=== PATIENT | female | born 1935 | race Caucasian/White ===

== ENCOUNTER 2016-09-01 09:20 | Emergency (ER) | payer MEDICARE, MEDICAID ==
[~2016-09-01] VITALS: Ht 165.1 cm; Wt 97.5 kg
[~2016-09-01 09:20] MED LIST: ACETAMINOPHEN500 M3 PO; GOOD SENSE ASPI81 M1 PO; ISOSORBIDE MONO30 MG PO; OMEPRAZOLE DR20 MG PO; PAROXETINE20 MG PO; TRAMADOL 50MG T50 MG PO; VERAPAMIL SR 2240 MG PO; VITAMIN D31000 IU PO
[2016-09-01 10:13] LABS: LYMPH # 0.5 K/mm3 (0.7-4.5); LYMPH % 9.9 % (10-50.0)
[2016-09-01 10:21] LABS: HEMOGLOBIN 8.6 g/dL (12.2-16.2)
--- NOTE | 2016-09-01 10:41 | Emergency Room Report ---
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 N Clinical Suspician of Infection? N Mental Status: 1 - Regular (Normal Baseline) Sepsis Risk:Possible Sepsis Risk Have you (or family members/close friends) recently traveled outside the [place]? N If Yes, where/when: Have you had exposure to infectious disease within the past month? N TB? Other? Specify: Source patient, RN notes reviewed, family, RN/MD Exam Limitations no limitations Comment 81yo female presents today c/o cough, fever, chills, and body aches x2 days. Pt and family reports pt has been exposed to family members recently diagnosed with pneumonia and Flu. Pt denies SOA, wheezing, n/v/d, or loss of appetite. Family also reports getting monthly iron infusions due to her chronic anemia and renal disease. ALLERGIES Coded Allergies: iodine (Severe, S-ANAPHYLAXIS 09/01/16) Penicillins (Intermediate, I-RASH 09/01/16) codeine (NA-HALLUCINATIONS 09/01/16) Uncoded Allergies: PEROXIDE (12/05/11) Home Medications Reported Medications VERAPAMIL HCL (Verapamil ER) 240 MG PO DAILY PAROXETINE (Paroxetine HCl) 20 MG PO DAILY Omeprazole (Omeprazole Dr) 20 MG PO DAILY Isosorbide Mononitrate (Isosorbide Mononitrate ER) 30 MG PO DAILY Aspirin 81 MG PO DAILY Acetaminophen (Acetaminophen Extra Strength) 500 MG PO Q6HP PRN HIP PAIN CHOLECALCIFEROL (VITAMIN D3) (Vitamin D) 1,000 IUNITS PO DAILY History Medical History General CAD? No Angina: No RI: No Hypertension? Yes Hyperlipidemia? No CHF? No DVT? No PE? No COPD? Yes Asthma? Yes Anemia? Yes GERD? Yes Gastric ulcers? No GI Bleed? No Hernia? Yes Thyroid Problems? No Hypothyroidism? No CVA? No Seizures? No Diabetes? No End Stage Renal Disease? No UTI? Yes Stones? No GB Disease: Yes Nephritic Syndrome? No Asplenia? No Hepatitis? No Sickle Cell Disease? No Arthritis? Yes Migraines? No Cataracts? Yes Glaucoma? No MRSA? No HIV? No TB? No Anxiety? Yes Depression? 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 Immunization Hx DT/Tetanus > 10 YRS Flu NEVER Pneumonia 5-10 YRS Surgical Hx Previous Surgery?Y HEMORRHOID LUMPECTOMY CHOLECYSTECTOMY HIP REPLACEMENT Family History Family Hx Diabetes Yes CAD Yes Hypertension Yes Hyperlipidemia Yes Cancer Yes TB No Social History Smoking Hx Smoker: Former Smoker Tobacco: No Are you/the child exposed to second-hand smoke: No Alcohol Alcohol: No Review of Systems All Other Systems Reviewed and Negative Constitutional see HPI, chills, fever Psychiatric/Neurological weakness Physical Exam Vital Signs Vital Signs Date Time Temp Pulse Resp B/P Pulse O2 O2 Flow FiO2 Ox Delivery Rate 09/01 1156 75 24 121/81 95 09/01 1110 98.5 92 24 123/70 90 09/01 1028 98 24 125/63 94 09/01 0927 99.0 101 24 144/68 93 General Appearance normal appearance, WD/WN Ear, Nose, Throat nasal congestion, pharyngeal erythema Neck normal inspection, non-tender, supple Respiratory Status Yes: non productive cough. No: respiratory distress, tender on palpation, use of accessory muscles, pain on inspiration, pain on expiration. Lung Sounds posterior: crackles, inspiration. left: crackles, inspiration. right: crackles , inspiration. Cardiovascular normal exam, regular rate/rhythm Peripheral Pulses Pulses normal Yes Neurologic alert, normal exam, oriented x 3 Mental status normal mood/affect Medical Decision Making LABS/Meds/Orders Pt receiving controlled substance in ED? No Comment Please admission patient appears medically stable, minimally symptomatic. Advised of low hemoglobin consistent with chronic anemia, and need to follow-up with Dr. Huertas for additional IV infusion. She'll be discharged home on Tamiflu, she'll alternate Motrin Tylenol for fever control. Results/Orders Laboratory Tests 09/01/16 1000: Sodium 138, Potassium 4.2, Chloride 105, Carbon Dioxide 26, BUN 16, Creatinine 1.7 H, Estimated Creat Clear 40 L, Estimated GFR (MDRD) 29 L, Glucose 101, Calcium 8.5, Total Bilirubin 0.2, AST 16, ALT 19, Alkaline Phosphatase 129 H, Total Protein 6.2 L, Albumin 3.0 L, Globulin 3.2, Albumin/Globulin Ratio 0.9 L, WBC 5.4, RBC 3.38 L, Hgb 8.6 L, Hct 27.7 L, MCV 82.0 L, RDW 17.5, Plt Count 255, MPV 8.6, Gran % 80.9 H, Gran # 4.4, Lymphocytes % 9.9 L, Monocytes % 8.1, Eosinophils % 0.6, Basophils % 0.5, Lymphocytes # 0.5 L, Monocytes # 0.4 , Eosinophils # 0.0, Basophils # 0.0, PUBS MCHC 31.1 L, MCH 25.5 L, Influenza Type A Ag DETECTED H, Influenza Type B Ag NOT DETECTED Orders Procedure Date/time Status IV SALINE LOCK 09/01 1005 Active INFLUENZA A&B ANTIGENS 09/01 1000 Complete CBC WITH AUTO DIFF 09/01 937 Complete CHEM 12 PROFILE 09/01 937 Complete XRAY/CT/US XRAY/CT/US XRAY chest XR interpretation by discussed w/radiologist Xray Results no infiltrates, normal heart size, normal lung inflation anthony Departure Departure Time of Disposition 112 Disposition DC Home or Self Care(routine) Clinical Impression Primary Impression: Influenza A Secondary Impressions: Anemia, iron deficiency Qualifiers: Iron deficiency anemia type: unspecified iron deficiency Qualified Code: D50.9 - Iron deficiency anemia, unspecified Condition STABLE Referrals LUIS RODAS P: Today after leaving ER Patient Instructions Anemia of Chronic Disease, DI for Influenza -- Adult Additional Instructions Please take the Tamiflu as instructed, call Dr. Rodas's office today in order to schedule a follow-up appointment, at your earliest convenience (in order to receive iv iron/Venofer). If no better please return promptly to this emergency room for evaluation or follow-up with your PCP. Discharge Counseling Counseled pt/family regarding diagnosis, test results, medications/RX, home care, follow up needs Comment Please take the Tamiflu as instructed, call Dr. Rodas's office today in order to schedule a follow-up appointment, at your earliest convenience (in order to receive iv iron/Venofer). If no better please return promptly to this emergency room for evaluation or follow-up with your PCP. Prescriptions Current Visit Scripts Oseltamivir Phosphate (Tamiflu 75MG Capsule) 75 MG PO BID #10 [facility] ED Critical Care Critical Care No Electronically Signed by Dulce BHAT,Chandler pink 09/02/16 at 5223
[2016-09-01] MEDS ORDERED: TAMIFLU 75MG CA75 MG PO (11:32)
[2016-09-01 11:56] VITALS: BP 121/81
--- NOTE | 2016-09-01 19:57 | RADIOLOGY REPORT PS360 ---
CHEST(2 VIEWS-NOT PORTABLE) ORDERING PHYSICIAN : Chandler Cardona MD PATIENT AGE: 81 years GENDER: Female INDICATION: chest symptomschest pain PROCEDURE: CHEST(2 VIEWS-NOT PORTABLE) COMPARISON: None available FINDINGS: Cardiomegaly. Gilda and mediastinal structures appear satisfactory Lungs hyperexpanded. Flattening of diaphragm increased AP dimension. Coarsening markings bilaterally suggesting chronic change. Question minimal patchy infiltrate at the right upper lobe, right suprahilar region on today's study.. The chronic features here but No prior films for comparison Hiatal hernia likely accounts for the 7 cm diameter soft tissue density behind the heart at midline. Postsurgical changes left axilla likely from previous left breast surgery Chest wall No no significant findings . Slight blunting left CP angle most likely chronic changes less likely small pleural effusion. -----IMPRESSION.------- 1. Cardiomegaly. 2. Hiatal hernia. 3. COPD. Hyperexpansion with chronic changes Question minimal superimposed patchy infiltrate at RUL on today's study.
[2016-10-16] MEDS ORDERED: METAMUCIL660 GM PO (14:55)
== END 2016-09-01 11:57 | disposition home or self-care (01) ==
LOC: ER 09:20
PROVIDERS: Emergency Medicine
DX: J10.1 Influenza due to other identified influenza virus with other respiratory manifestations (principal); Z87.891 Personal history of nicotine dependence; D50.9 Iron deficiency anemia, unspecified; K21.9 Gastro-esophageal reflux disease without esophagitis; J44.9 Chronic obstructive pulmonary disease, unspecified; I10 Essential (primary) hypertension; F41.8 Other specified anxiety disorders

== ENCOUNTER 2017-05-10 17:05 | Observation (INO) | payer MEDICARE, MEDICAID ==
[~2017-05-10] VITALS: Ht 165.1 cm; Wt 95.0 kg
[~2017-05-10 17:05] MED LIST changes: +METAMUCIL660 GM PO; +TAMIFLU 75MG CA75 MG PO
[2017-05-10 17:10] VITALS: BP 129/95
[2017-05-10 17:36] LABS: LYMPH # 1.1 K/mm3 (0.7-4.5); LYMPH % 19.9 % (10-50.0)
--- NOTE | 2017-05-10 17:36 | Emergency Room Report ---
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 N Clinical Suspician of Infection? N Mental Status: 1 - Regular (Normal Baseline) Sepsis Risk:Low Sepsis Risk Have you (or family members/close friends) recently traveled outside the [place]? N If Yes, where/when: Have you had exposure to infectious disease within the past month? N TB? Other? Specify: I READ THE TRIAGE ABOVE. 1 years old white female who tripped at home and hit her RIGHT rib and RIGHT upper quadrant on a chair. She suffered bruising over the RIGHT forearm RIGHT lower chest and RIGHT upper abdomen. There is no shortness of breath no nausea or vomiting. Source patient, RN notes reviewed, family (HER DAUGHTER.) Exam Limitations no limitations ALLERGIES Coded Allergies: Sulfa (Sulfonamide Antibiotics) (Severe, I-HIVES 10/16/16) iodine (Severe, S-ANAPHYLAXIS 09/01/16) Penicillins (Intermediate, I-RASH 09/01/16) codeine (NA-HALLUCINATIONS 09/01/16) hydrogen peroxide (10/28/16) Home Medications Reported Medications VERAPAMIL HCL (Verapamil ER) 240 MG PO DAILY PAROXETINE (Paroxetine HCl) 20 MG PO DAILY Omeprazole (Omeprazole Dr) 20 MG PO DAILY Isosorbide Mononitrate (Isosorbide Mononitrate ER) 30 MG PO DAILY Aspirin 81 MG PO DAILY Acetaminophen (Acetaminophen Extra Strength) 500 MG PO Q6HP PRN HIP PAIN CHOLECALCIFEROL (VITAMIN D3) (Vitamin D) 1,000 IUNITS PO DAILY Psyllium Husk (Metamucil) 660 GM PO DAILY History Medical History General CAD? No Angina: No GA: No Hypertension? Yes Hyperlipidemia? No CHF? No DVT? No PE? No COPD? Yes Asthma? Yes Anemia? Yes GERD? Yes Gastric ulcers? No GI Bleed? No Hernia? Yes Thyroid Problems? No Hypothyroidism? No CVA? No Seizures? No Diabetes? No End Stage Renal Disease? No UTI? Yes Stones? No GB Disease: Yes Nephritic Syndrome? No Asplenia? No Hepatitis? No Sickle Cell Disease? No Arthritis? Yes Migraines? No Cataracts? Yes Glaucoma? No MRSA? No HIV? No TB? No Anxiety? Yes Depression? 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 Respiratory no symptoms reported Cardiovascular no symptoms reported Gastrointestinal no symptoms reported Genitourinary no symptoms reported. Musculoskeletal no symptoms reported Skin see HPI Psychiatric/Neurological no symptoms reported Physical Exam Vital Signs Vital Signs Date Time Temp Pulse Resp B/P Pulse O2 O2 Flow FiO2 Ox Delivery Rate 05/10 1923 67 18 189/87 96 05/10 1801 98.0 65 20 129/84 96 05/10 1710 98.0 65 20 129/95 96 - WBC >12,000 or <4,000 or 10% bands? 2 or more SIRS Criteria Met? B/P:129/95 MAP:106 Creatinine >2.0? UA output<0.5ml/kg/hr for 2 hrs? Platelet count >100,000? Lactate >2.0mmol/1? INR >1.2 or PTT > than 60 sec? Evidence of Organ Dysfunction? Provider documented clinical suspician of infection? N Sepsis Criteria Count: 1 Sepsis Risk: Low Sepsis Risk General Appearance normal appearance, WD/WN Eye Exam - bilateral eye normal exam, bilateral eye PERRL, bilateral eye EOMI Ear, Nose, Throat hearing grossly normal, normal ENT inspection Neck normal inspection, non-tender, supple, full range of motion Respiratory Status Yes: trachea midline, chest symmetrical, non tender chest. No: respiratory distress. Lung Sounds bilateral: normal breath sounds, lungs clear. Cardiovascular normal exam, regular rate/rhythm, no peripheral edema, no gallop, no JVD, no murmur, no rub, normal peripheral pulses Peripheral Pulses Pulses normal Yes Gastrointestinal normal bowel sounds, normal exam, non tender, soft, no organomegaly Back normal inspection (NO VERTEBRAL TENDERNESS) Extremities NO DEFORMITY OR LIMTED ROM OF THE MAJOR JOINTS. 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 ECCHYMOSIS OVER THE LOWER ANTERIOR RIGHT CHEST AND RUQ. Medical Decision Making LABS/Meds/Orders Pt receiving controlled substance in ED? No Results/Orders Laboratory Tests 05/10/17 1725: Sodium 142, Potassium 4.9, Chloride 107, Carbon Dioxide 28, BUN 26 H, Creatinine 1.7 H, Estimated Creat Clear 37 L, Estimated GFR (MDRD) 29 L, Glucose 124 H, Calcium 8.6, Total Bilirubin 0.2, AST 8 L, ALT 12, Alkaline Phosphatase 144 H, Total Protein 6.3 L, Albumin 3.1 L, Globulin 3.2, Albumin/ Globulin Ratio 1.0 L, WBC 5.3, RBC 3.30 L, Hgb 9.6 L, Hct 30.8 L, MCV 93.2, RDW 13.8, Plt Count 256, MPV 7.9, Gran % 71.4, Gran # 3.8, Lymphocytes % 19.9, Monocytes % 6.0, Eosinophils % 1.9, Basophils % 0.8, Lymphocytes # 1.1, Monocytes # 0.3, Eosinophils # 0.1, Basophils # 0.0, PUBS MCHC 31.2 L, MCH 29.1 Current Medication Orders Sig/Yesi Start time Last Medication Dose Route Stop Time Status Admin Sodium Chloride 500 ML .STK-MED ONE 05/10 175 DC IV Bacitracin 0 .STK-MED ONE 05/10 173 DC TP Orders Procedure Date/time Status DIET-NOTHING BY MOUTH 05/[address] ABD/PELVIS REQ 05/10 1715 Active [id number] VIEWS 05/10 1715 Active CHEST(2 VIEWS-NOT PORTABLE) 05/10 1715 Active CBC WITH AUTO DIFF 05/10 1715 Complete CHEM 12 PROFILE 05/10 1715 Complete XRAY/CT/US XRAY/CT/US XRAY chest, rib XR interpretation by reviewed by me Xray Results no fracture seen, no pneumo or hydrothorax. Departure Departure Time of Disposition 1733 Disposition DC Home or Self Care(routine) Clinical Impression Primary Impression: Contusion, chest wall Secondary Impressions: Abdominal wall contusion, Anemia, Blunt abdominal trauma, Chronic renal failure, Skin tear Condition STABLE Referrals Elena BHAT,Thanh (Family) Additional Instructions the patienthad poor gfr was rehydrated and before the IVP dye she told the staff that she is allergic to the dye the test was done wihtout a dye. Her daughter was aware. I spoke with her daughter nik is aware of the options. I discussed with Dr. Hairston who will admit for Dr Parker for an Abdominal US in AM and repeated labs as the CT scan was done without a dye. the patietn is agreeable for admission. I did repair her skin tears to best possible. applied steristrips and bacitracin ointment. Discharge Counseling Counseled pt/family regarding diagnosis, test results, medications/RX, follow up needs ED Critical Care Critical Care No If Critical Care minutes are documented, the time involved in the performance of seperately reportable procedures was not counted toward critical care time documented. I directly delivered medical care to this critically ill and/or injured patient. Timely evaluation and treatment was necessary to address the significant organ system(s) dysfunction present in this patient. at 1930
[2017-05-10 18:38] LABS: HEMOGLOBIN 9.6 g/dL (12.2-16.2)
--- NOTE | 2017-05-10 19:17 | RADIOLOGY REPORT PS360 ---
CT ABD PELVIS W/O CONTRAST CLINICAL INDICATION: C/O RUQ ABDOMEN PAIN.FELL ONTO CHAIR=BRK. IODINE ALLERGY ORDERING PHYSICIAN: Phi Aburto MD PATIENT AGE: 81 years COMPARISON: None TECHNIQUE: Axial images obtained with sagittal and coronal reformats. PROCEDURE: Oral Contrast: None IV Contrast: None . FINDINGS: No acute finding in the lower chest. There is a small hiatal hernia and there are coronary artery calcifications. The liver, spleen, adrenal glands and pancreas have an unremarkable unenhanced CT appearance. No obvious hepatic laceration or perihepatic hematoma evident. There are bilateral renal cysts largest on the left at 8.2 x 6.4 cm. No obstructing renal or ureteral calculi. No intestinal obstruction or free air. No evidence of appendicitis or diverticulitis. There is diverticulosis. There is a small umbilical hernia containing fat. Artifact is present from right hip prosthesis. No acute bony anomalies. IMPRESSION: 1. No acute intra-abdominal or pelvic pathology. 2. Right abdominal wall contusion. 3. Diverticulosis. 4. Bilateral renal cysts Increased density involves the subcutaneous fat of the right mid abdominal region consistent with contusion.
[2017-05-10 20:43] VITALS: BP 160/99
[2017-05-10 21:32] VITALS: BP 154/81
[2017-05-11 04:29] VITALS: BP 184/79
[2017-05-11 06:29] LABS: HEMOGLOBIN 9.7 g/dL (12.2-16.2); LYMPH # 1.1 K/mm3 (0.7-4.5); LYMPH % 25.4 % (10-50.0)
--- NOTE | 2017-05-11 06:59 | RADIOLOGY REPORT PS360 ---
CHEST(2 VIEWS-NOT PORTABLE) HISTORY: Chest pain following injury TRAUMA ORDERING PHYSICIAN: Phi Aburto MD PATIENT AGE: 81 years COMPARISON: 09/01/2016 FINDINGS: There is cardiomegaly with mild pulmonary venous congestion consistent with mild CHF. There are small bilateral pleural effusions. Present in the left axilla. No lobar consolidation or collapse. Chronic changes are noted. There are mild degenerative changes in the thoracic spine. Hiatal hernia noted. No acute bony anomalies IMPRESSION: Mild CHF with small bilateral effusions
--- NOTE | 2017-05-11 07:01 | RADIOLOGY REPORT PS360 ---
[id number] VIEWS HISTORY: Right-sided rib pain following injury TRAUMA ORDERING PHYSICIAN: Phi Aburto MD PATIENT AGE: 81 years COMPARISON: None FINDINGS: Multiple views of the right ribs are obtained. No displaced fracture evident. If pain persists then, would consider follow-up study in 7-[address] with 3-D reformats IMPRESSION: Negative right ribs
--- NOTE | 2017-05-11 07:25 | PHARMACY CLINIC NOTE ---
Patient Demographics Patient Demographics Admission date: 05/10/17 Date: 05/11/17 Time: 0724 Allergies Coded Allergies: Sulfa (Sulfonamide Antibiotics) (Severe, I-HIVES 10/16/16) iodine (Severe, S-ANAPHYLAXIS 09/01/16) Penicillins (Intermediate, I-RASH 09/01/16) codeine (NA-HALLUCINATIONS 09/01/16) hydrogen peroxide (10/28/16) HEIGHT- FT: 5 IN: 5.00 K.029 VTE General Information Labs: Laboratory Tests 05/11 05/10 0609 1725 Hematology Hgb (12.2 - 16.2 g/dL) 9.7 L 9.6 L Hct (37.0 - 47.0 %) 30.5 L 30.8 L Plt Count (142 - 424 K/mm3) 241 256 Disclaimer The following section includes nursing documentation that has been pulled in for pharmacy review. Patient's VTE score: 3 Patient's VTE Risk: LOW RISK Clinical trial participant? No VTE prophylaxis [id number] [id number] VTE prophylaxis ordered? Yes Type of prophylaxis/treatment: CLEO at 0724
[2017-05-11 07:37] VITALS: BP 188/95
--- NOTE | 2017-05-11 08:20 | Discharge Summary Standard ---
Demographics: Admit date: 05/10/17 Chief complaint: Fall with abdominal pain PRIMARY DIAGNOSIS: abdominal wall contusion Allergies: Coded Allergies: Sulfa (Sulfonamide Antibiotics) (Severe, I-HIVES 10/16/16) iodine (Severe, S-ANAPHYLAXIS 09/01/16) Penicillins (Intermediate, I-RASH 09/01/16) codeine (NA-HALLUCINATIONS 09/01/16) hydrogen peroxide (10/28/16) History of present illness: History of present illness: Patient was brought to the emergency department a couple of hours after suffering a mechanical fall at her home. She states she was walking her living room and her foot caught over the [edge of a tile that was on her floor. She tripped and fell over the edge of a chair, striking the RIGHT upper quadrant and causing significant pain. She was unable to walk because of breathlessness and reported to the emergency department. In the emergency department CT scan and labs were essentially unremarkable except for the presence of an abdominal wall contusion but no evidence of intraorgan pathology. She was admitted to second floor for observation and further diagnostic testing as needed. This morning she feels good, she's been able to get up and go to the restroom by herself, she denies hematuria, coughing, spitting up blood or malfunction of bowels. She's had a normal bowel movement this morning. Of note, she reports that at home she was not using her cane inside the house but normally uses this device. Past medical history: Family HX Diabetes Yes CAD Yes Hypertension Yes Hyperlipidemia Yes Cancer Yes TB No Immunization HX DT/Tetanus 1-4 Years Ago Flu NEVER Pneumonia Received In Past TB Test in last year No General CAD? No Angina: No IN: No Hypertension? Yes Hyperlipidemia? No CHF? No DVT? No PE? No COPD? Yes Asthma? Yes Anemia? Yes GERD? Yes Gastric ulcers? No GI Bleed? No Hernia? Yes Thyroid Problems? No Hypothyroidism? No CVA? No Seizures? No Diabetes? No UTI? Yes Stones? No GB Disease: Yes Nephritic Syndrome? No Asplenia? No Hepatitis? No Sickle Cell Disease? No Arthritis? Yes Migraines? No Cataracts? Yes Glaucoma? No MRSA? No HIV? No TB? No Anxiety? Yes Depression? 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 No Patien't marital status is single Patient's support system is excellent Review of systems: Constitutional No: no symptoms reported. Respiratory No: no symptoms reported. Cardiovascular No no symptoms reported Gastrointestinal/Abdominal No no symptoms reported Genitourinary No: no symptoms reported. Musculoskeletal No: no symptoms reported. Neurological No: see HPI. Exam: Lab data for last 24 hours: Laboratory Tests 05/11/17 0609: Sodium 142, Potassium 4.4, Chloride 108 H, Carbon Dioxide 28, BUN 21 H, Creatinine 1.4 H, Estimated Creat Clear 47 L, Estimated GFR (MDRD) 36 L, Glucose 87, Calcium 8.9, WBC 4.3 L, RBC 3.30 L, Hgb 9.7 L, Hct 30.5 L, MCV 92.3, RDW 13.9, Plt Count 241, MPV 7.4, Gran % 61.5, Gran # 2.6, Lymphocytes % 25.4, Monocytes % 8.3, Eosinophils % 4.1, Basophils % 0.6, Lymphocytes # 1.1, Monocytes # 0.4, Eosinophils # 0.2, Basophils # 0.0, PUBS MCHC 31.8, MCH 29.3 05/10/17 1725: Sodium 142, Potassium 4.9, Chloride 107, Carbon Dioxide 28, BUN 26 H, Creatinine 1.7 H, Estimated Creat Clear 37 L, Estimated GFR (MDRD) 29 L, Glucose 124 H, Calcium 8.6, Total Bilirubin 0.2, AST 8 L, ALT 12, Alkaline Phosphatase 144 H, Total Protein 6.3 L, Albumin 3.1 L, Globulin 3.2, Albumin/ Globulin Ratio 1.0 L, WBC 5.3, RBC 3.30 L, Hgb 9.6 L, Hct 30.8 L, MCV 93.2, RDW 13.8, Plt Count 256, MPV 7.9, Gran % 71.4, Gran # 3.8, Lymphocytes % 19.9, Monocytes % 6.0, Eosinophils % 1.9, Basophils % 0.8, Lymphocytes # 1.1, Monocytes # 0.3, Eosinophils # 0.1, Basophils # 0.0, PUBS MCHC 31.2 L, MCH 29.1 Admission vital signs: 1ST Vital Signs Result Date Time Pulse Ox 96 05/10 1710 B/P 129/95 05/10 1710 Temp 98.0 05/10 1710 Pulse 65 05/10 1710 Resp 20 05/10 1710 O2 Delivery ROOM AIR 05/10 2043 Additional information: ENT exam clear. Lungs are clear, heart rate regular. Abdomen is soft, there is bruising noted in the RIGHT upper quadrant and below the RIGHT breast consistent with her reported injury. This area is tender, but no deep tenderness or rebound or guarding. No Jaimes sign. No periumbilical or flank bruising. She has no epigastric tenderness. No CVA tenderness. Able to move extremities well. No edema noted. Hospital Course Hospital Course: Patient was evaluated overnight, did well, no complaints this morning. Hemoglobin is unremarkable this morning. Labs are unremarkable. Plan will be to discharge home with close follow-up in my office. I've advised her to use her cane whenever she ambulates. Medications Medications: Discharge meds are as noted. Follow up Follow up in office in: 2 DAYS with: Shruti Joe APRN at 0819
[2017-05-11 08:37] VITALS: BP 188/95
[2017-05-11 09:50] VITALS: BP 188/95
--- OUTSIDE RECORDS SUMMARY | 2017-06-08 04:49 | External Medical Summary Rpt ---
Author Author , LOULOU JAMIL Address Unknown Phone [email or web address] Providers Care Warehouse Assistant Name Role Phone ALLRAN JR ROME, ALLRAN Unavailable Unavailable JR ROME ANYA FRA, ANYA Unavailable Unavailable FRA ANYA FRA, ANYA Unavailable Unavailable FRA RODRIGUEZ, RODRIGUEZ Unavailable Unavailable BESSON LJ, BESSON Unavailable Unavailable LJ BESSON LJ, BESSON Unavailable Unavailable LJ BESSON, ROBERT A, Unavailable Unavailable BESSON, ROBERT A [facility] Un[facility]available [facility], [facility] MONTIEL, MONTIEL Unavailable Unavailable BORAL RADHA, BORAL RADHA Unavailable Unavailable [facility] Unavailable Unavailable INC, [facility] TOWNSEND, Unavailable Unavailable [facility], Unavailable Unavailable [facility] RAMIRO VERAS, RUBIO Unavailable Unavailable JESSICA FERGUSONE Unavailable Unavailable ROMAN ROBERTS, Unavailable Unavailable ROMAN RUBIO [facility] Unavailable Unavailable [facility], [facility] TORRES PREET, TORRES PREET Unavailable Unavailable JAMAR DUGGAN, JAMAR JR Unavailable Unavailable ENRIQUETA, ENRIQUETA Unavailable Unavailable ENRIQUETA BRITTANY, Unavailable Unavailable ENRIQUETA BRITTANY ENRIQUETA BRITTANY, Unavailable Unavailable ENRIQUETA BRITTANY JOHN ROBISONLAS, Unavailable Unavailable ENRIQUETA, KHALIDA [facility] Unavailable [facility]available [facility], [facility] ADRIANNA, ADRIANNA Unavailable Unavailable ADRIANAN PHI, Unavailable Unavailable ADRIANNA PHI DUDEE HANNAH, DUDEE HANNAH Unavailable Unavailable DUDEE HANNAH, DUDEE HANNAH Unavailable Unavailable DUDEE, JITANDER S, Unavailable Unavailable DUDEE, JITANDER S FALLUJI YAMILETH, FALLUJI Unavailable Unavailable YAMILETH FALLUNIKKO CARSON, FALLUJI Unavailable Unavailable FRANKIE SIMENTAL, Unavailable Unavailable FRANKIE CONTRERAS, Unavailable Unavailable CARLOS CONNELLY JENNIFER K [facility] Unavailable Unavailable INC, [facility] Unavailable Unavailable HOSPITAL P, [facility] CLANCY ARLET, CLANCY Unavailable Unavailable ARLET CLANCY ARLET, CLANCY Unavailable Unavailable ARLET CLANCY, TREVOR S, Unavailable Unavailable CLANCY, TREVOR S SANIA, SANIA AGUILAR, Unavailable Unavailable CORIE BRASWELL Unavailable Unavailable [facility], Unavailable Unavailable [facility] AMOS TRA, AMOS TRA Unavailable Unavailable MICHAEL NAN, MICHAEL Unavailable Unavailable NAN MICHAEL NAN, MICHAEL Unavailable Unavailable NAN [facility], [facility] Un[facility], [facility] CHARANJIT, TEJA E, Unavailable Unavailable CHARANJIT, TEJA E [facility] Unavailable Unavailable INTERNAL MED, [facility] LINGREEN ARLET, Unavailable Unavailable LINGREEN ARLET MACIVOR DUN, MACIVOR Unavailable Unavailable DUN [facility] Unavailable Unavailable [facility]AT, [facility] MCKEMIE JR CHINCHILLA, Unavailable Unavailable MCKEMIE JR RENÉE PETERSENKEMIOdilon CHINCHILLA, Unavailable Unavailable RAE JUÁREZ JR, JR Unavailable Unavailable F, RAE SHERIFF JR F [facility], [facility] Unavailable Unavailable [facility] H[facility], [facility], [facility] LAURA SMITH, Unavailable Unavailable LAURA SMITH WILLIAM F, Unavailable Unavailable RAE MACIAS [facility], Unavailable Unavailable [facility] MOMO GRIFFITH, Unavailable Unavailable MOMO GRIFFITH MD Unavailable Unavailable [facility] Unavailable Unavailable LAB, [facility] DAMON SALMA, DAMON SALMA Unavailable Unavailable DAMON SALMA, DAMON SALMA Unavailable Unavailable DAMON, CUONG, ADMON, Unavailable Unavailable CUONG PETTEY JAM, PETTEY Unavailable Unavailable JAM FELA DENISE, FELA Unavailable Unavailable DENISE SCHULSTAD, DASHA, Unavailable Unavailable SCHULSTAD, DASHA MARINA ISMAEL, MARINA Unavailable Unavailable ISMAEL [facility], Unavailable Unavailable [facility], Unavailable Unavailable [facility] BURCH, BURCH Unavailable Unavailable BURCH POLLO, BURCH POLLO Unavailable Unavailable Purpose Continuity of Care Document - 11-12-2007 through 2016 Problems Code Diagnosis DOS Provider Status [id number] PAIN IN 03-05-2017 [facility] D509 IRON 12-24-2016 [facility] P UNSPECIFIED D631 ANEMIA IN 12-24-2016 [facility] DISEASE I129 HYPERTENSIV 12-24-2016 [facility] CKD [facility] W/STAGE 1-4 [facility]ATION CKD OR UNS CKD M8580 OTH SPEC 12-24-2016 [facility] D/O BONE SERV DENSITY [facility] STRUCTURE UNS SITE N184 CHRONIC 12-24-2016 [facility] DISEASE [facility] STAGE 4 SEVERE N250 RENAL 12-24-2016 [facility] OSTEODYSTRO SERV PHY [facility] 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 L570 ACTINIC 12-04-2016 [facility] KERATOSIS [facility] L820 INFLAMED 12-04-2016 [facility] SEBORRHEIC KERATOSIS [facility] P[facility] L821 OTHER 12-04-2016 [facility] SEBORRHEIC KERATOSIS [facility] D649 ANEMIA 11-12-2016 [facility] UNSPECIFIED [facility] P [id number] ADVERSE 10-28-2016 [facility] EFFECT IRON [facility] INC COMPOUNDS INITIAL ENC 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-29-2016 [facility] OSTEOARTHRI S PSC TIS LEFT KNEE R079 CHEST PAIN 09-01-2016 [facility] J180 BRONCHOPNEU 05-15-2016 [facility] [place] [facility] UNSPECIFIED INTERNAL ORGANISM MED D638 ANEMIA IN 02-28-2016 [facility] OTHER [facility] DISEASES CLASSIFIED ELSW N183 CHRONIC 02-28-2016 [facility] DISEASE [facility] STAGE 3 MODERATE 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 11-19-2015 [facility] OF OTHER VALLEY SPECIFIED B INTERNAL GROUP MED VITAMINS X94853 EFFUSION 11-15-2015 [facility] U74125 PAIN IN 11-15-2015 [facility] M7120 SYNOVIAL 11-15-2015 [facility] CYST MEDICAL POPLITEAL IMAGING ASS SPACE BURNS UNS KNEE [id number] OTH TEAR 11-15-2015 [facility] MENISCUS [facility] CURR INJ LT KNEE INIT ENC E785 HYPERLIPIDE 11-08-2015 [facility] JONE [facility] UNSPECIFIED INTERNAL MED N182 CHRONIC 11-08-2015 [facility] KIDNEY [facility]LEY DISEASE INTERNAL STAGE 2 MED MILD Z0000 ENCOUNTER 11-08-2015 [facility] GEN ADULT VALLEY MED EXAM INTERNAL W/O MED ABNORMAL FIND Z23 ENCOUNTER 11-08-2015 [facility] FOR [facility] IMMUNIZATIO INTERNAL N MED Z853 PERSONAL 11-08-2015 [facility] 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 Z862 PERSONAL HX 11-08-2015 [facility] DZ VALLEY BLOOD&BLOOD INTERNAL FORM ORGN MED IMMUNE MECH J0100 ACUTE 10-29-2015 [facility] MAXILLARY [facility]LEY SINUSITIS INTERNAL UNSPECIFIED MED M5432 SCIATICA 06-26-2015 [facility] LEFT SIDE VALLEY INTERNAL MED 2809 UNSPECIFIED 03-02-2015 [facility] IRON [facility] DEFICIENCY INC ANEMIA 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 2859 UNSPECIFIED 02-20-2015 [facility] ANEMIA [facility]YS[facility]IANS GROUP 5533 DIAPHRAGMAT 02-20-2015 [facility] VIRGIL W/O PHYSICIANS MENTION GROUP OBSTRUCTION /GANGREN 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 5781 BLOOD IN 02-20-2015 [facility] STOOL PHYSICIANS GROUP 2808 OTHER 02-06-2015 [facility] SPECIFIED PHYSICIANS IRON GROUP DEFICIENCY ANEMIAS 57199 ANEMIA IN 09-28-2014 [facility] DISEASE 52149 HTN CKD UNS 09-28-2014 [facility] W/CKD SERV STAGE I [facility]OUNDATION THRU STAGE IV/UNS 5853 CHRONIC 09-28-2014 [facility] STAGE III (MODERATE) 5880 RENAL 09-28-2014 [facility] OSTEODYSTRO SERV PHY [facility] 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 HANNAH 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 89754 CHANGES IN 03-14-2014 DUDEE HANNAH VASCULAR APPEARANCE OF RETINA 46851 ANEMIA OF 11-24-2013 [facility] DISEASE 4019 UNSPECIFIED 11-24-2013 [facility] ESSENTIAL [facility] HYPERTENSIO [facility]OUNDATION N 2662 OTHER 06-13-2013 [facility] B-COMPLEX DEFICIENCIE S 2811 OTHER 06-06-2013 [facility] VITAMIN B12 DEFICIENCY ANEMIA V4364 HIP JOINT 04-05-2013 [facility], REPLACEMENT TETRYL SCREEN OPERATOR BY OTHER [facility] [place] [facility] V571 OTHER 04-05-2013 [facility], PHYSICAL TETRYL SCREEN OPERATOR [place]ER[place] [facility] [place] [facility] 04856 PAIN IN 03-23-2013 [facility] JOINT PELVIC REGION AND THIGH 7295 PAIN IN 03-23-2013 [facility], SOFT TETRYL SCREEN OPERATOR TISSUES OF [facility] 50712 SWELLING OF 03-23-2013 CLANCY ARLET [place] 23695 OTHER 03-23-2013 [facility], MALAISE AND TETRYL SCREEN OPER[place] [facility] [address]121 ABDOMINAL 03-23-2013 [facility], PAIN RIGHT TETRYL SCREEN OPERATOR LOWER [facility] 78518 ABDOMINAL 03-23-2013 [facility], PAIN, LEFT TETRYL SCREEN OPERATOR LOWER [facility] 28419 ABDOMINAL 03-23-2013 [facility], TENDERNESS TETRYL SCREEN OPERATOR RIGHT LOWER [facility] 8479 SPRAIN AND 03-23-2013 [facility], STRAIN OF TETRYL SCREEN OPERATOR UNSPECIFIED [facility] SITE OF HOS BACK V4589 OTHER 03-23-2013 [facility], POSTSURGICA TETRYL SCREEN OPERATOR L STATUS [facility] OTHER [facility]OS V5869 LONG-TERM 03-23-2013 [facility], (CURRENT) TETRYL SCREEN OPERATOR USE OF [facility] OTHER HOS MEDICATIONS 7823 EDEMA 03-22-2013 [facility], TETRYL SCREEN [place] [facility] [facility] 45684 OSTEOARTHRO 02-15-2013 MARINA ISMAEL S UNSPEC GEN/LOC PELV REGION&THIG H V5481 AFTERCARE 02-15-2013 ANYA FRA FOLLOWING JOINT REPLACEMENT 54736 COR 02-14-2013 FALLUJI YAMILETH ATHEROSLERO UNSPEC TYPE VESSEL [place]/J[place]É MIGUEL T 86640 OTH 02-14-2013 FALLUJI YAMILETH NONSPECIFIC ABNORM CV SYSTEM FUNCTION STUDY V7283 OTHER 02-09-2013 [facility] PRE-OPERATI VE EXAMINATION V700 ROUTINE 02-01-2013 LEE ANN [facility] GENERAL MEDICAL EXAM@HEALTH CARE FACL V7284 UNSPECIFIED 01-31-2013 [facility] PRE-OPERATI VE EXAMINATION 4011 ESSENTIAL 01-20-2013 FALLUJI YAMILEHT HYPERTENSIO N, BENIGN 90516 NONSPECIFIC 01-20-2013 FALLUJI YAMILETH ABNORMAL ELECTROCARD IOGRAM 3671 MYOPIA 12-22-2012 DUDEE HANNAH 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 3674 PRESBYOPIA 12-22-2012 DUDEE HANNAH 5939 UNSPECIFIED 09-28-2012 ENRIQUETA DISORDER BRITTANY OF KIDNEY AND URETER 89570 OTHER 09-08-2012 SHARITA DUGGAN SPECIFIED RENÉE CARDIAC DYSRHYTHMIA S 4293 CARDIOMEGAL 09-08-2012 RAMIRO VERAS Y 7802 SYNCOPE AND 09-08-2012 SHARITA DUGGAN COLLAPSE RENÉE 2724 OTHER AND 07-14-2012 MICHAEL SINDY UNSPECIFIED HYPERLIPIDE JONE 90487 ESOPHAGEAL 07-14-2012 MICHAEL CALLAHAN REFLUX 8438 SPRAIN&STRA 07-14-2012 MICHAEL CALLAHAN IN OTHER SPECIFIED SITES HIP&THIGH 44281 PRIMARY LOC 01-30-2012 [facility] OSTEOARTHRO INC SIS PELVIC REGION&THIG H 7242 LUMBAGO 01-30-2012 [facility] INC 60601 DEGEN 12-30-2011 [facility] 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 82592 SPINAL STEN 12-30-2011 PETTEY JAM 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 96157 DISPLCMT 12-11-2011 [facility] LUMBAR [facility]ICAL INTERVERT IMAGING ASS DISC W/O MYELOPATHY 4553 EXTERNAL 12-08-2011 DAMON SALMA HEMORRHOIDS WITHOUT MENTION COMP 5693 HEMORRHAGE 12-08-2011 DAMON SALMA OF RECTUM AND ANUS 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-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 97118 AFTER-CATAR 11-19-2011 DUDEE HANNAH ACT, OBSCURING VISION 01384 KERATOCONJU 11-19-2011 DUDEE HANNAH NCTIVITIS SICCA NOT SPEC SJOGRENS 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 13992 NUCLEAR 11-04-2011 DUDEE HANNAH SCLEROSIS 3670 HYPERMETROP 11-04-2011 [place] [address] VITREOUS 11-04-2011 DUDEE HANNAH DEGENERATIO N 4550 INTERNAL 11-04-2011 MICHAEL CALLAHAN HEMORRHOIDS WITHOUT MENTION COMP 7243 SCIATICA 09-29-2011 LEE ANN LJ 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 V7611 SCREENING 07-10-2010 [facility] [place] [facility] PATIENT V7612 OTHER 07-10-2010 [facility]CRE[facility] MAMMOGRAM ASSOCIAT 7852 UNDIAGNOSED 05-07-2010 [facility] T[place]RES [place] 30516 SHORTNESS 05-07-2010 [facility] TORRES OF BREATH CONSULTING SRV 4299 UNSPECIFIED 05-02-2010 [facility] DISEASE 79743 OTHER 05-02-2010 [facility] [place]SPNE[place] [address] PAIN IN 02-11-2010 [facility] JOINT, [facility] LOWER LEG INC 23662 DIAB W/O 02-04-2010 [facility] COMP TYPE [facility] II/UNS NOT INC STATED UNCNTRL 5789 UNSPECIFIED 02-04-2010 [facility] HEMORRHAGE [facility] OF INC GASTROINTES TINAL TRACT 32374 EFFUSION OF 01-15-2010 ENRIQUETA, LOWER LEG KHALIDA JOINT 17617 SYNOVIAL 01-15-2010 ENRIQUETA, CYST OF KHALIDA POPLITEAL SPACE 6271 POSTMENOPAU 10-31-2009 [facility] 460 ACUTE 10-11-2009 [facility] NASOPHARYNG VALLEY ITIS INTERNAL MED 490 BRONCHITIS 10-11-2009 [facility] NOT VALLEY SPECIFIED INTERNAL ACUTE OR MED CHRONIC 53678 CALCU 04-30-2009 SCHUL[facility]AD, GALLBLADD DASHA W/OTH CHOLECYST W/O MENTION OBST 10489 CALCU 04-30-2009 [facility] GALLBLADD ANESTH OF W/O MENTION [facility] CHOLECYST/O BST 16503 CHRONIC 04-30-2009 PATHOLOGY & CHOLECYSTIT CYTOLOGY IS LAB 17692 ABDOMINAL 04-30-2009 SCHULSTAD, PAIN RIGHT DASHA UPPER QUADRANT 4139 OTHER AND 04-10-2009 NEW UNSPECIFIED [facility] P[place]ORIS 14991 CORONARY 04-10-2009 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 [facility] FAILURE UNSPECIFIED 5770 ACUTE 03-24-2009 [facility] S 4556 UNSPEC 03-05-2009 [facility] HEMORRHOIDS [facility] WITHOUT INC MENTION COMPLICATIO N 7019 UNSPECIFIED 03-05-2009 [facility] HYPERTROPHI INC C&ATROPHIC CONDITION SKIN 19682 CHEST PAIN 02-26-2009 [facility] UNSPECIFIED [facility] PROF SERV 7859 OTHER 02-23-2009 [facility] SYMPTOMS [facility]IOLOGY INVOLVING ASSOCIATES CARDIOVASCU PSC LAR SYSTEM V1589 OTH SPEC 05-15-2008 [facility] PRESENTING [facility] HEALTH OTH 72677 UNSPECIFIED 03-01-2008 [facility] [facility]AG[facility] S ASSOCIATES V7231 ROUTINE 02-10-2008 [facility] EXAMINATION [facility] 84629 HYPERTENSIV 12-22-2007 SORIN Odilon BRADSHAW S RETINOPATHY 0579 UNSPECIFIED 11-12-2007 [facility] VIRAL VALLEY EXANTHEM INTERNAL MED 786.50 D50.9 IRON DEFICIENCY ANEMIA, UNSPECIFIED D64.9 ANEMIA, UNSPECIFIED [id number] J10.1 FLU DUE TO OTH IDENT INFLUENZA VIRUS W OTH RESP MANIFEST M81.0 AGE-RELATED OSTEOPOROSI S W/O CURRENT PATHOLOGICA L FRACTURE N18.3 CHRONIC KIDNEY DISEASE, STAGE 3 (MODERATE) N18.9 CHRONIC KIDNEY DISEASE, UNSPECIFIED N25.0 RENAL OSTEODYSTRO PHY R53.83 OTHER FATIGUE S20.219A CONTUSION OF UNSPECIFIED FRONT WALL OF THORAX, INIT ENCNTR S30.1XXA CONTUSION OF ABDOMINAL WALL, INITIAL ENCOUNTER S39.81XA OTHER SPECIFIED INJURIES OF ABDOMEN, INITIAL ENCOUNTER Z79.899 OTHER PRODUCTION EDITOR (CURRENT) DRUG THERAPY Immunization Name Date Rout CVX Reac Dose Comm Prov Is Faci e tion ent ider Refu lity Give sed n PPSV 03-1 33 VINICIUS No LICK 23 0-20 ON ING VACC 16 LJ VALL INE EY 2 INTE YRS RNAL OR MED OLDE R FOR SUBQ /IM USE Procedures Procedure DOS Code Location Performer Comment DUP-SCAN 91785 [facility] MONTIEL XTR VEINS 7 MEDICAL IMAGING UNILATERA ASS L/LIMITED STUDY DESTRUCTI 03649 DERMATOLO DERMATOLO ON 7 GY GY PREMALIGN CONSULTAN CONSULTAN ANT [place] 1[place] [address] [facility] INFUSION 7 [facility]OS[facility] THERAPY/P INC INC ROPHYLAXI S /DX 1ST TO 1 [place] [address] [facility]Y INFUSION 7 [facility]OS[facility] THERAPY/P INC INC ROPHYLAXI S /DX 1ST [place] [address] [facility] INFUSION 7 [facility]OS[facility] THERAPY/P INC INC ROPHYLAXI S /DX 1ST TO 1 HR INJECTION J3301 [facility] FONTENOT 7 TRIAMCINO ORTHOPAED LONE ICS PSC ACETONIDE NOS 10 MG ARTHROCEN 83103 [facility] TESIS 7 ASPIR&/IN ORTHOPAED ORTHOPAED J MAJOR ICS PSC ICS PSC JT/BURSA W/O US RADIOLOGI 43940 PAYAL ROBISON C EXAM 7 MEDICAL CHEST 2 IMAGING VIEWS ASS FRONTAL&L ATERAL RADIOLOGI 33376 CHRIS Atkinson 6 EN EXAMINATI ORTHOPAED ON KNEE ICS PSC 1/2 VIEWS ARTHROCEN 85119 CHRIS LAMBERTIS 6 EN ASPIR&/IN ORTHOPAED J MAJOR ICS PSC JT/BURSA W/O US INJECTION J3301 CHRIS ESCOBAR 6 EN TRIAMCINO ORTHOPAED LONE ICS PSC ACETONIDE NOS 10 MG THERAPEUT 98415 [facility] BESSON IC 6 VALLEY LJ PROPHYLAC INTERNAL TIC/DX MED INJECTION SUBQ/IM INJECTION J3420 [facility] BESSON VIT B-12 6 VALLEY LJ INTERNAL CYANOCOBA MED CHOCO TO 1000 MCG MRI ANY 66318 [facility] B[facility]HART JT LOWER 6 MEM HOSP [facility] HOS[facility] EXTREM INC INC W/O CONTRAST MATRL ANNUAL G0438 [facility]ESS[facility] WELLNESS 6 VALLEY LJ VISIT; INTERNAL PERSONALI MED Z PPS INIT VISIT PPSV23 17218 [facility] VACCINE 2 6 VALLEY LJ YRS OR INTERNAL OLDER FOR MED SUBQ/IM USE COLLECTIO 54342 [facility] BESSON N VENOUS 6 VALLEY LJ BLOOD INTERNAL VENIPUNCT MED URE ADMINISTR G0009 [facility] BESSON ATION OF 6 VALLEY LJ PNEUMOCOC INTERNAL TERRANCE MED VACCINE THERAPEUT 94656 [facility] RODRIGUEZ IC 6 VALLEY PROPHYLAC INTERNAL TIC/DX MED INJECTION SUBQ/IM INJECTION J3301 [facility] RODRIGUEZ 6 VALLEY TRIAMCINO INTERNAL LONE MED ACETONIDE NOS 10 [place] [address] [facility] PAULSONON INFUSION 5 MEM HOSP MEM HOSP THERAPY/P INC INC ROPHYLAXI S /DX 1ST TO 1 [place] [address] [facility] [place] INFUSION 5 MEM HOSP MEM HOSP THERAPY/P INC INC ROPHYLAXI S /DX 1ST TO 1 [place] [address] [facility] [place] INFUSION 5 [facility] THERAPY INC INC PROPHYLAX IS/DX EA HOUR EGD 27444 [facility] YESI DUGGAN TRANSORAL 5 PHYSICIAN ROME BIOPSY S GROUP SINGLE/MU LTIPLE COLSC FLX 22432 [facility] YESI DUGGAN W/RMVL 5 PHYSICIAN ROME OF [place]UM[place] [address] [facility] OBEY INFUSION 5 MEM HOSP MEM HOSP THERAPY/P INC INC ROPHYLAXI S /DX 1ST [place] [address] [facility] OBEY INFUSION 5 MEM HOSP MEM HOSP THERAPY/P INC INC ROPHYLAXI S /DX 1ST TO [place] [address] [facility] OBEY INFUSION 5 MEM HOS[facility] MEM HOSP THERAPY/P INC INC ROPHYLAXI S /DX 1ST [place] [address] [facility]Y INFUSION 5 MEM HOS[facility] HOS[facility] THERAPY/P INC INC ROPHYLAXI S /DX 1ST TO 1 HR TRANSFUSI 18005 [facility] ON 5 [facility]OS[facility]OS[facility] BLOOD/BLO INC INC OD COMPONENT S TRANSFUSI 25240 [facility] ON 4 [facility]OS[facility]OS[facility] BLOOD/BLO INC INC OD COMPONENT S ANTIBODY 52606 [facility] SCREEN 4 [facility]OS[facility]OS[facility] RBC EACH INC INC SERUM TECHNIQUE OPHTH 72982 DUDEE HANNAH DUDEE HANNAH MEDICAL 4 XM&EVAL INTERMEDI ATE ESTAB PT VISUAL 89667 DUDEE HANNAH DUDEE HANNAH FIELD XM 4 UNI/BI W/INTERP EXTENDED EXAM COMPUTERI 34670 DUDEE HANNAH DUDEE HANNAH ZED 4 OPHTHALMI C IMAGING OPTIC NERVE COMPUTERI 87663 DUDEE HANNAH DUDEE HANNAH ZED 4 OPHTHALMI C IMAGING RETINA OPHTH 75716 DUDEE HANNAH DUDEE HANNAH MEDICAL 4 XM&EVAL COMPRHNSV ESTAB PT 1/> [place] [address] [facility] OBEY INFUSION 4 MEM HOSP MEM HOSP THERAPY/P INC INC ROPHYLAXI S /DX 1ST [place] [address] [facility] OBEY INFUSION 4 MEM HOSP MEM HOSP THERAPY/P INC INC ROPHYLAXI S /DX 1ST [place] [address] [facility] OBEY INFUSION 4 MEM HOSP MEM HOSP THERAPY/P INC INC ROPHYLAXI S /DX 1ST TO 1 [place] [address] [facility] OBEY INFUSION 4 MEM HOSP MEM HOSP THERAPY/P INC INC ROPHYLAXI S /DX 1ST TO 1 HR IM ADM 29196 B[facility]ON BESSON PRQ ID 3 LJ LJ SUBQ/IM NJXS 1 VACCINE IM ADM 74483 B[facility]ON BESSON PRQ ID 3 LJ LJ SUBQ/IM NJXS 1 VACCINE IM ADM 71427 BESSON BESSON PRQ ID 3 LJ LJ SUBQ/IM NJXS 1 VACCINE THERAPEUT 02407 Levels Beyond, IC PX 1/> 3 TETRYL SCREEN OPERATOR TETRYL SCREEN OPERATOR AREAS [facility] 15 CO [facility]OS CO HOS MIN EXERCISES THERAPEUT 01353 Levels Beyond, IC PX 1/> 3 TETRYL SCREEN OPERATOR TETRYL SCREEN OPERATOR AREAS [facility] EACH 15 CO HOS CO HOS MIN EXERCISES THERAPEUT 75931 Levels Beyond, IC PX 1/> 3 TETRYL SCREEN OPERATOR TETRYL SCREEN OPERATOR AREAS PL[facility]O [facility] EACH 15 CO HOS CO HOS MIN EXERCISES THERAPEUT 37852 Levels Beyond, IC PX 1/> 3 TETRYL SCREEN OPERATOR TETRYL SCREEN OPERATOR AREAS [facility]O [facility] EACH 15 CO HOS CO HOS MIN EXERCISES THERAPEUT 20782 Levels Beyond, IC PX 1/> 3 TETRYL SCREEN OPERATOR TETRYL SCREEN OPERATOR AREAS PLACIDO [facility]O EACH 15 CO HOS CO HOS MIN EXERCISES RADEX HIP 78322 JULIETH CLANCY 3 ARLET ARLET UNILATERA L COMPLETE MINIMUM 2 VIEWS DUP-SCAN 86470 JULIETH CLANCY XTR VEINS 3 ARLET ARLET COMPLETE BILATERAL STUDY BLD BANK 39731 MACIVOR MACIVOR PHYS SVCS 3 [facility] CROSS MATCH&/EV AL REP DECALCIFI 23558 MARINA MARINA CATION 3 ISMAEL ISMAEL PROCEDURE RADIOLOGI 25846 ANYA ANYA C 3 FRA FRA EXAMINATI ON PELVIS 1/2 VIEWS ARTHRP 80883 CHRISTENS CHRISTENS ACETBLR/P 3 EN CHR EN CHR TALA FEM PROSTC AGRFT/ALG RFT CATH PLMT 12306 FALLUJI FALLUJI L HRT & 3 YAMILETH YAMILETH ARTS W/NJX & ANGIO IMG S&I BLD BANK 04276 BORAL RADHA BORAL RADHA PHYS SVCS 3 DIFFC CROSS MATCH&/EV AL REP ANTIBODY 09463 [facility] SCREEN 3 Y Y RBC [facility] SERUM TECHNIQUE ANTIBODY 12906 [facility] ID RBC [address] [facility] S EA PANEL EA SERUM TQ URNLS DIP 95859 BESSON BESSON 3 LJ LJ STICK/TAB LET RGNT NON-AUTO W/O MICRSCP ECG 44569 BESSON BESSON ROUTINE 3 LJ LJ ECG W/LEAST 12 LDS W/I&R ECG 72874 FALLUJI FALLUJI ROUTINE 3 YAMILETH YAMILETH ECG W/LEAST 12 LDS W/I&R CV STRS 93596 FALLUJI FALLUJI TST 3 YAMILETH YAMILETH XERS&/OR RX CONT ECG I&R ONLY CV STRS [address] XERS&/OR RX CONT ECG TRCG ONLY MYOCARDIA [address] MULTIPLE STUDIES OPHTHALMO 48790 DUDEE HANNAH DUDEE HANNAH SCPY 3 EXTENDED RETINAL DRAWING I&R [facility] 49802 ENRIQUETA ENRIQUETA RETROPERI 3 BRITTANY BRITTANY TONEAL REAL TIME W/IMAGE COMPLETE HOSPITAL 00766 MCKEMIE MCKEMIE DISCHARGE 3 JR RENÉE DUGGAN RENÉE DAY MANAGEMEN T 30 MIN/< RADIOLOGI 17906 RAMIRO Atkinson 3 EDA MEADOWSINAANISA ON CHEST SINGLE VIEW FRONTAL ECG 42239 MCKEMIE MCKEMIE ROUTINE 3 JR RENÉE JR RENÉE ECG W/LEAST 12 LDS I&R ONLY THERAPEUT 88502 [facility] IC PX 1/> 2 [facility] AREAS INC INC EACH 15 MIN EXERCISES APPLICATI 27948 [facility] ON 2 [facility] MODALITY INC INC 1/> AREAS HOT/COLD PACKS E-STIM G0283 [facility] 1/> AREAS 2 [facility] OTH THAN INC INC WND CARE PART TX PLAN E-STIM G0283 [facility] 1/> AREAS 2 [facility] OTH THAN INC INC WND CARE PART TX PLAN APPLICATI 18172 [facility] ON 2 [facility] MODAL[facility] INC 1/> AREAS HOT/COLD PACKS THERAPEUT 70431 [facility] IC PX 1/> 2 [facility] AREAS INC INC EACH 15 MIN EXERCISES THERAPEUT 51546 [facility] IC PX 1/> 2 [facility] AREAS INC INC EACH 15 MIN EXERCISES APPLICATI 26700 [facility] ON 2 [facility] MODALITY INC INC 1/> AREAS HOT/COLD PACKS E-STIM G0283 [facility] 1/> AREAS 2 [facility] OTH THAN INC INC WND CARE PART TX PLAN E-STIM G0283 [facility] 1/> AREAS 2 [facility] OTH THAN INC INC WND CARE PART TX PLAN APPLICATI 92494 [facility] ON 2 [facility] MODAL[facility] INC INC 1/> AREAS HOT/COLD PACKS THERAPEUT 38358 [facility] IC PX 1/> 2 [facility] AREAS INC INC EACH 15 MIN EXERCISES THERAPEUT 63038 [facility] IC PX 1/> 2 [facility] AREAS INC INC EACH 15 MIN EXERCISES APPLICATI 25953 [facility] ON 2 [facility] MODALITY INC INC 1/> AREAS HOT/COLD PACKS E-STIM G0283 [facility] 1/> AREAS 2 [facility] OTH THAN INC INC WND CARE PART TX PLAN APPLICATI 83409 [facility] ON 2 [facility] MODALITY INC INC 1/> AREAS HOT/COLD PACKS THERAPEUT 17395 [facility] IC PX 1/> 2 [facility] AREAS INC INC EACH 15 MIN EXERCISES E-STIM G0283 [facility] 1/> AREAS 2 [facility] OTH THAN INC INC WND CARE PART TX PLAN E-STIM G0283 [facility] 1/> ARE[facility] 2 [facility] O[facility] THAN INC INC WND CARE PART TX PLAN E-STIM G0283 [facility] 1/> AREAS 2 [facility] OTH THAN INC INC WND CARE PART TX PLAN E-STIM G0283 [facility] 1/> AREAS 2 [facility] OTH THAN INC INC WND CARE PART TX PLAN E-STIM G0283 [facility] 1/> AREAS 2 [facility] OTH THAN INC INC WND CARE PART TX PLAN E-STIM G0283 [facility] 1/> AREAS 2 [facility] OTH THAN INC INC WND CARE PART TX PLAN E-STIM G0283 [facility] 1/> AREAS 2 [facility] OTH THAN INC INC WND CARE PART TX PLAN E-STIM G0283 [facility] 1/> AREAS 2 [facility] OTH THAN INC INC WND CARE PART TX PLAN RADEX 79359 [facility] SPINE 2 [facility] LUMBOSACR IMAGING AL ASS MINIMUM 4 VIEWS 3D 78773 [facility] RENDERING 2 MEDICAL [facility] W/INTERP IMAGING & ASS POSTPROCE SS SUPERVISI ON MRI 36257 [facility] CANAL IMAGING LUMBAR ASS W/O CONTRAST MATERIAL MRI 21304 [facility] PELVIS 2 MEDICAL [facility] W/O IMAGING CONTRAST ASS MATERIAL COLONOSCO 79638 DAMON SALMA DAMON SALMA PY FLX DX 2 W/COLLJ SPEC WHEN PFRMD THERAPEUT 92917 MICHAEL LINGREEN IC 2 NAN ARLET PROPHYLAC TIC/DX INJECTION SUBQ/IM OPHTH 88268 DUDEE HANNAH DUDEE HANNAH MEDICAL 2 XM&EVAL COMPRE NEW PT 1/> VST OPHTHALMO 41393 DUDEE HANNAH DUDEE HANNAH SCPY 2 EXTENDED RETINAL DRAWING I&R 1ST DETERMINA 53897 DUDEE HANNAH DUDEE HANNAH TION 2 REFRACTIV E STATE THERAPEUT 98575 LEE ANN NANCE IC 2 LJ LJ PROPHYLAC TIC/DX INJECTION SUBQ/IM LIPID 44734 COMBINED COMBINED PANEL 1 PHYSICIAN PHYSICIAN S LA S LA COMPREHEN 19023 COMBINED COMBINED SIVE 1 PHYSICIAN PHYSICIAN METABOLIC S LA S LA PANEL COMPREHEN 50068 COMBINED COMBINED SIVE 1 PHYSICIAN PHYSICIAN METABOLIC S LA S LA PANEL LIPID 08653 COMBINED COMBINED PANEL 1 PHYSICIAN PHYSICIAN S LA S LA BLOOD 98886 COMBINED COMBINED COUNT 1 PHYSICIAN PHYSICIAN COMPLETE S LA S LA AUTO&AUTO DIFRNTL WBC SCREENING 72435 [facility] CUMMINS 0 CO [facility] HY BILATERAL ECHO 86857 PREET TORRES TORRES PREET TTHRC R-T 0 MD 2D CONSULTIN W/WOM-MOD G SRV E COMPL SPEC&COLR D SPMTRY 25227 [facility] W/VC 0 [facility] Y JAMAL W/WO MXML VOL VNTJ ECHO 26723 PL[facility]O CUMMINS TTHRC R-T [address] W/WOM-MOD E COMPL SPEC&COLR D RADIOLOGI 82290 [facility] C EXAM 0 EDA CHEST 2 RADIOLOGY VIEWS ASSOCIAT FRONTAL&L ATERAL E-STIM G0283 [facility] 1/> AREAS 0 [facility] OTH THAN INC INC WND CARE PART TX PLAN THERAPEUT 81882 [facility] IC PX 1/> 0 [facility] AREAS INC INC EACH 15 MIN EXERCISES APPL 34932 [facility] MODALITY 0 [facility] 1/> AREAS INC INC ULTRASOUN D EA 15 MIN APPL 10564 [facility] MODALITY 0 [facility] 1/> AREAS INC INC ULTRASOUN D EA 15 MIN THERAPEUT 39838 [facility] IC PX 1/> 0 [facility] AREAS INC INC EACH 15 MIN EXERCISES E-STIM G0283 [facility] 1/> AREAS 0 [facility] OTH THAN INC INC WND CARE PART TX PLAN THERAPEUT 92800 [facility] IC PX 1/> 0 [facility] AREAS INC INC EACH 15 MIN EXERCISES APPL 98313 [facility] MODALITY 0 [facility] 1/> AREAS INC INC ULTRASOUN D EA 15 MIN E-STIM G0283 [facility] 1/> AREAS 0 [facility] OTH THAN INC INC WND CARE PART TX PLAN E-STIM G0283 [facility] 1/> AREAS 0 [facility] OTH THAN INC INC WND CARE PART TX PLAN APPL 98823 [facility] MODALITY 0 [facility] 1/> AREAS INC INC ULTRASOUN D EA 15 MIN THERAPEUT 03732 [facility] IC PX 1/> 0 [facility] AREAS INC INC EACH 15 MIN EXERCISES PHYSICAL 52051 [facility] THERAPY 0 [facility] EVALUATIO INC INC N APPL 58763 [facility] MODALITY 0 [facility] 1/> AREAS INC INC ULTRASOUN D EA 15 MIN E-STIM G0283 [facility] 1/> AREAS 0 [facility] OTH THAN [place] [address] [facility] FOLIC 0 [facility] [place] [address] [facility] [place] IRON 0 [facility] INC INC COMPREHEN 61527 O[facility] SIVE 0 [facility] METABOLIC INC INC PANEL CYANOCOBA 77593 [facility] CHOCO 0 [facility] VITAMIN INC INC B-12 [place] [address] [facility] [place] FERRITIN 0 [facility] INC INC BLOOD 69982 O[facility] COUNT 0 [facility] COMPLETE INC INC AUTO&AUTO DIFRNTL WBC IRON 20272 OBEY OBE[facility] BINDING 0 [facility] CAPACITY INC INC COLLECTIO 37176 [facility] N VENOUS 0 [facility] BLOOD INC INC VENIPUNCT URE MRI ANY 56373 ENRIQUETA ROBISON JT LOWER 0 KHALIDA KHALIDA EXTREM W/O CONTRAST MATRL ENDOMETRI 72552 [facility] [place] [place] BX 0 [facility] W/WO CLINIC OF ENDOCERVI X BX W/O [place] [facility] CYTP 39685 WINNIE WINNIE SLCTV 0 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 IES INC IES INC ENHANCEME NT INTERPJ XCPT C/V SPCL STN 27161 WINNIE ZHOU 2 I&R 0 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 IES INC IES INC MICROORG/ ENZYME/IM CYT IM ADM 75755 [facility] MCKEMIE PRQ ID 0 [facility] JR REN[facility]E SUBQ/IM INTERNAL NJXS 1 MED VACCINE INJECTION J3301 [facility] MCKEMIE 0 [facility] TRIAMCINO INTERNAL LONE MED ACETONIDE NOS 10 MG SCREENING 28525 [facility] 9 EIDER, MAMMOGRAP RADIOLOGY LYNSEY HY K BILATERAL ASSOCIATE S PSC LAPAROSCO 79937 [facility] PY SURG 9 [facility] [place] [address] [facility] INFUSION 9 [facility] THERAPY INC INC PROPHYLAX IS/DX EA HOUR LEVEL III 11940 PATHOLOGY PATHOLOGY SURG 9 & & PATHOLOGY CYTOLOGY CYTOLOGY LAB LAB GROSS&LALO ROSCOPIC EXAM THERAPEUT 95409 [facility] IC 9 [facility] INJECTION [place] [address] [facility] INFUSION 9 [facility] THERAPY/P INC INC ROPHYLAXI S /DX 1ST TO 1 HR ANES 82394 [facility] MACIAS, INTRAPERI 9 ANESTH RAE F TONEAL OF THE UPPER BLUEGRASS ABDOMEN W/LAPS NOS ECG 80991 KAMLESH DENSON 9 [facility] W/LEAST PROF SERV 12 LDS I&R ONLY COLLECTIO 24096 [facility] N VENOUS 9 [facility] BLOOD INC INC VENIPUNCT URE BLOOD 58775 [facility] COUNT 9 [facility] COMPLETE INC INC AUTO&AUTO DIFRNTL WBC ECG 80091 [facility] ROUTINE 9 [facility] ECG INC INC W/LEAST 12 LDS TRCG ONLY W/O I&R BASIC 94133 [facility] METABOLIC 9 [facility] PANEL INC INC CALCIUM TOTAL BLOOD [address] PLATELET AUTOMATED PLCMT G0269 [facility] OCCL DEVC [address] [place] [address] RAYMOND/ART POST SURG/INTR VNL PROC CREATININ 23896 [facility] BLOOD [address] [place] [address] [place] [address] [facility] UREA [address] [place] [address] NITROGEN QUANTITAT FRANCISCO JAVIER BLOOD [address] HEMATOCRI T ECG [address] ECG W/LEAST 12 LDS TRCG ONLY W/O I&R POTASSIUM [address] PLASMA/WH OLE BLOOD CHLORIDE 30570 [facility] BLD [address] [place] [address] L HRT 19723 [facility] [address]HE[address] ZATION [place] [address] [facility] C-CATH[address] F/SLCTV C ANGRPH I SI&R 84255 [facility] F/NJX PX [address] [place] [address] DURING C-CATHJ VENTR&/AT R ANGRPH I SI&R 50554 [facility] F/NJX PX [address] [place] [address] DURING C-CATHJ PULM&/OR SELECT INJECTION 75950 [facility] CARDIAC [address] [place] [address] CATHJ L VENTR/L ATR ANGIOGRAP H SODIUM [address] PLASMA OR WHOLE BLOOD COLLECTIO 61248 [facility] N VENOUS [address] [place] [address] BLOOD VENIPUNCT URE ECG 85778 JUANCHO GRIFFITH, ROUTINE 9 [facility] ECG CLINIC W/LEAST PSC 12 LDS I&R ONLY CLOSURE C1760 [facility] DEVICE [address] [place] [address] VASCULAR INTRDUCR/ C1894 [facility] SHEATH [address] [place] [address] NOT GUID INTRACARD EP NON-LASR GLUCOSE 14912 [facility] QUANTITAT [address] [place] [address] FRANCISCO JAVIER BLOOD XCPT REAGENT STRIP COLLECTIO 28832 [facility] N VENOUS 9 [facility] BLOOD INC INC VENIPUNCT URE BLOOD 37262 [facility] COUNT 9 [facility] COMPLETE INC INC AUTO&AUTO DIFRNTL WBC COMPREHEN 18899 [facility] SIVE 9 [facility] [place] [address] [facility] ABDOMINAL 9 [place], REAL RADIOLOGY LYNSEY TIME K W/IMAGE ASSOCIATE DOCUMENTA S PSC TION URNLS DIP 21889 [facility] C[facility] 9 CO [facility] HOSPITAL LET REAGENT AUTO MICROSCOP Y BLOOD 45712 [facility] COUNT 9 CO [facility] COMPLETE [facility]PITAL HOSPITAL AUTO&AUTO DIFRNTL WBC COLLECTIO 44716 PL[facility]O Orr VENOUS 9 CO CO BLOOD [facility] VENIPUNCT URE CULTURE 24496 [facility] CUMMINS BACTERIAL 9 CO [facility] QUANTTATI VE COLONY COUNT URINE HOSPITAL G0378 [facility] OBSERVATI 9 CO [facility] HOSPITAL SERVICE PER HOUR CREATINE 97406 [facility] CUMM[facility] KINASE 9 CO [place] [address] [facility] CUM[facility] LIPASE 9 CO [facility]PITAL HOSPITAL ECG 64064 [facility] CUMMINS ROUTINE 9 CO CO ECG HOSPITAL HOSPITAL W/LEAST 12 LDS TRCG ONLY W/O I&R COLLECTIO 96072 PLACIDO Orr VENOUS [address] [facility] VENIPUNCT URE RADIOLOGI 57724 [facility] C EXAM 9 E[place]ER, CHEST 2 RADIOLOGY LYNSEY VIEWS K FRONTAL&L ASSOCIATE ATERAL S PSC ECG 98036 PATEL NANCE, ROUTINE 9 [place] ROBERT A ECG INTERNAL W/LEAST MED 12 LDS I&R ONLY BLOOD 05069 [facility] CUMM[facility] COUNT 9 CO CO COMPLETE [facility] H[facility] AUTO&AUTO DIFRNTL WBC MYOGLOBIN 46427 [facility] CUMMINS 9 [place] [address] [facility] C[facility] TROPONIN 9 CO CO QUANTITAT [facility] FRANCISCO JAVIER URNLS DIP 73147 [facility] CUMMINS 9 CO [facility] STICK/[facility] HOSPITAL LET REAGENT AUTO MICROSCOP Y COMPREHEN 14839 [facility] SIVE 9 CO CO METAB[place] [address] PLAC[facility]O CUMM[facility] INFUSION 9 CO CO HYDRATION [facility] INITIAL 31 MIN-[place] [address] [facility] AMYLASE 9 [facility] CREATINE 72322 [facility] C[facility] KINASE MB 9 [facility] [place] [facility] ONLY COLSC FLX 37266 [place] DAMON, 9 MEDICAL CUONG W/REMOVAL SERV LESION FOUNDAT[place] [address] PATHOLOGY PATHOLOGY SURG 9 & & PATHOLOGY CYTOLOGY CYTOLOGY LAB LAB GROSS&[place] [address] [facility] INFUSION 9 [facility] THERAPY/P INC INC ROPHYLAXI S /DX 1ST TO 1 [place] [address] [facility] INFUSION 9 [facility] THERAPY INC INC PROPHYLAX IS/DX EA HOUR CV STRS 69402 OBEY NANCE, TST 9 [facility] RX CONT PROF SERV ECG I&R ONLY CV STRS 45440 OBEY NANCE, TST 9 [facility] RX CONT PROF SERV ECG W/O I&R CV STRS 39709 [facility] TST 9 [facility] XERS&/OR INC INC RX CONT ECG TRCG ONLY MYOCRD 67898 [facility] PRFUJ STD 9 [facility] WALL INC INC MOTION QUAL/ROBERT STD INJECTION J0152 [facility] 9 [facility] ADENOSINE INC INC DIAGNOSTI C USE 30 MG MYOCRD 90106 [facility] PRFUJ IMG 9 [facility] TOMOG INC INC SPECT TECHNOLOGY PROJECT MANAGER STD TECHNETIU A9502 OBEY Taylor TC-99M 9 [facility] TETROFOSM INC INC IN DX PER STUDY DOSE MYOCRD 28335 [facility] PRFUJ STD 9 [facility] EJEC FXJ INC INC LIPID 94585 [facility] CUMMINS PANEL 9 [facility] [place] [address] PL[facility]UM[facility] THYROID 9 [facility] STIMULATI [facility] NG HORMONE TSH COMPREHEN 78560 PL[facility] CUMMINS SIVE 9 [facility] PANEL DUPLEX 27304 PL[facility] CUMM[facility] SCAN [address] [place] [address] [facility] IAL ART COMPL BI STUDY COLLECTIO 25309 [facility]UM[facility] N VENOUS 9 [facility] BLOOD [facility] VENIPUNCT URE BLOOD 01641 [facility] CUM[facility] COUNT [address] [place] [address] [facility] AUTO&AUTO DIFRNTL WBC SCREENING 52000 PLAC[facility]O CUMMINS 8 [facility] MAMMOGRAP [facility] HY BILATERAL DXA BONE 86971 [facility] DENSITY 8 [facility] STUDY 1/ INC INC SITES AXIAL SKEL SCREEN Q0091 [facility] RMAIRO, PAP 8 [facility] SMEAR; CLINIC OF OBTAIN PREP &C CHELLE ONVEY TO [facility] LAB CERV/VAGI G0101 [facility] RAMIRO NAL 8 [facility]; PELV&CLIN [place] [facility] EXAM OPHTH 44064 SORIN ROWELL MEDICAL 8 LEEANN BRADSHAW XM&EVAL S S COMPRHNSV ESTAB PT 1/> OPHTHALMO 94043 SORIN ROWELL SCPY 8 LEEANN BRADSHAW EXTENDED S S RETINAL DRAWING I&R SBS Encounters Encounter Start End Date Code Location Performer Type Date OFFICE 35908 [facility] OUTPATIEN 7 7 MEDICAL T VISIT SERV 25 FOUNDATIO MINUTES N OFFICE 14402 OBEY JAMAR DUGGAN OUTPATIEN 7 7 [facility] 10 P MINUTES OFFICE 38545 O[facility] RODAS OUTPATIEN 7 7 [facility] 10 P MINUTES HOSPITAL O[facility]Y - 7 7 [facility]EN [facility] OBEY - 7 7 [facility]PATIEN [facility] OBEY - 7 7 [facility]PATIEN [facility] OFFICE 96605 OBEY RODAS OUTPATIEN 7 7 [facility] T VISIT HOSPITAL 10 P MINUTES OFFICE 68223 [place] RODRIGUEZ OUTPATIEN 6 6 VAL[facility] T VISIT INTERNAL 15 MED MINUTES OFFICE 36845 [place] ABAD OUTPATIEN 6 6 MEDICAL T VISIT SERV 25 FOUNDATIO MINUTES N OFFICE 33800 [facility] 6 EN T VISIT ORTHOPAED 15 ICS PSC MINUTES HOSPITAL OBEY - 6 6 [facility] OUTPATIEN [facility] OFFICE 19149 [place] BESSON OUTPATIEN 6 6 VALLEY LJ T VISIT INTERNAL 25 MED MINUTES OFFICE 87331 [place] RODRIGUEZ OUTPATIEN 6 6 VALLEY T VISIT INTERNAL 15 MED MINUTES OFFICE 58160 [place] [facility] OUTPATIEN 5 5 VALLEY LJ T VISIT INTERNAL 15 MED MINUTES HOSPITAL OBEY - 5 5 [facility] OUTPATIEN [facility] OBEY - 5 5 [facility] OUTPATIEN [facility] OBEY - 5 5 [facility] OUTPATIEN [facility] OBEY - 5 5 [facility] OUTPATIEN [facility] OBEY - 5 5 [facility] OUTPATIEN INC T OFFICE 05744 [facility] OUTPATIEN 5 5 [facility] OBE[facility] - 5 5 [facility]PATIEN [facility] OBEY - 5 5 [facility] OUTPATIEN INC T OFFICE 45999 OBE[facility] OUTPATIEN 5 5 [facility] MINUTES [facility] OBEY - 5 5 [facility] OUTPATIEN INC T OFFICE 92542 [place] MARCIN ABAD OUTPATIEN 5 5 MEDICAL T VISIT SERV 25 FOUNDATIO MINUTES [facility] OBEY - 4 4 [facility] - 4 4 [facility] 4 4 [facility] - 4 4 [facility] - 4 4 [facility] - 4 4 [facility] OUTPATIEN [facility] T OFFICE 26891 [place] ABAD OUTPATIEN 4 4 MEDICAL T VISIT SERV 25 FOUNDATIO MINUTES N CRITICAL MHC INC, ACCESS 3 3 [facility] HOS CRITICAL MHC INC, ACCESS 3 3 [facility] HOS EMERGENCY 89054 [facility] INC, 3 3 TETRYL SCREEN OPERATOR [facility] VISIT [place] HOS MODERATE SEVERITY CRITICAL MHC INC, ACCESS [address] [facility] [address] [place] [address] OBEY - 3 3 MEM [facility] OUTPATIEN INC T OFFICE 27324 [facility]UR[facility] POLLO MARCIN ABAD OUTPATIEN 3 3 T NEW 60 MINUTES OFFICE 93098 MICHAEL RODRIGUEZ OUTPATIEN 2 2 NAN NAN T VISIT 15 MINUTES HOSPITAL OBEY - 2 2 [facility] OUTPATIEN INC [facility]PITAL OBEY - 2 2 [facility] OUTPATIEN INC [facility]PITAL OBEY - 2 2 [facility] OUTPATIEN [facility] T OFFICE 46119 MICHAEL RODRIGUEZ OUTPATIEN 2 2 SINDY NAN T VISIT 15 MINUTES OFFICE 03210 MICHAEL RODRIGUEZ OUTPATIEN 2 2 NAN NAN T VISIT 15 MINUTES OFFICE 24771 LEE ANN NANCE OUTPATIEN 2 2 LJ LJ T VISIT 15 MINUTES CRITICAL PLACIDO ACCESS 0 0 [facility] CRITICAL PLACIDO ACCESS 0 0 [facility] OFFICE 83959 [place] DAM[place] SALMA OUTPATIEN 0 0 MEDICAL T VISIT SERV 15 FOUNDATIO MINUTES HOSPITAL OBEY - 0 0 [facility] OUTPATIEN INC T OFFICE 76955 [facility] TRA OUTPATIEN 0 0 [place] T NEW 45 ORTHOPAED MINUTES [facility] OFFICE 76736 [place] DAMON, OUTPATIEN 0 0 MEDICAL CUONG T VISIT SERV 15 FOUNDATIO MINUTES HOSPITAL OBEY - 0 0 [facility] OUTPATIEN INC T OFFICE 57542 [place] MCKEMIE OUTPATIEN 0 0 [facility] T VISIT INTERNAL 15 MED MINUTES CRITICAL PLACIDO ACCESS 9 9 [facility] HOSPITAL OBEY - 9 9 [facility] OUTPATIEN INC HOSPITAL OBEY - 9 9 [facility] OUTPATIEN INC T OFFICE 56772 NICOLE RIVERA CONSULTAT 9 9 , DASHA LOU LUX NEW/ESTAB PATIENT 60 MIN OFFICE 08463 [place] BESLEVI, OUTPATIEN 9 9 [place] [facility] A T VISIT INTERNAL [address] COMPA - 9 9 HOSPITAL OUTPATIEN T OFFICE 72791 [place] BESSON, OUTPATIEN 9 9 [place] [facility] A T VISIT INTERNAL 15 MED MINUTES CRITICAL PLACIDO ACCESS 9 9 [facility] EMERGENCY 69661 PL[facility] FELA 9 9 [facility] T VISIT MODERATE SEVERITY CRITICAL PLACIDO ACCESS 9 9 [facility] EMERGENCY 71215 PL[facility]IDO 9 9 [facility] T VISIT LIMITED/M INOR PROB OFFICE 69444 [facility] BEN CONSULTVERO 9 9 PHYSICIAN FRANKIE Henry GROUP NEW/ESTAB PATIENT 60 MIN HOSPITAL OBEY - 9 9 [facility]PATIEN [facility] OBEY - 9 9 [facility] OUTPATIEN [facility] T CRITICAL PLACIDO [facility]ESS [facility] OFF[facility] 19293 [place] BESLEVI OUTPATIEN 9 9 [place] A T VISIT INTERNAL 15 MED MINUTES OFFICE 12246 [place] SHARITA OUTPATIEN 8 8 KWAKU DUGGAN, T VISIT INTERNAL RAE F 15 MED MINUTES CRITICAL PLACIDO ACCESS 8 8 [facility] CRITICAL PLACIDO ACCESS 8 8 [facility]OSPITAL OBEY - 8 8 [facility] OUTPATIEN INC T OFFICE 58396 LICGANESH PATTON 8 8 [place] JEFF Hoang VISIT INTERNAL 10 MED MINUTES
--- OUTSIDE RECORDS SUMMARY | 2017-06-08 04:49 | External Medical Summary Rpt ---
Author Author , LOULOU JAMIL Address Unknown Phone [email or web address] Care Team Providers Care Typesetter Apprentice Name Role Phone ALLRAN JR ROME, ALLRAN Unavailable Unavailable JR ROME ANYA FRA, ANYA Unavailable Unavailable FRA ANYA FRA, ANYA Unavailable Unavailable FRA RODRIGUEZ, RODRIGUEZ Unavailable Unavailable BESSON LJ, BESSON Unavailable Unavailable LJ BESSON LJ, BESSON Unavailable Unavailable LJ BESSON, ROBERT A, Unavailable Unavailable BESSON, ROBERT A [facility] Unavailable [facility], [facility] MONTIEL, MONTIEL Unavailable Unavailable BORAL RADHA, BORAL RADHA Unavailable Unavailable [facility], Unavailable Unavailable [facility] ADRIANNA, ADRIANNA Unavailable Unavailable ADRIANNA PHI, Unavailable Unavailable ADRIANNA PHI DUDEE HANNAH, DUDEE HANNAH Unavailable Unavailable DUDEE HANNAH, DUDEE HANNAH Unavailable Unavailable DUDEE, JITANDER S, Unavailable Unavailable DUDEE, JITANDER S FALLUJI YAMILETH, FALLUJI Unavailable Unavailable YAMILETH FALLUNIKKO CARSON, FALLUJI Unavailable Unavailable FRANKIE SIMENTAL, Unavailable Unavailable FRANKIE CONTRERAS, Unavailable Unavailable CARLOS CONNELLY JENNIFER K [facility] Unavailable Unavailable INC, [facility] Unavailable Unavailable [facility]PITAL P, [facility] CLANCY ARLET, CLANCY Unavailable Unavailable ARLET CLANCY ARLET, CLANCY Unavailable Unavailable ARLET CLANCY, TREVOR S, Unavailable Unavailable CLANCY, TREVOR S SANIA, SANIA AGUILAR, Unavailable Unavailable CORIE BRASWELL Unavailable Unavailable [facility], Unavailable Unavailable [facility] AMOS TRA, AMOS TRA Unavailable Unavailable MICHAEL NAN, MICHAEL Unavailable Unavailable NAN MICHAEL NAN, MICHAEL Unavailable Unavailable NAN [facility] Un[facility], [facility] CHARANJIT, TEJA E, Unavailable Unavailable CHARANJIT, TEJA E [facility] Unavailable Unavailable INTERNAL MED, [facility] LINGREEN ARLET, Unavailable Unavailable LINGREEN ARLET MACIVOR DUN, MACIVOR Unavailable Unavailable DUN [facility] Unavailable Unavailable [facility], [facility] MCKEMIE JR CHINCHILLA, Unavailable Unavailable MCKEMIE JR RENÉE PETERSENKEMIOdilon CHINCHILLA, Unavailable Unavailable RAE JUÁREZ JR, JR Unavailable Unavailable F, RAE SHERIFF JR F [facility], [facility] Unavailable Unavailable [facility], [facility], [facility] LAURA SMITH, Unavailable Unavailable LAURA SMITH WILLIAM F, Unavailable Unavailable RAE MACIAS [facility], Unavailable Unavailable [facility] MOMO GRIFFITH, Unavailable Unavailable MOMO GRIFFITH MD Unavailable Unavailable [facility] Unavailable Unavailable LAB, [facility] DAMON SALMA, DAMON SALMA Unavailable Unavailable DAMON SALMA, DAMON SALMA Unavailable Unavailable DAMON, CUONG, DAMON, Unavailable Unavailable CUONG PETTEY JAM, PETTEY Unavailable Unavailable JAM FELA DENISE, FELA Unavailable Unavailable DENISE SCHULSTAD, DASHA, Unavailable Unavailable SCHULSTAD, DASHA MARINA ISMAEL, MARINA Unavailable Unavailable ISMAEL [facility], Unavailable Unavailable [facility], Unavailable Unavailable [facility] BURCH, BURCH Unavailable Unavailable BURCH POLLO, BURCH POLLO Unavailable Unavailable Purpose Continuity of Care Document - 11-12-2007 through 2016 Problems Code Diagnosis DOS Provider Status [id number] PAIN IN 03-05-2017 [place] [facility] D509 IRON 12-24-2016 [facility] P UNSPECIFIED D631 ANEMIA IN 12-24-2016 [facility] DISEASE I129 HYPERTENSIV 12-24-2016 [facility] CKD [facility] W/STAGE 1-4 [facility]ATION CKD OR UNS CKD M8580 OTH SPEC 12-24-2016 [facility] D/O BONE SERV DENSITY [facility] STRUCTURE UNS SITE N184 CHRONIC 12-24-2016 [facility] DISEASE [facility] STAGE 4 SEVERE N250 RENAL 12-24-2016 [facility] OSTEODYSTRO [facility] PHY [facility] 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 L570 ACTINIC 12-04-2016 [facility] KERAT[facility]IS [facility] L820 INFLAMED 12-04-2016 [facility] SEBORRHEIC KERATOSIS [facility] L821 OTHER 12-04-2016 [facility] SEBORRHEIC [facility]ATOSIS [facility] D649 ANEMIA 11-12-2016 [place] UNSPECIFIED [facility] P [id number] ADVERSE 10-28-2016 [place] EFFECT [facility] COMPOUNDS INITIAL ENC 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-29-2016 [facility] 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[facility] S PSC TIS LEFT KNEE R079 CHEST PAIN 09-01-2016 [place] [facility]PEC[facility]IED [facility] J180 BRONCHOPNEU 05-15-2016 [place] UNSPECIFIED INTERNAL ORGANISM MED D638 ANEMIA IN 02-28-2016 [facility] OTHER [facility]IC [facility] DISEASES CLASSIFIED ELSW N183 CHRONIC 02-28-2016 [facility] DISEASE [facility] STAGE 3 MODERATE 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 11-19-2015 [place] OF OTHER [place] SPECIFIED B INTERNAL GROUP MED VITAMINS R10987 EFFUSION 11-15-2015 [place] [facility] W80328 PAIN IN 11-15-2015 [place] [facility] M7120 SYNOVIAL 11-15-2015 [place] CYST MEDICAL POPLITEAL IMAGING ASS SPACE BURNS UNS KNEE [id number] OTH TEAR 11-15-2015 [place] [facility] MENISCUS [facility] CURR INJ [...] HOSP DEFICIENCY INC ANEMIA 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 2859 UNSPECIFIED 02-20-2015 [facility] ANEMIA PHYSICIANS GROUP 5533 DIAPHRAGMAT 02-20-2015 [facility] VIRGIL W/O PHYSICIANS MENTION GROUP OBSTRUCTION /GANGREN 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 5781 BLOOD IN 02-20-2015 [facility] STOOL PHYSICIANS GROUP 2808 OTHER 02-06-2015 [facility] SPECIFIED PHYSICIANS IRON GROUP DEFICIENCY ANEMIAS 70282 ANEMIA IN 09-28-2014 [facility] DISEASE 51221 HTN CKD UNS 09-28-2014 [facility] W/CKD SERV STAGE I FOUNDATION THRU STAGE IV/UNS 5853 CHRONIC 09-28-2014 [facility] DISE[facility] STAGE III (MODERATE) 5880 RENAL 09-28-2014 [facility] OSTEODY[facility]O SERV PHY [facility] 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 DYSTROPHY 01947 CHANGES IN 03-14-2014 DUDEE HANNAH VASCULAR APPEARANCE OF RETINA 67359 ANEMIA OF 11-24-2013 [facility] DISEASE 4019 UNSPECIFIED 11-24-2013 [facility] ESSENTIAL [facility] HYPERTENSIO [facility]OUNDATION N 2662 OTHER 06-13-2013 [facility] ANN [facility] B-COMPLEX DEFICIENCIE S 2811 OTHER 06-06-2013 [facility] VITAMIN B12 DEFICIENCY ANEMIA V4364 HIP JOINT 04-05-2013 [facility], REPLACEMENT REGISTERED APPRAISER BY OTHER [facility] [place] MEANS HOS V571 OTHER 04-05-2013 [facility], PHYSICAL REGISTERED [facility]ISER [place] [facility] 69157 PAIN IN 03-23-2013 [facility] JOINT PELVIC REGION AND THIGH 7295 PAIN IN 03-23-2013 [facility], SOFT REGISTERED APPRAISER [facility] 21234 SWELLING OF 03-23-2013 CLANCY ARLET [place] 51492 OTHER 03-23-2013 [facility], MALAISE AND REGISTERED APPRAISER [place]IGUE [facility] [place] [facility] 76495 ABDOMINAL 03-23-2013 [facility], PAIN RIGHT REGISTERED APPRAISER LOWER [facility]ANT [facility] 36319 ABDOMINAL 03-23-2013 [facility], PAIN, LEFT REGISTERED APPRAISER LOWER [facility] 01597 ABDOMINAL 03-23-2013 [facility], TENDERNESS REGISTERED APPRAISER RIGHT LOWER [facility] 8479 SPRAIN AND 03-23-2013 [facility], STRAIN OF REGISTERED APPRAISER UNSPECIFIED [facility] SITE OF HOS BACK V4589 OTHER 03-23-2013 [facility], POSTSURGICA REGISTERED APPRAISER L STATUS [facility] OTHER HOS V5869 LONG-TERM 03-23-2013 [facility], (CURRENT) REGISTERED APPRAISER USE OF [facility] CO OTHER HOS MEDICATIONS 7823 EDEMA 03-22-2013 [facility], REGISTERED [facility]PRAISER [facility] [place] [facility] 36325 OSTEOARTHRO 02-15-2013 MARINA ISMAEL S UNSPEC GEN/LOC PELV REGION&THIG H V5481 AFTERCARE 02-15-2013 ANYA FRA FOLLOWING JOINT REPLACEMENT 36678 COR 02-14-2013 FALLUJI YAMILETH ATHEROSLERO UNSPEC TYPE VESSEL INAJA/JOSÉ MIGUEL T 31328 OTH 02-14-2013 FALLUJI YAMILETH NONSPECIFIC ABNORM CV SYSTEM FUNCTION STUDY V7283 OTHER 02-09-2013 [facility] PRE-OPERATI VE EXAMINATION V700 ROUTINE 02-01-2013 LEE ANN CALHOUN GENERAL MEDICAL EXAM@HEALTH CARE FACL V7284 UNSPECIFIED 01-31-2013 L[facility] ANN [facility] PRE-OPERATI VE EXAMINATION 4011 ESSENTIAL 01-20-2013 FALLUJI YAMILETH HYPERTENSIO N, BENIGN 06916 NONSPECIFIC 01-20-2013 FALLUJI YAMILETH ABNORMAL ELECTROCARD IOGRAM 3671 MYOPIA 12-22-2012 DUDEE HANNAH 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 3674 PRESBYOPIA 12-22-2012 DUDEE HANNAH 5939 UNSPECIFIED 09-28-2012 ENRIQUETA DISORDER BRITTANY OF KIDNEY AND URETER 58167 OTHER 09-08-2012 SHARITA DUGGAN SPECIFIED RENÉE CARDIAC DYSRHYTHMIA S 4293 CARDIOMEGAL 09-08-2012 RAMIRO VERAS Y 7802 SYNCOPE AND 09-08-2012 SHARITA DUGGAN COLLAPSE RENÉE 2724 OTHER AND 07-14-2012 MICHAEL SINDY UNSPECIFIED HYPERLIPIDE JONE 24430 ESOPHAGEAL 07-14-2012 MICHAEL CALLAHAN REFLUX 8438 SPRAIN&STRA 07-14-2012 MICHAEL CALLAHAN IN OTHER SPECIFIED SITES HIP&THIGH 01773 PRIMARY LOC 01-30-2012 [facility] OSTEOARTHRO INC SIS PELVIC REGION&THIG H 7242 LUMBAGO 01-30-2012 [facility] INC 35785 DEGEN 12-30-2011 [place] 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 42567 SPINAL STEN 12-30-2011 PETTEY JAM 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 03903 DISPLCMT 12-11-2011 [place] LUMBAR MEDICAL INTERVERT IMAGING ASS DISC W/O MYELOPATHY 4553 EXTERNAL 12-08-2011 DAMON SALMA HEMORRHOIDS WITHOUT MENTION COMP 5693 HEMORRHAGE 12-08-2011 DAMON SALMA OF RECTUM AND ANUS 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 14387 AFTER-CATAR 11-19-2011 DUDEE HANNAH ACT, OBSCURING VISION 45430 KERATOCONJU 11-19-2011 DUDEE HANNAH NCTIVITIS SICCA NOT SPEC SJOGRENS 59729 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 SUBCAPSULAR POLAR SENILE CATARACT 19873 NUCLEAR 11-04-2011 DUDEE HANNAH SCLEROSIS 3670 HYPERMETROP 11-04-2011 [place] [address] VITREOUS 11-04-2011 DUDEE HANNAH DEGENERATIO N 4550 INTERNAL 11-04-2011 MICHAEL CALLAHAN HEMORRHOIDS WITHOUT MENTION COMP 7243 SCIATICA 09-29-2011 LEE ANN LJ 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 V7611 SCREENING 07-10-2010 [facility]AM[facility]GRAM [facility] FOR [facility]-RISK PATIENT V7612 OTHER 07-10-2010 [facility] SCREENING [facility]OLOGY MAMMOGRAM ASSOCIAT 7852 UNDIAGNOSED 05-07-2010 [facility] [place] [address] SHORTNESS 05-07-2010 [facility] OF BREATH CONSULTING SRV 4299 UNSPECIFIED 05-02-2010 [facility] DISEASE 12283 OTHER 05-02-2010 [facility] [place] DYSP[place] [address] PAIN IN 02-11-2010 [place] [place] JOINT, [facility] LOWER LEG INC 51423 DIAB W/O 02-04-2010 [facility] COMP TYPE [facility] H[facility] II/UNS NOT INC STATED UNCNTRL 5789 UNSPECIFIED 02-04-2010 [facility] HEMORRHAGE [facility] HOSP OF INC GASTROINTES TINAL TRACT 19130 EFFUSION OF 01-15-2010 ENRIQUETA, LOWER LEG KHALIDA JOINT 31611 SYNOVIAL 01-15-2010 ENRIQUETA, CYST OF KHALIDA POPLITEAL SPACE 6271 POSTMENOPAU 10-31-2009 [facility] 460 ACUTE 10-11-2009 [place] ITIS INTERNAL MED 490 BRONCHITIS 10-11-2009 [place] NOT VALLEY SPECIFIED INTERNAL ACUTE OR MED CHRONIC 70626 CALCU 04-30-2009 [place], GALLBLADD DASHA W/OTH CHOLECYST W/O MENTION OBST 54522 CALCU 04-30-2009 [facility] GALLBLADD ANESTH OF W/O MENTION THE [facility] CHOLECYST/O BST 28880 CHRONIC 04-30-2009 PATHOLOGY & CHOLECYSTIT CYTOLOGY IS LAB 39003 ABDOMINAL 04-30-2009 SCHULSTAD, PAIN RIGHT DASHA UPPER QUADRANT 4139 OTHER AND 04-10-2009 NEW UNSPECIFIED [facility] PECTORIS 05049 CORONARY 04-10-2009 [facility] OSIS INAJA CORONARY ARTERY 71183 OTHER 04-10-2009 [facility]URE [facility] PSC 5718 OTHER 03-27-2009 [facility] CHRONIC 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 85170 FIRST 03-24-2009 [facility] ATRIOVENTRI CULAR BLOCK 4280 CONGESTIVE 03-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 [facility] FAILURE UNSPECIFIED 5770 ACUTE 03-24-2009 [facility]CREATITI [facility]PITAL S 4556 UNSPEC 03-05-2009 [facility] HEMORRHOIDS [facility] WITHOUT INC MENTION COMPLICATIO N 7019 UNSPECIFIED 03-05-2009 [facility] HYPERTROPHI INC C&ATROPHIC CONDITION SKIN 01722 CHEST PAIN 02-26-2009 [place] UNSPECIFIED [facility] PROF SERV 7859 OTHER 02-23-2009 [facility] SYMPTOMS RADIOLOGY INVOLVING ASSOCIATES CARDIOVASCU PSC LAR SYSTEM V1589 OTH SPEC 05-15-2008 [facility] PRESENTING [facility] OTH 98365 UNSPECIFIED 03-01-2008 [place] [facility] IMAG[facility] S ASSOCIATES V7231 ROUTINE 02-10-2008 [facility] EXAMINATION [facility] 45520 HYPERTENSIV 12-22-2007 SORIN Odilon BRADSHAW S RETINOPATHY 0579 UNSPECIFIED 11-12-2007 [place] [facility] [facility] EXANTHEM INTERNAL MED 786.50 D50.9 IRON DEFICIENCY ANEMIA, UNSPECIFIED D64.9 ANEMIA, UNSPECIFIED BRL2916 J10.1 FLU DUE TO OTH IDENT INFLUENZA [...] INJURIES OF ABDOMEN, INITIAL ENCOUNTER Z79.899 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 Immunization Name Date Rout CVX Reac Dose Comm Prov Is Faci e tion ent ider Refu lity Give sed n PPSV 03-1 33 VINICIUS No LICK 23 0-20 ON ING VACC 16 LJ VALL INE EY 2 INTE YRS RNAL OR MED OLDE R FOR SUBQ /IM USE Procedures Procedure DOS Code Location Performer Comment DUP-SCAN 58278 [place] MONTIEL XTR VEINS 7 MEDICAL IMAGING UNILATERA ASS L/LIMITED STUDY DESTRUCTI 55603 DERMATOLO DERMATOLO ON 7 GY GY PREMALIGN CONSULTAN CONSULTAN ANT [place] 1[place] [address] [facility] INFUSION 7 MEM HOSP MEM HOSP THERAPY/P INC INC ROPHYLAXI S /DX 1ST TO 1 [place] [address] [facility] INFUSION 7 MEM HOSP MEM HOSP THERAPY/P INC INC ROPHYLAXI S /DX 1ST TO 1 [place] [address] [facility] INFUSION 7 MEM HOS[facility] MEM HOSP THERAPY/P INC INC ROPHYLAXI S /DX 1ST TO 1 HR INJECTION J3301 [facility] FONTENOT 7 TRIAMCINO ORTHOPAED LONE ICS PSC ACETONIDE NOS 10 MG ARTHROCEN 00767 [facility] TESIS 7 ASPIR&/IN ORTHOPAED ORTHOPAED J MAJOR ICS PSC ICS PSC JT/BURSA W/O US RADIOLOGI 70176 PAYAL ROBISON C EXAM 7 MEDICAL CHEST 2 IMAGING VIEWS ASS FRONTAL&L ATERAL RADIOLOGI 20883 CHRIS Atkinson 6 EN EXAMINATI ORTHOPAED ON KNEE ICS PSC 1/2 VIEWS ARTHROCEN 01026 CHRIS LAMBERTIS 6 EN ASPIR&/IN ORTHOPAED J MAJOR ICS PSC JT/BURSA W/O US INJECTION J3301 CHRIS ESCOBAR 6 EN TRIAMCINO ORTHOPAED LONE ICS PSC ACETONIDE NOS 10 MG THERAPEUT 85869 [place] BESSON IC 6 VALLEY LJ PROPHYLAC INTERNAL TIC/DX MED INJECTION SUBQ/IM INJECTION J3420 [facility] BESSON VIT B-12 6 VALLEY LJ INTERNAL CYANOCOBA MED CHOCO TO 1000 MCG MRI ANY 31978 [facility] JT LOWER 6 MEM HOSP MEM HOSP EXTREM INC INC W/O CONTRAST MATRL ANNUAL G0438 [facility] [facility] WELLNESS 6 VALLEY LJ VISIT; INTERNAL PERSONALI MED Z PPS INIT VISIT PPSV23 27560 [facility] [facility] VACCINE 2 6 VALLEY LJ YRS OR INTERNAL OLDER FOR MED SUBQ/IM USE COLLECTIO 45560 [place] B[facility]ON N VENOUS 6 VALLEY LJ BLOOD INTERNAL VENIPUNCT MED URE ADMINISTR G0009 [facility] ATION OF 6 VALLEY LJ PNEUMOCOC INTERNAL TERRANCE MED VACCINE THERAPEUT 73599 [place] RODRIGUEZ IC 6 VALLEY PROPHYLAC INTERNAL TIC/DX MED INJECTION SUBQ/IM INJECTION J3301 [facility] RODRIGUEZ 6 VALLEY TRIAMCINO INTERNAL LONE MED ACETONIDE NOS 10 [place] [address] [facility] [place] INFUSION 5 MEM HOSP MEM HOSP THERAPY/P INC INC ROPHYLAXI S /DX 1ST TO 1 [place] [address] [facility] [place] INFUSION 5 MEM HOSP MEM HOSP THERAPY/P INC INC ROPHYLAXI S /DX 1ST TO 1 [place] [address] [facility] [place] INFUSION 5 MEM HOSP MEM HOSP THERAPY INC INC PROPHYLAX IS/DX EA HOUR EGD 32572 [facility] YESI DUGGAN TRANSORAL 5 PHYSICIAN ROME BIOPSY S GROUP SINGLE/MU LTIPLE COLSC FLX 59963 [facility] YESI DUGGAN W/RMVL 5 PHYSICIAN ROME [place] T[place] [address] [facility] OBEY INFUSION 5 MEM HOSP MEM HOSP THERAPY/P INC INC ROPHYLAXI S /DX 1ST [place] [address] [facility] OBEY INFUSION 5 MEM HOSP MEM HOSP THERAPY/P INC INC ROPHYLAXI S /DX 1ST [place] [address] [facility] OBEY INFUSION 5 MEM HOSP MEM HOSP THERAPY/P INC INC ROPHYLAXI S /DX 1ST TO 1 [place] [address] [facility] OBEY INFUSION 5 MEM HOSP MEM HOSP THERAPY/P INC INC ROPHYLAXI S /DX 1ST TO 1 HR TRANSFUSI 17063 [facility] ON 5 MEM HOSP MEM HOSP BLOOD/BLO INC INC OD COMPONENT S TRANSFUSI 46252 [facility] ON 4 MEM HOSP MEM HOSP BLOOD/BLO INC INC OD COMPONENT S ANTIBODY 99269 [facility] SCREEN 4 MEM HOSP MEM HOSP RBC EACH INC INC SERUM TECHNIQUE OPHTH 16224 DUDEE HANNAH DUDEE HANNAH MEDICAL 4 XM&EVAL INTERMEDI ATE ESTAB PT VISUAL 17866 DUDEE HANNAH DUDEE HANNAH FIELD XM 4 UNI/BI W/INTERP EXTENDED EXAM COMPUTERI 69659 DUDEE HANNAH DUDEE HANNAH ZED 4 OPHTHALMI C IMAGING OPTIC NERVE COMPUTERI 27620 DUDEE HANNAH DUDEE HANNAH ZED 4 OPHTHALMI C IMAGING RETINA OPHTH 11370 DUDEE HANNAH DUDEE HANNAH MEDICAL 4 XM&EVAL COMPRHNSV ESTAB PT 1/> [place] [address] [facility] OBEY INFUSION 4 MEM HOSP MEM HOSP THERAPY/P INC INC ROPHYLAXI S /DX 1ST TO [place] [address] [facility] OBEY INFUSION 4 MEM HOSP MEM HOSP THERAPY/P INC INC ROPHYLAXI S /DX 1ST TO 1 [place] [address] [facility] OBEY INFUSION 4 MEM HOSP MEM HOSP THERAPY/P INC INC ROPHYLAXI S /DX 1ST TO [place] [address] [facility] OBEY INFUSION 4 MEM HOSP MEM HOSP THERAPY/P INC INC ROPHYLAXI S /DX 1ST TO 1 HR IM ADM 63915 B[facility] BESSON PRQ ID 3 LJ LJ SUBQ/IM NJXS 1 VACCINE IM ADM 67900 [facility] B[facility]ON PRQ ID 3 LJ LJ SUBQ/IM NJXS 1 VACCINE IM ADM 57160 [facility] B[facility]ON PRQ ID 3 LJ LJ SUBQ/IM NJXS 1 VACCINE THERAPEUT 60099 [facility], IC PX 1/> 3 REGISTERED APPRAISER REGISTERED APPRAISER AREAS [facility] EACH 15 CO HOS CO HOS MIN EXERCISES THERAPEUT 42038 [facility] [employer], IC PX 1/> 3 REGISTERED APPRAISER REGISTERED APPRAISER AREAS [facility]O EACH 15 CO HOS CO HOS MIN EXERCISES THERAPEUT 26777 [facility] [employer], IC PX 1/> 3 REGISTERED APPRAISER REGISTERED APPRAISER AREAS PLACIDO [facility]ACIDO EACH 15 CO HOS CO HOS MIN EXERCISES THERAPEUT 08527 [facility] [employer], IC PX 1/> 3 REGISTERED APPRAISER REGISTERED APPRAISER AREAS PLACIDO PLACIDO EACH 15 CO HOS CO HOS MIN EXERCISES THERAPEUT 45236 [facility] [employer], IC PX 1/> 3 REGISTERED APPRAISER REGISTERED APPRAISER AREAS PLACIDO PLACIDO EACH 15 CO HOS CO HOS MIN EXERCISES RADEX HIP 73113 JULIETH CLANCY 3 ARLET ARLET UNILATERA L COMPLETE MINIMUM 2 VIEWS DUP-SCAN 70694 JULIETH CLANCY XTR VEINS 3 ARLET ARLET COMPLETE BILATERAL STUDY BLD BANK 54759 [facility] MACIVOR PHYS SVCS 3 [facility] CROSS MATCH&/EV AL REP DECALCIFI 20249 MARINA MARINA CATION 3 ISMAEL ISMAEL PROCEDURE RADIOLOGI 45444 ANYA ANYA C 3 FRA FRA EXAMINATI ON PELVIS 1/2 VIEWS ARTHRP 69342 CHRISTENS CHRISTENS ACETBLR/P 3 EN CHR EN CHR TALA FEM PROSTC AGRFT/ALG RFT CATH PLMT 42359 FALLUJI FALLUJI L HRT & 3 YAMILETH YAMILETH ARTS W/NJX & ANGIO IMG S&I BLD BANK 78960 BORAL RADHA BORAL RADHA PHYS SVCS 3 DIFFC CROSS MATCH&/EV AL REP ANTIBODY 61716 [facility] SCREEN 3 Y Y RBC [facility] TECHNIQUE ANTIBODY 37445 [facility] ID RBC 3 Y Y ANTIBODIE [facility] S EA PANEL EA SERUM TQ URNLS DIP 42900 BESSON BESSON 3 LJ LJ STICK/TAB LET RGNT NON-AUTO W/O MICRSCP ECG 87675 BESSON BESSON ROUTINE 3 LJ LJ ECG W/LEAST 12 LDS W/I&R ECG 39152 FALLUJI FALLUJI ROUTINE 3 YAMILETH YAMILETH ECG W/LEAST 12 LDS W/I&R CV STRS 64821 FALLUJI FALLUJI TST 3 YAMILETH YAMILETH XERS&/OR RX CONT ECG I&R ONLY CV STRS [address] XERS&/OR RX CONT ECG TRCG ONLY MYOCARDIA [address] MULTIPLE STUDIES OPHTHALMO 64748 DUDEE HANNAH DUDEE HANNAH SCPY 3 EXTENDED RETINAL DRAWING I&R [facility] 70303 ENRIQUETA ENRIQUETA RETROPERI 3 [facility] TONEAL REAL TIME W/IMAGE [facility]PLETE [facility] 13787 MCKEMIE MCKEMIE DISCHARGE 3 JR RENÉE DUGGAN RENÉE DAY MANAGEMEN T 30 MIN/< RADIOLOGI 54368 RAMIRO Atkinson 3 EDA MEADOWSINAANISA ON CHEST SINGLE VIEW FRONTAL ECG 06971 MCKEMIE MCKEMIE ROUTINE 3 JR RENÉE JR RENÉE ECG W/LEAST 12 LDS I&R ONLY THERAPEUT 53617 [facility] IC PX 1/> 2 [facility] EACH 15 MIN EXERCISES APPLICATI 73684 [facility] ON 2 [facility] MODALITY [facility] INC 1/> AREAS HOT/COLD PACKS E-STIM G0283 [facility] 1/> AREAS 2 [facility] OTH THAN INC INC WND CARE PART TX PLAN E-STIM G0283 [facility] 1/> AREAS 2 [facility] INC INC WND CARE PART TX PLAN APPLICATI 20447 [facility] ON 2 [facility] INC 1/> AREAS HOT/COLD PACKS THERAPEUT 83614 [facility] IC PX 1/> 2 [facility] INC INC EACH 15 MIN EXERCISES THERAPEUT 72492 [facility] IC PX 1/> 2 [facility] INC INC EACH 15 MIN EXERCISES APPLICATI 93955 [facility] ON 2 [facility] MODALITY INC INC 1/> AREAS HOT/COLD PACKS E-STIM G0283 [facility] 1/> AREAS 2 [facility] O[facility] THAN INC INC WND CARE PART TX PLAN E-STIM G0283 [facility] 1/> AREAS 2 [facility] INC INC WND CARE PART TX PLAN APPLICATI 49632 [facility] ON 2 [facility] INC 1/> AREAS HOT/COLD PACKS THERAPEUT 67262 [facility] IC PX 1/> 2 [facility] INC INC EACH 15 MIN EXERCISES THERAPEUT 44510 [facility] IC PX 1/> 2 [facility] INC INC EACH 15 MIN EXERCISES APPLICATI 70880 [facility] ON 2 [facility] MODALITY INC INC 1/> AREAS HOT/COLD PACKS E-STIM G0283 [facility] 1/> AREAS 2 [facility] INC INC WND CARE PART TX PLAN APPLICATI 58200 [facility] ON 2 [facility] INC 1/> AREAS HOT/COLD PACKS THERAPEUT 95358 [facility] IC PX 1/> 2 MEM [...] WND CARE PART TX PLAN E-STIM G0283 [facility] 1/> AREAS 2 [facility] INC WND CARE PART TX PLAN E-STIM G0283 [facility] 1/> AREAS 2 [facility] INC INC WND CARE PART TX PLAN RADEX 87946 [facility] SPINE 2 [facility]ICAL [facility] LUMBOSACR IMAGING AL ASS MINIMUM 4 VIEWS 3D 09869 [facility] RENDERING 2 MEDICAL [facility] W/INTERP IMAGING & ASS POSTPROCE SS SUPERVISI ON MRI 16226 [facility] CANAL IMAGING LUMBAR ASS W/O CONTRAST MATERIAL MRI 67210 [facility] PELVIS 2 MEDICAL [facility] W/O IMAGING CONTRAST ASS MATERIAL COLONOSCO 61359 DAMON SALMA DAMON SALMA PY FLX DX 2 W/COLLJ SPEC WHEN PFRMD THERAPEUT 78025 MICHAEL LINGREEN IC 2 NAN ARLET PROPHYLAC TIC/DX INJECTION SUBQ/IM OPHTH 46257 DUDEE HANNAH DUDEE HANNAH MEDICAL 2 XM&EVAL COMPRE NEW PT 1/> VST OPHTHALMO 71665 DUDEE HANNAH DUDEE HANNAH SCPY 2 EXTENDED RETINAL DRAWING I&R 1ST DETERMINA 77001 DUDEE HANNAH DUDEE HANNAH TION 2 REFRACTIV E STATE THERAPEUT 16706 LEE ANN NANCE IC 2 LJ LJ PROPHYLAC TIC/DX INJECTION SUBQ/IM LIPID 91751 COMBINED COMBINED PANEL 1 PHYSICIAN PHYSICIAN S LA S LA COMPREHEN 01591 COMBINED COMBINED SIVE 1 PHYSICIAN PHYSICIAN METABOLIC S LA S LA PANEL COMPREHEN 40112 COMBINED COMBINED SIVE 1 PHYSICIAN PHYSICIAN METABOLIC S LA S LA PANEL LIPID 74862 COMBINED COMBINED PANEL 1 PHYSICIAN PHYSICIAN S LA S LA BLOOD [id number] COMBINED COMBINED COUNT 1 PHYSICIAN PHYSICIAN COMPLETE S LA S LA AUTO&AUTO DIFRNTL WBC SCREENING 65361 PLACIDO CUMMINS 0 CO [facility] HY BILATERAL ECHO 37710 PREET TORRES TORRES PREET TTHRC R-T 0 MD 2D CONSULTIN W/WOM-MOD G SRV E COMPL SPEC&COLR D SPMTRY 57952 PLACIDO CUMMINS W/VC 0 CO CA EXPLEGACY [facility] Y JAMAL W/WO MXML VOL VNTJ ECHO 87917 PLACIDO CUMMINS TTHRC R-T [address] W/WOM-MOD E COMPL SPEC&COLR D RADIOLOGI 65122 [facility] C EXAM 0 EDA CHEST 2 RADIOLOGY VIEWS ASSOCIAT FRONTAL&L ATERAL E-STIM G0283 OBEY BARN[facility]ART 1/> AREAS 0 [facility] OTH THAN INC INC WND CARE PART TX PLAN THERAPEUT 15993 OBEY BARN[facility]ART IC PX 1/> 0 [facility] AREAS INC INC EACH 15 MIN EXERCISES APPL 55845 O[facility] BARN[facility] MODALITY 0 [facility] 1/> AREAS INC INC ULTRASOUN D EA 15 MIN APPL 59171 O[facility] MODALITY 0 [facility] 1/> AREAS INC INC ULTRASOUN D EA 15 MIN THERAPEUT 21789 OBEY BARNHART IC PX 1/> 0 [facility] AREAS INC INC EACH 15 MIN EXERCISES E-STIM G0283 O[facility] 1/> AREAS 0 [facility] OTH THAN INC INC WND CARE PART TX PLAN THERAPEUT 25698 OBEY BARNHART IC PX 1/> 0 [facility] AREAS INC INC EACH 15 MIN EXERCISES APPL 09875 OBEY PAULSONON MODALITY 0 [facility] 1/> AREAS INC INC ULTRASOUN D EA 15 MIN E-STIM G0283 OBEY [facility] 1/> AREAS 0 [facility]OSP OTH THAN INC INC WND CARE PART TX PLAN E-STIM G0283 O[facility] 1/> AREAS 0 [facility]OS[facility] OTH THAN INC INC WND CARE PART TX PLAN APPL 59043 O[facility] MODALITY 0 [facility] 1/> AREAS INC INC ULTRASOUN D EA 15 MIN THERAPEUT 31273 OBEY B[facility] IC PX 1/> 0 [facility] AREAS INC INC EACH 15 MIN EXERCISES PHYSICAL 45294 O[facility] THERAPY 0 [facility] EVALUATIO INC INC N APPL 42203 O[facility] MODALITY 0 [facility] 1/> AREAS INC INC ULTRASOUN D EA 15 MIN E-STIM G0283 [facility] 1/> AREAS 0 [facility] OTH THAN [place] [address] O[facility] [place] FOLIC 0 [facility] [place] [address] O[facility] [place] IRON 0 [facility] INC INC COMPREHEN 76657 OBEY PA[facility] SIVE 0 [facility] METABOLIC INC INC PANEL CYANOCOBA 43669 O[facility] CHOCO 0 MEM [facility]OS[facility] VITAMIN INC INC B-12 [place] [address] O[facility]Y [place] FERRITIN 0 [facility] INC INC BLOOD 64170 OBEY OBEY COUNT 0 [facility] COMPLETE INC INC AUTO&AUTO DIFRNTL WBC IRON 33621 OBEY OBEY BINDING 0 [facility] CAPACITY INC INC COLLECTIO 31270 O[facility] N VENOUS 0 [facility] BLOOD INC INC VENIPUNCT URE MRI ANY 17827 ENRIQUETA ROBISON JT LOWER 0 KHALIDA KHALIDA EXTREM W/O CONTRAST MATRL ENDOMETRI 84929 [facility] [place] BX 0 [facility] W/WO [facility]IN[facility] OF ENDOCERVI X BX W/O [place] DILAT SPX PLLC CYTP 95833 WINNIE WINNIE SLCTV 0 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 IES INC IES INC ENHANCEME NT INTERPJ XCPT C/V SPCL STN 30301 WINNIE ZHOU 2 I&R 0 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 IES INC IES INC MICROORG/ ENZYME/IM CYT IM ADM 53658 [place] MCKEMIE PRQ ID 0 [facility] JR RENÉE SUBQ/IM INTERNAL NJXS 1 MED VACCINE INJECTION J3301 [place] MCKEMIE 0 [facility] R[facility]ÉE TRIAMCINO INTERNAL LONE MED ACETONIDE NOS 10 MG SCREENING 87232 [facility] 9 [place], MAMMOGRAP RADIOLOGY LYNSEY HY K BILATERAL ASSOCIATE S PSC LAPAROSCO 35544 O[facility] PY SURG 9 [facility] [place] [address] O[facility] INFUSION 9 [facility] THERAPY INC INC PROPHYLAX IS/DX EA HOUR LEVEL III 65952 PATHOLOGY PATHOLOGY SURG 9 & & PATHOLOGY CYTOLOGY CYTOLOGY LAB LAB GROSS&LALO ROSCOPIC EXAM THERAPEUT 69545 O[facility] IC 9 [facility] INJECTION INC [place] [address] O[facility] INFUSION 9 [facility] THERAPY/P INC INC ROPHYLAXI S /DX 1ST TO 1 HR ANES 26694 [facility] MACIAS, INTRAPERI 9 ANESTH RAE F TONEAL OF THE UPPER BLUEGRASS ABDOMEN W/LAPS NOS ECG 71366 KAMLESH DENSON 9 [facility] W/LEAST PROF SERV 12 LDS I&R ONLY COLLECTIO 75867 O[facility]Y [facility] N VENOUS 9 [facility] BLOOD INC INC VENIPUNCT URE BLOOD 63629 O[facility]Y B[facility] COUNT 9 [facility]OSP COMPLETE INC INC AUTO&AUTO DIFRNTL WBC ECG 07600 OBE[facility] B[facility] ROUTINE 9 [facility] ECG INC INC W/LEAST 12 LDS TRCG ONLY W/O I&R BASIC 50418 O[facility] METABOLIC 9 [facility] PANEL INC INC CALCIUM TOTAL BLOOD [address] PLATELET AUTOMATED PLCMT G0269 [facility] OCCL DEVC [address] [place] [address] RAYMOND/ART POST SURG/INTR VNL PROC CREATININ 01245 [facility] BLOOD [address] [place] [address] [place] [address] [facility] UREA [address] [place] [address] NITROGEN QUANTITAT FRANCISCO JAVIER BLOOD [address] HEMATOCRI T ECG [address] ECG W/LEAST 12 LDS TRCG ONLY W/O I&R POTASSIUM [address] PLASMA/WH OLE BLOOD CHLORIDE 41770 [facility] BLD [address] [place] [address] L HRT 83580 [facility] CATHE[address] ZATION [place] [address] [facility] C-CATH[address] F/SLCTV C ANGRPH I SI&R 79320 [facility] F/NJX PX [address] [place] [address] DURING C-CATHJ VENTR&/AT R ANGRPH I SI&R 17831 [facility] F/NJX PX [address] [place] [address] DURING C-CATHJ PULM&/OR SELECT INJECTION 75342 [facility] CARDIAC [address] [place] [address] CATHJ L VENTR/L ATR ANGIOGRAP H SODIUM [address] PLASMA OR WHOLE BLOOD COLLECTIO 13672 [facility] N VENOUS [address] [place] [address] BLOOD VENIPUNCT URE ECG 05011 JUANCHO GRIFFITH, ROUTINE 9 [place] [facility] ECG CLINIC W/LEAST PSC 12 LDS I&R ONLY CLOSURE C1760 [facility] DEVICE [address] [place] [address] VASCULAR INTRDUCR/ C1894 [facility] SHEATH [address] [place] [address] NOT GUID INTRACARD EP NON-LASR GLUCOSE 27055 [facility] QUANTITAT [address] [place] [address] FRANCISCO JAVIER BLOOD XCPT REAGENT STRIP COLLECTIO 55366 [facility] N VENOUS 9 [facility] BLOOD INC INC VENIPUNCT URE BLOOD 15069 O[facility] COUNT 9 [facility] COMPLETE INC INC AUTO&AUTO DIFRNTL WBC COMPREHEN 98288 OBEY BARN[facility]ART SIVE 9 [facility] [place] [address] [facility] ABDOMINAL 9 [place], REAL RADIOLOGY LYNSEY TIME K W/IMAGE ASSOCIATE DOCUMENTA S PSC TION URNLS DIP 85425 PLACDIO CUMMINS 9 CO [facility] STICK/TAB [facility]OSPITAL HOSPITAL LET REAGENT AUTO MICROSCOP Y BLOOD 73926 PLACIDO CUMMINS COUNT 9 CO [facility] COMPLETE [facility]PITAL [facility]OSPITAL AUTO&AUTO DIFRNTL WBC COLLECTIO 93063 PLACIDO Orr VENOUS 9 CO CO BLOOD [facility]OSPITAL VENIPUNCT URE CULTURE 25654 PLACIDO CUMMINS BACTERIAL 9 CO [facility] QUANTTATI VE COLONY COUNT URINE HOSPITAL G0378 PLACIDO CUMMINS OBSERVATI 9 CO [facility]PITAL HOSPITAL SERVICE PER HOUR CREATINE 88699 PLACIDO CUMMINS KINASE 9 CO [place] [address] PLACIDO CUMMINS LIPASE 9 CO [facility] H[facility]PITAL HOSPITAL ECG 50202 PLACIDO CUMMINS ROUTINE 9 CO CO ECG HOSPITAL HOSPITAL W/LEAST 12 LDS TRCG ONLY W/O I&R COLLECTIO 96105 PLACIDO Orr VENOUS 9 CO CO BLOOD [facility] VENIPUNCT URE RADIOLOGI 80989 [facility] C EXAM 9 E[place], CHEST 2 RADIOLOGY LYNSEY VIEWS K FRONTAL&L ASSOCIATE ATERAL S PSC ECG 21669 PATEL NANCE, ROUTINE 9 [place] [facility]ERT A ECG INTERNAL W/LEAST MED 12 LDS I&R ONLY BLOOD 09209 PLACIDO CUMMINS COUNT 9 CO CO COMPLETE [facility] HOSPITAL AUTO&AUTO DIFRNTL WBC MYOGLOBIN 33940 PLACIDO CUMMINS 9 [place] [address] PLACIDO CUMMINS TROPONIN 9 CO CO QUANTITAT [facility]PITAL FRANCISCO JAVIER URNLS DIP 26204 PLACIDO CUMMINS 9 CO [facility] STICK/TAB [facility]OSP[facility] HOSPITAL LET REAGENT AUTO MICROSCOP Y COMPREHEN 01375 PLACIDO CUMMINS SIVE 9 CO [facility] [place] [address] PLACIDO CUMMINS INFUSION 9 CO CO HYDRATION [facility] INITIAL 31 MIN-[address] [place] [address] PLACIDO CUMMINS AMYLASE 9 CO [facility]OSPITAL CREATINE 99983 PLACIDO CUMMINS KINASE MB 9 CO [facility] HOSPITAL ONLY COLSC FLX 79763 [place] DAMON, 9 MEDICAL CUONG W/REMOVAL SERV LESION FOUNDAT[place] [address] PATHOLOGY PATHOLOGY SURG 9 & & PATHOLOGY CYTOLOGY CYTOLOGY LAB LAB GROSS&[place] [address] OBEY BARNHART INFUSION 9 [facility] HOSP THERAPY/P INC INC ROPHYLAXI S /DX 1ST TO 1 [place] [address] O[facility]Y [facility] INFUSION 9 [facility] HOSP THERAPY INC INC PROPHYLAX IS/DX EA HOUR CV STRS 93366 OBEY NANCE, TST 9 [facility] RX CONT PROF SERV ECG I&R ONLY CV STRS 13104 OBEY NANCE, TST 9 [facility] RX CONT PROF SERV ECG W/O I&R CV STRS 08647 O[facility]ARN[facility] TST 9 [facility] HOSP XERS&/OR INC INC RX CONT ECG TRCG ONLY MYOCRD 53120 O[facility] PRFUJ STD 9 [facility] HOSP WALL INC INC MOTION QUAL/ROBERT STD INJECTION J0152 [facility] 9 [facility] ADENOSINE INC INC DIAGNOSTI C USE 30 MG MYOCRD 54901 O[facility] PRFUJ IMG 9 [facility] TOMOG INC INC SPECT RESERVOIR ENGINEERING ADVISOR STD TECHNETIU A9502 OBEY Taylor TC-99M 9 [facility] HOSP TETROFOSM INC INC IN DX PER STUDY DOSE MYOCRD 70395 O[facility] PRFUJ STD 9 [facility]OSP EJEC FXJ INC INC LIPID 07382 PLACIDO CUMMINS PANEL 9 [facility] [address] PLACIDO CUMMINS THYROID 9 [facility] STIMULATI [facility] NG HORMONE TSH COMPREHEN 47359 PLACIDO CUMMISN SIVE 9 [facility] PANEL DUPLEX 54548 PLACIDO CUMMINS SCAN 9 CO CA EXTRACRAN [facility] IAL ART COMPL BI STUDY COLLECTIO 36989 PLACIDO CUMMINS N VENOUS 9 [facility] BLOOD [facility] VENIPUNCT URE BLOOD 24622 PLACIDO CUMMINS COUNT 9 CO CA COMPLETE [facility] AUTO&AUTO DIFRNTL WBC SCREENING 67129 PLACIDO CUMMINS 8 [facility] MAMMOGRAP [facility] HY BILATERAL DXA BONE 26957 O[facility] DENSITY 8 [facility] STUDY 1/ INC INC SITES AXIAL SKEL SCREEN Q0091 [facility], PAP 8 [facility] SMEAR; CLINIC OF OBTAIN PREP &C CHELLE ONVEY TO [facility] LAB CERV/VAGI G0101 [facility] NAL 8 [facility]; PELV&CLIN [place] [facility] EXAM OPHTH 76660 SORIN ROWELL MEDICAL 8 LEEANN BRADSHAW XM&EVAL S S COMPRHNSV ESTAB PT 1/> OPHTHALMO 27801 SORIN ROWELL SCPY 8 LEEANN BRADSHAW EXTENDED S S RETINAL DRAWING I&R SBS Encounters Encounter Start End Date Code Location Performer Type Date OFFICE 35633 [place] [facility] OUTPATIEN 7 7 MEDICAL T VISIT SERV 25 FOUNDATIO MINUTES N OFFICE 00856 OBEY JAMAR DUGGAN OUTPATIEN 7 7 [facility] 10 P MINUTES OFFICE 44482 O[facility] RODAS OUTPATIEN 7 7 [facility] P MINUTES HOSPITAL OBEY - 7 7 [facility] OUTPAT[facility]EN [facility] OBEY - 7 7 [facility]PATIEN [facility] OBEY - 7 7 [facility] OUTPATIEN [facility] OFFICE 29982 OBEY RODAS OUTPATIEN [address] [facility] T VISIT HOSPITAL 10 P MINUTES OFFICE 62716 [place] RODRIGUEZ OUTPATIEN 6 6 [facility] T VISIT INTERNAL 15 MED MINUTES OFFICE 96461 [place] ABAD OUTPATIEN 6 6 MEDICAL T VISIT SERV 25 FOUNDATIO MINUTES N OFFICE 39421 [facility] OUT[facility] 6 6 EN T VISIT ORTHOPAED 15 ICS PSC MINUTES HOSPITAL OBEY - 6 6 [facility] OUTPATIEN [facility] OFFICE 86512 [place] BESSON OUTPATIEN 6 6 VALLEY LJ T VISIT INTERNAL 25 MED MINUTES OFFICE 42072 [place] RODRIGUEZ OUTPATIEN 6 6 VALLEY T VISIT INTERNAL 15 MED MINUTES OFFICE 44355 [place] B[place]ON OUTPATIEN 5 5 VALLEY LJ T VISIT INTERNAL 15 MED MINUTES HOSPITAL OBEY - 5 5 [facility] OUTPATIEN [facility] OBEY - 5 5 [facility] OUTPATIEN [facility] OBEY - 5 5 MEM [facility] OUTPATIEN [facility] OBEY - 5 5 MEM [facility] OUTPATIEN [facility] OBEY - 5 5 MEM [facility] OUTPATIEN INC T OFFICE 57430 [facility] OUTPATI[facility] 5 5 [facility] OBEY - 5 5 [facility] OUTPATIEN INC [facility] OBEY - 5 5 [facility] OUTPATIEN INC T OFFICE 19002 OBEY [facility] OUTPATI[facility] 5 5 [facility] MINUTES [facility] OBEY - 5 5 MEM H[facility] OUTPATIEN INC T OFFICE 56821 [place] MARCIN ABAD OUTPATIEN 5 5 MEDICAL T VISIT SERV 25 FOUNDATIO MINUTES [facility] OBEY - 4 4 [facility]EN [facility] OBEY - 4 4 [facility]EN [facility] O[facility] - 4 4 [facility]PATI[facility] OBEY - 4 4 [facility] OUTPATIEN [facility] OBEY - 4 4 [facility] OUTPATIEN [facility] OBEY - 4 4 [facility] OUTPATIEN [facility] T OFFICE 20253 [place] ABAD OUTPATIEN 4 4 MEDICAL T VISIT SERV 25 FOUNDATIO MINUTES N CRITICAL MHC INC, ACCESS 3 3 [facility] CRITICAL MHC INC, ACCESS 3 3 [facility] HOS EMERGENCY 41314 [facility] INC, 3 3 [facility] VISIT [facility] HOS MODERATE [facility]VERITY CRITICAL MHC INC, ACCESS 3 3 [facility] [address] [place] [address] OBEY - 3 3 MEM HOS[facility] OUTPATIEN INC T OFFICE 96482 [facility] POLLO MARCIN ABAD OUTPATIEN 3 3 T NEW 60 MINUTES OFFICE 84299 MICHAEL RODRIGUEZ OUTPATIEN 2 2 NAN NAN T VISIT 15 MINUTES HOSPITAL OBEY - 2 2 [facility] OUTPATIEN INC [facility]OSPITAL OBEY - 2 2 [facility] OUTPATIEN INC HOSPITAL OBEY - 2 2 [facility] OUTPATIEN [facility] T OFFICE 57699 MICHAEL RODRIGUEZ OUTPATIEN 2 2 SINDY NAN T VISIT 15 MINUTES OFFICE 13317 MICHAEL RODRIGUEZ OUTPATIEN 2 2 NAN NAN T VISIT 15 MINUTES OFFICE 21561 LEE ANN NANCE OUTPATIEN 2 2 LJ LJ T VISIT 15 MINUTES CRITICAL PLACIDO ACCESS 0 0 [facility] CRITICAL PLACIDO ACCESS 0 0 [facility] OFFICE [address]576 [place] SALMA OUTPATIEN 0 0 MEDICAL T VISIT SERV 15 FOUNDATIO MINUTES HOSPITAL OBEY - 0 0 [facility] OUTPATIEN INC T OFFICE 81962 [facility] TRA OUTPATIEN 0 0 [place] T NEW 45 ORTHOPAED MINUTES [facility] OFFICE 46641 [place], OUTPATIEN 0 0 MEDICAL CUONG T VISIT SERV 15 FOUNDATIO MINUTES HOSPITAL OBEY - 0 0 [facility] OUTPATIEN INC T OFFICE 80954 [place] MCKEMIE OUTPATIEN 0 0 [facility] T VISIT INTERNAL 15 MED MINUTES CRITICAL PLACIDO ACCESS 9 9 [facility] HOSPITAL OBEY - 9 9 [facility] OUTPATIEN INC HOSPITAL OBEY - 9 9 [facility] OUTPATIEN INC T OFFICE 67404 NICOLE RIVERA CONSULTAT 9 9 , DASHA LOU LUX NEW/ESTAB PATIENT 60 MIN OFFICE 73544 [place] BESLEVI, OUTPATIEN 9 9 [place] [facility] A T VISIT INTERNAL [address] COMPA - 9 9 HOSPITAL OUTPATIEN T OFFICE 51461 [place] BESSON, OUTPATIEN 9 9 [place] [facility] A T VISIT INTERNAL 15 MED MINUTES CRITICAL PLACIDO ACCESS 9 9 [facility] EMERGENCY 73858 PL[facility]IDO FELA 9 9 [facility] T VISIT MODERATE SEVERITY CRITICAL PLACIDO ACCESS 9 9 [facility] EMERGENCY 98656 PLACIDO 9 9 [facility] T VISIT LIMITED/M INOR PROB OFFICE 25405 [facility] BEN CONSULTVERO 9 9 PHYSICIAN FRANKIE Henry GROUP NEW/ESTAB PATIENT 60 MIN HOSPITAL OBEY - 9 9 [facility] OUTPATI[facility] OBEY - 9 9 [facility] OUTPATIEN [facility] T CRITICAL PLACIDO ACCESS 9 9 [facility] OFFICE 02053 [place] BESLEVI OUTPATIEN 9 9 [place] [facility] A T VISIT INTERNAL 15 MED MINUTES OFFICE 41715 [place] SHARITA OUTPATIEN 8 8 KWAKU DUGGAN, T VISIT INTERNAL RAE F 15 MED MINUTES CRITICAL PLACIDO ACCESS 8 8 [facility] CRITICAL PLACIDO ACCESS 8 8 [facility]PITAL OBEY - 8 8 [facility] OUTPATIEN INC T OFFICE 44754 LICGANESH PATTON 8 8 [place] JEFF Hoang VISIT INTERNAL 10 MED MINUTES
--- OUTSIDE RECORDS SUMMARY | 2017-06-08 04:53 | External Medical Summary Rpt ---
Author Author , LOULOU JAMIL Address Unknown Phone [email or web address] Board Care Team Providers Care Client Care Consultant Name Role Phone ALLRAN JR ROME, ALLRAN Unavailable Unavailable JR ROME ANYA FRA, ANYA Unavailable Unavailable FRA ANYA FRA, ANYA Unavailable Unavailable FRA RODRIGUEZ, RODRIGUEZ Unavailable Unavailable BESSON LJ, BESSON Unavailable Unavailable LJ BESSON LJ, BESSON Unavailable Unavailable LJ BESSON, ROBERT A, Unavailable Unavailable BESSON, ROBERT A [facility] Unavailable [facility]available [facility] MONTIEL, MONTIEL Unavailable Unavailable BORAL RADHA, BORAL RADHA Unavailable Unavailable [facility] Unavailable Unavailable INC, [facility] TOWNSEND, Unavailable Unavailable [facility], Unavailable Unavailable [facility] RAMIRO VERAS, RUBIO Unavailable Unavailable EDA VERAS, RAMIRO Unavailable Unavailable ROMAN ROBERTS, Unavailable Unavailable ROMAN RUBIO [facility] Unavailable Unavailable LA, [facility] TORRES PREET, TORRES PREET Unavailable Unavailable JAMAR ROLDAN JR, JR Unavailable Unavailable ENRIQUETA, ENRIQUETA Unavailable Unavailable ENRIQUETA BRITTANY, Unavailable Unavailable ENRIQUETA BRTITANY ENRIQUETA BRITTANY, Unavailable Unavailable ENRIQUETA BRITTANY JOHN ROBISONLAS, Unavailable Unavailable ENRIQUETA, KHALIDA [facility] Unavailable [facility]available [facility], [facility] ADRIANNA, ADRIANNA Unavailable Unavailable ADRIANNA PHI, Unavailable Unavailable ADRIANNA PHI DUDEE HANNAH, DUDEE HANNAH Unavailable Unavailable DUDEE HANNAH, DUDEE HANNAH Unavailable Unavailable DUDEE, JITANDER S, Unavailable Unavailable DUDEE, JITANDER S FALLUNIKKO YAMILETH, FALLUJI Unavailable Unavailable YAMILETH BEN CARSON, FALLUJI Unavailable Unavailable FRANKIE SIMENTAL, Unavailable Unavailable FRANKIE CONTRERAS, Unavailable Unavailable CARLOS CONNELLY JENNIFER K [facility] Unavailable Unavailable INC, [facility] Unavailable Unavailable [facility] P, [facility] CLANCY ARLET, CLANCY Unavailable Unavailable ARLET CLANCY, TREVOR S, Unavailable Unavailable CLANCY, TREVOR S SANIA, JEFF, SANIA, Unavailable Unavailable CORIE BRASWELL Unavailable Unavailable [facility], Unavailable Unavailable [facility] AMOS TRA, AMOS TRA Unavailable Unavailable MICHAEL NAN, MICHAEL Unavailable Unavailable NAN MICHAEL NAN, MICHAEL Unavailable Unavailable [facility] Unavailable Unavailable [facility], [facility] Unavailable Unavailable [facility], [facility] CHARANJIT, TEJA E, Unavailable Unavailable CHARANJIT, TEJA E [facility] Unavailable Unavailable INTERNAL MED, [facility] LINGREEN ARLET, Unavailable Unavailable LINGREEN ARLET MACIVOR DUN, MACIVOR Unavailable Unavailable DUN [facility] Unavailable Unavailable ASSOCIAT, [facility] MCKEMIE JR RENÉE, Unavailable Unavailable MCKEMIE JR RENÉE MCKEMIE JR CHINCHILLA, Unavailable Unavailable SHANICEMIE JR RENÉE SHERIFF JR RAE Unavailable Unavailable F, SHARITA DUGGAN RAE F [facility] HEAD TRIMMER [facility] Unavailable Unavailable [facility], [facility] HEAD TRIMMER [facility] LAURA SMITH, Unavailable Unavailable LAURA SMITH WILLIAM F, Unavailable Unavailable RAE MACIAS [facility], Unavailable Unavailable [facility] MOMO GRIFFITH, Unavailable Unavailable MOMO GRIFFITH MD Unavailable Unavailable [facility] Unavailable Unavailable LAB, [facility] DAMON SALMA, DAMON SALMA Unavailable Unavailable DAMON SALMA, DAMON SALMA Unavailable Unavailable DAMON, CUONG, DAMON, Unavailable Unavailable CUONG PETTEY JAM, PETTEY Unavailable Unavailable JAM FELA DENISE, FELA Unavailable Unavailable DENISE NICOLE DASHA, Unavailable Unavailable LISASTPAOLO, DASHA MARINA ISMAEL, MARINA Unavailable Unavailable ISMAEL [facility], Unavailable Unavailable [facility], Unavailable Unavailable [facility] BURCH, BURCH Unavailable Unavailable BURCH POLLO, BURCH POLLO Unavailable Unavailable Purpose Continuity of Care Document - 11-12-2007 through 2016 Problems Code Diagnosis DOS Provider Status [id number] PAIN IN 03-05-2017 [facility] D509 IRON 12-24-2016 [facility] P UNSPECIFIED D631 ANEMIA IN 12-24-2016 [facility] DISEASE I129 HYPERTENSIV 12-24-2016 [place] [facility] E CKD SERV W/STAGE 1-4 FOUNDATION CKD OR UNS CKD M8580 OTH SPEC 12-24-2016 [place] [facility] D/O BONE SERV DENSITY [facility] STRUCTURE UNS SITE N184 CHRONIC 12-24-2016 [facility] DISEASE [facility] STAGE 4 SEVERE N250 RENAL 12-24-2016 [place] [facility] OSTEODYSTRO SERV PHY [facility] 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 L570 ACTINIC 12-04-2016 [facility] KERATOSIS [facility] P[facility] L820 INFLAMED 12-04-2016 DERMATOLOGY SEBORRHEIC KERATOSIS [facility]ULTANT[facility] P[facility] L821 OTHER 12-04-2016 DERMATOLOG[facility] SEBORRHEIC KERATOSIS [facility] D649 ANEMIA 11-12-2016 [facility] P [id number] ADVERSE 10-28-2016 [facility] COMPOUNDS INITIAL ENC 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-29-2016 [facility] OSTEO[facility] TIS LEFT KNEE R079 CHEST PAIN 09-01-2016 [facility] J180 BRONCHOPNEU 05-15-2016 [facility] [place] UNSPECIFIED INTERNAL ORGANISM MED D638 ANEMIA IN 02-28-2016 [place] [facility] OTHER SERV CHRONIC [facility] DISEASES CLASSIFIED ELSW N183 CHRONIC 02-28-2016 [place] [facility] DISEASE [facility] STAGE 3 MODERATE 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 11-19-2015 [facility] OF OTHER [place] SPECIFIED B INTERNAL GROUP MED VITAMINS [id number] EFFUSION 11-15-2015 [facility] G02015 PAIN IN 11-15-2015 [facility] M7120 SYNOVIAL 11-15-2015 [facility] CYST MEDICAL POPLITEAL IMAGING ASS SPACE BURNS UNS KNEE [id number] OTH TEAR 11-15-2015 [facility] MENISCUS [facility] CURR INJ [...] VALLEY BLOOD&BLOOD INTERNAL FORM ORGN MED IMMUNE [facility] J0100 ACUTE 10-29-2015 [facility] MAXILLARY [place] SINUSITIS INTERNAL UNSPECIFIED MED M5432 SCIATICA 06-26-2015 [facility] LEFT SIDE [place] INTERNAL MED 2809 UNSPECIFIED 03-02-2015 [facility]ON [facility] DEFICIENCY INC ANEMIA 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 2859 UNSPECIFIED 02-20-2015 [facility] ANEMIA PHYSICIANS GROUP 5533 DIAPHRAGMAT 02-20-2015 [facility] VIRGIL W/O PHYSICIANS MENTION GROUP OBSTRUCTION /GANGREN 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 5781 BLOOD IN 02-20-2015 [facility] STOOL PHYSICIANS GROUP 2808 OTHER 02-06-2015 [facility] SPECIFIED PHYSICIANS IRON GROUP DEFICIENCY ANEMIAS 70211 ANEMIA IN 09-28-2014 [facility] DISEASE 53751 HTN CKD UNS 09-28-2014 [place] [facility] W/CKD SERV STAGE I FOUNDATION THRU STAGE IV/UNS 5853 CHRONIC 09-28-2014 [place] [facility] DISEASE [facility] STAGE III (MODERATE) 5880 RENAL 09-28-2014 [place] [facility] OSTEODYSTRO SERV PHY [facility]OUND[facility] 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, REPLACEMENT HEAD TRIMMER BY OTHER PL[facility] CO MEANS HOS V571 OTHER 04-05-2013 [facility], PHYSICAL HEAD TRIMMER THERAPY [facility] 58218 PAIN IN 03-23-2013 [facility] JOINT PELVIC REGION AND THIGH 7295 PAIN IN 03-23-2013 [facility], SOFT HEAD TRIMMER TISSUES OF [facility]OS 23188 SWELLING OF 03-23-2013 [facility] LIMB 63154 OTHER 03-23-2013 [facility], MALAISE AND HEAD TRIMMER FATIGUE [facility] 60210 ABDOMINAL 03-23-2013 [facility], PAIN RIGHT HEAD TRIMMER LOWER [facility] 47206 ABDOMINAL 03-23-2013 [facility], PAIN, LEFT HEAD TRIMMER LOWER [facility] 78400 ABDOMINAL 03-23-2013 [facility], TENDERNESS HEAD TRIMMER RIGHT LOWER [facility] 8479 SPRAIN AND 03-23-2013 [facility], STRAIN OF HEAD TRIMMER UNSPECIFIED [facility] CO SITE OF HOS BACK V4589 OTHER 03-23-2013 [facility], POSTSURGICA HEAD TRIMMER L STATUS [facility] CO OTHER HOS V5869 LONG-TERM 03-23-2013 [facility], (CURRENT) HEAD TRIMMER USE OF [facility] CO OTHER HOS MEDICATIONS 7823 EDEMA 03-22-2013 [facility] [place] [facility] 01440 OSTEOARTHRO 02-15-2013 MARINA ISMAEL S UNSPEC GEN/LOC PELV REGION&THIG H V5481 AFTERCARE 02-15-2013 ANYA FRA FOLLOWING JOINT REPLACEMENT 59477 COR 02-14-2013 FALLUJI YAMILETH ATHEROSLERO UNSPEC TYPE VESSEL [place]/JOSÉ MIGUEL T 58598 OTH 02-14-2013 FALLUJI YAMILETH NONSPECIFIC ABNORM CV SYSTEM FUNCTION STUDY V7283 OTHER 02-09-[address] 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 3674 PRESBYOPIA 12-22-2012 DUDEE HANNAH 5939 UNSPECIFIED 09-28-2012 ENRIQUETA DISORDER BRITTANY OF KIDNEY AND URETER 51861 OTHER 09-08-2012 SHARITA DUGGAN SPECIFIED RENÉE CARDIAC DYSRHYTHMIA S 4293 CARDIOMEGAL 09-08-2012 RAMIRO VERAS Y 7802 SYNCOPE AND 09-08-2012 SHARITA DUGGAN COLLAPSE RENÉE 2724 OTHER AND 07-14-2012 MICHAEL CALLAHAN UNSPECIFIED HYPERLIPIDE JONE 97153 ESOPHAGEAL 07-14-2012 MICHAEL CALLAHAN REFLUX 8438 SPRAIN&STRA 07-14-2012 MICHAEL CALLAHAN IN OTHER SPECIFIED SITES HIP&THIGH 11458 PRIMARY LOC 01-30-2012 [facility] OSTEOARTHRO INC SIS PELVIC REGION&THIG H 7242 LUMBAGO 01-30-2012 [facility] 89555 DEGEN 12-30-2011 [place] 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 13038 SPINAL STEN 12-30-2011 PETTEY JAM 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 77883 DISPLCMT 12-11-2011 [facility] LUM[facility] INTERVERT IMAGING ASS DISC W/O MYELOPATHY 4553 EXTERNAL 12-08-2011 DAMON SALMA HEMORRHOIDS WITHOUT MENTION COMP 5693 HEMORRHAGE 12-08-2011 DAMON SALMA OF RECTUM AND ANUS 71940 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-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 14895 AFTER-CATAR 11-19-2011 DUDEE HANNAH ACT, OBSCURING VISION 55018 KERATOCONJU 11-19-2011 DUDEE HANNAH NCTIVITIS SICCA NOT SPEC SJOGRENS 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 18365 NUCLEAR 11-04-2011 DUDEE HANNAH SCLEROSIS 3670 HYPERMETROP 11-04-2011 [place] [address] VITREOUS 11-04-2011 DUDEE HANNAH DEGENERATIO N 4550 INTERNAL 11-04-2011 MICHAEL CALLAHAN HEMORRHOIDS WITHOUT MENTION COMP 7243 SCIATICA 09-29-2011 B[facility] LJ 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 V7611 SCREENING 07-10-2010 [facility] MAMMOGRAM [facility] PATIENT V7612 OTHER 07-10-2010 [facility] SCREENING [facility] MAMMOGRAM ASSOCIAT 7852 UNDIAGNOSED 05-07-2010 [facility] T[place]RES [place] 60556 SHORTNESS 05-07-2010 [facility] TORRES OF BREATH CONSULTING SRV 4299 UNSPECIFIED 05-02-2010 [facility] DISEASE 06984 OTHER 05-02-2010 [facility] PR DYSPNEA [place] [address] PAIN IN 02-11-2010 [facility] JOINT, MEM HOSP LOWER LEG INC 54147 DIAB W/O 02-04-2010 [facility] COMP TYPE MEM HOS[facility] II/UNS NOT INC STATED UNCNTRL 5789 UNSPECIFIED 02-04-2010 [facility] HEMORRHAGE MEM HOSP OF INC GASTROINTES TINAL TRACT 40580 EFFUSION OF 01-15-2010 ENRIQUETA, LOWER LEG KHALIDA JOINT 46738 SYNOVIAL 01-15-2010 ENRIQUETA, CYST OF KHALIDA POPLITEAL SPACE 6271 POSTMENOPAU 10-31-2009 [facility] DEPART[facility] 460 ACUTE 10-11-2009 [facility] NASOPHARYNG VALLEY ITIS INTERNAL MED 490 BRONCHITIS 10-11-2009 [facility] NOT VALLEY SPECIFIED INTERNAL ACUTE OR MED CHRONIC 40676 CALCU 04-30-2009 [facility], GALLBLADD DASHA W/OTH CHOLECYST W/O MENTION OBST 35142 CALCU 04-30-2009 [facility] GALLBLADD ANESTH OF W/O MENTION [facility] CHOLECYST/O BST 87081 CHRONIC 04-30-2009 PATHOLOGY & CHOLECYSTIT CYTOLOGY [place] LAB 36787 ABDOMINAL 04-30-2009 [facility], PAIN RIGHT DASHA UPPER QUADRANT 4139 OTHER AND 04-10-2009 NEW UNSPECIFIED [facility] [place] 44444 CORONARY 04-10-2009 [facility] [place] CORONARY ARTERY 48561 OTHER 04-10-2009 NEW PREMATURE [facility] 5718 OTHER 03-27-2009 [facility] NONALCOHOLI ASSOCIATES C LIVER PSC DISEASE 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 68334 FIRST 03-24-2009 [facility] ATRIOVENTRI CULAR BLOCK 4280 CONGESTIVE 03-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 [facility] FAILURE UNSPECIFIED 5770 ACUTE 03-24-2009 [facility] PANCREATITI HOSPITAL S 4556 UNSPEC 03-05-2009 [facility] HEMORRHOIDS MEM HOS[facility] WITHOUT INC MENTION COMPLICATIO N 7019 UNSPECIFIED 03-05-2009 [facility] HYPERTROPHI INC C&ATROPHIC CONDITION SKIN 13495 CHEST PAIN 02-26-2009 [facility] UNSPECIFIED [facility] PROF SERV 7859 OTHER 02-23-2009 [facility] SYMPTOMS RADIOLOGY INVOLVING ASSOCIATES CARDIOVASCU PSC LAR SYSTEM V1589 OTH SPEC 05-15-2008 [facility] PRESENTING HAZARDS HEALTH OTH 91155 UNSPECIFIED 03-01-2008 [facility] OSTEOPOROSI IMAGING S ASSOCIATES V7231 ROUTINE 02-10-2008 [facility] EMERGENCY DEPARTMENT 40247 HYPERTENSIV 12-22-2007 Odilon ROWELL S RETINOPATHY 0579 UNSPECIFIED 11-12-2007 [facility] EXANTHEM INTERNAL MED Immunization Name Date Rout CVX Reac Dose Comm Prov Is Faci e tion ent ider Refu lity Give sed n PPSV 03- 33 VINICIUS No LICK 23 0-20 ON ING VACC 16 LJ VALL INE EY 2 INTE YRS RNAL OR MED OLDE R FOR SUBQ /IM USE Procedures Procedure DOS Code Location Performer Comment DUP-SCAN 05154 [place] MONTIEL XTR VEINS 7 MEDICAL IMAGING UNILATERA ASS L/LIMITED STUDY DESTRUCTI 70433 DERMATOLO DERMATOLO ON 7 GY GY PREMALIGN CONSULTAN CONSULTAN ANT TS [place] 1[place] [address] [facility] INFUSION 7 MEM HOSP MEM HOSP THERAPY/P INC INC ROPHYLAXI S /DX 1ST TO 1 [place] [address] [facility]Y INFUSION 7 MEM HOSP MEM HOSP THERAPY/P INC INC ROPHYLAXI S /DX 1ST TO [place] [address] [facility]Y INFUSION 7 MEM HOS[facility] MEM HOSP THERAPY/P INC INC ROPHYLAXI S /DX 1ST TO 1 HR INJECTION J3301 CHRIS FONTENOT 7 TRIAMCINO ORTHOPAED LONE ICS PSC ACETONIDE NOS 10 MG ARTHROCEN 84057 JEANCHANDAN LAMBERTIS 7 ASPIR&/IN ORTHOPAED ORTHOPAED J MAJOR ICS PSC ICS PSC JT/BURSA W/O US RADIOLOGI 85210 [place] ENRIQUETA C EXAM 7 MEDICAL CHEST 2 IMAGING VIEWS ASS FRONTAL&L ATERAL INJECTION J3301 CHRIS ESCOBAR 6 EN TRIAMCINO ORTHOPAED LONE ICS PSC ACETONIDE NOS 10 MG ARTHROCEN 87833 CHRIS ESCOBAR TESIS 6 EN ASPIR&/IN ORTHOPAED J MAJOR ICS PSC JT/BURSA W/O US RADIOLOGI 98690 CHRIS ESCOBAR C 6 EN EXAMINATI ORTHOPAED ON KNEE ICS PSC 1/2 VIEWS THERAPEUT 77504 [facility] BESSON IC 6 [facility] LJ PROPHYLAC INTERNAL TIC/DX MED INJECTION SUBQ/IM INJECTION J3420 [facility] BESSON VIT B-12 6 [place] LJ INTERNAL CYANOCOBA MED CHOCO TO 1000 MCG MRI ANY 77658 [place] MONTIEL JT LOWER 6 MEDICAL EXTREM IMAGING W/O ASS CONTRAST MATRL ANNUAL G0438 [facility] WELLNESS 6 [facility] VISIT; INTERNAL PERSONALI MED Z PPS INIT VISIT COLLECTIO 91924 [facility] N VENOUS 6 [facility] BLOOD INTERNAL VENIPUNCT MED URE PPSV23 28607 [facility] VACCINE 2 6 [place] LJ YRS OR INTERNAL OLDER FOR MED SUBQ/IM USE ADMINISTR G0009 [facility] B[facility]ON ATION OF 6 [place] LJ PNEUMOCOC INTERNAL TERRANCE MED VACCINE INJECTION J3301 [facility] RODRIGUEZ 6 [place] TRIAMCINO INTERNAL LONE MED ACETONIDE NOS 10 MG THERAPEUT 28035 [facility] RODRIGUEZ IC 6 [place] PROPHYLAC INTERNAL TIC/[place] INJECTION SUBQ/[place] [address] [facility] INFUSION 5 MEM HOSP MEM HOSP THERAPY/P INC INC ROPHYLAXI S /DX 1ST TO 1 [place] [address] [facility] INFUSION 5 MEM HOSP MEM HOSP THERAPY/P INC INC ROPHYLAXI S /DX 1ST TO 1 HR EGD 21048 [facility] TRANSORAL 5 MEM HOSP MEM HOSP BIOPSY [place] INC SINGLE/[place] [address] [facility] INFUSION 5 MEM HOS[facility] MEM HOSP THERAPY INC INC PROPHYLAX IS/DX EA HOUR COLSC FLX 44247 [facility] W/RMVL 5 MEM HOSP MEM HOSP OF TUMOR [place] [address] [facility] INFUSION 5 MEM HOSP MEM HOSP THERAPY/P INC INC ROPHYLAXI S /DX 1ST [place] [address] [facility] INFUSION 5 MEM HOS[facility] MEM HOSP THERAPY/P INC INC ROPHYLAXI S /DX 1ST TO 1 [place] [address] [facility] INFUSION 5 MEM HOSP MEM HOSP THERAPY/P INC INC ROPHYLAXI S /DX 1ST [place] [address] [facility]Y INFUSION 5 MEM HOSP MEM HOSP THERAPY/P INC INC ROPHYLAXI S /DX 1ST TO 1 HR TRANSFUSI 76402 [facility] ON 5 [facility]OS[facility] MEM HOSP BLOOD/BLO INC INC OD COMPONENT S TRANSFUSI 17899 [facility] ON 4 [facility]OS[facility] MEM HOSP BLOOD/BLO INC INC OD COMPONENT S ANTIBODY 34011 [facility] SCREEN 4 MEM HOSP MEM HOSP RBC EACH INC INC SERUM TECHNIQUE OPHTH 06463 DUDEE HANNAH DUDEE HANNAH MEDICAL 4 XM&EVAL INTERMEDI ATE ESTAB PT COMPUTERI 73851 DUDEE HANNAH DUDEE HANNAH ZED 4 OPHTHALMI C IMAGING OPTIC NERVE VISUAL 24627 DUDEE HANNAH DUDEE HANNAH FIELD XM 4 UNI/BI W/INTERP EXTENDED EXAM OPHTH 25586 DUDEE HANNAH DUDEE HANNAH MEDICAL 4 XM&EVAL COMPRHNSV ESTAB PT 1/> COMPUTERI 66090 DUDEE HANNAH DUDEE HANNAH ZED 4 [place] [address] [facility]Y INFUSION 4 MEM HOSP MEM HOSP THERAPY/P INC INC ROPHYLAXI S /DX 1ST [place] [address] [facility] OBEY INFUSION 4 MEM HOSP MEM HOSP THERAPY/P INC INC ROPHYLAXI S /DX 1ST TO 1 [place] [address] [facility]BEY INFUSION 4 MEM HOSP MEM HOSP THERAPY/P INC INC ROPHYLAXI S /DX 1ST TO 1 [place] [address] [facility] OBEY INFUSION 4 MEM HOSP MEM HOSP THERAPY/P INC INC ROPHYLAXI S /DX 1ST TO 1 HR IM ADM 21921 B[facility]ON BESSON PRQ ID 3 LJ LJ SUBQ/IM NJXS 1 VACCINE IM ADM 13824 BESSON BESSON PRQ ID 3 LJ LJ SUBQ/IM NJXS 1 VACCINE IM ADM 64656 BESSON BESSON PRQ ID 3 LJ LJ SUBQ/IM NJXS 1 VACCINE THERAPEUT 36038 [employer], [employer], IC PX 1/> 3 HEAD TRIMMER HEAD TRIMMER AREAS PLACIDO PLACIDO EACH 15 CO HOS CO HOS MIN EXERCISES THERAPEUT 89298 [employer] [facility] [employer], IC PX 1/> 3 HEAD TRIMMER HEAD TRIMMER AREAS PLACIDO PLACIDO EACH 15 CO HOS CO HOS MIN EXERCISES THERAPEUT 24930 [employer], IC PX 1/> 3 HEAD TRIMMER HEAD TRIMMER AREAS PLACIDO PLACIDO EACH 15 CO HOS CO HOS MIN EXERCISES THERAPEUT 27925 Jenn Rykert, IC PX 1/> 3 HEAD TRIMMER HEAD TRIMMER AREAS PLACIDO PLACIDO EACH 15 CO HOS CO HOS MIN EXERCISES THERAPEUT 23065 [employer], [employer], IC PX 1/> 3 HEAD TRIMMER HEAD TRIMMER AREAS PLACIDO PLACIDO EACH 15 CO HOS CO HOS MIN EXERCISES RADEX HIP 20571 Jenn Rykert, 3 HEAD TRIMMER HEAD TRIMMER UNILATERA PLACIDO PLACIDO L CO HOS CO HOS COMPLETE MINIMUM 2 VIEWS DUP-SCAN 18454 Jenn Rykert, XTR VEINS 3 HEAD TRIMMER HEAD TRIMMER COMPLETE PLACIDO PLACIDO CO HOS CO HOS BILATERAL STUDY ARTHRP 35621 CHRISTENS CHRISTENS ACETBLR/P 3 EN CHR EN CHR TALA FEM PROSTC AGRFT/ALG RFT DECALCIFI 91421 MARINA MARINA CATION 3 ISMAEL ISMAEL PROCEDURE BLD BANK 39884 MACIVOR MACIVOR PHYS SVCS 3 DUN DUN DIFFC CROSS MATCH&/EV AL REP RADIOLOGI 11736 ANYA ANYA C 3 FRA FRA EXAMINATI ON PELVIS 1/2 VIEWS CATH PLMT 20075 FALLUJI FALLUJI L HRT & 3 YAMILETH YAMILETH ARTS W/NJX & ANGIO IMG S&I ANTIBODY 59181 [facility] UNIVERS ID RBC 3 Y Y ANTIBODIE [facility] S EA PANEL EA SERUM TQ ANTIBODY 58950 [facility] SCREEN 3 Y Y RBC [facility] SERUM TECHNIQUE BLD BANK 96350 BORAL RADHA BORAL RADHA PHYS SVCS 3 DIFFC CROSS MATCH&/EV AL REP URNLS DIP 14340 B[facility] BESSON 3 LJ LJ STICK/TAB LET RGNT NON-AUTO W/O MICRSCP ECG 24320 LEE ANN CARNESSON ROUTINE 3 LJ LJ ECG W/LEAST 12 LDS W/I&R ECG 14144 FALLUJI FALLUJI ROUTINE 3 YAMILETH YAMILETH ECG W/LEAST 12 LDS W/I&R CV STRS 46549 FALLUJI FALLUJI TST 3 YAMILETH YAMILETH XERS&/OR RX CONT ECG I&R ONLY CV STRS [id number] XERS&/OR RX CONT ECG TRCG ONLY MYOCARDIA [address] MULTIPLE STUDIES OPHTHALMO 92503 SORIN YOUNG SCPY 3 EXTENDED RETINAL DRAWING I&R [facility] 38999 [facility] RETROPERI 3 [facility] TONEAL INC INC REAL TIME W/IMAGE [facility]PLE[facility] 28390 SHARITA PRASADMIE DISCHARGE 3 JR RENÉE CHINCHILLA DAY MANAGEMEN T 30 MIN/< RADIOLOGI 03755 RAMIRO RUBIO C 3 EDA EDA EXAMINATI ON CHEST SINGLE VIEW FRONTAL ECG 28169 SHARITA SHERIFF ROUTINE 3 JR RENÉE CHINCHILLA ECG W/LEAST 12 LDS I&R ONLY E-STIM G0283 [facility] 1/> AREAS 2 [facility] OTH THAN INC INC WND CARE PART TX PLAN THERAPEUT 44938 [facility] IC PX 1/> 2 [facility] AREAS INC INC EACH 15 MIN EXERCISES APPLICATI 95725 [facility] ON 2 [facility] MODALITY INC INC 1/> AREAS HOT/COLD PACKS APPLICATI 77979 [facility] ON 2 [facility] MODALITY [facility] INC 1/> AREAS HOT/COLD PACKS THERAPEUT 03596 [facility] IC PX 1/> 2 [facility] AREAS INC INC EACH 15 MIN EXERCISES E-STIM G0283 [facility] 1/> AREAS 2 [facility] OTH THAN INC INC WND CARE PART TX PLAN E-STIM G0283 [facility] 1/> AREAS 2 [facility] OTH THAN INC INC WND CARE PART TX PLAN THERAPEUT 53087 [facility] IC PX 1/> 2 [facility] AREAS INC INC EACH 15 MIN EXERCISES APPLICATI 68961 [facility] ON 2 [facility] MODALITY INC INC 1/> AREAS HOT/COLD PACKS APPLICATI 02996 [facility] ON 2 [facility] MODALITY INC INC 1/> AREAS HOT/COLD PACKS THERAPEUT 27951 [facility] IC PX 1/> 2 [facility] AREAS INC INC EACH 15 MIN EXERCISES E-STIM G0283 [facility] 1/> AREAS 2 [facility] OTH THAN INC INC WND CARE PART TX PLAN E-STIM G0283 [facility] 1/> AREAS 2 [facility] OTH THAN INC INC WND CARE PART TX PLAN THERAPEUT 11853 [facility] IC PX 1/> 2 [facility] AREAS INC INC EACH 15 MIN EXERCISES APPLICATI 09100 [facility] ON 2 [facility] MODALITY INC INC 1/> AREAS HOT/COLD PACKS APPLICATI 89434 [facility] ON 2 [facility] MODALITY INC INC 1/> AREAS HOT/COLD PACKS THERAPEUT 51363 [facility] IC PX 1/> 2 MEM [...] INC WND CARE PART TX PLAN RADEX 13463 [facility] SPINE 2 [facility] LUMBOSACR INC INC AL MINIMUM 4 VIEWS MRI 53604 [place] SPINAL 2 [facility] CANAL IMAGING LUMBAR ASS W/O CONTRAST MATERIAL MRI 63547 [place] [facility] PELVIS 2 [facility] W/O IMAGING CONTRAST ASS MATERIAL 3D 51366 [place] RENDERING 2 [facility] W/INTERP IMAGING & ASS POSTPROCE SS SUPERVISI ON COLONOSCO 77806 DAMON SALMA DAMON SALMA PY FLX DX 2 W/COLLJ SPEC WHEN PFRMD THERAPEUT 29915 MICHAEL NUÑEZ IC 2 NAN ARLET PROPHYLAC TIC/DX INJECTION SUBQ/IM OPHTH 52903 DUDEE HANNAH DUDEE HANNAH MEDICAL 2 XM&EVAL COMPRE NEW PT 1/> VST OPHTHALMO 93927 DUDEE HANNAH DUDEE HANNAH SCPY 2 EXTENDED RETINAL DRAWING I&R 1ST DETERMINA 67560 DUDEE HANNAH DUDEE HANNAH TION 2 REFRACTIV E STATE THERAPEUT 12686 LEE ANN NANCE IC 2 LJ LJ PROPHYLAC TIC/DX INJECTION SUBQ/IM LIPID 63964 COMBINED COMBINED PANEL 1 PHYSICIAN PHYSICIAN S LA S LA COMPREHEN 83394 COMBINED COMBINED SIVE 1 PHYSICIAN PHYSICIAN METABOLIC S LA S LA PANEL COMPREHEN 18458 COMBINED COMBINED SIVE 1 PHYSICIAN PHYSICIAN METABOLIC S [place] S [place] PANEL LIPID 79173 COMBINED COMBINED PANEL 1 PHYSICIAN PHYSICIAN [place] BLOOD 44099 COMBINED COMBINED COUNT 1 PHYSICIAN PHYSICIAN COMPLETE S LA S LA AUTO&AUTO DIFRNTL WBC SCREENING 72274 PLACIDO CUMMINS 0 CO CO MAMMOGRAP [facility] HY BILATERAL ECHO 80641 PREET TORRES TORRES PREET TTHRC R-T 0 MD 2D CONSULTIN W/WOM-MOD G SRV E COMPL SPEC&COLR D ECHO 85850 PLACIDO CUMMINS TTHRC R-T [address] [place] [address] W/WOM-MOD E COMPL SPEC&COLR D SPMTRY 65356 PLACIDO CUMMINS W/VC 0 [facility] W/WO MXML VOL VNTJ RADIOLOGI 36339 PLACIDO CUMMINS C EXAM 0 CO CO CHEST [address] [place] [address] VIEWS FRONTAL&L ATERAL E-STIM G0283 OBEY BARNHART 1/> AREAS 0 [facility] OTH THAN INC INC WND CARE PART TX PLAN APPL 88800 OBEY BARNHART MODALITY 0 [facility] 1/> AREAS INC INC ULTRASOUN D EA 15 MIN THERAPEUT 91920 OBEY BARNHART IC PX 1/> 0 [facility] AREAS INC INC EACH 15 MIN EXERCISES THERAPEUT 25093 OBEY BARNHART IC PX 1/> 0 [facility] AREAS INC INC EACH 15 MIN EXERCISES APPL 80706 OBEY BARNHART MODALITY 0 [facility] 1/> AREAS INC INC ULTRASOUN D EA 15 MIN E-STIM G0283 OBEY BARNHART 1/> AREAS 0 [facility] OTH THAN INC INC WND CARE PART TX PLAN E-STIM G0283 OBEY BARNHART 1/> AREAS 0 [facility]OS[facility] OTH THAN INC INC WND CARE PART TX PLAN APPL 57214 OBEY BARNHART MODALITY 0 [facility] 1/> AREAS INC INC ULTRASOUN D EA 15 MIN THERAPEUT 78488 OBEY BARNHART IC PX 1/> 0 [facility] AREAS INC INC EACH 15 MIN EXERCISES THERAPEUT 83232 OBEY BARNHART IC PX 1/> 0 [facility] AREAS INC INC EACH 15 MIN EXERCISES APPL 79396 OBEY BARNHART MODALITY 0 [facility] 1/> AREAS INC INC ULTRASOUN D EA 15 MIN E-STIM G0283 OBEY BARNHART 1/> AREAS 0 [facility]OS[facility] OTH THAN INC INC WND CARE PART TX PLAN E-STIM G0283 OBEY BARNHART 1/> AREAS 0 MEM [facility] MEM [facility]OSP OTH THAN INC INC WND CARE PART TX PLAN APPL 46786 OBEY BARNHART MODALITY 0 [facility] 1/> AREAS INC INC ULTRASOUN D EA 15 MIN PHYSICAL 20783 OBEY BARNHART THERAPY 0 [facility] EVALUATIO INC INC N IRON 88669 OBEY BARNHART BINDING 0 [facility] CAPACITY INC INC COMPREHEN 43950 OBEY BARNHART SIVE 0 [facility] [address] OBEY BARNH[facility] FOLIC 0 [facility] [place] [address] O[facility]Y BARN[facility] IRON 0 [facility] INC INC COLLECTIO 35921 OBEY BARNHART N VENOUS 0 [facility] BLOOD INC INC VENIPUNCT URE CYANOCOBA 89262 OBEY BARNHART CHOCO 0 [facility] VITAMIN INC [place] B-[address] [place] [address] OBEY BARNHART FERRITIN 0 [facility] INC INC BLOOD 45447 OBEY BARNHART COUNT 0 [facility] COMPLETE INC INC AUTO&AUTO [place]NTL [place] 78918 ENRIQUETA ROBISON, ADALID LOWER 0 KHALIDA KHALIDA EXTREM W/O CONTRAST MATRL ENDOMETRI 45716 [facility]OMEN'S BETSEY RUBIO BX 0 [facility] W/WO [facility]IN[facility] OF ENDOCERVI X BX W/O [place] DILAT SPX PLLC SPCL STN 73258 WINNIE ZHOU 2 I&R 0 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 IES INC IES INC MICROORG/ ENZYME/IM CYT CYTP 77245 WINNIE ZHOU SLCTV 0 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 IES INC IES INC ENHANCEME NT INTERPJ XCPT C/V IM ADM 50569 [place] MCKEMIE PRQ ID 0 [facility] JR CHINCHILLA SUBQ/IM INTERNAL NJXS 1 MED VACCINE INJECTION J3301 [place] MCKEMIE 0 [facility] JR RENÉE TRIAMCINO INTERNAL LONE MED ACETONIDE NOS 10 MG SCREENING 84424 PLACIDO KLEINOLAS 9 CO [facility] [place] [address] OBEY BARNHART INFUSION 9 [facility] HOSP THERAPY INC INC PROPHYLAX IS/DX EA HOUR LEVEL III 65641 PATHOLOGY PATHOLOGY SURG 9 & & PATHOLOGY CYTOLOGY CYTOLOGY LAB LAB GROSS&LALO ROSCOPIC EXAM ANES 42394 [facility] MACIAS, INTRAPERI 9 ANESTH RAE F TONEAL OF THE UPPER BLUEGRASS ABDOMEN W/LAPS NOS LAPAROSCO 72616 NICOLE RIVERA PY SURG 9 , DASHA , [place] [address] OBEY BARNHART INFUSION 9 [facility] HOSP THERAPY/P INC INC ROPHYLAXI S /DX 1ST TO 1 HR THERAPEUT 59214 OBEY BARNHART IC 9 [facility] HOSP INJECTION INC INC IV PUSH EACH NEW DRUG ECG 14310 OBEY CHARANJIT, ROUTINE 9 [facility] W/LEAST PROF SERV 12 LDS I&R ONLY BLOOD 48752 OBEY BARNHART COUNT 9 [facility] HOSP COMPLETE INC INC AUTO&AUTO DIFRNTL WBC ECG 56326 OBEY BARNHART ROUTINE 9 [facility] HOSP ECG INC INC W/LEAST 12 LDS TRCG ONLY W/O I&R BASIC 73671 OBEY BARNHART METABOLIC 9 [facility] HOSP PANEL INC INC CALCIUM TOTAL COLLECTIO 13524 OBEY BARNHART N VENOUS 9 [facility] HOSP BLOOD INC INC VENIPUNCT URE COLLECTIO 88365 [facility] N VENOUS [address] [place] [address] [place] [address] [facility] UREA [address] [place] [address] NITROGEN QUANTITAT FRANCISCO JAVIER BLOOD [address] HEMATOCRI T CREATININ 71308 [facility] E BLOOD [address] [place] [address] HOSPITAL CHLORIDE 91647 [facility] BLD [address] [place] [address] [address] PLASMA/WH OLE BLOOD BLOOD [address] PLATELET AUTOMATED PLCMT G0269 [facility] OCCL DEVC [address] [place] [address] RAYMOND/ART POST SURG/INTR VNL PROC ECG 85970 [facility] ROUTINE [address] [place] [address] ECG W/LEAST 12 LDS TRCG ONLY W/O I&R INJECTION 12957 [facility] CARDIAC [address] [place] [address] CATHJ L VENTR/L ATR ANGIOGRAP H GLUCOSE 94742 [facility] QUANTITAT [address] [place] [address] FRANCISCO JAVIER BLOOD XCPT REAGENT STRIP SODIUM [address] PLASMA OR WHOLE BLOOD CLOSURE C1760 [facility] DEVICE [address] [place] [address] VASCULAR INTRDUCR/ C1894 [facility] SHEATH [address] [place] [address] NOT GUID INTRACARD EP NON-LASR ECG 76902 [place], ROUTINE 9 [facility] ECG CLINIC W/LEAST PSC 12 LDS I&R ONLY L HRT 93058 [facility] CATHETERI [address] [place] [address] [place] [address] [facility] C-CATHJ [address] [place] [address] F/SLCTV C ANGRPH I SI&R 65843 [facility] F/NJX PX [address] [place] [address] DURING C-CATHJ VENTR&/AT R ANGRPH I SI&R 43208 [facility] F/NJX PX [address] [place] [address] DURING C-CATHJ PULM&/OR SELECT BLOOD 81276 OBEY BARNHART COUNT 9 [facility] COMPLETE INC INC AUTO&[place] [address] PLACIDO CUMMINS ABDOMINAL 9 CO [facility] REAL [facility]PITAL HOSPITAL TIME W/IMAGE DOCUMENTA TION COLLECTIO 20673 OBEY BARNHART N VENOUS 9 [facility] BLOOD INC INC VENIPUNCT URE COMPREHEN 50196 OBEY BARNHART SIVE 9 [facility] METABOLIC INC INC PANEL COLLECTIO 63861 PLACIDO Orr VENOUS 9 CO CO BLOOD HOSPITAL HOSPITAL VENIPUNCT URE CULTURE 46093 PLACIDO CUMMINS BACTERIAL 9 [facility]PITAL HOSPITAL QUANTTATI VE COLONY COUNT URINE URNLS DIP 99013 PLACIDO CUMMINS 9 CO CO STICK/TAB HOSPITAL HOSPITAL LET REAGENT AUTO MICROSCOP Y BLOOD 04995 PLACIDO CUMMINS COUNT 9 CO CO COMPLETE HOSPITAL HOSPITAL AUTO&[place] [address] PLACIDO CUMMINS TROPONIN 9 CO CO QUANTITAT [facility] HOSPITAL FRANCISCO JAVIER BLOOD 11941 PLACIDO CUMMINS COUNT 9 CO CO COMPLETE HOSPITAL HOSPITAL AUTO&AUTO DIFRNTL WBC RADIOLOGI 43424 PLACIDO CUMMINS C EXAM 9 CO CO CHEST 2 HOSPITAL HOSPITAL VIEWS FRONTAL&[place] [address] PLACIDO CUMMINS INFUSION 9 [facility] HYDRATION [facility]PITAL HOSPITAL INITIAL 31 MIN-1 HOUR ECG 39674 [place] BESSON, ROUTINE 9 [facility] A ECG INTERNAL W/LEAST MED 12 LDS I&R ONLY URNLS DIP 74059 PLACIDO CUMMINS 9 CO CO STICK/TAB HOSPITAL HOSPITAL LET REAGENT AUTO MICROSCOP Y MYOGLOBIN 62100 PLACIDO CUMMINS 9 CO CO HOSPITAL HOSPITAL HOSPITAL G0378 PLACIDO CUMMINS OBSERVATI 9 CO CO ON HOSPITAL HOSPITAL SERVICE PER HOUR ECG 45468 PLACIDO CUMMINS ROUTINE 9 CO CO ECG HOSPITAL HOSPITAL W/LEAST 12 LDS TRCG ONLY W/O I&R COLLECTIO 41197 PLACIDO Orr VENOUS 9 CO CO BLOOD HOSPITAL HOSPITAL VENIPUNCT URE CREATINE 08927 PLACIDO CUMMINS KINASE 9 [place] [address] PLACIDO CUMMINS LIPASE 9 CO CO HOSPITAL HOSPITAL COMPREHEN 60875 PLACIDO MONET 9 [facility] [place] [address] PLACIDO CUMMINS AMYLASE 9 [facility] CREATINE 09900 PLACIDO CUMMINS KINASE MB 9 [facility] [address] OBEY OBEY INFUSION 9 [facility] HOSP THERAPY INC INC PROPHYLAX [place] [address] PATHOLOGY PATHOLOGY SURG 9 & & PATHOLOGY CYTOLOGY CYTOLOGY LAB LAB GROSS&LALO ROSCOPIC EXAM COLSC FLX 52603 [place] DAMON, 9 MEDICAL CUONG W/REMOVAL SERV [place] [address] OBEY BARNHART INFUSION 9 [facility] HOSP THERAPY/P INC INC ROPHYLAXI S /DX 1ST TO 1 HR CV STRS 51747 OBEY NANCE, TST 9 [facility]&/OR [facility] RX CONT PROF SERV ECG I&R ONLY INJECTION J0152 OBEY BARNHART 9 [facility] HOSP ADENOSINE INC INC DIAGNOSTI C USE 30 MG MYOCRD 24322 [facility] FALLUJI, PRFUJ STD 9 PHYSICIAN FRANKIE SNOWEC FXJ S GROUP CV STRS 87837 OBEY NANCE, TST 9 [facility]&/OR [facility] RX CONT PROF SERV ECG W/O I&R CV STRS 37442 OBEY BARNHART TST 9 [facility] HOSP XERS&/OR INC INC RX CONT ECG TRCG ONLY TECHNETIU A9502 OBEY Taylor TC-99M 9 [facility] HOSP TETROFOSM INC INC IN DX PER STUDY DOSE MYOCRD 04076 [facility] FALLUJI, PRFUJ STD 9 PHYSICIAN FRANKIE DAMON S GROUP MOTION QUAL/ROBERT STD MYOCRD 69933 [facility] FALLUJI, PRFUJ IMG 9 PHYSICIAN FRANKIE STAUFFEROG S GROUP SPECT DRYWALL TAPER STD COMPREHEN 66666 PLACIDO MENDIOLAE 9 [facility] [place] [address] PLACIDO CUMMINS THYROID 9 [facility] T[facility] COLLECTIO 79117 PLACIDO CUMMINS N VENOUS 9 [facility] VENIPUNCT URE LIPID 05982 PLACIDO CUMMINS PANEL 9 [facility] BLOOD 40424 PLACIDO CUMMINS COUNT 9 CO [facility] AUTO&AUTO DIFRNTL WBC DUPLEX 06962 MARLENE CLANCY, SCAN 9 TREVOR Henry EXTRACRAN RADIOLOGY IAL ART COMPL BI ASSOCIATE STUDY S PSC SCREENING 93382 MARLENE CLANCY, 8 TREVOR Henry MAMMOGRAP RADIOLOGY HY BILATERAL ASSOCIATE S PSC DXA BONE 58137 OBEY BARNHART DENSITY 8 [facility] STUDY / INC INC SITES AXIAL SKEL CERV/VAGI G0101 [facility] NAL 8 [facility]; PELV&CLIN [place] [facility] EXAM SCREEN Q0091 [facility] PAP 8 [facility] SMEAR; CLINIC OF OBTAIN PREP &C [place] ONVEY TO [facility] LAB OPHTH 25864 SORIN ROWELL, MEDICAL 8 JITANDER JIMILTONDER XM&EVAL S S COMPRHNSV ESTAB PT 1/ OPHTHALMO 01600 SORIN ROWELL, CHRISTENY 8 LEEANN BRADSHAW EXTENDED S S RETINAL DRAWING I&R SBS Encounters Encounter Start End Date Code Location Performer Type Date OFFICE 95766 OBEY ROLDAN JR OUTPATIEN 7 7 [facility] 10 P MINUTES OFFICE 27486 [facility] BURCH OUTAIYANA 7 7 MEDICAL T VISIT SERV 25 FOUNDATIO MINUTES N OFFICE 71543 OBEY ANDERSEN 7 7 [facility] 10 P MINUTES HOSPITAL OBEY Andujar 7 [facility]PATI[facility] OBEY Andujar 7 [facility] OUTPATIEN [facility] OBEY Andujar 7 [facility] OUTPATIEN [facility] T OFFICE 31504 OBEY ADRIANNA OUTPATIEN 7 7 [facility] 10 P MINUTES OFFICE 29300 [place] RODRIGUEZ OUTPATIEN 6 6 [facility] T VISIT INTERNAL 15 MED MINUTES OFFICE 49959 AL ABAD OUTPATIEN 6 6 MEDICAL T VISIT SERV 25 FOUNDATIO MINUTES N OFFICE 39253 [facility] OUTPATIEN 6 6 EN T VISIT ORTHOPAED 15 ICS PSC MINUTES HOSPITAL OBEY - 6 6 [facility] OUTPATIEN INC T OFFICE 65175 [place] BESSON OUTPATIEN 6 6 [facility] LJ T VISIT INTERNAL 25 MED MINUTES OFFICE 26981 [place] RODRIGUEZ OUTPATIEN 6 6 [facility] T VISIT INTERNAL 15 MED MINUTES OFFICE 68200 [place] B[facility] OUTPATIEN 5 5 [facility] T VISIT INTERNAL 15 MED MINUTES HOSPITAL OBEY - 5 5 [facility] OUTPATIEN INC [facility]OSPITAL OBEY - 5 5 [facility] OUTPATIEN INC [facility]OSPITAL OBEY - 5 5 [facility] OUTPATIEN INC HOSPITAL OBEY - 5 5 [facility] OUTPATIEN INC T OFFICE 46242 [facility] 5 5 [facility]PITAL OBEY - 5 5 [facility] OUTPATIEN INC [facility]OSPITAL OBEY - 5 5 [facility] OUTPATIEN INC [facility]OSPITAL OBEY - 5 5 [facility] OUTPATIEN INC T OFFICE 31783 OBEY ADRIANNA OUTPATIEN 5 5 [facility] MINUTES HOSPITAL OBEY - 5 5 MEM [facility] OUTPATIEN INC T OFFICE 92649 [facility] ABAD OUTPATIEN 5 5 MEDICAL T VISIT SERV 25 FOUNDATIO MINUTES N HOSPITAL OBEY - 4 4 [facility] OUTPATIEN [facility] OBEY - 4 4 [facility] OUT[facility] OBEY - 4 4 [facility] OUTPATIEN [facility] OBEY - 4 4 [facility] OUTPATIEN [facility] OBEY - 4 4 [facility]PATIEN [facility] OBEY - 4 4 [facility] OUTPATIEN [facility] T OFFICE 68887 [facility] ABAD OUTPATIEN 4 4 MEDICAL T VISIT SERV 25 FOUNDATIO MINUTES N CRITICAL MHC INC, ACCESS 3 3 [facility] HOS CRITICAL MHC INC, ACCESS 3 3 [facility] HOS EMERGENCY [address] [facility], 3 3 [facility] VISIT PR HOS MODERATE SEVERITY CRITICAL MHC INC, ACCESS 3 3 [facility] - 3 3 [facility] [place] [address] 3 [facility] OBEY - 3 3 MEM H[facility]P OUTPATIEN [facility] T OFFICE 95141 MARCIN ABAD OUTPATIEN 3 3 T NEW 60 MINUTES OFFICE 09679 MICHAEL RODRIGUEZ OUTPATIEN 2 2 NAN NAN T VISIT 15 MINUTES [facility] OBEY - 2 2 [facility] OUTPATIEN [facility] OBEY - 2 2 [facility] OUTPATIEN [facility] OBEY - 2 2 [facility] OUTPATIEN [facility] T OFFICE 20303 MICHAEL RODRIGUEZ OUTPATIEN 2 2 SINDY CALLAHAN T VISIT 15 MINUTES OFFICE 54603 MICHAEL RODRIGUEZ OUTPATIEN 2 2 SINDY CALLAHAN T VISIT 15 MINUTES OFFICE 77602 LEE ANN LEE ANN OUTPATIEN 2 2 LJ CALHOUN T VISIT 15 MINUTES CRITICAL PLACIDO ACCESS 0 0 [facility]PITAL CRITICAL PLACIOD ACCESS 0 0 [facility]OSPITAL OFFICE 79323 [place] DAM[place] SALMA OUTPATIEN 0 0 MEDICAL T VISIT SERV 15 FOUNDATIO MINUTES HOSPITAL OBEY - 0 0 MEM [facility] OUTPATIEN INC T OFFICE 49572 [facility] TRA OUTPATIEN 0 0 [place] T NEW 45 ORTHOPAED MINUTES [facility] OBEY - 0 0 MEM HOS[facility] OUTPATIEN INC T OFFICE 13334 [place] DAMON, OUTPATIEN 0 0 MEDICAL CUONG T VISIT SERV 15 FOUNDATIO MINUTES OFFICE 68664 [place] MCKEMIE OUTPATIEN 0 0 KWAKU CHINCHILLA T VISIT INTERNAL 15 MED MINUTES CRITICAL PLACIDO ACCESS 9 9 [facility] OBEY - 9 9 MEM [facility] OUTPATIEN [facility] OBEY - 9 9 [facility] OUTPATIEN INC T OFFICE 72515 NICOLE RIVERA CONSULTAT 9 9 , DASHA LOU ION NEW/ESTAB PATIENT 60 MIN OFFICE 54391 [place] [facility], OUTPATIEN 9 9 [place] [facility] A T VISIT INTERNAL [address] [facility]PA - [facility] HOSPITAL OUTPATIEN T OFFICE 34523 [place] BESS[place], OUTPATIEN 9 9 [facility] A T VISIT INTERNAL 15 MED MINUTES CRITICAL PLACIDO ACCESS 9 9 [facility] CRITICAL PLACIDO ACCESS 9 9 [facility] HOSPITAL EMERGENCY 84118 PLACIDO 9 9 [facility] T VISIT LIMITED/M INOR PROB EMERGENCY 15337 PLACIDO CHAHAL 9 9 [facility] T VISIT MODERATE SEVERITY OFFICE 31118 [facility] SMITA CONTRERAS 9 9 PHYSICIAN FRANKIE Henry GROUP NEW/ESTAB PATIENT 60 MIN HOSPITAL OBEY - 9 9 [facility] OUTPATIEN INC T HOSPITAL OBEY - 9 9 [facility] OUTPATIEN [facility] T CRITICAL PLACIDO ACCESS 9 9 [facility] HOSPITAL OFFICE 45281 [place] GANESH NANCE 9 9 [facility] Armas T VISIT INTERNAL 15 MED MINUTES OFFICE 53026 [place] SHARITA ANDERSEN 8 8 [facility] DUGGAN T VISIT INTERNAL RAE F 15 MED MINUTES CRITICAL PLACIDO LUNA 8 8 [facility]PITAL CRITICAL PLACIDO ACCESS 8 8 [facility] HOSPITAL OBEY - 8 8 [facility] OUTPATIEN INC T OFFICE 74630 [place] GANESH LUI 8 8 [facility] Hoang VISIT INTERNAL 10 MED MINUTES
--- OUTSIDE RECORDS SUMMARY | 2017-06-08 04:53 | External Medical Summary Rpt ---
Author Author , LOULOU JAMIL Address Unknown Phone [email or web address] Care Team Providers Care Chronometer Assembler And Adjuster Name Role Phone ALLRAN JR ROME, ALLRAN Unavailable Unavailable JR ROME ANYA FRA, ANYA Unavailable Unavailable FRA ANYA FRA, ANYA Unavailable Unavailable FRA RODRIGUEZ, RODRIGUEZ Unavailable Unavailable BESSON LJ, BESSON Unavailable Unavailable LJ BESSON LJ, BESSON Unavailable Unavailable LJ BESSON, ROBERT A, Unavailable Unavailable BESSON, ROBERT A [facility] Un[facility]available [facility], [facility] MONTIEL, MONTIEL Unavailable Unavailable BORAL RADHA, BORAL RADHA Unavailable Unavailable [facility] Unavailable Unavailable INC, [facility] TOWNSEND, Unavailable Unavailable T[facility] T[facility] CHR, [...] CONTRERAS, Unavailable Unavailable CARLOS CONNELLY JENNIFER K [facility] Unavailable Unavailable INC, [facility] Unavailable Unavailable HOSPITAL P, [facility] CLANCY ARLET, CLANCY Unavailable Unavailable ARLET CLANCY, TREVOR S, Unavailable Unavailable CLANCY, TREVOR S SANIA, JEFF, SANIA, Unavailable Unavailable CORIE BRASWELL Unavailable Unavailable [facility], Unavailable Unavailable [facility] AMOS TRA, AMOS TRA Unavailable Unavailable MICHAEL NAN, MICHAEL Unavailable Unavailable NAN MICHAEL NAN, MICHAEL Unavailable Unavailable NAN [facility] Unavailable Unavailable IM[facility]ING [facility], [facility] Unavailable Unavailable [facility], [facility] CHARANJIT, TEJA E, Unavailable Unavailable CHARANJIT, TEJA E [facility] Unavailable Unavailable INTERNAL MED, [facility] LINGREEN ARLET, Unavailable Unavailable LINGREEN ARLET MACIVOR DUN, MACIVOR Unavailable Unavailable DUN [facility] Unavailable Unavailable ASSOCIAT, [facility] MCKEMIE JR RENÉE, Unavailable Unavailable MCKEMIE JR RENÉE MCKEMIE JR CHINCHILLA, Unavailable Unavailable SHANICEMIE JR RENÉE SHERIFF JR RAE Unavailable Unavailable F, SHARITA DUGGAN RAE F [facility], CHILD AND FAMILY SERVICES WORKER [facility] Unavailable Unavailable CO HOS, [facility], CHILD AND FAMILY SERVICES WORKER [facility] LAURA SMITH, Unavailable Unavailable LAURA SMITH WILLIAM F, Unavailable Unavailable RAE MACIAS [facility], Unavailable Unavailable [facility] MOMO GRIFFITH, Unavailable Unavailable MOMO GRIFFITH [...] DASHA MARINA ISMAEL, MARINA Unavailable Unavailable ISMAEL [facility], Unavailable Unavailable [facility], Unavailable Unavailable [facility] BURCH, BURCH Unavailable Unavailable BURCH POLLO, BURCH POLLO Unavailable Unavailable Purpose Continuity of Care Document - 11-12-2007 through 2016 Problems Code Diagnosis DOS Provider Status [id number] PAIN IN 03-05-2017 [facility] D509 IRON 12-24-2016 [facility] UNSPECIFIED D631 ANEMIA IN 12-24-2016 [facility] DISEASE I129 HYPERTENSIV 12-24-2016 [facility] E CKD SERV W/STAGE 1-4 FOUNDATION CKD OR UNS CKD M8580 OTH SPEC 12-24-2016 [facility] D/O BONE SERV DENSITY [facility]OUNDATION STRUCTURE UNS SITE N184 CHRONIC 12-24-2016 [facility] DISEASE [facility] STAGE 4 SEVERE N250 RENAL 12-24-2016 [facility] OSTEODYSTRO SERV PHY [facility]OUND[facility] 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 L570 ACTINIC 12-04-2016 DERMATOLOGY KERATOSIS [facility] PSC L820 INFLAMED 12-04-2016 DERMATOLOGY SEBORRHEIC KERATOSIS [facility]SULTANTS PSC L821 OTHER 12-04-2016 DERMATOLOGY SEBORRHEIC KERATOSIS [facility] P[facility] D649 ANEMIA 11-12-2016 [facility] P [id number] ADVERSE 10-28-2016 [facility] COMPOUNDS INITIAL ENC 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-29-2016 [facility] OSTEOARTHRI S [place] TIS LEFT KNEE R079 CHEST PAIN 09-01-2016 [place] U[facility] J180 BRONCHOPNEU 05-15-2016 [facility] [place] UNSPECIFIED INTERNAL ORGANISM MED D638 ANEMIA IN 02-28-2016 [facility] OTHER SERV CHRONIC FOUNDATION DISEASES CLASSIFIED ELSW N183 CHRONIC 02-28-2016 [facility] K[facility]NEY SERV DISEASE [facility] STAGE 3 MODERATE 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 11-19-2015 [facility] OF OTHER [place] SPECIFIED B INTERNAL GROUP MED VITAMINS K29205 EFFUSION 11-15-2015 [facility] S50009 PAIN IN 11-15-2015 [facility] M7120 SYNOVIAL 11-15-2015 [place] CYST MEDICAL POPLITEAL IMAGING ASS SPACE BURNS UNS KNEE [id number] OTH TEAR 11-15-2015 [place] [facility] MENISCUS [facility] CURR INJ [...] VALLEY BLOOD&BLOOD INTERNAL FORM ORGN MED IMMUNE [facility] J0100 ACUTE 10-29-2015 [facility] MAXILLARY [place] SINUSITIS INTERNAL UNSPECIFIED MED M5432 SCIATICA 06-26-2015 [facility] LEFT SIDE [place] INTERNAL MED 2809 UNSPECIFIED 03-02-2015 [facility]ON [facility] DEFICIENCY INC ANEMIA 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 2859 UNSPECIFIED 02-20-2015 [facility] ANEMIA PHYSICIANS GROUP 5533 DIAPHRAGMAT 02-20-2015 [facility] VIRGIL W/O PHYSICIANS MENTION GROUP OBSTRUCTION /GANGREN 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 5781 BLOOD IN 02-20-2015 [facility] STOOL PHYSICIANS GROUP 2808 OTHER 02-06-2015 [facility] SPECIFIED PHYSICIANS IRON GROUP DEFICIENCY ANEMIAS 10161 ANEMIA IN 09-28-2014 [facility] DISEASE 81356 HTN CKD UNS 09-28-2014 [facility] W/CKD SERV STAGE I FOUNDATION THRU STAGE IV/UNS 5853 CHRONIC 09-28-2014 [facility] DISEASE [facility]OUND[facility] STAGE III (MODERATE) 5880 RENAL 09-28-2014 [facility] OSTEODYSTRO SERV PHY [facility]OUNDATION 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 DYSTROPHY 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 CHANGES IN 03-14-2014 DUDEE HANNAH VASCULAR APPEARANCE OF RETINA 48656 ANEMIA OF 11-24-2013 [facility] OTHER SERV CHRONIC [facility]OUNDATION DISEASE 4019 UNSPECIFIED 11-24-2013 [facility] ESSENTIAL SERV HYPERTENSIO [facility] N 2662 OTHER 06-13-2013 LEE ANN CALHOUN B-COMPLEX DEFICIENCIE S 2811 OTHER 06-06-2013 LEE ANN CALHOUN VITAMIN B12 DEFICIENCY [facility] V4364 HIP JOINT 04-05-2013 [facility], REPLACEMENT CHILD AND FAMILY SERVICES WORKER BY OTHER [facility] CO MEANS HOS V571 OTHER 04-05-2013 [facility], PHYSICAL CHILD AND FAMILY SERVICES WORKER THERAPY [facility] 42620 PAIN IN 03-23-2013 [facility] JOINT PELVIC REGION AND THIGH 7295 PAIN IN 03-23-2013 [facility], SOFT CHILD AND FAMILY SERVICES WORKER TISSUES OF [facility] HOS 69295 SWELLING OF 03-23-2013 [facility] 52361 OTHER 03-23-2013 [facility], MALAISE AND CHILD AND FAMILY SERVICES [place] [address] ABDOMINAL 03-23-2013 [facility], PAIN RIGHT CHILD AND FAMILY SERVICES WORKER LOWER [facility] 38234 ABDOMINAL 03-23-2013 [facility], PAIN, LEFT CHILD AND FAMILY SERVICES WORKER LOWER [facility] 55779 ABDOMINAL 03-23-2013 [facility], TENDERNESS CHILD AND FAMILY SERVICES WORKER RIGHT LOWER [facility] 8479 SPRAIN AND 03-23-2013 [facility], STRAIN OF CHILD AND FAMILY SERVICES WORKER UNSPECIFIED [facility] CO SITE OF HOS BACK V4589 OTHER 03-23-2013 [facility], POSTSURGICA CHILD AND FAMILY SERVICES WORKER L STATUS [facility] CO OTHER HOS V5869 LONG-TERM 03-23-2013 [facility], (CURRENT) CHILD AND FAMILY SERVICES WORKER USE OF [facility] CO OTHER HOS MEDICATIONS 7823 EDEMA 03-22-2013 [facility], CHILD AND FAMILY [place] [address]32 OSTEOARTHRO 02-15-2013 MARINA ISMAEL S UNSPEC GEN/LOC PELV REGION&THIG H V5481 AFTERCARE 02-15-2013 ANYA FRA FOLLOWING JOINT REPLACEMENT 96501 COR 02-14-2013 FALLUJI YAMILETH ATHEROSLERO UNSPEC TYPE VESSEL [place]/JOSÉ MIGUEL T 59721 OTH 02-14-2013 FALLUJI YAMILETH NONSPECIFIC ABNORM CV SYSTEM FUNCTION STUDY V7283 OTHER 02-09-2013 [facility] AZLE PRE-OPERATI VE EXAMINATION V700 ROUTINE 02-01-2013 [facility] GENERAL MEDICAL EXAM@HEALTH CARE FACL V7284 UNSPECIFIED 01-31-2013 [facility] PRE-OPERATI VE EXAMINATION 4011 ESSENTIAL 01-20-2013 FALLUJI YAMILETH HYPERTENSIO N, BENIGN 18452 NONSPECIFIC 01-20-2013 FALLUJI YAMILETH ABNORMAL ELECTROCARD IOGRAM 3671 MYOPIA 12-22-2012 DUDEE HANNAH 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 3674 PRESBYOPIA 12-22-2012 DUDEE HANNAH 5939 UNSPECIFIED 09-28-2012 ENRIQUETA DISORDER BRITTANY OF KIDNEY AND URETER 13186 OTHER 09-08-2012 SHARITA DUGGAN SPECIFIED RENÉE CARDIAC DYSRHYTHMIA S 4293 CARDIOMEGAL 09-08-2012 RAMIRO VERAS Y 7802 SYNCOPE AND 09-08-2012 SHARITA DUGGAN COLLAPSE RENÉE 2724 OTHER AND 07-14-2012 MICHAEL CALLAHAN UNSPECIFIED HYPERLIPIDE JONE 22895 ESOPHAGEAL 07-14-2012 MICHAEL CALLAHAN REFLUX 8438 SPRAIN&STRA 07-14-2012 MICHAEL CALLAHAN IN OTHER SPECIFIED SITES HIP&THIGH 21139 PRIMARY LOC 01-30-2012 [facility] OSTEOARTHRO INC SIS PELVIC REGION&THIG H 7242 LUMBAGO 01-30-2012 [facility] 49658 DEGEN 12-30-2011 [place] 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 35263 SPINAL STEN 12-30-2011 PETTEY JAM 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 29576 DISPLCMT 12-11-2011 [place] LUMBAR MEDICAL INTERVERT IMAGING ASS DISC W/O MYELOPATHY 4553 EXTERNAL 12-08-2011 DAMON SALMA HEMORRHOIDS WITHOUT MENTION COMP 5693 HEMORRHAGE 12-08-2011 DAMON SALMA OF RECTUM AND ANUS 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-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 69832 AFTER-CATAR 11-19-2011 DUDEE HANNAH ACT, OBSCURING VISION 67423 KERATOCONJU 11-19-2011 DUDEE HANNAH NCTIVITIS SICCA NOT SPEC SJOGRENS 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 26970 NUCLEAR 11-04-2011 DUDEE HANNAH SCLEROSIS 3670 HYPERMETROP 11-04-2011 [place] [address] VITREOUS 11-04-2011 DUDEE HANNAH DEGENERATIO N 4550 INTERNAL 11-04-2011 MICHAEL CALLAHAN HEMORRHOIDS WITHOUT MENTION COMP 7243 SCIATICA 09-29-2011 BESSON LJ 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 V7611 SCREENING 07-10-2010 [facility] MAMMOGRAM HOSPITAL FOR HIGH-RISK PATIENT V7612 OTHER 07-10-2010 [facility] SCREENING [facility] MAMMOGRAM ASSOCIAT 7852 UNDIAGNOSED 05-07-2010 [facility] [place] [address]256 SHORTNESS 05-07-2010 [facility] T[facility]RES OF BREATH CONSULTING SRV 4299 UNSPECIFIED 05-02-2010 [facility] DISEASE 58697 OTHER 05-02-2010 [facility] DE DYSPNEA [place] [address] PAIN IN 02-11-2010 [facility] JOINT, MEM HOSP LOWER LEG INC 80255 DIAB W/O 02-04-2010 [facility] COMP TYPE MEM HOS[facility] II/UNS NOT INC STATED UNCNTRL 5789 UNSPECIFIED 02-04-2010 [facility] HEMORRHAGE MEM HOSP OF INC GASTROINTES TINAL TRACT 52599 EFFUSION OF 01-15-2010 ENRIQUETA, LOWER LEG KHALIDA JOINT 06779 SYNOVIAL 01-15-2010 ENRIQUETA, CYST OF KHALIDA POPLITEAL SPACE 6271 POSTMENOPAU 10-31-2009 [facility] 460 ACUTE 10-11-2009 [facility] NASOPHARYNG VALLEY ITIS INTERNAL MED 490 BRONCHITIS 10-11-2009 [facility] NOT VALLEY SPECIFIED INTERNAL ACUTE OR MED CHRONIC 34876 CALCU 04-30-2009 [facility], GALLBLADD DASHA W/OTH CHOLECYST W/O MENTION OBST 90263 CALCU 04-30-2009 [facility] GALLBLADD ANESTH OF W/O MENTION [facility] CHOLECYST/O BST 35912 CHRONIC 04-30-2009 PATHOLOGY & CHO[place]CYSTIT [place]OLOGY [place] LAB 57710 ABDOMINAL 04-30-2009 [facility], PAIN RIGHT DASHA UPPER QUADRANT 4139 OTHER AND 04-10-2009 NEW UNSPECIFIED [facility] [place] 44313 CORONARY 04-10-2009 [facility] OSIS [place] CORONARY ARTERY 10692 OTHER 04-10-2009 [facility]URE [facility] 5718 OTHER 03-27-2009 [facility] CHRONIC RADI[facility]Y 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 ATRIOVENTRI CULAR BLOCK 4280 CONGESTIVE 03-24-2009 [facility] FAILURE UNSPECIFIED 5770 ACUTE 03-24-2009 [facility] S 4556 UNSPEC 03-05-2009 [facility] HEMORRHOIDS MEM HOS[facility] WITHOUT INC MENTION COMPLICATIO N 7019 UNSPECIFIED 03-05-2009 [facility] HYPERTROPHI INC C&ATROPHIC CONDITION SKIN 53309 CHEST PAIN 02-26-2009 [facility] UNSPECIFIED [facility] PROF SERV 7859 OTHER 02-23-2009 [facility] SYMPTOMS RADIOLOGY INVOLVING ASSOCIATES CARDIOVASCU PSC LAR SYSTEM V1589 OTH SPEC 05-15-2008 [facility] PRESENTING [facility] OTH 04451 UNSPECIFIED 03-01-2008 [facility] OSTEOPOROSI IMAGING S ASSOCIATES V7231 ROUTINE 02-10-2008 [facility] EXAMINATION [facility] 71304 HYPERTENSIV 12-22-2007 Odilon ROWELL S RETINOPATHY 0579 [...] Procedure DOS Code Location Performer Comment DUP-SCAN 45363 [place] MONTIEL XTR VEINS 7 MEDICAL IMAGING UNILATERA ASS L/LIMITED STUDY DESTRUCTI 17168 DERMATOLO DERMATOLO ON 7 GY GY PREMALIGN CONSULTAN CONSULTAN ANT TS P[place] [address] [facility]Y INFUSION 7 MEM HOSP MEM HOSP THERAPY/P INC INC ROPHYLAXI S /DX 1ST TO 1 [place] [address] [facility]Y INFUSION 7 MEM HOSP MEM HOSP THERAPY/P INC INC ROPHYLAXI S /DX 1ST [place] [address] [facility]Y INFUSION 7 MEM HOSP MEM HOSP THERAPY/P INC INC ROPHYLAXI S /DX 1ST TO 1 HR INJECTION J3301 CHRIS FONTENOT 7 TRIAMCINO ORTHOPAED LONE ICS PSC ACETONIDE NOS 10 MG ARTHROCEN 90105 JEANCHANDAN LAMBERTIS 7 ASPIR&/IN ORTHOPAED ORTHOPAED J MAJOR ICS PSC ICS PSC JT/BURSA W/O US RADIOLOGI 62953 [place] ENRIQUETA C EXAM 7 MEDICAL CHEST 2 IMAGING VIEWS ASS FRONTAL&L ATERAL INJECTION J3301 CHRIS ESCOBAR 6 EN TRIAMCINO ORTHOPAED LONE ICS PSC ACETONIDE NOS 10 MG ARTHROCEN 01910 CHRIS ESCOBAR TESIS 6 EN ASPIR&/IN ORTHOPAED J MAJOR ICS PSC JT/BURSA W/O US RADIOLOGI 54750 CHRIS ESCOBAR C 6 EN EXAMINATI ORTHOPAED ON KNEE ICS PSC 1/2 VIEWS THERAPEUT 73674 [facility] BESSON IC 6 VALLEY LJ PROPHYLAC INTERNAL TIC/DX MED INJECTION SUBQ/IM INJECTION J3420 [facility] BESSON VIT B-12 6 [place] LJ INTERNAL CYANOCOBA MED CHOCO TO 1000 MCG MRI ANY 07108 [place] MONTIEL JT LOWER 6 MEDICAL EXTREM IMAGING W/O ASS CONTRAST MATRL ANNUAL G0438 [facility] BESSON WELLNESS 6 [facility] VISIT; INTERNAL PERSONALI MED Z PPS INIT VISIT COLLECTIO 68615 [facility] BESSON N VENOUS 6 [facility] BLOOD INTERNAL VENIPUNCT MED URE PPSV23 34320 [facility] VACCINE 2 6 [place] LJ YRS OR INTERNAL OLDER FOR MED SUBQ/IM USE ADMINISTR G0009 [facility] BESSON ATION OF 6 [place] LJ PNEUMOCOC INTERNAL TERRANCE MED VACCINE INJECTION J3301 [facility] RODRIGUEZ 6 [place] TRIAMCINO INTERNAL LONE MED ACETONIDE NOS 10 MG THERAPEUT 03933 [facility] RODRIGUEZ IC 6 [place] PROPHYLAC INTERNAL TIC/[place] INJECTION SUBQ/[place] [address] [facility] INFUSION 5 MEM HOSP MEM HOSP THERAPY/P INC INC ROPHYLAXI S /DX 1ST TO 1 [place] [address] [facility] INFUSION 5 MEM HOS[facility] MEM HOSP THERAPY/P INC INC ROPHYLAXI S /DX 1ST TO 1 HR EGD 22603 [facility] TRANSORAL 5 MEM HOSP MEM HOSP BIOPSY INC INC SINGLE/[place] [address] [facility] INFUSION 5 MEM HOS[facility] MEM HOS[facility] THERAPY INC INC PROPHYLAX IS/DX EA HOUR COLSC FLX 60873 [facility] W/RMVL 5 MEM HOSP MEM HOSP OF [place]UMOR [place] [address] [facility] INFUSION 5 MEM HOSP MEM HOSP THERAPY/P INC INC ROPHYLAXI S /DX 1ST TO 1 [place] [address] [facility] INFUSION 5 MEM [facility] MEM HOSP THERAPY/P INC INC ROPHYLAXI S /DX 1ST [place] [address] [facility] INFUSION 5 MEM HOSP MEM HOSP THERAPY/P INC INC ROPHYLAXI S /DX 1ST [place] [address] [facility]Y INFUSION 5 MEM HOSP MEM HOSP THERAPY/P INC INC ROPHYLAXI S /DX 1ST TO 1 HR TRANSFUSI 87433 [facility] ON 5 [facility] MEM [facility]OSP BLOOD/BLO INC INC OD COMPONENT S TRANSFUSI 01526 [facility] ON 4 MEM [facility] MEM [facility]OS[facility] BLOOD/BLO INC INC OD COMPONENT S ANTIBODY 45890 [facility] SCREEN 4 MEM HOSP MEM HOSP RBC EACH INC INC SERUM TECHNIQUE OPHTH 52310 DUDEE HANNAH DUDEE HANNAH MEDICAL 4 XM&EVAL INTERMEDI ATE ESTAB PT COMPUTERI 75899 DUDEE HANNAH DUDEE HANNAH ZED 4 OPHTHALMI C IMAGING OPTIC NERVE VISUAL 02829 DUDEE HANNAH DUDEE HANNAH FIELD XM 4 UNI/BI W/INTERP EXTENDED EXAM OPHTH 24305 DUDEE HANNAH DUDEE HANNAH MEDICAL 4 XM&EVAL COMPRHNSV ESTAB PT 1/> COMPUTERI 49095 DUDEE HANNAH DUDEE HANNAH ZED 4 [place] [address] [facility]Y INFUSION 4 MEM HOSP MEM HOSP THERAPY/P INC INC ROPHYLAXI S /DX 1ST TO [place] [address] [facility]BEY INFUSION 4 MEM HOSP MEM HOSP THERAPY/P INC INC ROPHYLAXI S /DX 1ST TO [place] [address] [facility]BEY INFUSION 4 MEM HOSP MEM HOSP THERAPY/P INC INC ROPHYLAXI S /DX 1ST TO 1 [place] [address] [facility]Y INFUSION 4 MEM HOSP MEM HOSP THERAPY/P INC INC ROPHYLAXI S /DX 1ST TO 1 HR IM ADM 34806 BESSON BESSON PRQ ID 3 LJ LJ SUBQ/IM NJXS 1 VACCINE IM ADM 41909 BESSON BESSON PRQ ID 3 LJ LJ SUBQ/IM NJXS 1 VACCINE IM ADM 72398 BESSON BESSON PRQ ID 3 LJ LJ SUBQ/IM NJXS 1 VACCINE THERAPEUT 88192 [employer], [employer], IC PX 1/> 3 CHILD AND FAMILY SERVICES WORKER CHILD AND FAMILY SERVICES WORKER AREAS PLACIDO PLACIDO EACH 15 CO HOS CO HOS MIN EXERCISES THERAPEUT 62221 [employer], IC PX 1/> 3 CHILD AND FAMILY SERVICES WORKER CHILD AND FAMILY SERVICES WORKER AREAS PLACIDO PLACIDO EACH 15 CO HOS CO HOS MIN EXERCISES THERAPEUT 54340 [employer], IC PX 1/> 3 CHILD AND FAMILY SERVICES WORKER CHILD AND FAMILY SERVICES WORKER AREAS PLACIDO PLACIDO EACH 15 CO HOS CO HOS MIN EXERCISES THERAPEUT 52891 [employer], IC PX 1/> 3 CHILD AND FAMILY SERVICES WORKER CHILD AND FAMILY SERVICES WORKER AREAS PLACIDO PLACIDO EACH 15 CO HOS CO HOS MIN EXERCISES THERAPEUT 07725 [employer], [employer], IC PX 1/> 3 CHILD AND FAMILY SERVICES WORKER CHILD AND FAMILY SERVICES WORKER AREAS PLACIDO PLACIDO EACH 15 CO HOS CO HOS MIN EXERCISES RADEX HIP 77866 [employer], 3 CHILD AND FAMILY SERVICES WORKER CHILD AND FAMILY SERVICES WORKER UNILATERA PLACIDO PLACIDO L CO HOS CO HOS COMPLETE MINIMUM 2 VIEWS DUP-SCAN 19526 [employer], XTR VEINS 3 CHILD AND FAMILY SERVICES WORKER CHILD AND FAMILY SERVICES WORKER COMPLETE PLACIDO PLACIDO CO HOS CO HOS BILATERAL STUDY ARTHRP 01748 CHRISTENS CHRISTENS ACETBLR/P 3 EN CHR EN CHR TALA FEM PROSTC AGRFT/ALG RFT DECALCIFI 63059 MARINA MARINA CATION 3 ISMAEL ISMAEL PROCEDURE BLD BANK 73767 MACIVOR MACIVOR PHYS SVCS 3 DUN DUN DIFFC CROSS MATCH&/EV AL REP RADIOLOGI 12244 ANYA ANYA C 3 FRA FRA EXAMINATI ON PELVIS 1/2 VIEWS CATH PLMT 12627 FALLUJI FALLUJI L HRT & 3 YAMILETH YAMILETH ARTS W/NJX & ANGIO IMG S&I ANTIBODY 02428 [facility] UNIVERS ID RBC 3 Y Y ANTIBODIE [facility] S EA PANEL EA SERUM TQ ANTIBODY 01405 [facility] SCREEN 3 Y Y RBC [facility] SERUM TECHNIQUE BLD BANK 61968 BORAL RADHA BORAL RADHA PHYS SVCS 3 DIFFC CROSS MATCH&/EV AL REP URNLS DIP 31163 BESSON BESSON 3 LJ LJ STICK/TAB LET RGNT NON-AUTO W/O MICRSCP ECG 09884 LEE ANN CARNESSON ROUTINE 3 LJ LJ ECG W/LEAST 12 LDS W/I&R ECG 33008 FALLUJI FALLUJI ROUTINE 3 YAMILETH YAMILETH ECG W/LEAST 12 LDS W/I&R CV STRS 75376 FALLUJI FALLUJI TST 3 YAMILETH YAMILETH XERS&/OR RX CONT ECG I&R ONLY CV STRS [address] XERS&/OR RX CONT ECG TRCG ONLY MYOCARDIA [address] MULTIPLE STUDIES OPHTHALMO 80449 SORIN YOUNG SCPY 3 EXTENDED RETINAL DRAWING I&R [facility] 09586 [facility] RETROPERI 3 MEM H[facility] TONEAL INC INC REAL TIME W/IMAGE COMPLETE HOSPITAL 13104 SHARITA PRASADMIE DISCHARGE 3 JR RENÉE CHINCHILLA DAY MANAGEMEN T 30 MIN/< RADIOLOGI 54899 RAMIRO RUBIO C 3 EDA EDA EXAMINATI ON CHEST SINGLE VIEW FRONTAL ECG 87673 SHARITA SHERIFF ROUTINE 3 JR RENÉE CHINCHILLA ECG W/LEAST 12 LDS I&R ONLY E-STIM G0283 [facility] 1/> AREAS 2 MEM HOS[facility] MEM HOSP OTH THAN INC INC WND CARE PART TX PLAN THERAPEUT 21369 [facility] IC PX 1/> 2 MEM HOSP MEM HOSP AREAS INC INC EACH 15 MIN EXERCISES APPLICATI 36423 [facility] ON 2 MEM [facility] MEM HOSP MODALITY INC INC 1/> AREAS HOT/COLD PACKS APPLICATI 62159 [facility] ON 2 MEM HOSP MEM HOSP MODALITY INC INC 1/> AREAS HOT/COLD PACKS THERAPEUT 97058 [facility] IC PX 1/> 2 [facility] INC EACH 15 MIN EXERCISES E-STIM G0283 [facility] 1/> AREAS 2 [facility] THAN INC INC WND CARE PART TX PLAN E-STIM G0283 [facility] 1/> AREAS 2 [facility] INC INC WND CARE PART TX PLAN THERAPEUT 03443 [facility] IC PX 1/> 2 [facility] INC INC EACH 15 MIN EXERCISES APPLICATI 90154 [facility] ON 2 [facility] MODALITY INC INC 1/> AREAS HOT/COLD PACKS APPLICATI 80977 [facility] ON 2 [facility]AL[facility] INC INC 1/> AREAS HOT/COLD PACKS THERAPEUT 63889 [facility] IC PX 1/> 2 [facility] INC INC EACH 15 MIN EXERCISES E-STIM G0283 [facility] 1/> AREAS 2 [facility] O[facility] THAN INC INC WND CARE PART TX PLAN E-STIM G0283 [facility] 1/> AREAS 2 [facility] O[facility] INC INC WND CARE PART TX PLAN THERAPEUT 89248 [facility] IC PX 1/> 2 [facility] INC INC EACH 15 MIN EXERCISES APPLICATI 60925 [facility] ON 2 [facility] MODALITY INC INC 1/> AREAS HOT/COLD PACKS APPLICATI 76447 [facility] ON 2 [facility] MODALITY INC INC 1/> AREAS HOT/COLD PACKS THERAPEUT 52832 [facility] IC PX 1/> 2 MEM [...] INC WND CARE PART TX PLAN RADEX 38757 [facility] SPINE 2 [facility] LUMBOSACR INC INC AL MINIMUM 4 VIEWS MRI 07938 [place] [facility] SPINAL 2 [facility] CANAL IMAGING LUMBAR ASS W/O CONTRAST MATERIAL MRI 36435 [place] [facility] PELVIS 2 [facility] W/O IMAGING CONTRAST ASS MATERIAL 3D 17113 [place] RENDERING 2 [facility] W/INTERP IMAGING & ASS POSTPROCE SS SUPERVISI ON COLONOSCO 11855 DAMON SALMA DAMON SALMA PY FLX DX 2 W/COLLJ SPEC WHEN PFRMD THERAPEUT 24846 MICHAEL NUÑEZ IC 2 NAN ARLET PROPHYLAC TIC/DX INJECTION SUBQ/IM OPHTH 60606 DUDEE HANNAH [facility]DEE HANNAH MEDICAL 2 XM&EVAL COMPRE NEW PT 1/> VST OPHTHALMO 89405 DUDEE HANNAH DUDEE HANNA[facility] SCPY 2 EXTENDED RETINAL DRAWING I&R 1ST DETERMINA 73591 DUDEE HANNAH [facility]DEE HANNA[facility] TION 2 REFRACTIV E STATE THERAPEUT 77453 LEE ANN NANCE IC 2 LJ LJ PROPHYLAC TIC/DX INJECTION SUBQ/IM LIPID 34090 COMBINED COMBINED PANEL 1 PHYSICIAN PHYSICIAN S LA S LA COMPREHEN 85788 COMBINED COMBINED SIVE 1 PHYSICIAN PHYSICIAN METABOLIC S LA S LA PANEL COMPREHEN 30852 COMBINED COMBINED SIVE 1 PHYSICIAN PHYSICIAN METABOLIC S LA S LA PANEL LIPID 59398 COMBINED COMBINED PANEL 1 PHYSICIAN PHYSICIAN S LA S LA BLOOD 81837 COMBINED COMBINED COUNT 1 PHYSICIAN PHYSICIAN COMPLETE S LA S LA AUTO&AUTO DIFRNTL WBC SCREENING 32702 [facility]UMM[facility] 0 CO CO MAMMOGRAP [facility] BILATERAL ECHO 27706 PREET TORRES TORRES PREET TTHRC R-T 0 MD 2D CONSULTIN W/WOM-MOD G SRV E COMPL SPEC&COLR D ECHO 23600 [facility] TTHRC R-T 0 CO CO [address] [place] [address] W/WOM-MOD E COMPL SPEC&COLR D SPMTRY 27915 [facility] W/VC [facility]WO MXML VOL VNTJ RADIOLOGI 02385 [facility] C EXAM 0 CO CO CHEST [address] [place] [address] VIEWS FRONTAL&L ATERAL E-STIM G0283 [facility] 1/> AREAS 0 [facility] INC INC WND CARE PART TX PLAN APPL 09365 [facility] MODALITY 0 [facility] 1/> AREAS INC INC ULTRASOUN D EA 15 MIN THERAPEUT 96890 [facility] IC PX 1/> 0 [facility] INC INC EACH 15 MIN EXERCISES THERAPEUT 21664 [facility] IC PX 1/> 0 MEM [facility] AREAS INC INC EACH 15 MIN EXERCISES APPL 82390 [facility] BARNHART MODALITY 0 [facility]/> AREAS INC INC ULTRASOUN D EA 15 MIN E-STIM G0283 [facility] 1/> AREAS 0 [facility] OTH THAN INC INC WND CARE PART TX PLAN E-STIM G0283 [facility] 1/> AREAS 0 [facility] OTH THAN INC INC WND CARE PART TX PLAN APPL 48536 [facility] MODALITY 0 [facility] 1/> AREAS INC INC ULTRASOUN D EA 15 MIN THERAPEUT 89380 [facility] BARN[facility] IC PX 1/> 0 [facility] INC EACH 15 MIN EXERCISES THERAPEUT 95284 OBE[facility] BARNHART IC PX 1/> 0 [facility] ARE[facility] INC INC EACH 15 MIN EXERCISES APPL 33809 [facility] MODALITY 0 [facility] 1/> AREAS INC INC ULTRASOUN D EA 15 MIN E-STIM G0283 [facility] 1/> AREAS 0 [facility] OTH THAN INC INC WND CARE PART TX PLAN E-STIM G0283 [facility] 1/> AREAS 0 [facility] OTH THAN INC INC WND CARE PART TX PLAN APPL 72127 [facility] MODALITY 0 [facility] 1/> AREAS INC INC ULTRASOUN D EA 15 MIN PHYSICAL 34757 [facility] THERAPY 0 [facility] EVALUATIO INC INC N IRON 27850 [facility] BINDING 0 [facility] CAPACITY INC INC COMPREHEN 45721 O[facility] SIVE 0 [facility] [address] [facility] FOLIC 0 [facility] [place] [address] [facility] IRON 0 [facility] INC INC COLLECTIO 15989 [facility] N VENOUS 0 [facility] BLOOD INC INC VENIPUNCT URE CYANOCOBA 07612 [facility] CHOCO 0 [facility] VITAMIN [place] B-[address] [place] [address] [facility] FERRITIN 0 [facility] INC INC BLOOD 41824 [facility] COUNT 0 [facility] COMPLETE INC INC AUTO&AUTO [place]NTL [place] 5[address]50 ENRIQUETA ROBISON, ADALID LOWER 0 KHALIDA KHALIDA EXTREM W/O CONTRAST MATRL ENDOMETRI 84797 [facility]OMEN'S BETSEY RUBIO BX 0 [facility] W/WO CLIN[facility] OF ENDOCERVI X BX W/O [place] DILAT SPX PLLC SPCL STN 80789 WINNIE ZHOU 2 I&R 0 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 IES INC IES INC MICROORG/ ENZYME/IM CYT CYTP 08005 WINNIE ZHOU SLCTV 0 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 IES INC IES INC ENHANCEME NT INTERPJ XCPT C/V IM ADM 48777 [place] MCKEMIE PRQ ID 0 [facility] JR CHINCHILLA SUBQ/IM INTERNAL NJXS 1 MED VACCINE INJECTION J3301 [place] MCKEMIE 0 [facility] JR RENÉE TRIAMCINO INTERNAL LONE MED ACETONIDE NOS 10 MG SCREENING 11194 PL[facility]O KLEINOLAS 9 CO [facility] [place] [address] O[facility] BARN[facility] INFUSION 9 [facility] HOSP THERAPY INC INC PROPHYLAX IS/DX EA HOUR LEVEL III 69170 PATHOLOGY PATHOLOGY SURG 9 & & PATHOLOGY CYTOLOGY CYTOLOGY LAB LAB GROSS&LALO ROSCOPIC EXAM ANES 61150 [facility] MACIAS, INTRAPERI 9 ANESTH RAE F TONEAL OF THE UPPER BLUEGRASS ABDOMEN W/LAPS NOS LAPAROSCO 39172 NICOLE RIVERA PY SURG 9 , DASHA , [place] [address] O[facility] BARNHART INFUSION 9 [facility] HOSP THERAPY/P INC INC ROPHYLAXI S /DX 1ST TO 1 HR THERAPEUT 47073 OBE[facility] BARNHART IC 9 [facility] HOSP INJECTION INC INC IV PUSH EACH NEW DRUG ECG 20602 OBEY CHARANJIT, ROUTINE 9 [facility] W/LEAST PROF SERV 12 LDS I&R ONLY BLOOD 78536 O[facility] BARNHART COUNT 9 [facility] HOSP COMPLETE INC INC AUTO&AUTO DIFRNTL WBC ECG 59249 OBE[facility] BARNHART ROUTINE 9 [facility] HOSP ECG INC INC W/LEAST 12 LDS TRCG ONLY W/O I&R BASIC 83040 OBE[facility] BARNHART METABOLIC 9 [facility] HOSP PANEL INC INC CALCIUM TOTAL COLLECTIO 25087 OBEY BARNHART N VENOUS 9 [facility] HOSP BLOOD INC INC VENIPUNCT URE COLLECTIO 47879 [facility] N VENOUS [address] [place] [address] [place] [address] [facility] UREA [address] [place] [address] NITROGEN QUANTITAT FRANCISCO JAVIER BLOOD [address] HEMATOCRI T CREATININ 22613 [facility] E BLOOD [address] [place] [address] HOSPITAL CHLORIDE 67635 [facility] BLD [address] [place] [address] POTAS[address] PLASMA/WH OLE BLOOD BLOOD [address] PLATELET AUTOMATED PLCMT G0269 [facility] OCCL DEVC [address] [place] [address] RAYMOND/ART POST SURG/INTR VNL PROC ECG 47550 [facility] ROUTINE [address] [place] [address] ECG W/LEAST 12 LDS TRCG ONLY W/O I&R INJECTION 54755 [facility] CARDIAC [address] [place] [address] CATHJ L VENTR/L ATR ANGIOGRAP H GLUCOSE 23607 [facility] QUANTITAT [address] [place] [address] FRANCISCO JAVIER BLOOD XCPT REAGENT STRIP SODIUM [address] PLASMA OR WHOLE BLOOD CLOSURE C1760 [facility] DEVICE [address] [place] [address] VASCULAR INTRDUCR/ C1894 [facility] SHEATH [address] [place] [address] NOT GUID INTRACARD EP NON-LASR ECG 91306 [place], ROUTINE 9 [facility] ECG CLINIC W/LEAST PSC 12 LDS I&R ONLY L HRT 54988 [facility] CATHETERI [address] [place] [address] [place] [address] [facility] C-CATHJ [address] [place] [address] F/SLCTV C ANGRPH I SI&R 68534 [facility] F/NJX PX [address] [place] [address] DURING C-CATHJ VENTR&/AT R ANGRPH I SI&R 63868 [facility] F/NJX PX [address] [place] [address] DURING C-CATHJ PULM&/OR SELECT BLOOD 71994 O[facility]Y BARNHART COUNT 9 [facility] COMPLETE INC INC AUTO&[place] [address] [facility]ACIDO CUMMINS ABDOMINAL 9 [facility] TIME W/IMAGE DOCUMENTA TION COLLECTIO 69084 O[facility] B[facility] N VENOUS 9 [facility] BLOOD INC INC VENIPUNCT URE COMPREHEN 71315 O[facility] B[facility] SIVE 9 [facility] METABOLIC INC INC PANEL COLLECTIO 63884 [facility]O Orr VENOUS 9 [facility] HOSPITAL VENIPUNCT URE CULTURE 39605 [facility] CUMMINS BACTERIAL 9 [facility] QUANTTATI VE COLONY COUNT URINE URNLS DIP 07646 [facility] CUMMINS 9 [facility] STICK[facility] HOSPITAL LET REAGENT AUTO MICROSCOP Y BLOOD 66355 [facility] CUMMINS COUNT 9 [facility] AUTO&[place] [address] [facility] CUMMINS TROPONIN 9 [facility] FRANCISCO JAVIER BLOOD 97027 [facility] CUMMINS COUNT 9 [facility]ITAL AUTO&AUTO DIFRNTL WBC RADIOLOGI 22547 [facility] CUMMINS C EXAM 9 [facility] CHEST 2 HOSPITAL HOSPITAL VIEWS FRONTAL&[place] [address] PLACIDO CUMMINS INFUSION 9 [facility] INITIAL 31 MIN-1 HOUR ECG 41470 [place] BESSON, ROUTINE 9 [facility] A ECG INTERNAL W/LEAST MED 12 LDS I&R ONLY URNLS DIP 57142 PL[facility]O CUMMINS 9 [facility] HOSPITAL LET REAGENT AUTO MICROSCOP Y MYOGLOBIN 13554 [facility] CUMMINS 9 [facility] HOSPITAL G0378 [facility] CUM[facility]INS OBSERVATI 9 [facility] HOSPITAL SERVICE PER HOUR ECG 70239 [facility] CUMMINS ROUTINE 9 [facility] ECG HOSPITAL HOSPITAL W/LEAST 12 LDS TRCG ONLY W/O I&R COLLECTIO 30007 [facility]O Orr VENOUS 9 [facility] BLOOD [facility] HOSPITAL VENIPUNCT URE CREATINE 51515 [facility] CUMMINS KINASE 9 [facility] [place] [address] [facility] CUMMINS LIPASE 9 [facility] COMPREHEN 17952 PLACIDO MONET 9 [facility] [place] [address] PL[facility]O CUMMINS AMYLASE 9 [facility] HOSPITAL CREATINE 98948 PLACIDO CUMMINS KINASE MB 9 [place] [address] OBEY OBEY INFUSION 9 [facility] HOSP THERAPY INC INC PROPHYLAX IS/[place] [address] PATHOLOGY PATHOLOGY SURG 9 & & PATHOLOGY CYTOLOGY CYTOLOGY LAB LAB GROSS&LALO ROSCOPIC EXAM COLSC FLX 16841 [place] DAMON, 9 MEDICAL CUONG W/REMOVAL SERV [place] [address] O[facility] BARNHART INFUSION 9 [facility] HOSP THERAPY/P INC INC ROPHYLAXI S /DX 1ST TO 1 HR CV STRS 17930 OBEY NANCE, TST 9 [facility] RX CONT PROF SERV ECG I&R ONLY INJECTION J0152 OBEY BARNHART 9 [facility] HOSP ADENOSINE INC INC DIAGNOSTI C USE 30 MG MYOCRD 80247 [facility] FALLUJI, PRFUJ STD 9 PHYSICIAN FRANKIE SNOWEC FXJ S GROUP CV STRS 66011 OBEY NANCE, TST 9 [facility] RX CONT PROF SERV ECG W/O I&R CV STRS 19628 O[facility] BARNHART TST 9 [facility] HOSP XERS&/OR INC INC RX CONT ECG TRCG ONLY TECHNETIU A9502 OBEY Taylor TC-99M 9 [facility] HOSP TETROFOSM INC INC IN DX PER STUDY DOSE MYOCRD 42691 [facility] FALLUJI, PRFUJ STD 9 PHYSICIAN FRANKIE DAMON S GROUP MOTION QUAL/ROBERT STD MYOCRD 26985 [facility] FALLUJI, PRFUJ IMG 9 PHYSICIAN FRANKIE STAUFFEROG S GROUP SPECT DIRECTORY OPERATOR STD COMPREHEN 09026 PL[facility]O MENDIOLAE 9 [facility] [place] [address] PLACIDO CUMMINS THYROID 9 [facility] STIMULSOLOMON [facility] NG HORMONE TSH COLLECTIO 57485 PLACIDO CUMMINS N VENOUS 9 [facility] VENIPUNCT URE LIPID 63811 PLACIDO CUMMINS PANEL 9 [facility] BLOOD 53766 PLACIDO CUMMINS COUNT 9 [facility] AUTO&AUTO DIFRNTL WBC DUPLEX 28113 MARLENE CLANCY, SCAN 9 TREVOR Henry EXTRACRAN RADIOLOGY IAL ART COMPL BI ASSOCIATE STUDY S PSC SCREENING 49474 MARLENE CLANCY, 8 TREVOR Henry MAMMOGRAP RADIOLOGY HY BILATERAL ASSOCIATE S PSC DXA BONE 07240 OBEY BARNHART DENSITY 8 [facility] STUDY / INC INC SITES AXIAL SKEL CERV/VAGI G0101 [facility] NAL 8 [employer] [facility]; PELV&CLIN [place] [facility]AST [facility] EXAM SCREEN Q0091 [facility]IR[facility] PAP 8 [facility]; [facility] OBTAIN PREP &C [place] ONVEY TO [facility] LAB OPHTH 24126 SORIN ROWELL, MEDICAL 8 JITANDER JIMILTONDER XM&EVAL S S COMPRHNSV ESTAB PT 1/ OPHTHALMO 83374 SORIN ROWELL, CHRISTENY 8 LEEANN BRADSHAW EXTENDED S S RETINAL DRAWING I&R SBS Encounters Encounter Start End Date Code Location Performer Type Date OFFICE 63441 OBEY ROLDAN JR OUTPATIEN 7 7 [facility] 10 P MINUTES OFFICE 34548 [facility] BURCH OUTAIYANA 7 7 MEDICAL T VISIT SERV 25 FOUNDATIO MINUTES N OFFICE 91423 OBEY ANDERSEN 7 7 [facility] 10 P MINUTES HOSPITAL OBEY Andujar 7 [facility]PATIEN [facility] OBEY Andujar 7 [facility]PATIEN [facility] OBEY Andujar 7 [facility] OUTPATIEN [facility] T OFFICE 70732 OBEY ADRIANNA OUTPATIEN 7 7 [facility] 10 P MINUTES OFFICE 44940 [place] RODRIGUEZ OUTPATIEN 6 6 [facility] T VISIT INTERNAL 15 MED MINUTES OFFICE 55720 [facility] ABAD OUTPATIEN 6 6 MEDICAL T VISIT SERV 25 FOUNDATIO MINUTES N OFFICE 63286 [facility] OUT[facility] 6 6 EN T VISIT ORTHOPAED 15 ICS PSC MINUTES HOSPITAL OBEY - 6 6 [facility] OUTPATIEN INC T OFFICE 30174 [place] BESSON OUTPATIEN 6 6 [facility] LJ T VISIT INTERNAL 25 MED MINUTES OFFICE 49186 [place] RODRIGUEZ OUTPATIEN 6 6 [facility] T VISIT INTERNAL 15 MED MINUTES OFFICE 07592 [place] BESSON OUTPATIEN 5 5 [facility] T VISIT INTERNAL 15 MED MINUTES HOSPITAL OBEY - 5 5 [facility] OUTPATIEN INC [facility] OBEY - 5 5 [facility] OUTPATIEN INC [facility] OBEY - 5 5 [facility] OUTPATIEN INC [facility]OSPITAL OBEY - 5 5 [facility] OUTPATIEN INC T OFFICE 67813 [facility] 5 5 [facility] OBEY - 5 5 [facility] OUTPATIEN INC [facility] OBEY - 5 5 [facility] OUTPATIEN INC [facility]OSPITAL OBEY - 5 5 [facility] OUTPATIEN INC T OFFICE 52494 OBEY ADRIANNA OUTPATIEN 5 5 [facility] MINUTES HOSPITAL OBEY - 5 5 [facility] OUTPATIEN INC T OFFICE 34979 [facility] OUTPATIEN 5 5 MEDICAL T VISIT SERV 25 FOUNDATIO MINUTES N HOSPITAL OBEY - 4 4 [facility] OUTPATIEN [facility] OBEY - 4 4 [facility] OUTPATIEN [facility] OBEY - 4 4 [facility] OUTPATIEN [facility] OBEY - 4 4 [facility] OUTPATIEN [facility] OBEY - 4 4 [facility] OUTPATIEN 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 OBEY - 2 2 [facility] OUTPATIEN [facility] OBEY - 2 2 [facility] OUTPATIEN [facility] T OFFICE 82906 MICHAEL RODRIGUEZ OUTPATIEN 2 2 SINDY CALLAHAN T VISIT 15 MINUTES OFFICE 01750 MICHAEL RODRIGUEZ OUTPATIEN 2 2 SINDY CALLAHAN T VISIT 15 MINUTES OFFICE 83541 LEE ANN LEE ANN OUTPATIEN 2 2 LJ CALHOUN T VISIT 15 MINUTES CRITICAL PLACIDO ACCESS 0 0 [facility] CRITICAL PLACIDO ACCESS 0 0 [facility] OFFICE 87047 [place] SALMA OUTPATIEN 0 0 MEDICAL T VISIT SERV 15 FOUNDATIO MINUTES HOSPITAL OBEY - 0 0 [facility] OUTPATIEN INC T OFFICE 84251 [facility] TRA OUTPATIEN 0 0 [place] T NEW 45 ORTHOPAED MINUTES [facility] OBEY - 0 0 [facility] OUTPATIEN INC T OFFICE 45258 [place] DAMON, OUTPATIEN 0 0 MEDICAL CUONG T VISIT SERV 15 FOUNDATIO MINUTES OFFICE 15114 [place] MCKEMIE OUTPATIEN 0 0 [facility] CHINCHILLA T VISIT INTERNAL 15 MED MINUTES CRITICAL PLACIDO ACCESS 9 9 [facility] OBEY - 9 9 [facility] OUTPATIEN [facility] OBEY - 9 9 [facility] OUTPATIEN INC T OFFICE 89412 NICOLE RIVERA CONSULTAT 9 9 , DASHA LOU ION NEW/ESTAB PATIENT 60 MIN OFFICE 38607 [place] BESSON, OUTPATIEN 9 9 [place] ROBERT A T VISIT INTERNAL [address] COMPA - [facility] HOSPITAL OUTPATIEN T OFFICE 15734 [place] BESS[place], OUTPATIEN 9 9 [facility] A T VISIT INTERNAL 15 MED MINUTES CRITICAL PLACIDO ACCESS 9 9 [facility] CRITICAL PLACIDO ACCESS 9 9 [facility] EMERGENCY 04900 PLACIDO 9 9 [facility] T VISIT LIMITED/M INOR PROB EMERGENCY 38995 PL[facility]O CHAHAL 9 9 [facility] T VISIT MODERATE SEVERITY OFFICE 63526 [facility] SMITA CONTRERAS 9 9 PHYSICIAN FRANKIE Henry GROUP NEW/ESTAB PATIENT 60 MIN HOSPITAL OBEY - 9 9 [facility] OUTPATIEN INC T HOSPITAL OBEY - 9 9 [facility] OUTPATIEN [facility] T CRITICAL PLACIDO ACCESS 9 9 [facility] OFFICE 79362 [place] GANESH NANCE 9 9 [facility] Armas T VISIT INTERNAL 15 MED MINUTES OFFICE 18821 [place] SHARITA ANDERSEN 8 8 [facility] DUGGAN T VISIT INTERNAL RAE F 15 MED MINUTES CRITICAL PLACIDO LUNA 8 8 [facility] CRITICAL PLACIDO ACCESS 8 8 [facility]PITAL OBEY - 8 8 [facility] OUTPATIEN INC T OFFICE 26119 [place] GANESH LUI 8 8 [facility] Hoang VISIT INTERNAL 10 MED MINUTES
--- OUTSIDE RECORDS SUMMARY | 2017-06-08 04:54 | External Medical Summary Rpt ---
Author Author , ADRIANNE JAMIL Address Unknown Phone [email or web address] Immunization Name Date Rout CVX Reac Dose Comm Prov Is Faci e tion ent ider Refu lity Give sed n PCV1 09-1 Intr 133 0.5 Hist PD20 No PD20 3 4-20 amus mL oric 256 256 17 cula al r Info rmat ion - Sour ce Unsp ecif ied
--- OUTSIDE RECORDS SUMMARY | 2017-06-08 04:54 | External Medical Summary Rpt ---
Author Author , ADRIANNE JAMIL Address Unknown Phone [email or web address] Immunization Name Date Rout CVX Reac Dose Comm Prov Is Faci e tion ent ider Refu lity Give sed n PCV1 09-1 Intr 133 0.5 Hist PD20 No PD20 3 4-20 amus mL oric 256 256 17 cula al r Info rmat ion - Sour ce Unsp ecif ied
--- OUTSIDE RECORDS SUMMARY | 2017-06-08 04:54 | External Medical Summary Rpt ---
Author Author [facility] Joseph, JITENDRARASHAD [employer] Organization [facility] [employer] Address Unknown Phone Unavailable Results Basic metabolic panel in Blood Observa Value Referen Units Interpr Notes Date tion ce etation Range Urea 7 - 18 mg/dL High No Sep 11 nitrogen informati 2017 6:09 [Mass/vol on in AM ume] in source Serum or data Plasma Calcium 8.5 - mg/dL Normal No Sep 11 [Mass/vol 10.1 informati 2017 6:09 ume] in on in AM Serum or source Plasma data Chloride 98 - 107 mmoL/L High No Sep 11 [Moles/vo informati 2017 6:09 lume] in on in AM Serum or source Plasma data Carbon 21.0 - mmoL/L Normal No Sep 11 dioxide, 32.0 informati 2017 6:09 total on in AM [Moles/vo source lume] in data Serum or Plasma Creatinin 0.55 - mg/dL High No Sep 11 e 1.02 informati 2017 6:09 [Mass/vol on in AM ume] in source Serum or data Plasma Creatinin 50 - 200 ML/MIN Low No Sep 11 e renal informati 2017 6:09 clearance on in AM source predicted data by Cockcroft -Gault formula Estimated 59- ML/MIN Low REFERENCE Sep 11 RANGE: 2017 6:09 glomerula >60 AM r ML/MIN/1. filtratio 73 SQUARE n rate METERSIf (GF this patient is -A merican, then multiply theresult by 1.210. Glucose 74 - 106 mg/dL Normal No Sep 11 [Mass/vol informati 2017 6:09 ume] in on in AM Serum or source Plasma data Potassium 3.5 - 5.1 mmoL/L Normal No Sep 11 informati 2017 6:09 [Moles/vo on in AM lume] in source Serum or data Plasma Sodium 136 - 145 mmoL/L Normal No Sep 11 [Moles/vo informati 2017 6:09 lume] in on in AM Serum or source Plasma data CBC W Auto Differential panel in Blood Observa Value Referen Units Interpr Notes Date tion ce etation Range Basophils 0 - 0.2 K/MM3 Normal No Sep 11 informati 2017 6:09 [#/volume on in AM ] in source Blood by data Automated count Basophils 0.1 - 2.0 % Normal No Sep 11 /100 informati 2017 6:09 leukocyte on in AM s in source Blood by data Automated count Eosinophi 0.0 - 0.4 K/mm3 Normal No Sep 11 ls informati 2017 6:09 [#/volume on in AM ] in source Blood by data Automated count Eosinophi 0.1 - % Normal No Sep 11 ls/100 12.0 informati 2017 6:09 leukocyte on in AM s in source Blood by data Automated count Granulocy 1.8 - 7.8 K/mm3 Normal No Sep 11 riley informati 2017 6:09 [#/volume on in AM ] in source Blood by data Automated count Granulocy 37.0 - % Normal No Sep 11 riley/100 80.0 informati 2016 6:09 leukocyte on in AM s in source Blood by data Automated count Hematocri 37.0 - % Low No Sep 11 t [Volume 47.0 informati 2017 6:09 on in AM Fraction] source of Blood data Hemoglobi 12.2 - g/dL Low No Sep 11 n 16.2 informati 2017 6:09 [Mass/vol on in AM ume] in source Blood data Lymphocyt 0.7 - 4.5 K/mm3 Normal No Sep 11 es informati 2017 6:09 [#/volume on in AM ] in source Unspecifi data ed specimen by Automated count Lymphocyt 10 - 50.0 % Normal No Sep 11 es informati 2017 6:09 [#/volume on in AM ] in source Unspecifi data ed specimen by Automated count Erythrocy 27 - 31.2 pg Normal No Sep 11 te mean informati 2017 6:09 corpuscul on in AM ar source hemoglobi data n [Entitic mass] Erythrocy 31.8 - g/dl Normal No Sep 11 te mean 35.4 informati 2017 6:09 corpuscul on in AM ar source hemoglobi data n concentra tion [Mass/vol ume] by Automated count Erythrocy 82.2 - fl Normal No Sep 11 te mean 97.8 informati 2016 6:09 corpuscul on in AM ar volume source [Entitic data volume] by Automated count Monocytes 0.1 - 1.0 K/mm3 Normal No Sep 11 informati 2017 6:09 [#/volume on in AM ] in source Blood by data Automated count Monocytes 1.7 - 9.3 % Normal No Sep 11 /100 informati 2016 6:09 leukocyte on in AM s in source Blood by data Automated count Platelet 7.4 - fl Normal No Sep 11 mean 10.4 informati 2016 6:09 volume on in AM [Entitic source volume] data in Blood by Automated count Platelets 142 - 424 K/mm3 Normal No Sep 11 informati 2016 6:09 [#/volume on in AM ] in source Blood data Erythrocy 4.2 - 5.4 M/mm3 Low No Sep 11 riley informati 2016 6:09 [#/volume on in AM ] in source Amniotic data fluid Erythrocy 11.5 - % Normal No Sep 11 te 17.5 informati 2016 6:09 distribut on in AM ion width source [Entitic data volume] by Automated count Leukocyte 4.8 - K/MM3 Low No Sep 11 s 10.8 informati 2016 6:09 [#/volume on in AM ] in source Blood data CBC W Auto Differential panel in Blood Observa Value Referen Units Interpr Notes Date tion ce etation Range Basophils 0 - 0.2 K/MM3 Normal No Sep 10 informati 2017 5:25 [#/volume on in PM ] in source Blood by data Automated count Basophils 0.1 - 2.0 % Normal No Sep 10 /100 informati 2016 5:25 leukocyte on in PM s in source Blood by data Automated count Eosinophi 0.0 - 0.4 K/mm3 Normal No Sep 10 ls informati 2016 5:25 [#/volume on in PM ] in source Blood by data Automated count Eosinophi 0.1 - % Normal No Sep 10 ls/100 12.0 informati 2016 5:25 leukocyte on in PM s in source Blood by data Automated count Granulocy 1.8 - 7.8 K/mm3 Normal No Sep 10 riley informati 2016 5:25 [#/volume on in PM ] in source Blood by data Automated count Granulocy 37.0 - % Normal No Sep 10 riley/100 80.0 informati 2016 5:25 leukocyte on in PM s in source Blood by data Automated count Hematocri 37.0 - % Low No Sep 10 t [Volume 47.0 informati 2017 5:25 on in PM Fraction] source of Blood data Hemoglobi 12.2 - g/dL Low No Sep 10 n 16.2 informati 2017 5:25 [Mass/vol on in PM ume] in source Blood data Lymphocyt 0.7 - 4.5 K/mm3 Normal No Sep 10 es informati 2017 5:25 [#/volume on in PM ] in source Unspecifi data ed specimen by Automated count Lymphocyt 10 - 50.0 % Normal No Sep 10 es informati 2017 5:25 [#/volume on in PM ] in source Unspecifi data ed specimen by Automated count Erythrocy 27 - 31.2 pg Normal No Sep 10 te mean informati 2017 5:25 corpuscul on in PM ar source hemoglobi data n [Entitic mass] Erythrocy 31.8 - g/dl Low No Sep 10 te mean 35.4 informati 2016 5:25 corpuscul on in PM ar source hemoglobi data n concentra tion [Mass/vol ume] by Automated count Erythrocy 82.2 - fl Normal No Sep 10 te mean 97.8 informati 2017 5:25 corpuscul on in PM ar volume source [Entitic data volume] by Automated count Monocytes 0.1 - 1.0 K/mm3 Normal No Sep 10 informati 2017 5:25 [#/volume on in PM ] in source Blood by data Automated count Monocytes 1.7 - 9.3 % Normal No Sep 10 /100 informati 2017 5:25 leukocyte on in PM s in source Blood by data Automated count Platelet 7.4 - fl Normal No Sep 10 mean 10.4 informati 2017 5:25 volume on in PM [Entitic source volume] data in Blood by Automated count Platelets 142 - 424 K/mm3 Normal No Sep 10 informati 2017 5:25 [#/volume on in PM ] in source Blood data Erythrocy 4.2 - 5.4 M/mm3 Low No Sep 10 riley informati 2017 5:25 [#/volume on in PM ] in source Amniotic data fluid Erythrocy 11.5 - % Normal No Sep 10 te 17.5 informati 2017 5:25 distribut on in PM ion width source [Entitic data volume] by Automated count Leukocyte 4.8 - K/MM3 Normal No Sep 10 s 10.8 informati 2017 5:25 [#/volume on in PM ] in source Blood data Comprehensive metabolic 2000 panel in Serum or Plasma Observa Value Referen Units Interpr Notes Date tion ce etation Range Albumin/G 1.1 - 1.8 No Low No Sep 10 lobulin informati informati 2017 5:25 [Mass on in on in PM ratio] in source source Serum or data data Plasma Albumin 3.4 - 5.0 gm/dL Low No Sep 10 [Mass/vol informati 2017 5:25 ume] in on in PM Serum or source Plasma data Alkaline 46 - 116 U/L High No Sep 10 phosphata informati 2017 5:25 se on in PM [Enzymati source c data activity/ volume] in Serum or Plasma Bilirubin 0.2 - 1.0 mg/dL Normal No Sep 10 .total informati 2017 5:25 [Mass/vol on in PM ume] in source Serum or data Plasma Urea 7 - 18 mg/dL High No Sep 10 nitrogen informati 2017 5:25 [Mass/vol on in PM ume] in source Serum or data Plasma Calcium 8.5 - mg/dL Normal No Sep 10 [Mass/vol 10.1 informati 2017 5:25 ume] in on in PM Serum or source Plasma data Chloride 98 - 107 mmoL/L Normal No Sep 10 [Moles/vo informati 2017 5:25 lume] in on in PM Serum or source Plasma data Carbon 21.0 - mmoL/L Normal No Sep 10 dioxide, 32.0 informati 2017 5:25 total on in PM [Moles/vo source lume] in data Serum or Plasma Creatinin 0.55 - mg/dL High No Sep 10 e 1.02 informati 2016 5:25 [Mass/vol on in PM ume] in source Serum or data Plasma Creatinin 50 - 200 ML/MIN Low No Sep 10 e renal informati 2017 5:25 clearance on in PM source predicted data by Cockcroft -Gault formula Estimated 59- ML/MIN Low REFERENCE Sep 10 RANGE: 2017 5:25 glomerula >60 PM r ML/MIN/1. filtratio 73 SQUARE n rate METERSIf (GF this patient is -A mer[place], then multiply theresult by 1.210. Globulin 1.3 - 3.2 gm/dL Normal No Sep 10 [Mass/vol informati 2017 5:25 ume] in on in PM Serum source data Glucose 74 - 106 mg/dL High No Sep 10 [Mass/vol informati 2017 5:25 ume] in on in PM Serum or source Plasma data Potassium 3.5 - 5.1 mmoL/L Normal No Sep 10 informati 2016 5:25 [Moles/vo on in PM lume] in source Serum or data Plasma Sodium 136 - 145 mmoL/L Normal No Sep 10 [Moles/vo informati 2016 5:25 lume] in on in PM Serum or source Plasma data Aspartate 15 - 37 U/L Low No Sep 10 informati 2016 5:25 aminotran on in PM sferase source [Enzymati data c activity/ volume] in Serum or Plasma Alanine 12 - 78 U/L Normal No Sep 10 aminotran informati 2016 5:25 sferase on in PM [Enzymati source c data activity/ volume] in Serum or Plasma Protein 6.4 - 8.2 gm/dL Low No Sep 10 [Mass/vol informati 2017 5:25 ume] in on in PM Serum or source Plasma data
--- OUTSIDE RECORDS SUMMARY | 2017-06-08 05:16 | External Medical Summary Rpt ---
Author Author , LOULOU JAMIL Address Unknown Phone [email or web address] Care Team Providers Care Medicaid Analyst Name Role Phone ALLRAN JR ROME, ALLRAN Unavailable Unavailable JR ROME ANYA FRA, ANYA Unavailable Unavailable FRA ANYA FRA, ANYA Unavailable Unavailable FRA RODRIGUEZ, RODRIGUEZ Unavailable Unavailable BESSON LJ, BESSON Unavailable Unavailable LJ BESSON LJ, BESSON Unavailable Unavailable LJ BESSON, ROBERT A, Unavailable Unavailable BESSON, ROBERT A [facility] Unavailable [facility]available [facility], [facility] MONTIEL, MONTIEL Unavailable Unavailable BORAL RADHA, BORAL RADHA Unavailable Unavailable [facility] Unavailable Unavailable INC, [facility] [place]NS[facility], Unavailable Unavailable [facility] [...] CONTRERAS, Unavailable Unavailable CARLOS [facility] Unavailable INC[facility] Unavailable Unavailable [facility]PITAL P, [facility] CLANCY ARLET, CLANCY Unavailable Unavailable ARLET CLANCY, TREVOR S, Unavailable Unavailable CLANCY, TREVOR S SANIA, SANIA AGUILAR, Unavailable Unavailable CORIE BRASWELL Unavailable Unavailable [facility], Unavailable Unavailable [facility] AMOS TRA, AMOS TRA Unavailable Unavailable MICHAEL NAN, MICHAEL Unavailable Unavailable NAN MICHAEL NAN, MICHAEL Unavailable Unavailable NAN [facility] Un[facility], [facility] Un[facility] CHARANJIT, TEJA E, Unavailable Unavailable CHARANJIT, TEJA E [facility] Unavailable Unavailable INTERNAL MED, [facility] LINGREEN ARLET, Unavailable Unavailable LINGREEN ARLET MACIVOR DUN, MACIVOR Unavailable Unavailable DUN [facility] Unavailable Unavailable [facility], [facility] MCKEMIE JR RENÉE, Unavailable Unavailable MCKEMIE JR RENÉE MCKEMIE JR RENÉE, Unavailable Unavailable MCKEMIE RENÉE TRINITYKEMIOdilon DUGGAN RAE Unavailable Unavailable F, SHARITA DUGGAN RAE F [facility], BODY BUILDER APPRENTICE [facility] Unavailable Unavailable CO H[facility], [facility], [facility] LAURA SMITH, Unavailable Unavailable LAURA SMITH WILLIAM F, Unavailable Unavailable RAE MACIAS [facility], Unavailable Unavailable [facility] MOMO GRIFFITH, Unavailable Unavailable MOMO GRIFFITH MD Unavailable Unavailable CONSULT[facility] Unavailable Unavailable LAB, [facility] DAMON SALMA, DAMON SALMA Unavailable Unavailable DAMON SALMA, DAMON SALMA Unavailable Unavailable DAMON, CUONG, DAMON, Unavailable Unavailable CUONG PETTEY JAM, PETTEY Unavailable Unavailable JAM FELA DENISE, FELA Unavailable Unavailable DENISE SCHULSTPAOLO, DASHA, Unavailable Unavailable SCHULSTAD, DASHA MARINA ISMAEL, MARINA Unavailable Unavailable ISMAEL [facility], Unavailable Unavailable [facility], Unavailable Unavailable [facility] BURCH, BURCH Unavailable Unavailable BURCH POLLO, BURCH POLLO Unavailable Unavailable Purpose Continuity of Care Document - 11-12-2007 through 2016 Problems Code Diagnosis DOS Provider Status [id number] PAIN IN 03-05-2017 [facility] D509 IRON 12-24-2016 [facility] P UNSPECIFIED D631 ANEMIA IN 12-24-2016 [facility] DISEASE I129 HYPERTENSIV 12-24-2016 [facility] E CKD SERV W/STAGE 1-4 FOUNDATION CKD OR UNS CKD M8580 OTH SPEC 12-24-2016 [facility] D/O BONE SERV DENSITY [facility] STRUCTURE UNS SITE N184 CHRONIC 12-24-2016 [facility] DISEASE [facility] STAGE 4 SEVERE N250 RENAL 12-24-2016 [facility] OSTEODYSTRO SERV PHY [facility] 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 L570 ACTINIC 12-04-2016 DER[facility] KERATOSIS [facility]SULTANTS PSC L820 INFLAMED 12-04-2016 DERMATOLOGY SEBORRHEIC KERATOSIS CONSULTANTS PSC L821 OTHER 12-04-2016 DERMATOLOGY SEBORRHEIC KERATOSIS CONSULTANTS PSC D649 ANEMIA 11-12-2016 [facility] P [id number] ADVERSE 10-28-2016 [place] [facility] COMPOUNDS INITIAL ENC 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-29-2016 [facility] OSTEOARTHRI S PSC TIS LEFT KNEE R079 CHEST PAIN 09-01-2016 [place] UNSPECIFIED [facility] IM[facility]ING ASS J180 BRONCHOPNEU 05-15-2016 [facility] [place] UNSPECIFIED INTERNAL ORGANISM MED D638 ANEMIA IN 02-28-2016 [facility] OTHER SERV CHRONIC FOUNDATION DISEASES CLASSIFIED ELSW N183 CHRONIC 02-28-2016 [facility] DISEASE [facility]OUNDATION STAGE 3 MODERATE 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 11-19-2015 [facility] OF OTHER [place] SPECIFIED B INTERNAL GROUP MED VITAMINS D28812 EFFUSION 11-15-2015 [facility] LEFT [facility]NEE [facility] [id number] PAIN IN 11-15-2015 [facility] M7120 SYNOVIAL 11-15-2015 [place] CYST MEDICAL POPLITEAL IMAGING ASS SPACE BURNS UNS KNEE [id number] OTH TEAR 11-15-2015 [facility] MENISCUS IMAGING ASS CURR INJ [...] VALLEY BLOOD&BLOOD INTERNAL FORM ORGN MED IMMUNE [facility] J0100 ACUTE 10-29-2015 [facility] [place] SINUSITIS INTERNAL UNSPECIFIED MED M5432 SCIATICA 06-26-2015 [facility] LEFT SIDE VALLEY INTERNAL MED 2809 UNSPECIFIED 03-02-2015 [facility] IRON [facility] DEFICIENCY INC ANEMIA 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 2859 UNSPECIFIED 02-20-2015 [facility] ANEMIA PHYSICIANS GROUP 5533 DIAPHRAGMAT 02-20-2015 [facility] VIRGIL W/O PHYSICIANS MENTION GROUP OBSTRUCTION /GANGREN 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 5781 BLOOD IN 02-20-2015 [facility] STOOL PHYSICIANS GROUP 2808 OTHER 02-06-2015 [facility] SPECIFIED PHYSICIANS IRON GROUP DEFICIENCY ANEMIAS 23510 ANEMIA IN 09-28-2014 [facility] DISEASE 39456 HTN CKD UNS 09-28-2014 [facility] W/CKD SERV STAGE I FOUNDATION THRU STAGE IV/UNS 5853 CHRONIC 09-28-2014 [facility] DISEASE [facility]OUND[facility] STAGE III (MODERATE) 5880 RENAL 09-28-2014 [facility] OSTEODYSTRO SERV PHY FOUNDATION 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 DYSTROPHY 50973 CHANGES IN 03-14-2014 DUDEE HANNAH VASCULAR APPEARANCE OF RETINA 88239 ANEMIA OF 11-24-2013 [facility] OTHER SERV CHRONIC FOUNDATION DISEASE 4019 UNSPECIFIED 11-24-2013 [facility] ESSENTIAL SERV HYPERTENSIO FOUNDATION N 2662 OTHER 06-13-2013 [facility] B-COMPLEX DEFICIENCIE S 2811 OTHER 06-06-2013 [facility] LJ VITAMIN B12 DEFICIENCY ANEMIA V4364 HIP JOINT 04-05-2013 [facility], REPLACEMENT BODY BUILDER APPRENTICE BY OTHER [facility] MEANS HOS V571 OTHER 04-05-2013 [facility], PHYSICAL BODY BUILDER APPRENTICE THERAPY [facility] HOS 96582 PAIN IN 03-23-2013 [facility] JOINT PELVIC REGION AND THIGH 7295 PAIN IN 03-23-2013 [facility], SOFT BODY BUILDER APPRENTICE TISSUES OF [facility]OS 94777 SWELLING OF 03-23-2013 [facility] 99288 OTHER 03-23-2013 [facility], MALAISE AND BODY BUILDER [place] [address] ABDOMINAL 03-23-2013 [facility], PAIN RIGHT BODY BUILDER APPRENTICE LOWER [facility] 60305 ABDOMINAL 03-23-2013 [facility], PAIN, LEFT BODY BUILDER APPRENTICE LOWER [facility] 63459 ABDOMINAL 03-23-2013 [facility], TENDERNESS BODY BUILDER APPRENTICE RIGHT LOWER [facility] 8479 SPRAIN AND 03-23-2013 [facility], STRAIN OF BODY BUILDER APPRENTICE UNSPECIFIED PLAC[facility] CO SITE OF HOS BACK V4589 OTHER 03-23-2013 [facility], POSTSURGICA BODY BUILDER APPRENTICE L STATUS [facility] CO OTHER HOS V5869 LONG-TERM 03-23-2013 [facility], (CURRENT) BODY BUILDER APPRENTICE USE OF [facility] CO OTHER HOS MEDICATIONS 7823 EDEMA 03-22-2013 [facility], [place] 35628 OSTEOARTHRO 02-15-2013 MARINA ISMAEL S UNSPEC GEN/LOC PELV REGION&THIG H V5481 AFTERCARE 02-15-2013 ANYA FRA FOLLOWING JOINT REPLACEMENT 81601 COR 02-14-2013 FALLUJI YAMILETH ATHEROSLERO UNSPEC TYPE VESSEL GRAYLING/JOSÉ MIGUEL T 22305 OTH 02-14-2013 FALLUJI YAMILETH NONSPECIFIC ABNORM CV SYSTEM FUNCTION STUDY V7283 OTHER 02-09-2013 [facility] PRE-OPERATI VE EXAMINATION V700 ROUTINE 02-01-2013 [facility] GENERAL MEDICAL EXAM@HEALTH CARE FACL V7284 UNSPECIFIED 01-31-[address] 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 3674 PRESBYOPIA 12-22-2012 DUDEE HANNAH 5939 UNSPECIFIED 09-28-2012 ENRIQUETA DISORDER BRITTANY OF KIDNEY AND URETER 05969 OTHER 09-08-2012 SHARITA DUGGAN SPECIFIED RENÉE CARDIAC DYSRHYTHMIA S 4293 CARDIOMEGAL 09-08-2012 RAMIRO Moreno 7802 SYNCOPE AND 09-08-2012 SHARITA DUGGAN COLLAPSE RENÉE 2724 OTHER AND 07-14-2012 MICHAEL CALLAHAN UNSPECIFIED HYPERLIPIDE JONE 55778 ESOPHAGEAL 07-14-2012 MICHAEL CALLAHAN REFLUX 8438 SPRAIN&STRA 07-14-2012 MICHAEL CALLAHAN IN OTHER SPECIFIED SITES HIP&THIGH 92198 PRIMARY LOC 01-30-2012 [facility] OSTEOARTHRO INC SIS PELVIC REGION&THIG H 7242 LUMBAGO 01-30-2012 [facility] INC 37523 DEGEN 12-30-2011 [place] 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 33677 SPINAL STEN 12-30-2011 PETTEY JAM 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 91514 DISPLCMT 12-11-2011 [place] LUMBAR MEDICAL INTERVERT IMAGING ASS DISC W/O MYELOPATHY 4553 EXTERNAL 12-08-2011 DAMON SALMA HEMORRHOIDS WITHOUT MENTION COMP 5693 HEMORRHAGE 12-08-2011 DAMON SALMA OF RECTUM AND ANUS 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 44046 AFTER-CATAR 11-19-2011 DUDEE HANNAH ACT, OBSCURING VISION 70934 KERATOCONJU 11-19-2011 DUDEE HANNAH NCTIVITIS SICCA NOT SPEC SJOGRENS 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 14350 NUCLEAR 11-04-2011 DUDEE HANNAH SCLEROSIS 3670 HYPERMETROP 11-04-2011 [place] [address] VITREOUS 11-04-2011 DUDEE HANNAH DEGENERATIO N 4550 INTERNAL 11-04-2011 MICHAEL CALLAHAN HEMORRHOIDS WITHOUT MENTION COMP 7243 SCIATICA 09-29-2011 BESSON LJ 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 V7611 SCREENING 07-10-2010 [facility] MAMMOGRAM [facility] FOR [facility]-RISK PATIENT V7612 OTHER 07-10-2010 [facility] SCREENING [facility]OLOGY MAMMOGRAM ASSOCIAT 7852 UNDIAGNOSED 05-07-2010 PREET TORRES [place]ARDIAC [place] 64530 SHORTNESS 05-07-2010 [facility] TORRES OF BREATH CONSULTING SRV 4290 UNSPECIFIED 05-02-2010 [facility] DISEASE 66814 OTHER 05-02-2010 [facility] DYSPNEA [place] [address] PAIN IN 02-11-2010 [facility] JOINT, [facility]OS[facility] LOWER LEG INC 48882 DIAB W/O 02-04-2010 [facility] COMP TYPE [facility] II/UNS NOT INC STATED UNCNTRL 5789 UNSPECIFIED 02-04-2010 [facility] HEMORRHAGE [facility]OS[facility] OF INC GASTROINTES TINAL TRACT 89659 EFFUSION OF 01-15-2010 ENRIQUETA, LOWER LEG KHALIDA JOINT 24299 SYNOVIAL 01-15-2010 ENRIQUETA, CYST OF KHALIDA POPLITEAL SPACE 6271 POSTMENOPAU 10-31-2009 [facility] 460 ACUTE 10-11-2009 [facility] NASOPHARYNG [place]LEY ITIS INTERNAL MED 490 BRONCHITIS 10-11-2009 [facility] NOT VALLEY SPECIFIED INTERNAL ACUTE OR MED CHRONIC 30692 CALCU 04-30-2009 [facility], GALLBLADD DASHA W/OTH CHOLECYST W/O MENTION OBST 53404 CALCU 04-30-2009 [facility] GALLBLADD ANESTH OF W/O MENTION THE [facility] CHOLECYST/O BST 70533 CHRONIC 04-30-2009 PATHOLOGY & CHOLECYSTIT CYTOLOGY IS LAB 15734 ABDOMINAL 04-30-2009 SCHULSTAD, PAIN RIGHT DASHA UPPER QUADRANT 4139 OTHER AND 04-10-2009 NEW UNSPECIFIED [facility] P[place] 55254 CORONARY 04-10-2009 [facility] OS[facility] [place] CORONARY ARTERY 73467 OTHER 04-10-2009 NEW PREMATURE [facility] 5718 OTHER 03-27-2009 [facility] CHRONIC RADI[facility]Y 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 PROF SERV 7859 OTHER 02-23-2009 [facility] SYMPTOMS RADIOLOGY INVOLVING ASSOCIATES CARDIOVASCU PSC LAR SYSTEM V1589 OTH SPEC 05-15-[address] [facility] HOSPITAL PRESENTING HAZARDS HEALTH OTH 32612 UNSPECIFIED 03-01-2008 [facility] OSTEOPOROSI IMAGING S ASSOCIATES V7231 ROUTINE 02-10-2008 [facility] EXAMINATION [facility] 70173 HYPERTENSIV 12-22-2007 Odilon ROWELL LEEANN S RETINOPATHY 0579 UNSPECIFIED 11-12-2007 [facility] VIRAL [...] Procedure DOS Code Location Performer Comment DUP-SCAN 12075 [place] MONTIEL XTR VEINS 7 MEDICAL IMAGING UNILATERA ASS L/LIMITED STUDY DESTRUCTI 76734 DERMATOLO DERMATOLO ON 7 GY GY PREMALIGN CONSULTAN CONSULTAN ANT [place] 1[place] [address] [facility] INFUSION 7 MEM HOSP MEM HOSP THERAPY/P INC INC ROPHYLAXI S /DX 1ST TO 1 [place] [address] [facility]Y INFUSION 7 MEM HOSP MEM HOSP THERAPY/P INC INC ROPHYLAXI S /DX 1ST TO 1 [place] [address] [facility] INFUSION 7 MEM HOSP MEM HOSP THERAPY/P INC INC ROPHYLAXI S /DX 1ST TO 1 HR ARTHROCEN 25606 CHRIS LARA 7 ASPIR&/IN ORTHOPAED ORTHOPAED J MAJOR ICS PSC ICS PSC JT/BURSA W/O US INJECTION J3301 CHRIS FONTENOT 7 TRIAMCINO ORTHOPAED LONE ICS PSC ACETONIDE NOS 10 MG RADIOLOGI 80424 [place] ENRIQUETA C EXAM 7 MEDICAL CHEST 2 IMAGING VIEWS ASS FRONTAL&L ATERAL RADIOLOGI 35193 CHRIS Atkinson 6 EN EXAMINATI ORTHOPAED ON KNEE ICS PSC 1/2 VIEWS INJECTION J3301 CHRIS ESCOBAR 6 EN TRIAMCINO ORTHOPAED LONE ICS PSC ACETONIDE NOS 10 MG ARTHROCEN 99035 CHRIS LAMBERTIS 6 EN ASPIR&/IN ORTHOPAED J MAJOR ICS PSC JT/BURSA W/O US THERAPEUT 19725 [facility] BESSON IC 6 VALLEY LJ PROPHYLAC INTERNAL TIC/DX MED INJECTION SUBQ/IM INJECTION J3420 [facility] BESSON VIT B-12 6 VALLEY LJ INTERNAL CYANOCOBA MED CHOCO TO 1000 MCG MRI ANY 84464 PAYAL MONTIEL JT LOWER 6 MEDICAL EXTREM IMAGING W/O ASS CONTRAST MATRL COLLECTIO 36997 [place] BESSON N VENOUS 6 [place] LJ BLOOD INTERNAL VENIPUNCT MED URE PPSV23 45964 [facility] VACCINE 2 6 VALLEY LJ YRS OR INTERNAL OLDER FOR MED SUBQ/IM USE ADMINISTR G0009 [facility] B[facility]ON ATION OF 6 [place] LJ PNEUMOCOC INTERNAL TERRANCE MED VACCINE ANNUAL G0438 [facility] BESSON WELLNESS 6 [place] LJ VISIT; INTERNAL PERSONALI MED Z PPS INIT VISIT THERAPEUT 64437 [facility] RODRIGUEZ IC 6 VALLEY PROPHYLAC INTERNAL TIC/DX MED INJECTION SUBQ/IM INJECTION J3301 [facility] RODRIGUEZ 6 VALLEY TRIAMCINO INTERNAL LONE MED ACETONIDE NOS 10 [place] [address] [facility] INFUSION 5 MEM HOSP MEM HOSP THERAPY/P INC INC ROPHYLAXI S /DX 1ST TO 1 [place] [address] [facility] INFUSION 5 MEM HOS[facility] MEM HOSP THERAPY/P INC INC ROPHYLAXI S /DX 1ST TO 1 HR COLSC FLX 48076 [facility] W/RMVL 5 MEM HOSP MEM HOSP OF [place]UMOR [place] [address] [facility] INFUSION 5 MEM [facility] MEM [facility]OS[facility] THERAPY INC INC PROPHYLAX IS/DX EA HOUR EGD 66737 [facility] TRANSORAL 5 MEM HOSP MEM HOSP BIOPSY [place] INC SINGLE/[place] [address] [facility] INFUSION 5 MEM HOSP MEM HOSP THERAPY/P INC INC ROPHYLAXI S /DX 1ST TO [place] [address] [facility] INFUSION 5 MEM HOSP MEM HOSP THERAPY/P INC INC ROPHYLAXI S /DX 1ST TO 1 [place] [address] [facility] INFUSION 5 MEM HOSP MEM HOSP THERAPY/P INC INC ROPHYLAXI S /DX 1ST TO 1 [place] [address] [facility]Y INFUSION 5 MEM HOSP MEM HOSP THERAPY/P INC INC ROPHYLAXI S /DX 1ST TO 1 HR TRANSFUSI 24596 [facility]EREM[facility] ON 5 MEM HOSP MEM HOSP BLOOD/BLO INC INC OD COMPONENT S TRANSFUSI 80601 [facility] ON 4 MEM [facility]OS[facility] MEM HOSP BLOOD/BLO INC INC OD COMPONENT S ANTIBODY 03869 [facility] SCREEN 4 MEM HOS[facility] MEM HOS[facility] RBC EACH INC INC SERUM TECHNIQUE OPHTH 71554 DUDEE HANNAH DUDEE HANNAH MEDICAL 4 XM&EVAL INTERMEDI ATE ESTAB PT COMPUTERI 12037 DUDEE HANNAH DUDEE HANNAH ZED 4 OPHTHALMI C IMAGING OPTIC NERVE VISUAL 60715 DUDEE HANNAH DUDEE HANNAH FIELD XM 4 UNI/BI W/INTERP EXTENDED EXAM OPHTH 96330 DUDEE HANNAH DUDEE HANNAH MEDICAL 4 XM&EVAL COMPRHNSV ESTAB PT 1/> COMPUTERI 28153 DUDEE HANNAH DUDEE HANNAH ZED 4 [place] [address] [facility]Y INFUSION 4 MEM HOSP MEM HOSP THERAPY/P INC INC ROPHYLAXI S /DX 1ST TO [place] [address] [facility] OBEY INFUSION 4 MEM HOSP MEM HOSP THERAPY/P INC INC ROPHYLAXI S /DX 1ST TO [place] [address] [facility] OBEY INFUSION 4 MEM HOSP MEM HOSP THERAPY/P INC INC ROPHYLAXI S /DX 1ST TO [place] [address] [facility]Y INFUSION 4 MEM HOSP MEM HOSP THERAPY/P INC INC ROPHYLAXI S /DX 1ST TO 1 HR IM ADM 89713 BESSON BESSON PRQ ID 3 LJ LJ SUBQ/IM NJXS 1 VACCINE IM ADM 82348 BESSON BESSON PRQ ID 3 LJ LJ SUBQ/IM NJXS 1 VACCINE IM ADM 24846 BESSON BESSON PRQ ID 3 LJ LJ SUBQ/IM NJXS 1 VACCINE THERAPEUT 46207 Mention Mobile, IC PX 1/> 3 BODY BUILDER APPRENTICE BODY BUILDER APPRENTICE AREAS PLAC[facility]O [facility]O EACH 15 CO HOS CO HOS MIN EXERCISES THERAPEUT 31366 [employer], IC PX 1/> 3 BODY BUILDER APPRENTICE BODY BUILDER APPRENTICE AREAS PLACIDO PLACIDO EACH 15 CO HOS CO HOS MIN EXERCISES THERAPEUT 20702 [employer], IC PX 1/> 3 BODY BUILDER APPRENTICE BODY BUILDER APPRENTICE AREAS PLACIDO PLACIDO EACH 15 CO HOS CO HOS MIN EXERCISES THERAPEUT 05246 [employer], IC PX 1/> 3 BODY BUILDER APPRENTICE BODY BUILDER APPRENTICE AREAS PLACIDO PLACIDO EACH 15 CO HOS CO HOS MIN EXERCISES THERAPEUT 26524 [employer], [employer], IC PX 1/> 3 BODY BUILDER APPRENTICE BODY BUILDER APPRENTICE AREAS PLACIDO PLACIDO EACH 15 CO HOS CO HOS MIN EXERCISES RADEX HIP 26359 [employer], [employer], 3 BODY BUILDER APPRENTICE BODY BUILDER APPRENTICE UNILATERA PLACIDO PLACIDO L CO HOS CO HOS COMPLETE MINIMUM 2 VIEWS DUP-SCAN 03773 [employer]ention Mobile, XTR VEINS 3 BODY BUILDER APPRENTICE BODY BUILDER APPRENTICE COMPLETE PLACIDO PLACIDO CO HOS CO HOS BILATERAL STUDY BLD BANK 74839 MACIVOR MACIVOR PHYS SVCS 3 DUN DUN DIFFC CROSS MATCH&/EV AL REP DECALCIFI 81990 MARINA MARINA CATION 3 ISMAEL ISMAEL PROCEDURE RADIOLOGI 90973 ANYA ANYA C 3 FRA FRA EXAMINATI ON PELVIS 1/2 VIEWS ARTHRP 56534 LUZ ESCOBAR ACETBLR/P 3 EN CHR EN CHR TALA FEM PROSTC AGRFT/ALG RFT CATH PLMT 38261 FALLUJI FALLUJI L HRT & 3 YAMILETH YAMILETH ARTS W/NJX & ANGIO IMG S&I ANTIBODY 87220 [facility] ID RBC 3 Y Y ANTIBODIE [facility] S EA PANEL EA SERUM TQ ANTIBODY 77641 [facility] Y Y RBC [facility] SERUM TECHNIQUE BLD BANK 48918 BORAL RADHA BORAL RADHA PHYS SVCS 3 DIFFC CROSS MATCH&/EV AL REP URNLS DIP 19644 BESSON BESSON 3 LJ LJ STICK/TAB LET RGNT NON-AUTO W/O MICRSCP ECG 34495 BESSON BESSON ROUTINE 3 LJ LJ ECG W/LEAST 12 LDS W/I&R ECG 14851 FALLUJI FALLUJI ROUTINE 3 YAMILETH YAMILETH ECG W/LEAST 12 LDS W/I&R CV STRS 03302 FALLUJI FALLUJI TST 3 YAMILETH YAMILETH XERS&/OR RX CONT ECG I&R ONLY CV STRS [address] XERS&/OR RX CONT ECG TRCG ONLY MYOCARDIA [address] MULTIPLE STUDIES OPHTHALMO 64730 SORIN ELT SORIN ELT SCPY 3 EXTENDED RETINAL DRAWING I&R [facility] 15767 [facility] RETROPERI 3 [facility] H[facility]OS[facility] TONEAL INC INC REAL TIME W/IMAGE COMPLETE HOSPITAL 83916 SHARITA PRASADMIE DISCHARGE 3 JR RENÉE CHINCHILLA DAY MANAGEMEN T 30 MIN/< RADIOLOGI 76702 RAMIRO Atkinson 3 [facility] ON CHEST SINGLE VIEW FRONTAL ECG 65589 MCMICHAEL PRASADMIE ROUTINE 3 JR RENÉE CHINCHILLA ECG W/LEAST 12 LDS I&R ONLY APPLICATI 03947 [facility] ON 2 MEM [facility] MEM [facility]OS[facility] MODALITY INC INC 1/> AREAS HOT/COLD PACKS E-STIM G0283 [facility] 1/> AREAS 2 MEM H[facility] MEM HOSP OTH THAN INC INC WND CARE PART TX PLAN THERAPEUT 71112 [facility] IC PX 1/> 2 [facility] ARE[facility] INC INC EACH 15 MIN EXERCISES THERAPEUT 52709 [facility] IC PX 1/> 2 [facility] ARE[facility] INC INC EACH 15 MIN EXERCISES E-STIM G0283 [facility] 1/> AREAS 2 [facility] O[facility] THAN INC INC WND CARE PART TX PLAN APPLICATI 14892 [facility] 1/> AREAS HOT/COLD PACKS APPLICATI 47989 [facility] ON [facility] INC 1/> AREAS HOT/COLD PACKS E-STIM G0283 [facility] 1/> AREAS 2 [facility] OTH THAN INC INC WND CARE PART TX PLAN THERAPEUT 21944 [facility] IC PX 1/> 2 [facility] AREAS INC INC EACH 15 MIN EXERCISES THERAPEUT 74137 [facility] IC PX 1/> 2 [facility] AREAS INC INC EACH 15 MIN EXERCISES E-STIM G0283 [facility] 1/> AREAS 2 [facility] O[facility] INC INC WND CARE PART TX PLAN APPLICATI 47156 [facility] ON [facility] INC 1/> AREAS HOT/COLD PACKS APPLICATI 77907 [facility] ON 2 [facility] INC 1/> AREAS HOT/COLD PACKS E-STIM G0283 [facility] 1/> AREAS 2 [facility] OTH THAN INC INC WND CARE PART TX PLAN THERAPEUT 62133 [facility] IC PX 1/> 2 [facility] AREAS INC INC EACH 15 MIN EXERCISES THERAPEUT 88358 [facility] IC PX 1/> 2 [facility] AREAS INC INC EACH 15 MIN EXERCISES E-STIM G0283 [facility] 1/> AREAS 2 [facility] OTH THAN INC INC WND CARE PART TX PLAN APPLICATI 00712 [facility] ON [facility] MEM [...] INC WND CARE PART TX PLAN RADEX 19185 [facility] SPINE 2 [facility] LUMBOSACR INC INC AL MINIMUM 4 VIEWS 3D 58377 [place] [facility] RENDERING 2 [facility] W/INTERP IMAGING & ASS POSTPROCE SS SUPERVISI ON MRI 39741 [place] [facility] PELVIS 2 [facility] W/O IMAGING CONTRAST ASS MATERIAL MRI 52062 [place] [facility] SPINAL 2 [facility] CANAL IMAGING LUMBAR ASS W/O CONTRAST MATERIAL COLONOSCO 50108 DAMON SALMA DAMON SALMA PY FLX DX 2 W/COLLJ SPEC WHEN PFRMD THERAPEUT 03578 MICHAEL NUÑEZ IC 2 NAN ARLET PROPHYLAC TIC/DX INJECTION SUBQ/IM OPHTHALMO 28067 DUDEE HANNAH DUDEE HANNAH SCPY 2 EXTENDED RETINAL DRAWING I&R 1ST OPHTH 14798 DUDEE HANNAH DUDEE HANNAH MEDICAL 2 XM&EVAL COMPRE NEW PT 1/> VST DETERMINA 47241 DUDEE HANNAH DUDEE HANNAH TION 2 REFRACTIV E STATE THERAPEUT 49232 LEE ANN NANCE IC 2 LJ LJ PROPHYLAC TIC/DX INJECTION SUBQ/IM COMPREHEN 97608 COMBINED COMBINED SIVE 1 PHYSICIAN PHYSICIAN METABOLIC S LA S LA PANEL LIPID 92870 COMBINED COMBINED PANEL 1 PHYSICIAN PHYSICIAN S LA S LA LIPID 38788 COMBINED COMBINED PANEL 1 PHYSICIAN PHYSICIAN S LA S LA COMPREHEN 17212 COMBINED COMBINED SIVE 1 PHYSICIAN PHYSICIAN METABOLIC S LA S LA PANEL BLOOD 28019 COMBINED COMBINED COUNT 1 PHYSICIAN PHYSICIAN COMPLETE S LA S LA AUTO&AUTO DIFRNTL WBC SCREENING 36621 [facility] 03308 PREET TORRES TORRES PREET TTHRC R-T 0 MD 2D CONSULTIN W/WOM-MOD G SRV E COMPL SPEC&COLR D ECHO 60525 [facility]AC[facility] CUM[facility] TTHRC R-T 0 CO CO [address] [place] [address] W/WOM-MOD E COMPL SPEC&COLR D SPMTRY 31276 [facility] W/VC 0 [facility]WO MXML VOL VNTJ RADIOLOGI 55000 [facility]AC[facility] C EXAM 0 CO CO CHEST [address] [place] [address] VIEWS FRONTAL&L ATERAL E-STIM G0283 [facility] 1/> AREAS 0 [facility] OTH THAN INC INC WND CARE PART TX PLAN THERAPEUT 28876 [facility] IC PX 1/> 0 [facility] AREAS INC INC EACH 15 MIN EXERCISES APPL 87398 [facility]ITY 0 [facility]/> AREAS INC INC ULTRASOUN D EA 15 MIN APPL 79014 O[facility] PAULSONON MODALITY 0 [facility]/> AREAS INC INC ULTRASOUN D EA 15 MIN THERAPEUT 11282 OBEY PAULSONON IC PX 1/> 0 [facility] AREAS INC INC EACH 15 MIN EXERCISES E-STIM G0283 OBE[facility] BARNHART 1/> AREAS 0 [facility] OTH THAN INC INC WND CARE PART TX PLAN E-STIM G0283 OBEY PAULSONON 1/> AREAS 0 [facility] OTH THAN INC INC WND CARE PART TX PLAN APPL 76270 [facility] BARN[facility] MODALITY 0 [facility] 1/> AREAS INC INC ULTRASOUN D EA 15 MIN THERAPEUT 19442 OBEY BARNHART IC PX 1/> 0 [facility] AREAS INC INC EACH 15 MIN EXERCISES THERAPEUT 70501 OBEY BARNHART IC PX 1/> 0 [facility] AREAS INC INC EACH 15 MIN EXERCISES APPL 61066 [facility] MODALITY 0 [facility] 1/> AREAS INC INC ULTRASOUN D EA 15 MIN E-STIM G0283 [facility] 1/> AREAS 0 [facility] OTH THAN INC INC WND CARE PART TX PLAN E-STIM G0283 [facility] 1/> AREAS 0 [facility] OTH THAN INC INC WND CARE PART TX PLAN APPL 07666 [facility] MODALITY 0 [facility] 1/> AREAS INC INC ULTRASOUN D EA 15 MIN PHYSICAL 41508 [facility] THERAPY 0 [facility] EVALUATIO INC INC N CYANOCOBA 33446 [facility] CHOCO 0 [facility] VITAMIN INC INC B-12 [place] [address] O[facility] B[facility] FERRITIN 0 [place] [address] [facility] B[facility] FOLIC 0 [facility] [place] [address] O[facility] IRON 0 [facility] INC INC BLOOD 44279 O[facility] B[facility] COUNT 0 [facility] COMPLETE INC INC AUTO&AUTO DIFRNTL WBC COMPREHEN 60903 [facility] SIVE 0 [facility] METABOLIC INC INC PANEL COLLECTIO 06494 [facility] N VENOUS 0 [facility] BLOOD INC INC VENIPUNCT URE IRON 50200 O[facility] BINDING 0 [facility] CAPACITY INC INC MRI ANY 39290 ENRIQUETA ROBISON, ADALID LOWER 0 KHALIDA KHALIDA EXTREM W/O CONTRAST MATRL SPCL STN 44524 WINNIE ZHOU 2 I&R 0 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 IES INC IES INC MICROORG/ ENZYME/IM CYT ENDOMETRI 84622 [facility] RUBIO BX 0 [facility] W/WO CLINIC OF ENDOCERVI X BX W/O [place] DILAT SPX PLLC CYTP 54341 WINNIE ZHOU SLCTV 0 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 IES INC IES INC ENHANCEME NT INTERPJ XCPT C/V IM ADM 06244 [place] DENICEE PRQ ID 0 KWAKU CHINCHILLA SUBQ/IM INTERNAL NJXS 1 MED VACCINE INJECTION J3301 [place] MCKEMIE 0 [facility] JR RENÉE TRIAMCINO INTERNAL LONE MED ACETONIDE NOS 10 MG SCREENING 07840 PLACIDO CUMMINS 9 CO [facility] [place] [address] OBEY BARNHART INFUSION 9 [facility] THERAPY/P INC INC ROPHYLAXI S /DX 1ST TO 1 [place] [address] OBEY BARNHART INFUSION 9 [facility] THERAPY INC INC PROPHYLAX IS/DX EA HOUR LEVEL III 17937 PATHOLOGY PATHOLOGY SURG 9 & & PATHOLOGY CYTOLOGY CYTOLOGY LAB LAB GROSS&LALO ROSCOPIC EXAM LAPAROSCO 35109 NICOLE RIVERA PY SURG 9 , DASHA , DASHA CHOLECYST ECTOMY ANES 95002 [facility] MACIAS, INTRAPERI 9 ANESTH RAE F TONEAL OF THE UPPER BLUEGRASS ABDOMEN W/LAPS NOS THERAPEUT 13463 OBEY BARNHART IC 9 [facility]OSP INJECTION INC INC IV PUSH EACH NEW DRUG ECG 47813 OBEY BARNHART ROUTINE 9 [facility] ECG INC INC W/LEAST 12 LDS TRCG ONLY W/O I&R COLLECTIO 14851 O[facility]Y BARNHART N VENOUS 9 [facility]OSP BLOOD INC INC VENIPUNCT URE BASIC 24431 OBEY BARNHART METABOLIC 9 [facility] PANEL INC INC CALCIUM TOTAL ECG 72527 OBEY DONOHUE, ROUTINE 9 [facility] W/LEAST PROF SERV 12 LDS I&R ONLY BLOOD 99667 OBEY BARNHART COUNT 9 [facility] HOSP COMPLETE INC INC AUTO&AUTO DIFRNTL WBC GLUCOSE 24064 [facility] QUANTITAT [address] [place] [address] FRANCISCO JAVIER BLOOD XCPT REAGENT STRIP INJECTION 52625 [facility] CARDIAC [address] [place] [address] CATHJ L VENTR/L ATR ANGIOGRAP H ECG 35963 [place], ROUTINE 9 [place] [facility]INIC W/LEAST PSC 12 LDS I&R ONLY BLOOD [address] PLATELET AUTOMATED SODIUM [address] PLASMA OR WHOLE BLOOD PLCMT G0269 [facility] OCCL DEVC [address] [place] [address] RAYMOND/ART POST SURG/INTR VNL PROC COLLECTIO 04911 [facility] N VENOUS [address] [place] [address] BLOOD VENIPUNCT URE ECG 63912 [facility] ROUTINE [address] [place] [address] ECG W/LEAST 12 LDS TRCG ONLY W/O I&[place] [address] [facility] UREA [address] [place] [address] NITROGEN QUANTITAT FRANCISCO JAVIER CHLORIDE 77878 [facility] [address] [place] [address] CREATININ 61434 [facility] E BLOOD [address] [place] [address] PLASMA/WH OLE BLOOD CLOSURE C1760 [facility] DEVICE [address] [place] [address] VASCULAR INTRDUCR/ C1894 [facility] SHEATH [address] [place] [address] NOT GUID INTRACARD EP NON-LASR BLOOD [address] HEMATOCRI T L HRT 62928 [facility] CATHETERI [address] [place] [address] ZATION RETRO[place] [address] [facility] C-CATHJ [address] [place] [address] F/SLCTV C ANGRPH I SI&R 88731 [facility] F/NJX PX [address] [place] [address] DURING C-CATHJ VENTR&/AT R ANGRPH I SI&R 98410 [facility] F/NJX PX [address] [place] [address] DURING C-CATHJ PULM&/[place] [address] [facility] CUMMINS ABDOMINAL 9 [facility] TIME W/IMAGE DOCUMENTA TION COLLECTIO 96003 OBEY BARNHART N VENOUS 9 [facility] BLOOD INC INC VENIPUNCT URE BLOOD 19754 O[facility] COUNT 9 [facility] COMPLETE INC INC AUTO&AUTO DIFRNTL WBC COMPREHEN 89179 [facility] SIVE 9 [facility] METABOLIC INC INC PANEL BLOOD 97245 [facility] CUMMINS COUNT 9 [facility] AUTO&AUTO DIFRNTL WBC COLLECTIO 45409 [facility] CUMMINS N VENOUS 9 [facility]ITAL VENIPUNCT URE CULTURE 83298 [facility] CUMMINS BACTERIAL 9 [facility] QUANTTATI VE COLONY COUNT URINE URNLS DIP 60782 [facility] CUMMINS 9 [facility] STICK/TAB [facility] HOSPITAL LET REAGENT AUTO MICROSCOP Y RADIOLOGI 71912 [facility] CUMMINS C EXAM 9 CO CO CHEST 2 [facility] VIEWS FRONTAL[place] [address] [facility]O CUMMINS TROPONIN 9 [facility] FRANCISCO JAVIER MYOGLOBIN 57531 PLACIDO CUMMINS 9 CO [facility] HOSPITAL COLLECTIO 75071 PLACIDO CUMMINS N VENOUS 9 [facility] HOSPITAL VENIPUNCT URE URNLS DIP 33226 PL[facility] CUMMINS 9 [facility] HOSPITAL LET REAGENT AUTO MICROSCOP Y BLOOD 39632 [facility] CUMMINS COUNT 9 [facility] AUTO&AUTO DIFRNTL WBC COMPREHEN 04501 [facility] CUMMINS SIVE 9 [facility] HOSPITAL PANEL ECG 74901 [place] BESSON, ROUTINE 9 [facility]ERT A ECG INTERNAL W/LEAST MED 12 LDS [place] [address] [facility] CUMMINS INFUSION 9 [facility] INITIAL 31 MIN-1 [facility] G0378 [facility] CUMMINS OBSERVATI 9 CO [facility] ON [facility] HOSPITAL SERVICE PER HOUR CREATINE 51571 PLACIDO CUMMINS KINASE 9 [place] [address] PLACIDO CUMMINS LIPASE 9 [place] [address] PLACIDO CUMMINS AMYLASE 9 [facility] CREATINE 75358 PLAC[facility]O CUMMINS KINASE MB 9 CO [place] FRACTION [facility] ONLY ECG 77435 PLACIDO CUMMINS ROUTINE 9 [facility] W/LEAST 12 LDS TRCG ONLY W/O I&R IV 70218 OBEY BARNHART INFUSION 9 [facility] THERAPY/P INC INC ROPHYLAXI S /DX 1ST TO 1 [place] [address] [facility]ARN[facility] INFUSION 9 [facility] THERAPY INC INC PROPHYLAX IS/DX EA HOUR COLSC FLX 13495 [place] DAMON, 9 MEDICAL CUONG W/REMOVAL SERV LESION FOUNDAT[place] [address] PATHOLOGY PATHOLOGY SURG 9 & & PATHOLOGY CYTOLOGY CYTOLOGY LAB LAB GROSS&LALO ROSCOPIC EXAM MYOCRD 68490 [facility] FALLUJI, PRFUJ STD 9 PHYSICIAN FRANKIE Henry GROUP MOTION QUAL/ROBERT STD TECHNETIU A9502 OBEY Taylor TC-99M 9 [facility] TETROFOSM INC INC IN DX PER STUDY DOSE INJECTION J0152 OBEY BARNHART 9 [facility] ADENOSINE INC INC DIAGNOSTI C USE 30 MG MYOCRD 45615 [facility] FALLUJI, PRFUJ STD 9 PHYSICIAN FRANKIE SNOWEC FXJ S GROUP MYOCRD 27213 [facility] FALLUJI, PRFUJ IMG 9 PHYSICIAN FRANKIE MANSFIELD S GROUP SPECT NET WEB DEVELOPER STD CV STRS 64500 OBEY NANCE, TST 9 [facility] RX CONT PROF SERV ECG W/O I&R CV STRS 35544 OBEY NANCE TST 9 [facility] RX CONT PROF SERV ECG I&R ONLY CV STRS 04084 OBEY BARNHART TST 9 [facility] XERS&/OR INC [place] [address] PLACIDO CUMMINS THYROID 9 [facility] HORM[facility] TSH DUPLEX 17644 [facility]AN 9 TREVOR S EXTRACRAN RADIOLOGY IAL ART COMPL BI ASSOCIATE STUDY S PSC COMPREHEN 10001 PLACIDO CUMMINS SIVE 9 CO [facility] PANEL LIPID 29892 PLACIDO CUMMINS PANEL 9 CO [facility] HOSPITAL COLLECTIO 29911 PLACIDO PLACIDO N VENOUS 9 [facility] BLOOD [facility] VENIPUNCT URE BLOOD 46085 PLACIDO CUMMINS COUNT 9 CO [facility] AUTO&AUTO DIFRNTL WBC SCREENING 52791 MARLENE CLANCY, 8 TREVOR S MAMMOGRAP RADIOLOGY HY BILATERAL ASSOCIATE S PSC DXA BONE 07436 OBEY BARNHART DENSITY 8 [facility] STUDY 1/ INC INC SITES AXIAL SKEL CERV/VAGI G0101 [facility] NAL 8 [employer] [facility]; PELV&CLIN [place] [facility] EXAM SCREEN Q0091 [facility] PAP 8 [facility] J SMEAR; CLINIC OF [facility] PREP &C [place] [facility] LAB OPHTHALMO 71106 SORIN ROWELL, CHRISTENY 8 LEEANN BRADSHAW EXTENDED S S RETINAL DRAWING I&R [facility] OPHTH 41821 SORIN ROWELL, MEDICAL 8 LEEANN BRADSHAW XM&EVAL S S COMPRHNSV ESTAB PT 1/ Encounters Encounter Start End Date Code Location Performer Type Date OFFICE 65870 OBEY ROLDAN JR OUTPATIEN 7 7 [facility] 10 P MINUTES OFFICE 21550 AL BURCH OUTPATIEN 7 7 MEDICAL T VISIT SERV 25 FOUNDATIO MINUTES N OFFICE 67081 OBEY RODAS OUTPATIEN 7 7 [facility] 10 P MINUTES HOSPITAL OBEY - Pratima 7 [facility] OBEY - Pratima 7 [facility] OUTPATIEN [facility] OBEY - 7 7 [facility] OUTPATIEN INC T OFFICE 89492 OBEY ADRIANNA OUTPATIEN 7 7 [facility] T VISIT HOSPITAL 10 P MINUTES OFFICE 23599 [place] RODRIGUEZ OUTPATIEN 6 6 [facility] T VISIT INTERNAL 15 MED MINUTES OFFICE 73772 AL ABAD OUTPATIEN 6 6 MEDICAL T VISIT SERV 25 FOUNDATIO MINUTES N OFFICE 08050 CHRIS ESCOBAR OUTPATIEN 6 6 EN T VISIT ORTHOPAED 15 ICS PSC MINUTES HOSPITAL OBEY - 6 6 [facility] OUTPATIEN INC T OFFICE 98072 [place] BESSON OUTPATIEN 6 6 [place] LJ T VISIT INTERNAL 25 MED MINUTES OFFICE 52090 [place] RODRIGUEZ OUTPATIEN 6 6 [facility] T VISIT INTERNAL 15 MED MINUTES OFFICE 08840 [place] BESSON OUTPATIEN 5 5 [facility] T VISIT INTERNAL 15 MED MINUTES HOSPITAL O[facility]Y - 5 5 [facility] OUTPATIEN INC [facility] O[facility] - 5 5 [facility] OUTPATIEN INC [facility] OBEY - 5 5 [facility] OUTPATIEN INC HOSPITAL OBEY - 5 5 [facility] OUTPATIEN INC T OFFICE 36338 [facility] OUTPAT[facility] 5 5 [facility] OBEY - 5 5 [facility] OUTPATIEN INC HOSPITAL OBEY - 5 5 [facility] OUTPATIEN INC HOSPITAL OBEY - 5 5 [facility] OUTPATIEN INC T OFFICE 73676 OBEY ADRIANNA OUTPATIEN 5 5 [facility] MINUTES HOSPITAL OBEY - 5 5 [facility] OUTPATIEN INC T OFFICE 91312 [place] MARCIN ABAD OUTPATIEN 5 5 MEDICAL T VISIT SERV 25 FOUNDATIO MINUTES N HOSPITAL OBEY - 4 4 [facility] OUTPATIEN [facility] OBEY - 4 4 [facility] OBEY - 4 4 [facility] OUTPATIEN [facility] OBEY - 4 4 [facility] OBEY - 4 4 [facility] OUTPATIEN [facility] OBEY - 4 4 [facility]PATIEN [facility] T OFFICE 67457 [place] MARCIN ABAD OUTPATIEN 4 4 MEDICAL T VISIT SERV 25 FOUNDATIO MINUTES N CRITICAL MHC INC, ACCESS 3 3 [facility] HOS CRITICAL MHC INC, ACCESS 3 3 [facility] HOS EMERGENCY 69790 [facility] INC, 3 3 [facility] HOS MODERATE SEVERITY CRITICAL MHC INC, ACCESS 3 3 [facility] - 3 3 [facility] [place] [address] 3 [facility] - [facility] OUTPATIEN INC T OFFICE 06463 MARCIN ABAD OUTPATIEN 3 3 T NEW 60 MINUTES OFFICE 33563 MICHAEL RODRIGUEZ [facility] 2 2 NAN NAN T VISIT 15 MINUTES [facility] OBEY - 2 2 [facility] H[facility] OUTPATIEN [facility] OBEY - 2 2 [facility] OUTPATIEN [facility] OBEY - 2 2 [facility]PATIEN [facility] T OFFICE 63347 MICHAEL RODRIGUEZ OUTPATIEN 2 2 SINDY CALLAHAN T VISIT 15 MINUTES OFFICE 07668 MICHAEL RODRIGUEZ OUTPATIEN 2 2 SINDY CALLAHAN T VISIT 15 MINUTES OFFICE 20022 LEE ANN NANCE OUTPATIEN 2 2 LJ CALHOUN T VISIT 15 MINUTES CRITICAL PLACIDO ACCESS 0 0 [facility] H[facility]PITAL CRITICAL PLACIDO ACCESS 0 0 [facility]ITAL OFFICE 39922 [place] SALMA OUTPATIEN 0 0 MEDICAL T VISIT SERV 15 FOUNDATIO MINUTES HOSPITAL OBEY - 0 0 [facility] OUTPATIEN INC T OFFICE 36980 [facility] OUTPATI[facility] 0 0 [place] T NEW 45 ORTHOPAED MINUTES [facility] OFFICE 19368 [place] DAMON, OUTPATIEN 0 0 MEDICAL CUONG T VISIT SERV 15 FOUNDATIO MINUTES HOSPITAL OBEY - 0 0 [facility] OUTPATIEN INC T OFFICE 64352 [place] MCKEMIE OUTPATIEN 0 0 KWAKU CHINCHILLA T VISIT INTERNAL 15 MED MINUTES CRITICAL PLACIDO ACCESS 9 9 [facility] OBEY - 9 9 [facility] OUTPATIEN INC [facility] [place] - 9 9 [facility] OUTPATIEN INC T OFFICE 83188 NICOLE RIVERA CONSULTAT 9 9 , DASHA LOU ION NEW/ESTAB PATIENT 60 MIN OFFICE 53376 [place] BESLEVI OUTPATIEN 9 9 [place] ROBERT A T VISIT INTERNAL 15 MED MINUTES [facility] [place] [address] HOSPITAL OUTPATIEN T OFFICE 07928 [place] BESLEVI, OUTPATIEN 9 9 KWAKU ROBERT A T VISIT INTERNAL 15 MED MINUTES CRITICAL PLACIDO ACCESS 9 9 [facility] HOSPITAL EMERGENCY 43430 PLACIDO 9 9 [facility] T VISIT LIMITED/M INOR PROB CRITICAL PLACIDO ACCESS 9 9 [facility] HOSPITAL EMERGENCY 64945 PL[facility]O CHAHAL 9 9 [facility] T VISIT MODERATE SEVERITY OFFICE 06565 [facility] SMITA CONTRERAS 9 9 PHYSICIAN FRANKIE Henry GROUP NEW/ESTAB PATIENT 60 MIN HOSPITAL OBEY - 9 9 [facility] OUTPATIEN INC T HOSPITAL OBEY - 9 9 [facility] OUTPATIEN [facility] T CRITICAL PLACIDO ACCESS 9 9 [facility] HOSPITAL OFFICE 96894 [place] GANESH NANCE 9 9 KWAKU Armas T VISIT INTERNAL 15 MED MINUTES OFFICE 69475 [place] SHARITA ANDERSEN 8 8 KWAKU DUGGAN T VISIT INTERNAL RAE F 15 MED MINUTES CRITICAL PLACIDO ACCESS 8 8 [facility]ITAL CRITICAL PLACIDO ACCESS 8 8 [facility] OBEY - 8 8 [facility] OUTPATIEN INC T OFFICE 07158 [place] GANESH LUI 8 8 KWAKU Hoang VISIT INTERNAL 10 MED MINUTES
--- OUTSIDE RECORDS SUMMARY | 2017-06-08 05:16 | External Medical Summary Rpt ---
Author Author , LOULOU JAMIL Address Unknown Phone [email or web address] Team Providers Care Outside Rigger Name Role Phone ALLRAN JR ROME, ALLRAN Unavailable Unavailable JR ROME ANYA FRA, ANYA Unavailable Unavailable FRA ANYA FRA, ANYA Unavailable Unavailable FRA RODRIGUEZ, RODRIGUEZ Unavailable Unavailable BESSON LJ, BESSON Unavailable Unavailable LJ BESSON LJ, BESSON Unavailable Unavailable LJ BESSON, ROBERT A, Unavailable Unavailable BESSON, ROBERT A [facility] Un[facility]available [facility], [facility] MONTIEL, MONTIEL Unavailable Unavailable BORAL RADHA, BORAL RADHA Unavailable Unavailable [facility] Unavailable Unavailable INC, [facility] [place], Unavailable Unavailable [facility] [...] CONTRERAS, Unavailable Unavailable CARLOS CONNELLY JENNIFER K [facility] Un[facility] Un[facility] INC, [facility] Unavailable Unavailable HOSPITAL P, [facility] CLANCY ARLET, CLANCY Unavailable Unavailable ARLET CLANCY, TREVOR S, Unavailable Unavailable CLANCY, TREVOR S SANIA, SANIA AGUILAR, Unavailable Unavailable CORIE BRASWELL Unavailable Unavailable [facility], Unavailable Unavailable [facility] AMOS TRA, AMOS TRA Unavailable Unavailable MICHAEL NAN, MICHAEL Unavailable Unavailable NAN MICHAEL NAN, MICHAEL Unavailable Unavailable NAN [facility], [facility] Un[facility] CHARANJIT, TEJA E, Unavailable Unavailable CHARANJIT, TEJA E [facility] Unavailable Unavailable INTERNAL MED, [facility] LINGREEN ARLET, Unavailable Unavailable LINGREEN ARLET MACIVOR DUN, MACIVOR Unavailable Unavailable DUN [facility] Unavailable Unavailable [facility]AT, [facility] MCKEMIE JR RENÉE, Unavailable Unavailable MCKEMIE JR RENÉE MCKEMIE JR RENÉE, Unavailable Unavailable MCKEMIE RENÉE TRINITYKEMIOdilon DUGGAN RAE Unavailable Unavailable F, SHARITA DUGGAN RAE F [facility] Unavailable Unavailable [facility], [facility], [facility] LAURA SMITH, Unavailable Unavailable LAURA SMITH WILLIAM F, Unavailable Unavailable RAE MACIAS [facility], Unavailable Unavailable [facility] MOMO GRIFFITH, Unavailable Unavailable MOMO GRIFFITH [...] DASHA MARINA ISMAEL, MARINA Unavailable Unavailable ISMAEL [facility], Unavailable Unavailable [facility], Unavailable Unavailable [facility] BURCH, BURCH Unavailable Unavailable BURCH POLLO, BURCH POLLO Unavailable Unavailable Purpose Continuity of Care Document - 11-12-2007 through 2016 Problems Code Diagnosis DOS Provider Status [id number] PAIN IN 03-05-2017 [facility] D509 IRON 12-24-2016 [facility] P UNSPECIFIED D631 ANEMIA IN 12-24-2016 [facility] DISEASE I129 HYPERTENSIV 12-24-2016 [facility] E CKD SERV W/STAGE 1-4 FOUNDATION CKD OR UNS CKD M8580 OTH SPEC 12-24-2016 [facility] D/O BONE SERV DENSITY [facility]OUNDATION STRUCTURE UNS SITE N184 CHRONIC 12-24-2016 [facility] DISEASE [facility] STAGE 4 SEVERE N250 RENAL 12-24-2016 [facility] OSTEODYSTRO SERV PHY [facility]OUND[facility] 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 L570 ACTINIC 12-04-2016 DER[facility] KER[facility]IS [facility] PSC L820 INFLAMED 12-04-2016 DERMATOLOGY SEBORRHEIC KERATOSIS CONSULTANTS PSC L821 OTHER 12-04-2016 DERMATOLOGY SEBORRHEIC KERATOSIS CONSULTANTS PSC D649 ANEMIA 11-12-2016 [facility] P [id number] ADVERSE 10-28-2016 ISABELLA EFFECT [facility]ON [facility] COMPOUNDS INITIAL ENC 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-29-2016 [facility] OSTEOARTHRI S PSC TIS LEFT KNEE R079 CHEST PAIN 09-01-2016 [facility]PECIF[facility] J180 BRONCHOPNEU 05-15-2016 [facility] [place] UNSPECIFIED INTERNAL ORGANISM MED D638 ANEMIA IN 02-28-2016 [facility] OTHER SERV CHRONIC FOUNDATION DISEASES CLASSIFIED ELSW N183 CHRONIC 02-28-2016 [facility] K[facility]NEY SERV DISEASE [facility]OUNDATION STAGE 3 MODERATE 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 11-19-2015 [facility] OF OTHER VALLEY SPECIFIED B INTERNAL GROUP MED VITAMINS U74586 EFFUSION 11-15-2015 [facility] Z03158 PAIN IN 11-15-2015 [facility] M7120 SYNOVIAL 11-15-2015 [place] CYST MEDICAL POPLITEAL IMAGING ASS SPACE BURNS UNS KNEE [id number] OTH TEAR 11-15-2015 [facility] MED [facility] MENISCUS IM[facility]ING ASS CURR INJ [...] VALLEY BLOOD&BLOOD INTERNAL FORM ORGN MED IMMUNE [facility] J0100 ACUTE 10-29-2015 [facility] MAX[place]ARY [place] SINUSITIS INTERNAL UNSPECIFIED MED M5432 SCIATICA 06-26-2015 [facility] LEFT SIDE VALLEY INTERNAL MED 2809 UNSPECIFIED 03-02-2015 [facility] IRON [facility] DEFICIENCY INC ANEMIA 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 2859 UNSPECIFIED 02-20-2015 [facility] ANEMIA PHYSICIANS GROUP 5533 DIAPHRAGMAT 02-20-2015 [facility] VIRGIL W/O PHYSICIANS MENTION GROUP OBSTRUCTION /GANGREN 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 5781 BLOOD IN 02-20-2015 [facility] STOOL PHYSICIANS GROUP 2808 OTHER 02-06-2015 [facility] SPECIFIED PHYSICIANS IRON GROUP DEFICIENCY ANEMIAS 55165 ANEMIA IN 09-28-2014 [facility] DISEASE 03245 HTN CKD UNS 09-28-2014 [facility] W/CKD SERV STAGE I FOUNDATION THRU STAGE IV/UNS 5853 CHRONIC 09-28-2014 [facility] DISEASE [facility]OUND[facility] STAGE III (MODERATE) 5880 RENAL 09-28-2014 [facility] OSTEODYSTRO SERV PHY FOUNDATION 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 DYSTROPHY 22088 CHANGES IN 03-14-2014 DUDEE HANNAH VASCULAR APPEARANCE OF RETINA 86958 ANEMIA OF 11-24-2013 [facility] OTHER SERV CHRONIC FOUNDATION DISEASE 4019 UNSPECIFIED 11-24-2013 [facility] ESSENTIAL SERV HYPERTENSIO FOUNDATION N 2662 OTHER 06-13-2013 [facility] B-COMPLEX DEFICIENCIE S 2811 OTHER 06-06-2013 LEE ANN LJ VITAMIN B12 DEFICIENCY ANEMIA V4364 HIP JOINT 04-05-2013 [facility], REPLACEMENT VALET CASHIER BY OTHER [facility] MEANS HOS V571 OTHER 04-05-2013 [facility], PHYSICAL [facility] THERAPY [facility] HOS 10810 PAIN IN 03-23-2013 [facility] JOINT PELVIC REGION AND THIGH 7295 PAIN IN 03-23-2013 [facility], SOFT [facility] C[facility]IER TISSUES OF [facility] HOS 79764 SWELLING OF 03-23-2013 [facility] LIMB 52037 OTHER 03-23-2013 [facility] MALAISE AND [facility] [address] ABDOMINAL 03-23-2013 [facility], PAIN RIGHT [facility] LOWER [facility] 03290 ABDOMINAL 03-23-2013 [facility], PAIN, LEFT [facility] LOWER [facility] 84994 ABDOMINAL 03-23-2013 [facility], TENDERNESS [facility] RIGHT LOWER [facility] 8479 SPRAIN AND 03-23-2013 [facility], STRAIN OF [facility] C[facility]IER UNSPECIFIED [facility] CO SITE OF HOS BACK V4589 OTHER 03-23-2013 [facility], POSTSURGICA [facility] L STATUS [facility] CO OTHER HOS V5869 LONG-TERM 03-23-2013 [facility], (CURRENT) [facility] USE OF [facility] CO OTHER HOS MEDICATIONS 7823 EDEMA 03-22-2013 [facility] [place] [address]158 OSTEOARTHRO 02-15-2013 MARINA ISMAEL S UNSPEC GEN/LOC PELV REGION&THIG H V5481 AFTERCARE 02-15-2013 ANYA FRA FOLLOWING JOINT REPLACEMENT 75702 COR 02-14-2013 FALLUJI YAMILETH ATHEROSLERO UNSPEC TYPE VESSEL [place]/JOSÉ MIGUEL T 58055 OTH 02-14-2013 FALLUJI YAMILETH NONSPECIFIC ABNORM CV SYSTEM FUNCTION STUDY V7283 OTHER 02-09-2013 [facility] PRE-OPERATI VE EXAMINATION V700 ROUTINE 02-01-2013 [facility] GENERAL MEDICAL EXAM@HEALTH CARE FACL V7284 UNSPECIFIED 01-31-2013 [facility] PRE-OPERATI VE EXAMINATION 4011 ESSENTIAL 01-20-2013 FALLUJI YAMILETH HYPERTENSIO N, BENIGN 54289 NONSPECIFIC 01-20-2013 FALLUJI YAMILETH ABNORMAL ELECTROCARD IOGRAM 3671 MYOPIA 12-22-2012 DUDEE HANNAH 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 3674 PRESBYOPIA 12-22-2012 DUDEE HANNAH 5939 UNSPECIFIED 09-28-2012 ENRIQUETA DISORDER BRITTANY OF KIDNEY AND URETER 76474 OTHER 09-08-2012 SHARITA DUGGAN SPECIFIED RENÉE CARDIAC DYSRHYTHMIA S 4293 CARDIOMEGAL 09-08-2012 RAMIRO Moreno 7802 SYNCOPE AND 09-08-2012 SHARITA DUGGAN COLLAPSE RENÉE 2724 OTHER AND 07-14-2012 MICHAEL CALLAHAN UNSPECIFIED HYPERLIPIDE JONE 31343 ESOPHAGEAL 07-14-2012 MICHAEL CALLAHAN REFLUX 8438 SPRAIN&STRA 07-14-2012 MICHAEL CALLAHAN IN OTHER SPECIFIED SITES HIP&THIGH 66696 PRIMARY LOC 01-30-2012 [facility] OSTEOARTHRO INC SIS PELVIC REGION&THIG H 7242 LUMBAGO 01-30-2012 [facility] INC 56426 DEGEN 12-30-2011 [facility] 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 13879 SPINAL STEN 12-30-2011 PETTE[facility] JAM 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 07290 DISPLCMT 12-11-2011 [facility] LUMBAR MEDICAL INTERVERT IMAGING ASS DISC W/O MYELOPATHY 4553 EXTERNAL 12-08-2011 DAMON SALMA HEMORRHOIDS WITHOUT MENTION COMP 5693 HEMORRHAGE 12-08-2011 DAMON SALMA OF RECTUM AND ANUS 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-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 51596 AFTER-CATAR 11-19-2011 DUDEE HANNAH ACT, OBSCURING VISION 53548 KERATOCONJU 11-19-2011 DUDEE HANNAH NCTIVITIS SICCA NOT SPEC SJOGRENS 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 98433 NUCLEAR 11-04-2011 DUDEE HANNAH SCLEROSIS 3670 HYPERMETROP 11-04-2011 [place] [address] VITREOUS 11-04-2011 DUDEE HANNAH DEGENERATIO N 4550 INTERNAL 11-04-2011 MICHAEL CALLAHAN HEMORRHOIDS WITHOUT MENTION COMP 7243 SCIATICA 09-29-2011 BESSON LJ 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 V7611 SCREENING 07-10-2010 [facility]AM[facility]GRAM [facility] FOR [facility] PATIENT V7612 OTHER 07-10-2010 [facility] SCREENING [facility]IOLOGY MAMMOGRAM ASSOCIAT 7852 UNDIAGNOSED 05-07-2010 [facility] TORRES CARDIAC MURMURS CONSULTING SRV 17588 SHORTNESS 05-07-2010 [facility] OTRRES OF BREATH CONSULTING SRV 429 UNSPECIFIED 05-02-2010 [facility] DISEASE 66456 OTHER 05-02-2010 [facility] DYSPNEA [place] [address] PAIN IN 02-11-2010 [facility] JOINT, MEM HOSP LOWER LEG INC 07730 DIAB W/O 02-04-2010 [facility] COMP TYPE [facility] II/UNS NOT INC STATED UNCNTRL 5789 UNSPECIFIED 02-04-2010 [facility] HEMORRHAGE [facility]OS[facility] OF INC GASTROINTES TINAL TRACT 85975 EFFUSION OF 01-15-2010 ENRIQUETA, LOWER LEG [place] JOINT 53747 SYNOVIAL 01-15-2010 ENRIQUETA, CYST OF [place] POPLITEAL SPACE 6271 POSTMENOPAU 10-31-2009 [facility] 460 ACUTE 10-11-2009 [facility] NASOPHARYNG VALLEY ITIS INTERNAL MED 490 BRONCHITIS 10-11-2009 [facility] NOT VALLEY SPECIFIED INTERNAL ACUTE OR MED CHRONIC 34611 CALCU 04-30-2009 [facility], GALLBLADD DASHA W/OTH CHOLECYST W/O MENTION OBST 34102 CALCU 04-30-2009 [facility] GALLBLADD ANESTH OF W/O MENTION THE [facility] CHOLECYST/O BST 71941 CHRONIC 04-30-2009 PATHOLOGY & CHOLECYSTIT CYTOLOGY IS LAB 49905 ABDOMINAL 04-30-2009 [facility], PAIN RIGHT DASHA UPPER QUADRANT 4139 OTHER AND 04-10-2009 NEW UNSPECIFIED [facility] P[facility] P[place]IS 12554 CORONARY 04-10-2009 [facility] [place] CORONARY ARTERY 98095 OTHER 04-10-2009 NEW PREMATURE [facility] PSC 5718 OTHER 03-27-2009 [facility] CHRONIC RADI[facility]Y NONALCOHOLI ASSOCIATES C LIVER PSC DISEASE 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 ASSOCIATES PSC 48153 FIRST 03-24-2009 [facility] ATRIOVENTRI CULAR BLOCK 4280 CONGESTIVE 03-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 [facility] FAILURE UNSPECIFIED 5770 ACUTE 03-24-2009 [facility]CREATITI [facility]PITAL S 4556 UNSPEC 03-05-2009 [facility] HEMORRHOIDS [facility] WITHOUT INC MENTION COMPLICATIO N 7019 UNSPECIFIED 03-05-2009 [facility] HYPERTROPHI INC C&ATROPHIC CONDITION SKIN 89022 CHEST PAIN 02-26-2009 [facility] UNSPECIFIED [facility] PROF SERV 7859 OTHER 02-23-2009 [facility] SYMPTOMS RADIOLOGY INVOLVING ASSOCIATES CARDIOVASCU PSC LAR SYSTEM V1589 OTH SPEC 05-15-2008 [facility] PRESENTING HAZARDS HEALTH OTH 92804 UNSPECIFIED 03-01-2008 [facility] OSTEOPOROSI IMAGING S ASSOCIATES V7231 ROUTINE 02-10-2008 [facility]AMINATION [facility] 10209 HYPERTENSIV 12-22-2007 Odilon ROWELL LEEANN S RETINOPATHY [...] Procedure DOS Code Location Performer Comment DUP-SCAN 87776 [place] MONTIEL XTR VEINS 7 MEDICAL IMAGING UNILATERA ASS L/LIMITED STUDY DESTRUCTI 72646 DERMATOLO DERMATOLO ON 7 GY GY PREMALIGN CONSULTAN CONSULTAN ANT TS P[place] 1[place] [address] [facility] INFUSION 7 MEM HOSP MEM HOSP THERAPY/P INC INC ROPHYLAXI S /DX 1ST TO 1 [place] [address] [facility]Y INFUSION 7 MEM HOSP MEM HOSP THERAPY/P INC INC ROPHYLAXI S /DX 1ST TO [place] [address] [facility]Y INFUSION 7 MEM HOSP MEM HOSP THERAPY/P INC INC ROPHYLAXI S /DX 1ST TO 1 HR ARTHROCEN 89782 CHRIS LARA 7 ASPIR&/IN ORTHOPAED ORTHOPAED J MAJOR ICS PSC ICS PSC JT/BURSA W/O US INJECTION J3301 CHRIS FONTENOT 7 TRIAMCINO ORTHOPAED LONE ICS PSC ACETONIDE NOS 10 MG RADIOLOGI 28084 [place] ENRIQUETA C EXAM 7 MEDICAL CHEST 2 IMAGING VIEWS ASS FRONTAL&L ATERAL RADIOLOGI 98344 CHRIS Atkinson 6 EN EXAMINATI ORTHOPAED ON KNEE ICS PSC 1/2 VIEWS INJECTION J3301 CHRIS ESCOBAR 6 EN TRIAMCINO ORTHOPAED LONE ICS PSC ACETONIDE NOS 10 MG ARTHROCEN 31913 CHRIS LAMBERTIS 6 EN ASPIR&/IN ORTHOPAED J MAJOR ICS PSC JT/BURSA W/O US THERAPEUT 59838 [facility] BESSON IC 6 VALLEY LJ PROPHYLAC INTERNAL TIC/DX MED INJECTION SUBQ/IM INJECTION J3420 [facility] BESSON VIT B-12 6 VALLEY LJ INTERNAL CYANOCOBA MED CHOCO TO 1000 MCG MRI ANY 62488 PAYAL MONTIEL JT LOWER 6 MEDICAL EXTREM IMAGING W/O ASS CONTRAST MATRL COLLECTIO 40550 [facility] BESSON N VENOUS 6 MACFARLAN LJ BLOOD INTERNAL VENIPUNCT MED URE PPSV23 19251 [facility] VACCINE 2 6 VALLEY LJ YRS OR INTERNAL OLDER FOR MED SUBQ/IM USE ADMINISTR G0009 [facility] B[facility]ON ATION OF 6 MACFARLAN LJ PNEUMOCOC INTERNAL TERRANCE MED VACCINE ANNUAL G0438 [facility] WELLNESS 6 MACFARLAN JL VISIT; INTERNAL PERSONALI MED Z PPS INIT VISIT THERAPEUT 33213 [facility] RODRIGUEZ IC 6 VALLEY PROPHYLAC INTERNAL TIC/DX MED INJECTION SUBQ/IM INJECTION J3301 [facility] RODRIGUEZ 6 VALLEY TRIAMCINO INTERNAL LONE MED ACETONIDE NOS 10 [place] [address] [facility] INFUSION 5 MEM HOSP MEM HOSP THERAPY/P INC INC ROPHYLAXI S /DX 1ST TO 1 [place] [address] [facility] INFUSION 5 MEM HOSP MEM HOSP THERAPY/P INC INC ROPHYLAXI S /DX 1ST TO 1 HR COLSC FLX 61158 [facility] W/RMVL 5 MEM HOSP MEM HOSP OF [place]UMOR [place] [address] [facility] INFUSION 5 MEM H[facility]OS[facility] THERAPY INC INC PROPHYLAX IS/DX EA HOUR EGD 50793 [facility] TRANSORAL 5 MEM HOSP MEM HOSP BIOPSY INC INC SINGLE/[place] [address] [facility] INFUSION 5 MEM HOSP MEM HOSP THERAPY/P INC INC ROPHYLAXI S /DX 1ST TO 1 [place] [address] [facility] INFUSION 5 MEM HOSP MEM HOSP THERAPY/P INC INC ROPHYLAXI S /DX 1ST TO 1 [place] [address] [facility] INFUSION 5 MEM HOSP MEM HOSP THERAPY/P INC INC ROPHYLAXI S /DX 1ST TO 1 [place] [address] [facility]Y INFUSION 5 MEM HOSP MEM HOSP THERAPY/P INC INC ROPHYLAXI S /DX 1ST TO 1 HR TRANSFUSI 59241 [facility]JEREM[facility] ON 5 MEM HOSP MEM HOSP BLOOD/BLO INC INC OD COMPONENT S TRANSFUSI 49198 [facility] ON 4 MEM HOS[facility] MEM HOSP BLOOD/BLO INC INC OD COMPONENT S ANTIBODY 08543 [facility] SCREEN 4 MEM HOSP MEM HOSP RBC EACH INC INC SERUM TECHNIQUE OPHTH 74727 DUDEE HANNAH DUDEE HANNAH MEDICAL 4 XM&EVAL INTERMEDI ATE ESTAB PT COMPUTERI 11118 DUDEE HANNAH DUDEE HANNAH ZED 4 OPHTHALMI C IMAGING OPTIC NERVE VISUAL 86372 DUDEE HANNAH DUDEE HANNAH FIELD XM 4 UNI/BI W/INTERP EXTENDED EXAM OPHTH 58929 DUDEE HANNAH DUDEE HANNAH MEDICAL 4 XM&EVAL COMPRHNSV ESTAB PT 1/> COMPUTERI 53907 DUDEE HANNAH DUDEE HANNAH ZED 4 [place] [address] [facility] O[facility]Y INFUSION 4 MEM HOSP MEM HOSP THERAPY/P INC INC ROPHYLAXI S /DX 1ST TO 1 [place] [address] [facility] OBEY INFUSION 4 MEM HOSP MEM HOSP THERAPY/P INC INC ROPHYLAXI S /DX 1ST [place] [address] [facility] OBEY INFUSION 4 MEM HOSP MEM HOSP THERAPY/P INC INC ROPHYLAXI S /DX 1ST [place] [address] [facility] OBEY INFUSION 4 MEM HOSP MEM HOSP THERAPY/P INC INC ROPHYLAXI S /DX 1ST TO 1 HR IM ADM 91415 BESSON BESSON PRQ ID 3 LJ LJ SUBQ/IM NJXS 1 VACCINE IM ADM 99084 BESSON BESSON PRQ ID 3 LJ LJ SUBQ/IM NJXS 1 VACCINE IM ADM 93550 BESSON BESSON PRQ ID 3 LJ LJ SUBQ/IM NJXS 1 VACCINE THERAPEUT 05751 MPSTOR, IC PX 1/> 3 VALET CASHIER VALET CASHIER AREAS PLACIDO PLACIDO EACH 15 CO HOS CO HOS MIN EXERCISES THERAPEUT 23538 [employer] INC, IC PX 1/> 3 VALET CASHIER VALET CASHIER AREAS PLACIDO PLACIDO EACH 15 CO HOS CO HOS MIN EXERCISES THERAPEUT 07799 [employer]IM[employer] INC, IC PX 1/> 3 VALET CASHIER VALET CASHIER AREAS PLACIDO PLACIDO EACH 15 CO HOS CO HOS MIN EXERCISES THERAPEUT 64037 [employer] INC, IC PX 1/> 3 VALET CASHIER VALET CASHIER AREAS PLACIDO PLACIDO EACH 15 CO HOS CO HOS MIN EXERCISES THERAPEUT 16616 [employer], [employer], IC PX 1/> 3 VALET CASHIER VALET CASHIER AREAS PLACIDO PLACIDO EACH 15 CO HOS CO HOS MIN EXERCISES RADEX HIP 45407 [employer], [employer], 3 VALET CASHIER VALET CASHIER UNILATERA PLACIDO PLACIDO L CO HOS CO HOS COMPLETE MINIMUM 2 VIEWS DUP-SCAN 03278 MPSTOR, XTR VEINS 3 VALET CASHIER VALET CASHIER COMPLETE PLACIDO PLACIDO CO HOS CO HOS BILATERAL STUDY BLD BANK 98251 MACIVOR MACIVOR PHYS SVCS 3 DUN DUN DIFFC CROSS MATCH&/EV AL REP DECALCIFI 33144 MARINA MARINA CATION 3 ISMAEL ISMAEL PROCEDURE RADIOLOGI 66026 ANYA ANYA C 3 FRA FRA EXAMINATI ON PELVIS 1/2 VIEWS ARTHRP 75696 LUZ ESCOBAR ACETBLR/P 3 EN CHR EN CHR TALA FEM PROSTC AGRFT/ALG RFT CATH PLMT 53737 FALLUJI FALLUJI L HRT & 3 YAMILETH YAMILETH ARTS W/NJX & ANGIO IMG S&I ANTIBODY 16131 [facility] ID RBC 3 Y Y ANTIBODIE [facility] S EA PANEL EA SERUM TQ ANTIBODY 26932 [facility] Y Y RBC [facility] SERUM TECHNIQUE BLD BANK 34875 BORAL RADHA BORAL RADHA PHYS SVCS 3 DIFFC CROSS MATCH&/EV AL REP URNLS DIP 62596 BESSON BESSON 3 LJ LJ STICK/TAB LET RGNT NON-AUTO W/O MICRSCP ECG 77300 BESSON BESSON ROUTINE 3 LJ LJ ECG W/LEAST 12 LDS W/I&R ECG 77200 FALLUJI FALLUJI ROUTINE 3 YAMILETH YAMILETH ECG W/LEAST 12 LDS W/I&R CV STRS 05636 FALLUJI FALLUJI TST 3 YAMILETH YAMILETH XERS&/OR RX CONT ECG I&R ONLY CV STRS [address] XERS&/OR RX CONT ECG TRCG ONLY MYOCARDIA [address] MULTIPLE STUDIES OPHTHALMO 93508 SORIN ELT SORIN ELT SCPY 3 EXTENDED RETINAL DRAWING I&R [facility] 58725 [facility] RETROPERI 3 MEM H[facility] MEM [facility]OS[facility] TONEAL INC INC REAL TIME W/IMAGE COMPLETE HOSPITAL 25025 SHARITA PRASADMIE DISCHARGE 3 JR RENÉE CHINCHILLA DAY MANAGEMEN T 30 MIN/< RADIOLOGI 53359 RAMIRO Atkinson 3 [facility] ON CHEST SINGLE VIEW FRONTAL ECG 76356 MCMICHAEL PRASADMIE ROUTINE 3 JR RENÉE CHNICHILLA ECG W/LEAST 12 LDS I&R ONLY APPLICATI 21409 [facility] ON 2 MEM [facility] MEM [facility]OS[facility] MODALITY INC INC 1/> AREAS HOT/COLD PACKS E-STIM G0283 [facility] 1/> AREAS 2 MEM HOSP MEM HOSP OTH THAN INC INC WND CARE PART TX PLAN THERAPEUT 14891 [facility] IC PX 1/> 2 MEM HOSP MEM HOSP AREAS INC INC EACH 15 MIN EXERCISES THERAPEUT 13278 [facility] IC PX 1/> 2 MEM HOSP MEM HOSP AREAS INC INC EACH 15 MIN EXERCISES E-STIM G0283 [facility] 1/> AREAS 2 MEM H[facility] MEM HOSP OTH THAN INC INC WND CARE PART TX PLAN APPLICATI 70586 [facility] ON 2 MEM HOSP MEM HOSP MODALITY INC INC 1/> AREAS HOT/COLD PACKS APPLICATI 64388 [facility] ON 2 MEM HOS[facility] MEM HOSP MODALITY INC INC 1/> AREAS HOT/COLD PACKS E-STIM G0283 [facility] 1/> AREAS 2 [facility] O[facility] INC INC WND CARE PART TX PLAN THERAPEUT 98114 [facility] IC PX 1/> 2 [facility] ARE[facility] INC INC EACH 15 MIN EXERCISES THERAPEUT 57544 [facility] IC PX 1/> 2 [facility] INC INC EACH 15 MIN EXERCISES E-STIM G0283 [facility] 1/> ARE[facility] 2 [facility] O[facility] THAN INC INC WND CARE PART TX PLAN APPLICATI 90885 [facility] ON 2 [facility] INC 1/> AREAS HOT/COLD PACKS APPLICATI 85709 [facility] ON 2 [facility] INC 1/> AREAS HOT/COLD PACKS E-STIM G0283 [facility] 1/> AREAS 2 [facility] INC INC WND CARE PART TX PLAN THERAPEUT 39315 [facility] IC PX 1/> 2 [facility] INC EACH 15 MIN EXERCISES THERAPEUT 26556 [facility] IC PX 1/> 2 [facility] ARE[facility] INC INC EACH 15 MIN EXERCISES E-STIM G0283 [facility] 1/> AREAS 2 [facility] OTH THAN INC INC WND CARE PART TX PLAN APPLICATI 83935 [facility] ON 2 [facility] MEM [...] INC WND CARE PART TX PLAN RADEX 75038 [facility] SPINE 2 [facility] LUMBOSACR INC INC AL MINIMUM 4 VIEWS 3D 90392 [facility] RENDERING 2 [facility] W/INTERP IMAGING & ASS POSTPROCE SS SUPERVISI ON MRI 72001 [facility] PELVIS 2 [facility] W/O IMAGING CONTRAST ASS MATERIAL MRI 13280 [facility] SPINAL 2 [facility] CANAL IMAGING LUMBAR ASS W/O CONTRAST MATERIAL COLONOSCO 29483 DAMON SALMA DAMON SALMA PY FLX DX 2 W/COLLJ SPEC WHEN PFRMD THERAPEUT 90319 MICHAEL NUÑEZ IC 2 NAN ARLET PROPHYLAC TIC/DX INJECTION SUBQ/IM OPHTHALMO 19365 DUDEE HANNAH DUDEE HANNAH SCPY 2 EXTENDED RETINAL DRAWING I&R 1ST OPHTH 30103 DUDEE HANNAH DUDEE HANNAH MEDICAL 2 XM&EVAL COMPRE NEW PT 1/> VST DETERMINA 76368 DUDEE HANNAH DUDEE HANNAH TION 2 REFRACTIV E STATE THERAPEUT 60012 LEE ANN NANCE IC 2 LJ LJ PROPHYLAC TIC/DX INJECTION SUBQ/IM COMPREHEN 94388 COMBINED COMBINED SIVE 1 PHYSICIAN PHYSICIAN METABOLIC S LA S LA PANEL LIPID 74120 COMBINED COMBINED PANEL 1 PHYSICIAN PHYSICIAN S LA S LA LIPID 50873 COMBINED COMBINED PANEL 1 PHYSICIAN PHYSICIAN S LA S LA COMPREHEN 14598 COMBINED COMBINED SIVE 1 PHYSICIAN PHYSICIAN METABOLIC S LA S LA PANEL BLOOD 41283 COMBINED COMBINED COUNT 1 PHYSICIAN PHYSICIAN COMPLETE S LA S LA AUTO&AUTO DIFRNTL WBC SCREENING 06778 [facility] 48894 PREET TORRES TORRES PREET TTHRC R-T 0 MD 2D CONSULTIN W/WOM-MOD G SRV E COMPL SPEC&COLR D ECHO 46515 [facility]AC[facility] CUMM[facility] TTHRC R-T 0 CO CO [address] [place] [address] W/WOM-MOD E COMPL SPEC&COLR D SPMTRY 01748 [facility] W/VC [facility]WO MXML VOL VNTJ RADIOLOGI 87069 PLAC[facility] CUMM[facility] C EXAM 0 CO CO CHEST [address] [place] [address] VIEWS FRONTAL&L ATERAL E-STIM G0283 [facility] 1/> AREAS 0 [facility] O[facility] INC INC WND CARE PART TX PLAN THERAPEUT 85352 [facility] IC PX 1/> 0 [facility] AREAS INC INC EACH 15 MIN EXERCISES APPL 17814 [facility] MODALITY 0 [facility] 1/> AREAS INC INC ULTRASOUN D EA 15 MIN APPL 46513 [facility] [place] MODALITY 0 [facility] 1/> AREAS INC INC ULTRASOUN D EA 15 MIN THERAPEUT 86573 [facility] [place] IC PX 1/> 0 [facility] INC INC EACH 15 MIN EXERCISES E-STIM G0283 [facility] 1/> AREAS 0 [facility] OTH THAN INC INC WND CARE PART TX PLAN E-STIM G0283 [facility] [place] 1/> AREAS 0 [facility] OTH THAN INC INC WND CARE PART TX PLAN APPL 27655 [facility] MODALITY 0 [facility] 1/> AREAS INC INC ULTRASOUN D EA 15 MIN THERAPEUT 65521 [facility] IC PX 1/> 0 [facility] ARE[facility] INC INC EACH 15 MIN EXERCISES THERAPEUT 65787 OBEY BARNHART IC PX 1/> 0 [facility] AREAS INC INC EACH 15 MIN EXERCISES APPL 39478 O[facility] BARNHART MODALITY 0 [facility] 1/> AREAS INC INC ULTRASOUN D EA 15 MIN E-STIM G0283 O[facility] BARN[facility]ART 1/> AREAS 0 [facility] OTH THAN INC INC WND CARE PART TX PLAN E-STIM G0283 O[facility] B[facility]ART 1/> AREAS 0 [facility] OTH THAN INC INC WND CARE PART TX PLAN APPL 07436 O[facility] BARN[facility] MODALITY 0 [facility] 1/> AREAS INC INC ULTRASOUN D EA 15 MIN PHYSICAL 76088 [facility] THERAPY 0 [facility] EVALUATIO INC INC N CYANOCOBA 55487 [facility] CHOCO 0 [facility] VITAMIN INC INC B-12 [place] [address] O[facility] FERRITIN 0 [place] [address] [facility] B[facility] FOLIC 0 [facility] [place] [address] O[facility] B[facility] IRON 0 [facility] INC INC BLOOD 98094 [facility] BARN[facility] COUNT 0 [facility] COMPLETE INC INC AUTO&AUTO DIFRNTL WBC COMPREHEN 73901 [facility] SIVE 0 [facility] METABOLIC INC INC PANEL COLLECTIO 11859 OBEY BARHNART N VENOUS 0 [facility] BLOOD INC INC VENIPUNCT URE IRON 41128 O[facility] BARN[facility] BINDING 0 [facility] CAPACITY INC INC MRI ANY 51274 ENRIQUETA ROBISON, ADALID LOWER 0 KHALIDA KHALIDA EXTREM W/O CONTRAST MATRL SPCL STN 27411 WINNIE ZHOU 2 I&R 0 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 IES INC IES INC MICROORG/ ENZYME/IM CYT ENDOMETRI 74055 [facility] RUBIO BX 0 [facility] W/WO CLINIC OF ENDOCERVI X BX W/O [place] DILAT SPX PLLC CYTP 70234 WINNIE ZHOU SLCTV 0 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 IES INC IES INC ENHANCEME NT INTERPJ XCPT C/V IM ADM 93544 [place] DENICEE PRQ ID 0 KWAKU CHINCHILLA SUBQ/IM INTERNAL NJXS 1 MED VACCINE INJECTION J3301 [place] MCKEMIE 0 [facility] JR RENÉE TRIAMCINO INTERNAL LONE MED ACETONIDE NOS 10 MG SCREENING 99514 PLACIDO CUMMINS 9 CO [facility] [place] [address] OBEY BARNHART INFUSION 9 [facility] THERAPY/P INC INC ROPHYLAXI S /DX 1ST TO 1 [place] [address] OBEY BARNHART INFUSION 9 [facility]OS[facility] THERAPY INC INC PROPHYLAX IS/DX EA HOUR LEVEL III 71099 PATHOLOGY PATHOLOGY SURG 9 & & PATHOLOGY CYTOLOGY CYTOLOGY LAB LAB GROSS&LALO ROSCOPIC EXAM LAPAROSCO 08027 NICOLE RIVERA PY SURG 9 , DASHA , DASHA CHOLECYST ECTOMY ANES 76667 [facility] MACIAS, INTRAPERI 9 ANESTH RAE F TONEAL OF THE UPPER BLUEGRASS ABDOMEN W/LAPS NOS THERAPEUT 32630 OBEY BARNHART IC 9 [facility]OSP INJECTION INC INC IV PUSH EACH NEW DRUG ECG 97560 OBEY BARNHART ROUTINE 9 [facility]OSP ECG INC INC W/LEAST 12 LDS TRCG ONLY W/O I&R COLLECTIO 40571 OBEY BARNHART N VENOUS 9 [facility]OSP BLOOD INC INC VENIPUNCT URE BASIC 45444 OBEY BARNHART METABOLIC 9 [facility]OS[facility] PANEL INC INC CALCIUM TOTAL ECG 16369 OBEY DONOHUE, ROUTINE 9 [facility] W/LEAST PROF SERV 12 LDS I&R ONLY BLOOD 49261 OBEY BARNHART COUNT 9 [facility] HOSP COMPLETE INC INC AUTO&AUTO DIFRNTL WBC GLUCOSE 52305 [facility] QUANTITAT [address] [place] [address] FRANCISCO JAVIER BLOOD XCPT REAGENT STRIP INJECTION 43013 [facility] CARDIAC [address] [place] [address] CATHJ L VENTR/L ATR ANGIOGRAP H ECG 89147 [place], ROUTINE 9 [place] [facility] ECG CLINIC W/LEAST PSC 12 LDS I&R ONLY BLOOD [address] PLATELET AUTOMATED SODIUM [address] PLASMA OR WHOLE BLOOD PLCMT G0269 [facility] OCCL DEVC [address] [place] [address] RAYMOND/ART POST SURG/INTR VNL PROC COLLECTIO 91721 [facility] N VENOUS [address] [place] [address] BLOOD VENIPUNCT URE ECG 33803 [facility] ROUTINE [address] [place] [address] ECG W/LEAST 12 LDS TRCG ONLY W/O I&[place] [address] [facility] UREA [address] [place] [address] NITROGEN QUANTITAT FRANCISCO JAVIER CHLORIDE 88546 [facility] [address] [place] [address] CREATININ 13665 [facility] E BLOOD [address] [place] [address] [address] PLASMA/WH OLE BLOOD CLOSURE C1760 [facility] DEVICE [address] [place] [address] VASCULAR INTRDUCR/ C1894 [facility] SHEATH [address] [place] [address] NOT GUID INTRACARD EP NON-LASR BLOOD [address] HEMATOCRI T L HRT 692[address] [facility] CATHETERI [address] [place] [address] ZATION [place]RO[place] [address] [facility] C-CATHJ [address] [place] [address] F/SLCTV C ANGRPH I SI&R 62568 [facility] F/NJX PX [address] [place] [address] DURING C-CATHJ VENTR&/AT R ANGRPH I SI&R 39805 [facility] F/NJX PX [address] [place] [address] DURING C-CATHJ PULM&/[place] [address] PLACIDO CUMMINS ABDOMINAL 9 [facility] TIME W/IMAGE DOCUMENTA TION COLLECTIO 71197 OBEY BARNHART N VENOUS 9 [facility] BLOOD INC INC VENIPUNCT URE BLOOD 53497 [facility] COUNT 9 [facility] COMPLETE INC INC AUTO&AUTO DIFRNTL WBC COMPREHEN 03301 OBEY BARN[facility]ART SIVE 9 [facility] METABOLIC INC INC PANEL BLOOD 23456 [facility] CUMMINS COUNT 9 [facility] AUTO&AUTO DIFRNTL WBC COLLECTIO 88280 [facility] CUMMINS N VENOUS 9 [facility] HOSPITAL VENIPUNCT URE CULTURE 41950 [facility] CUMMINS BACTERIAL 9 [facility] QUANTTATI VE COLONY COUNT URINE URNLS DIP 49675 [facility] CUMMINS 9 [facility] STICK/TAB [facility]OSP[facility] HOSPITAL LET REAGENT AUTO MICROSCOP Y RADIOLOGI 01448 PL[facility]O CUMMINS C EXAM 9 CO CO CHEST 2 [facility] VIEWS FRONTAL&[place] [address] PL[facility]O CUMMINS TROPONIN 9 [facility] FRANCISCO JAVIER MYOGLOBIN 49234 PL[facility] CUMMNIS 9 [facility]PITAL COLLECTIO 14352 PLACIDO CUMMINS N VENOUS 9 [facility]LO[facility] HOSPITAL VENIPUNCT URE URNLS DIP 00009 PL[facility]O CUMMINS 9 [facility] STICK/[facility] HOSPITAL LET REAGENT AUTO MICROSCOP Y BLOOD 73798 [facility] CUMMINS COUNT 9 [facility]PITAL AUTO&AUTO DIFRNTL WBC COMPREHEN 50095 [facility] CUMMINS SIVE 9 [facility]OSPITAL PANEL ECG 71675 [place] BESSON, ROUTINE 9 [facility] A ECG INTERNAL W/LEAST MED 12 LDS [place] [address] PLAC[facility]O CUMMINS INFUSION 9 [facility] INITIAL 31 MIN-[facility] G0378 [facility] CUMMINS OBSERVATI 9 [facility]PITAL SERVICE PER HOUR CREATINE 09908 PL[facility]O CUMMINS KINASE 9 [facility] [place] [address] PLACIDO CUMMINS LIPASE 9 [place] [address] PL[facility]O CUMMINS AMYLASE 9 [facility] CREATINE 95759 PLAC[facility]O CUMMINS KINASE MB 9 CO CA FRACTION [facility] ONLY ECG 05463 PLACIDO CUMMINS ROUTINE 9 [facility] W/LEAST 12 LDS TRCG ONLY W/O I&[place] [address] OBEY BARNHART INFUSION 9 [facility] THERAPY/P INC INC ROPHYLAXI S /DX 1ST TO 1 [place] [address] O[facility] BARNHART INFUSION 9 [facility] THERAPY INC INC PROPHYLAX IS/DX EA HOUR COLSC FLX 70571 [place] DAMON, 9 MEDICAL CUONG W/REMOVAL SERV LESION [place]AT[place] [address] PATHOLOGY PATHOLOGY SURG 9 & & PATHOLOGY CYTOLOGY CYTOLOGY LAB LAB GROSS&LALO ROSCOPIC EXAM MYOCRD 08677 [facility] FALLUJI, PRFUJ STD 9 PHYSICIAN FRANKIE Henry GROUP MOTION QUAL/ROBERT STD TECHNETIU A9502 OBEY Taylor TC-99M 9 [facility] TETROFOSM INC INC IN DX PER STUDY DOSE INJECTION J0152 OBEY BARNHART 9 [facility] ADENOSINE INC INC DIAGNOSTI C USE 30 MG MYOCRD 10824 [facility] FALLUJI, PRFUJ STD 9 PHYSICIAN FRANKIE SNOWEC FXJ S GROUP MYOCRD 28273 [facility] FALLUJI, PRFUJ IMG 9 PHYSICIAN FRANKIE MANSFIELD S GROUP SPECT MATERIALS MANAGER STD CV STRS 57808 OBEY NANCE, TST 9 [facility] RX CONT PROF SERV ECG W/O I&R CV STRS 11941 OBEY NANCE TST [address] [facility] RX CONT PROF SERV ECG I&R ONLY CV STRS 96804 OBEY BARNHART TST 9 [facility] XERS&/OR INC [place] [address] PLACIDO CUMMINS THYROID 9 [facility] HORMONE TSH DUPLEX 52095 [facility], SCAN 9 TREVOR S EXTRACRAN RADIOLOGY IAL ART COMPL BI ASSOCIATE STUDY S PSC COMPREHEN 42339 PLACIDO CUMMINS SIVE 9 CO [facility] PANEL LIPID 66563 PLACIDO CUMMINS PANEL 9 CO [facility] COLLECTIO 57433 PLACIDO PLACIDO N VENOUS 9 [facility] BLOOD [facility] VENIPUNCT URE BLOOD 03915 PLACIDO CUMMINS COUNT 9 CO [facility] AUTO&AUTO DIFRNTL WBC SCREENING 02911 MARLENE CLANCY, 8 TREVOR S MAMMOGRAP RADIOLOGY HY BILATERAL ASSOCIATE S PSC DXA BONE 71525 OBEY BARNHART DENSITY 8 [facility] STUDY 1/ INC INC SITES AXIAL SKEL CERV/VAGI G0101 [facility] NAL 8 [employer] [facility]; PELV&CLIN [place] [facility] EXAM SCREEN Q0091 [facility] PAP 8 [facility] J SMEAR; CLINIC OF OBTAIN PREP &C [place] ONVEY TO [facility] LAB OPHTHALMO 14832 SORIN ROWELL, CHRISTENY 8 LEEANN BRADSHAW EXTENDED S S RETINAL DRAWING I&R [facility] OPHTH 13025 SORIN ROWELL, MEDICAL 8 LEEANN BRADSHAW XM&EVAL S S COMPRHNSV ESTAB PT 1/ Encounters Encounter Start End Date Code Location Performer Type Date OFFICE 68395 OBEY ROLDAN JR OUTPATIEN 7 7 [facility] MINUTES OFFICE 26443 [facility] BURCH OUTPATIEN 7 7 MEDICAL T VISIT SERV 25 FOUNDATIO MINUTES N OFFICE 40695 OBEY RODAS OUTPATIEN 7 7 [facility] 10 P MINUTES HOSPITAL OBEY - Pratima 7 [facility]PATI[facility] OBEY - Pratima 7 [facility] OUTPATIEN [facility] OBEY - 7 7 [facility] OUTPATIEN INC T OFFICE 97452 OBEY ADRIANNA OUTPATIEN 7 [facility] P MINUTES OFFICE 61139 [place] RODRIGUEZ OUTPATIEN 6 6 [facility] T VISIT INTERNAL 15 MED MINUTES OFFICE 58709 AL ABAD OUTPATIEN 6 6 MEDICAL T VISIT SERV 25 FOUNDATIO MINUTES N OFFICE 65685 CHRIS ESCOBAR OUTPATIEN 6 6 EN T VISIT ORTHOPAED 15 ICS PSC MINUTES HOSPITAL OBEY - 6 6 [facility] OUTPATIEN INC T OFFICE 41211 [place] BESSON OUTPATIEN 6 6 MACFARLAN LJ T VISIT INTERNAL 25 MED MINUTES OFFICE 75880 [place] RODRIGUEZ OUTPATIEN 6 6 [facility] T VISIT INTERNAL 15 MED MINUTES OFFICE 02604 [place] BESSON OUTPATIEN 5 5 [facility] T VISIT INTERNAL 15 MED MINUTES HOSPITAL OBEY - 5 5 [facility] OUTPATIEN INC [facility]OSPITAL OBEY - 5 5 [facility] OUTPATIEN INC HOSPITAL OBEY - 5 5 [facility] OUTPATIEN INC HOSPITAL OBEY - 5 5 MEM [facility] OUTPATIEN INC T OFFICE 62685 [facility] YESI OUTPATIEN 5 5 [facility] OBEY - 5 5 [facility] OUTPATIEN INC HOSPITAL OBEY - 5 5 [facility] OUTPATIEN INC HOSPITAL OBEY - 5 5 MEM [facility] OUTPATIEN INC T OFFICE 79341 OBEY ADRIANNA OUTPATIEN 5 5 [facility] MINUTES HOSPITAL OBEY - 5 5 [facility] OUTPATIEN INC T OFFICE 72180 [place] MARCIN ABAD OUTPATIEN 5 5 MEDICAL T VISIT SERV 25 FOUNDATIO MINUTES N HOSPITAL OBEY - 4 4 [facility] OUTPATIEN [facility] OBEY - 4 4 [facility]PATIEN [facility] OBEY - 4 4 MEM [facility] OUTPATIEN [facility] OBEY - 4 4 [facility] OUTPATIEN [facility] OBEY - 4 4 [facility] OUTPATIEN [facility] OBEY - 4 4 [facility] OUTPATIEN [facility] T OFFICE 43598 [place] MARCIN ABAD OUTPATIEN 4 4 MEDICAL T VISIT SERV 25 FOUNDATIO MINUTES N CRITICAL [facility] INC, ACCESS [address] [facility] CR[facility]ICAL MHC INC, ACCESS [address] [facility] EMERGENCY 78471 [facility], 3 3 [facility] VISIT CO HOS MODERATE SEVERITY CRITICAL [facility] INC[facility] ACCESS 3 3 [facility] - 3 3 [facility] [place] [address] 3 [facility] OUTPATIEN INC T OFFICE 87279 MARCIN ABAD OUTPATIEN 3 3 T NEW 60 MINUTES OFFICE 94655 MICHAEL [facility]ODRIGUEZ [facility] 2 2 NAN NAN T VISIT 15 MINUTES [facility] OBEY - 2 2 [facility] H[facility] OUTPATIEN [facility] OBEY - 2 2 [facility] OUTPATIEN [facility] OBEY - 2 2 [facility] OUTPATIEN [facility] T OFFICE 49346 MICHAEL RODRIGUEZ OUTPATIEN 2 2 SINDY CALLAHAN T VISIT 15 MINUTES OFFICE 04886 MICHAEL RODRIGUEZ OUTPATIEN 2 2 SINDY CALLAHAN T VISIT 15 MINUTES OFFICE 05676 LEE ANN NANCE OUTPATIEN 2 2 LJ CALHOUN T VISIT 15 MINUTES CRITICAL PLACIDO ACCESS 0 0 [facility] CRITICAL PLACIDO ACCESS 0 0 [facility] OFFICE 69271 [place] DAM[place] SALMA OUTPATIEN 0 0 MEDICAL T VISIT SERV 15 FOUNDATIO MINUTES HOSPITAL OBEY - 0 0 [facility] OUTPATIEN INC T OFFICE 53067 [facility] OUTPATIEN 0 0 [place] T NEW 45 ORTHOPAED MINUTES [facility] OFFICE 63743 [place] DAMON, OUTPATIEN 0 0 MEDICAL CUONG T VISIT SERV 15 FOUNDATIO MINUTES HOSPITAL OBEY - 0 0 [facility] OUTPATIEN INC T OFFICE 92826 [place] MCKEMIE OUTPATIEN 0 0 KWAKU CHINCHILLA T VISIT INTERNAL 15 MED MINUTES CRITICAL PLACIDO ACCESS 9 9 [facility] OBEY - 9 9 [facility] OUTPATIEN INC HOSPITAL ISABELLA - 9 9 [facility] OUTPATIEN INC T OFFICE 50415 NICOLE RIVERA CONSULTAT 9 9 , DASHA LOU ION NEW/ESTAB PATIENT 60 MIN OFFICE 51922 [place] BESLEVI OUTPATIEN 9 9 MACFARLAN ROBERT A T VISIT INTERNAL 15 MED MINUTES [facility] [place] [address] HOSPITAL OUTPATIEN T OFFICE 08689 [place] BESLEVI, OUTPATIEN 9 9 KWAKU ROBERT A T VISIT INTERNAL 15 MED MINUTES CRITICAL PLACIDO ACCESS 9 9 [facility] EMERGENCY 87619 PLACIDO 9 9 [facility] T VISIT LIMITED/M INOR PROB CRITICAL PLACIDO ACCESS 9 9 [facility] EMERGENCY 14624 PLACIDO CHAHAL 9 9 [facility] T VISIT MODERATE SEVERITY OFFICE 05948 [facility] SMITA CONTRERAS 9 9 PHYSICIAN FRANKIE Henry GROUP NEW/ESTAB PATIENT 60 MIN HOSPITAL OBEY - 9 9 [facility] OUTPATIEN INC T HOSPITAL OBEY - 9 9 [facility] OUTPATIEN [facility] T CRITICAL PLACIDO ACCESS 9 9 [facility] OFFICE 73080 [place] GANESH NANCE 9 9 KWAKU Armas T VISIT INTERNAL 15 MED MINUTES OFFICE 50298 [place] SHARITA ANDERSEN 8 8 KWAKU DUGGAN T VISIT INTERNAL RAE F 15 MED MINUTES CRITICAL PLACIDO ACCESS 8 8 [facility] CRITICAL PLACIDO ACCESS 8 8 [facility] OBEY - 8 8 [facility] OUTPATIEN INC T OFFICE 67415 [place] GANESH LUI 8 8 KWAKU Hoang VISIT INTERNAL 10 MED MINUTES
--- OUTSIDE RECORDS SUMMARY | 2017-06-08 05:19 | External Medical Summary Rpt ---
Author Author , LOULOU JAMIL Address Unknown Phone [email or web address] Digital Care Team Providers Care Sales Representative Electric Service Name Role Phone ALLRAN JR ROME, ALLRAN Unavailable Unavailable JR ROME ANYA FRA, ANYA Unavailable Unavailable FRA ANYA FRA, ANYA Unavailable Unavailable FRA RODRIGUEZ, RODRIGUEZ Unavailable Unavailable BESSON LJ, BESSON Unavailable Unavailable LJ BESSON LJ, BESSON Unavailable Unavailable LJ BESSON, ROBERT A, Unavailable Unavailable BESSON, ROBERT A [facility] Unavailable Unavailable [facility], [facility] MONTIEL, MONTIEL Unavailable Unavailable BORAL RADHA, BORAL RADHA Unavailable Unavailable [facility] Unavailable Unavailable INC, [facility] TOWNSEND, Unavailable Unavailable [facility], [...] CONTRERAS, Unavailable Unavailable CARLOS CONNELLY JENNIFER K [facility] Unavailable Unavailable INC, [facility] Unavailable Unavailable H[facility]PITAL P, [facility] CLANCY ARLET, CLANCY Unavailable Unavailable ARLET CLANCY, TREVOR S, Unavailable Unavailable CLANCY, TREVOR S SANIA, JEFF, SANIA, Unavailable Unavailable CORIE BRASWELL Unavailable Unavailable [facility], Unavailable Unavailable [facility] AMOS TRA, AMOS TRA Unavailable Unavailable MICHAEL NAN, MICHAEL Unavailable Unavailable NAN MICHAEL NAN, MICHAEL Unavailable Unavailable NAN [facility] Unavailable Unavailable IMAG[facility], [facility] Unavailable Unavailable [facility], [facility] CHARANJIT, TEJA E, Unavailable Unavailable CHARANJIT, TEJA E [facility] Unavailable Unavailable INTERNAL MED, [facility] LINGREEN ARLET, Unavailable Unavailable LINGREEN ARLET MACIVOR DUN, MACIVOR Unavailable Unavailable DUN [facility] Unavailable Unavailable ASSOCIAT, [facility] MCKEMIE JR RENÉE, Unavailable Unavailable MCKEMIE JR RENÉE MCKEMIE JR CHINCHILLA, Unavailable Unavailable SHANICEMIE JR RENÉE SHERIFF JR RAE Unavailable Unavailable F, SHARITA DUGGAN RAE F [facility], BORING MACHINE OPERATOR HELPER [facility] Unavailable Unavailable [facility], [facility], BORING MACHINE OPERATOR HELPER [facility] LAURA SMITH, Unavailable Unavailable LAURA SMITH WILLIAM F, Unavailable Unavailable RAE MACIAS [facility], Unavailable Unavailable [facility] MOMO GRIFFITH, Unavailable Unavailable MOMO [...] DASHA MARINA ISMAEL, MARINA Unavailable Unavailable ISMAEL [facility], Unavailable Unavailable [facility], Unavailable Unavailable [facility] BURCH, BURCH Unavailable Unavailable BURCH POLLO, BURCH POLLO Unavailable Unavailable Purpose Continuity of Care Document - 11-12-2007 through 2016 Problems Code Diagnosis DOS Provider Status [id number] PAIN IN 03-05-2017 [facility] D509 IRON 12-24-2016 [facility] P UNSPECIFIED D631 ANEMIA IN 12-24-2016 [facility] DISEASE I129 HYPERTENSIV 12-24-2016 [facility] E CKD SERV W/STAGE 1-4 FOUNDATION CKD OR UNS CKD M8580 OTH SPEC 12-24-2016 [facility] D/O BONE SERV DENSITY FOUNDATION STRUCTURE UNS SITE 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 N250 RENAL 12-24-2016 [facility] OSTEODYSTRO SERV PHY FOUNDATION 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 L570 ACTINIC 12-04-2016 DERMATOLOGY KERATOSIS [facility]SULTANTS PSC L820 INFLAMED 12-04-2016 DERMATOLOGY SEBORRHEIC KERATOSIS CONSULTANTS PSC L821 OTHER 12-04-2016 DERMATOLOGY SEBORRHEIC KERATOSIS [facility]SULTANTS PSC D649 ANEMIA 11-12-2016 [facility] P [id number] ADVERSE 10-28-2016 [facility] COMPOUNDS INITIAL ENC 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-29-2016 [facility] OSTEOARTHRI S [facility] TIS LEFT KNEE R079 CHEST PAIN 09-01-2016 [place] [facility]PEC[facility] J180 BRONCHOPNEU 05-15-2016 [facility] [place] UNSPECIFIED INTERNAL ORGANISM MED D638 ANEMIA IN 02-28-2016 [facility] OTHER SERV CHRONIC FOUNDATION DISEASES CLASSIFIED ELSW N183 CHRONIC 02-28-2016 [facility] K[facility] SERV DISEASE [facility] STAGE 3 MODERATE 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 11-19-2015 [facility] OF OTHER INGOMAR SPECIFIED B INTERNAL GROUP MED VITAMINS M36632 EFFUSION 11-15-2015 [place] [facility] B15937 PAIN IN 11-15-2015 [place] [facility] M7120 SYNOVIAL 11-15-2015 [place] CYST MEDICAL POPLITEAL IMAGING ASS SPACE BURNS UNS KNEE [id number] OTH TEAR 11-15-2015 [place] [facility] MENISCUS IMAGING ASS CURR INJ [...] VALLEY BLOOD&BLOOD INTERNAL FORM ORGN MED IMMUNE [facility] J0100 ACUTE 10-29-2015 [facility] MAXILLARY INGOMAR SINUSITIS INTERNAL UNSPECIFIED MED M5432 SCIATICA 06-26-2015 [facility] LEFT SIDE INGOMAR INTERNAL MED 2809 UNSPECIFIED 03-02-2015 [facility] DEFICIENCY INC ANEMIA 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 2859 UNSPECIFIED 02-20-2015 [facility] ANEMIA PHYSICIANS GROUP 5533 DIAPHRAGMAT 02-20-2015 [facility] VIRGIL W/O PHYSICIANS MENTION GROUP OBSTRUCTION /GANGREN 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 5781 BLOOD IN 02-20-2015 [facility] STOOL PHYSICIANS GROUP 2808 OTHER 02-06-2015 [facility] SPECIFIED PHYSICIANS IRON GROUP DEFICIENCY ANEMIAS 11455 ANEMIA IN 09-28-2014 [facility] DISEASE 91897 HTN CKD UNS 09-28-2014 [facility] W/CKD SERV STAGE I FOUNDATION THRU STAGE IV/UNS 5853 CHRONIC 09-28-2014 [facility] DISEASE FOUNDATION STAGE III (MODERATE) 5880 RENAL 09-28-2014 [facility] OSTEODYSTRO SERV PHY FOUNDATION 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 DYSTROPHY 22967 CHANGES IN 03-14-2014 DUDEE HANNAH VASCULAR APPEARANCE OF RETINA 70843 ANEMIA OF 11-24-2013 [facility] OTHER SERV CHRONIC FOUNDATION DISEASE 4019 UNSPECIFIED 11-24-2013 [facility] ESSENTIAL SERV HYPERTENSIO [facility] N 2662 OTHER 06-13-2013 LEE ANN CALHOUN B-COMPLEX DEFICIENCIE S 2811 OTHER 06-06-2013 LEE ANN CALHOUN VITAMIN B12 DEFICIENCY ANEMIA V4364 HIP JOINT 04-05-2013 [facility], REPLACEMENT BORING MACHINE OPERATOR HELPER BY OTHER [facility] CO MEANS HOS V571 OTHER 04-05-2013 [facility], PHYSICAL BORING MACHINE OPERATOR HELPER THERAPY [facility] 87474 PAIN IN 03-23-2013 [facility] JOINT PELVIC REGION AND THIGH 7295 PAIN IN 03-23-2013 [facility], SOFT BORING MACHINE OPERATOR HELPER TISSUES OF [facility] 16871 SWELLING OF 03-23-2013 [facility] LIM[facility] 06173 OTHER 03-23-2013 [facility], MALAISE AND BORING MACHINE OPERATOR [place] [address]50 ABDOMINAL 03-23-2013 [facility], PAIN RIGHT BORING MACHINE OPERATOR HELPER LOWER [facility] 96213 ABDOMINAL 03-23-2013 [facility], PAIN, LEFT BORING MACHINE OPERATOR HELPER LOWER [facility] 25155 ABDOMINAL 03-23-2013 [facility], TENDERNESS BORING MACHINE OPERATOR HELPER RIGHT LOWER [facility] 8479 SPRAIN AND 03-23-2013 [facility], STRAIN OF BORING MACHINE OPERATOR HELPER UNSPECIFIED [facility] CO SITE OF HOS BACK V4589 OTHER 03-23-2013 [facility], POSTSURGICA BORING MACHINE OPERATOR HELPER L STATUS [facility] CO OTHER HOS V5869 LONG-TERM 03-23-2013 [facility], (CURRENT) BORING MACHINE OPERATOR HELPER USE OF [facility] CO OTHER HOS MEDICATIONS 7823 EDEMA 03-22-2013 [facility], BORING MACHINE [place] 39748 OSTEOARTHRO 02-15-2013 MARINA ISMAEL S UNSPEC GEN/LOC PELV REGION&THIG H V5481 AFTERCARE 02-15-2013 ANYA FRA FOLLOWING JOINT REPLACEMENT 09259 COR 02-14-2013 FALLUJI YAMILETH ATHEROSLERO UNSPEC TYPE VESSEL KALSKAG/JOSÉ MIGUEL T 11976 OTH 02-14-2013 FALLUJI YAMILETH NONSPECIFIC ABNORM CV SYSTEM FUNCTION STUDY V7283 OTHER 02-09-2013 [facility] PRE-OPERATI VE EXAMINATION V700 ROUTINE 02-01-2013 [facility] GENERAL MEDICAL EXAM@HEALTH CARE FACL V7284 UNSPECIFIED 01-31-2013 [facility] PRE-OPERATI VE EXAMINATION 4011 ESSENTIAL 01-20-2013 FALLUJI YAMILETH HYPERTENSIO N, BENIGN 12902 NONSPECIFIC 01-20-2013 FALLUJI YAMILETH ABNORMAL ELECTROCARD IOGRAM 3671 MYOPIA 12-22-2012 DUDEE HANNAH 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 3674 PRESBYOPIA 12-22-2012 DUDEE HANNAH 5939 UNSPECIFIED 09-28-2012 ENRIQUETA DISORDER BRITTANY OF KIDNEY AND URETER 88238 OTHER 09-08-2012 SHARITA DUGGAN SPECIFIED RENÉE CARDIAC DYSRHYTHMIA S 4293 CARDIOMEGAL 09-08-2012 RAMIRO VERAS Y 7802 SYNCOPE AND 09-08-2012 SHARITA DUGGAN COLLAPSE RENÉE 2724 OTHER AND 07-14-2012 MICHAEL CALLAHAN UNSPECIFIED HYPERLIPIDE JONE 61377 ESOPHAGEAL 07-14-2012 MICHAEL CALLAHAN REFLUX 8438 SPRAIN&STRA 07-14-2012 MICHAEL CALLAHAN IN OTHER SPECIFIED SITES HIP&THIGH 52418 PRIMARY LOC 01-30-2012 [facility] OSTEOARTHRO INC SIS PELVIC REGION&THIG H 7242 LUMBAGO 01-30-2012 [facility] 78826 DEGEN 12-30-2011 [place] 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 63858 SPINAL STEN 12-30-2011 PETTE[facility] JAM 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 60271 DISPLCMT 12-11-2011 [place] LUMBAR MEDICAL INTERVERT IMAGING ASS DISC W/O MYELOPATHY 4553 EXTERNAL 12-08-2011 DAMON SALMA HEMORRHOIDS WITHOUT MENTION COMP 5693 HEMORRHAGE 12-08-2011 DAMON SALMA OF RECTUM AND ANUS 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-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 60214 AFTER-CATAR 11-19-2011 DUDEE HANNAH ACT, OBSCURING VISION 19824 KERATOCONJU 11-19-2011 DUDEE HANNAH NCTIVITIS SICCA NOT SPEC SJOGRENS 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 83638 NUCLEAR 11-04-2011 DUDEE HANNAH SCLEROSIS 3670 HYPERMETROP 11-04-2011 [place] [address] 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-04-2011 DUDEE HANNAH DEGENERATIO N 4550 INTERNAL 11-04-2011 MICHAEL CALLAHAN HEMORRHOIDS WITHOUT MENTION COMP 7243 SCIATICA 09-29-2011 BESSON LJ 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 V7611 SCREENING 07-10-2010 [facility] MAMMOGRAM [facility] FOR HIGH-RISK PATIENT V7612 OTHER 07-10-2010 [facility]AT 7852 UNDIAGNOSED 05-07-2010 [facility] CARDIAC [place]UR[place] CONSULTING SRV 70819 SHORTNESS 05-07-2010 [facility] OF BREATH CONSULTING SRV 4299 UNSPECIFIED 05-02-2010 [facility] DISEASE 64047 OTHER 05-02-2010 [facility] [place] [address] PAIN IN 02-11-2010 [facility] JOINT, MEM HOSP LOWER LEG INC 35346 DIAB W/O 02-04-2010 [facility] COMP TYPE MEM HOS[facility] II/UNS NOT INC STATED UNCNTRL 5789 UNSPECIFIED 02-04-2010 [facility] HEMORRHAGE MEM HOSP OF INC GASTROINTES TINAL TRACT 19148 EFFUSION OF 01-15-2010 ENRIQUETA, LOWER LEG KHALIDA JOINT 67490 SYNOVIAL 01-15-2010 ENRIQUETA, CYST OF KHALIDA POPLITEAL SPACE 6271 POSTMENOPAU 10-31-2009 [facility] B[facility] 460 ACUTE 10-11-2009 [facility] NASOPHARYNG VALLEY ITIS INTERNAL MED 490 BRONCHITIS 10-11-2009 [facility] NOT VALLEY SPECIFIED INTERNAL ACUTE OR MED CHRONIC 72439 CALCU 04-30-2009 [facility], GALLBLADD DASHA W/OTH CHOLECYST W/O MENTION OBST 48280 CALCU 04-30-2009 [facility] GALLBLADD ANESTH OF W/O MENTION THE [facility] CHOLECYST/O BST 17392 CHRONIC 04-30-2009 PATHOLOGY & CHOLECYSTIT CYTOLOGY IS LAB 71158 ABDOMINAL 04-30-2009 [facility], PAIN RIGHT DASHA UPPER QUADRANT 4139 OTHER AND 04-10-2009 NEW UNSPECIFIED [facility] P[facility] [place] 07864 CORONARY 04-10-2009 [facility] OSIS KALSKAG CORONARY ARTERY 30754 OTHER 04-10-2009 NEW PREMATURE [facility] PSC 5718 OTHER 03-27-2009 [facility] NONALCOHOLI ASSOCIATES C LIVER PSC DISEASE 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 66201 FIRST 03-24-2009 [facility] ATRIOVENTRI CULAR BLOCK 4280 CONGESTIVE 03-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 [facility] FAILURE UNSPECIFIED 5770 ACUTE 03-24-2009 [facility]I [facility]PITAL S 4556 UNSPEC 03-05-2009 [facility] HEMORRHOIDS MEM HOS[facility] WITHOUT INC MENTION COMPLICATIO N 7019 UNSPECIFIED 03-05-2009 [facility] HYPERTROPHI INC C&ATROPHIC CONDITION SKIN 22950 CHEST PAIN 02-26-2009 [facility] UNSPECIFIED [facility] PROF SERV 7859 OTHER 02-23-2009 [facility] INVOLVING ASSOCIATES CARDIOVASCU PSC LAR SYSTEM V1589 OTH SPEC 05-15-2008 [facility]OSPITAL PRESENTING [facility] OTH 48395 UNSPECIFIED 03-01-2008 [facility] OSTEOPOROSI IMAGING S ASSOCIATES V7231 ROUTINE 02-10-2008 [facility] OF EXAMINATION [facility] 32239 HYPERTENSIV 12-22-2007 Odilon ROWELL S RETINOPATHY 0579 [...] Procedure DOS Code Location Performer Comment DUP-SCAN 43180 [place] MONTIEL XTR VEINS 7 MEDICAL IMAGING UNILATERA ASS L/LIMITED STUDY DESTRUCTI 28111 DERMATOLO DERMATOLO ON 7 GY GY PREMALIGN CONSULTAN CONSULTAN ANT TS [place] 1[place] [address] [facility] INFUSION 7 MEM HOSP MEM HOSP THERAPY/P INC INC ROPHYLAXI S /DX 1ST TO 1 [place] [address] [facility]Y INFUSION 7 MEM HOSP MEM HOSP THERAPY/P INC INC ROPHYLAXI S /DX 1ST TO [place] [address] [facility] INFUSION 7 MEM HOSP MEM HOSP THERAPY/P INC INC ROPHYLAXI S /DX 1ST TO 1 HR INJECTION J3301 CHRIS FONTENOT 7 TRIAMCINO ORTHOPAED LONE ICS PSC ACETONIDE NOS 10 MG ARTHROCEN 57035 JEANCHANDAN LAMBERTIS 7 ASPIR&/IN ORTHOPAED ORTHOPAED J MAJOR ICS PSC ICS PSC JT/BURSA W/O US RADIOLOGI 12797 [place] ENRIQUETA C EXAM 7 MEDICAL CHEST 2 IMAGING VIEWS ASS FRONTAL&L ATERAL INJECTION J3301 CHRIS ESCOBAR 6 EN TRIAMCINO ORTHOPAED LONE ICS PSC ACETONIDE NOS 10 MG ARTHROCEN 16113 CHRIS ESCOBAR TESIS 6 EN ASPIR&/IN ORTHOPAED J MAJOR ICS PSC JT/BURSA W/O US RADIOLOGI 64052 CHRIS ESCOBAR C 6 EN EXAMINATI ORTHOPAED ON KNEE ICS PSC 1/2 VIEWS INJECTION J3420 [facility] BESSON VIT B-12 6 VALLEY LJ INTERNAL CYANOCOBA MED CHOCO TO 1000 MCG THERAPEUT 18266 [facility] BESSON IC 6 INGOMAR LJ PROPHYLAC INTERNAL TIC/DX MED INJECTION SUBQ/IM MRI ANY 53789 [place] MONTIEL JT LOWER 6 MEDICAL EXTREM IMAGING W/O ASS CONTRAST MATRL PPSV23 82903 [facility] VACCINE 2 6 VALLEY LJ YRS OR INTERNAL OLDER FOR MED SUBQ/IM USE ANNUAL G0438 [facility] BESSON WELLNESS 6 INGOMAR LJ VISIT; INTERNAL PERSONALI MED Z PPS INIT VISIT COLLECTIO 68742 [facility] BESSON N VENOUS 6 [facility] BLOOD INTERNAL VENIPUNCT MED URE ADMINISTR G0009 [facility] BESSON ATION OF 6 INGOMAR LJ PNEUMOCOC INTERNAL TERRANCE MED VACCINE THERAPEUT 36493 [facility] RODRIGUEZ IC 6 VALLEY PROPHYLAC INTERNAL TIC/DX MED INJECTION SUBQ/IM INJECTION J3301 [facility] RODRIGUEZ 6 VALLEY TRIAMCINO INTERNAL LONE MED ACETONIDE NOS 10 [place] [address] [facility] INFUSION 5 MEM HOSP MEM HOSP THERAPY/P INC INC ROPHYLAXI S /DX 1ST TO [place] [address] [facility] INFUSION 5 MEM HOSP MEM HOSP THERAPY/P INC INC ROPHYLAXI S /DX 1ST TO 1 HR COLSC FLX 38835 [facility] W/RMVL 5 MEM HOSP MEM HOSP OF TUMOR INC INC POLYP LESION SNARE TQ EGD 86892 [facility] TRANSORAL 5 MEM HOSP MEM HOSP BIOPSY INC INC SINGLE/[place] [address] [facility] INFUSION 5 MEM HOSP MEM HOSP THERAPY INC INC PROPHYLAX IS/[place] [address] [facility] INFUSION 5 MEM HOSP MEM HOSP THERAPY/P INC INC ROPHYLAXI S /DX 1ST TO [place] [address] [facility] INFUSION 5 MEM HOSP MEM HOSP THERAPY/P INC INC ROPHYLAXI S /DX 1ST TO [place] [address] [facility] INFUSION 5 MEM HOSP MEM HOSP THERAPY/P INC INC ROPHYLAXI S /DX 1ST TO [place] [address] [facility]Y INFUSION 5 MEM HOSP MEM HOSP THERAPY/P INC INC ROPHYLAXI S /DX 1ST TO 1 HR TRANSFUSI 64550 [facility] ON 5 MEM HOSP MEM HOSP BLOOD/BLO INC INC OD COMPONENT S TRANSFUSI 92679 [facility] ON 4 MEM HOSP MEM HOSP BLOOD/BLO INC INC OD COMPONENT S ANTIBODY 16492 [facility] SCREEN 4 MEM HOSP MEM HOSP RBC EACH INC INC SERUM TECHNIQUE OPHTH 82090 DUDEE HANNAH DUDEE HANNAH MEDICAL 4 XM&EVAL INTERMEDI ATE ESTAB PT COMPUTERI 15610 DUDEE HANNAH DUDEE HANNAH ZED 4 OPHTHALMI C IMAGING OPTIC NERVE VISUAL 54881 DUDEE HANNAH DUDEE HANNAH FIELD XM 4 UNI/BI W/INTERP EXTENDED EXAM OPHTH 79516 DUDEE HANNAH DUDEE HANNAH MEDICAL 4 XM&EVAL COMPRHNSV ESTAB PT 1/> COMPUTERI 63253 DUDEE HANNAH DUDEE HANNAH ZED 4 [place] [address] [facility]Y INFUSION 4 MEM HOSP MEM HOSP THERAPY/P INC INC ROPHYLAXI S /DX 1ST TO [place] [address] [facility]Y INFUSION 4 MEM HOSP MEM HOSP THERAPY/P INC INC ROPHYLAXI S /DX 1ST [place] [address] [facility]Y INFUSION 4 MEM HOSP MEM HOSP THERAPY/P INC INC ROPHYLAXI S /DX 1ST TO [place] [address] [facility]Y INFUSION 4 MEM HOSP MEM HOSP THERAPY/P INC INC ROPHYLAXI S /DX 1ST TO 1 HR IM ADM 57445 BESSON BESSON PRQ ID 3 LJ LJ SUBQ/IM NJXS 1 VACCINE IM ADM 39407 BESSON BESSON PRQ ID 3 LJ LJ SUBQ/IM NJXS 1 VACCINE IM ADM 96155 BESSON BESSON PRQ ID 3 LJ LJ SUBQ/IM NJXS 1 VACCINE THERAPEUT 28833 [email or web address], IC PX 1/> 3 BORING MACHINE OPERATOR HELPER BORING MACHINE OPERATOR HELPER AREAS PLACIDO PLACIDO EACH 15 CO HOS CO HOS MIN EXERCISES THERAPEUT 58791 [employer], IC PX 1/> 3 BORING MACHINE OPERATOR HELPER BORING MACHINE OPERATOR HELPER AREAS PLACIDO PLACIDO EACH 15 CO HOS CO HOS MIN EXERCISES THERAPEUT 60431 [employer], IC PX 1/> 3 BORING MACHINE OPERATOR HELPER BORING MACHINE OPERATOR HELPER AREAS PLACIDO PLACIDO EACH 15 CO HOS CO HOS MIN EXERCISES THERAPEUT 82578 [employer], IC PX 1/> 3 BORING MACHINE OPERATOR HELPER BORING MACHINE OPERATOR HELPER AREAS PLACIDO PLACIDO EACH 15 CO HOS CO HOS MIN EXERCISES THERAPEUT 39007 [email or web address], IC PX 1/> 3 BORING MACHINE OPERATOR HELPER BORING MACHINE OPERATOR HELPER AREAS PLACIDO PLACIDO EACH 15 CO HOS CO HOS MIN EXERCISES RADEX HIP 76771 [email or web address], 3 BORING MACHINE OPERATOR HELPER BORING MACHINE OPERATOR HELPER UNILATERA PLACIDO PLACIDO L CO HOS CO HOS COMPLETE MINIMUM 2 VIEWS DUP-SCAN 82702 [email or web address], XTR VEINS 3 BORING MACHINE OPERATOR HELPER BORING MACHINE OPERATOR HELPER COMPLETE PLACIDO PLACIDO CO HOS CO HOS BILATERAL STUDY D BANK 48613 MACIVOR MACIVOR PHYS SVCS 3 DUN DUN DIFFC CROSS MATCH&/EV AL REP DECALCIFI 94728 MARINA MARINA CATION 3 ISMAEL ISMAEL PROCEDURE ARTHRP 16421 AMBER LUZ ACETBLR/P 3 EN CHR EN CHR TALA FEM PROSTC AGRFT/ALG RFT RADIOLOGI 42165 ANYA ANYA C 3 FRA FRA EXAMINATI ON PELVIS 1/2 VIEWS CATH PLMT 40215 FALLUJI FALLUJI L HRT & 3 YAMILETH YAMILETH ARTS W/NJX & ANGIO IMG S&I ANTIBODY 43922 [facility] UNIVERS ID RBC 3 Y [facility] S EA PANEL EA SERUM TQ ANTIBODY 11089 [facility] SCREEN 3 Y Y RBC [facility] SERUM TECHNIQUE BLD BANK 97287 BORAL RADHA BORAL RADHA PHYS SVCS 3 DIFFC CROSS MATCH&/EV AL REP URNLS DIP 97812 BESSON BESSON 3 LJ LJ STICK/TAB LET RGNT NON-AUTO W/O MICRSCP ECG 34122 LEE ANN CARNESSON ROUTINE 3 LJ LJ ECG W/LEAST 12 LDS W/I&R ECG 06507 FALLUJI FALLUJI ROUTINE 3 YAMILETH YAMILETH ECG W/LEAST 12 LDS W/I&R CV STRS 27727 FALLUJI FALLUJI TST 3 YAMILETH YAMILETH XERS&/OR RX CONT ECG I&R ONLY CV STRS [address] XERS&/OR RX CONT ECG TRCG ONLY MYOCARDIA [address] MULTIPLE STUDIES OPHTHALMO 14480 SORIN ELT SORIN YOUNG SCPY 3 EXTENDED RETINAL DRAWING I&R KAISER [facility] 13001 [facility] RETROPERI 3 MEM HOSP MEM HOSP TONEAL INC INC REAL TIME W/IMAGE COMPLETE HOSPITAL 08243 SHARITA SHERIFF DISCHARGE 3 JR RENÉE CHINCHILLA DAY MANAGEMEN T 30 MIN/< RADIOLOGI 78848 RAMIRO RUBIO C [facility] SINGLE VIEW FRONTAL ECG 28300 SHARITA SHERIFF ROUTINE 3 JR RENÉE CHINCHILLA ECG W/LEAST 12 LDS I&R ONLY APPLICATI 93467 [facility] ON 2 [facility] 1/> AREAS HOT/COLD PACKS THERAPEUT 39684 [facility] IC PX 1/> 2 [facility] INC EACH 15 MIN EXERCISES E-STIM G0283 [facility] 1/> AREAS 2 [facility] O[facility] THAN INC INC WND CARE PART TX PLAN E-STIM G0283 [facility] 1/> AREAS 2 [facility] INC WND CARE PART TX PLAN THERAPEUT 66812 [facility] IC PX 1/> 2 [facility] INC EACH 15 MIN EXERCISES APPLICATI 73598 [facility] ON 2 [facility] 1/> AREAS HOT/COLD PACKS APPLICATI 73599 [facility] ON 2 [facility] INC 1/> AREAS HOT/COLD PACKS THERAPEUT 51943 [facility] IC PX 1/> 2 [facility] INC INC EACH 15 MIN EXERCISES E-STIM G0283 [facility] 1/> AREAS 2 [facility] O[facility] THAN INC INC WND CARE PART TX PLAN E-STIM G0283 [facility] 1/> AREAS 2 [facility] INC INC WND CARE PART TX PLAN THERAPEUT 20577 [facility] IC PX 1/> 2 [facility] INC EACH 15 MIN EXERCISES APPLICATI 44799 [facility] ON 2 [facility] 1/> AREAS HOT/COLD PACKS APPLICATI 09980 [facility] ON 2 [facility] INC 1/> AREAS HOT/COLD PACKS THERAPEUT 92850 [facility] IC PX 1/> 2 [facility] INC EACH 15 MIN EXERCISES E-STIM G0283 [facility] 1/> AREAS 2 [facility] O[facility] TH[facility] INC INC WND CARE PART TX PLAN APPLICATI 57875 [facility] ON 2 [facility] INC 1/> AREAS HOT/COLD PACKS E-STIM G0283 [facility] 1/> AREAS 2 [facility] OTH THAN INC INC WND CARE PART TX PLAN THERAPEUT 61184 [facility] IC PX 1/> 2 MEM [...] INC WND CARE PART TX PLAN RADEX 76766 [facility] SPINE 2 [facility] LUMBOSACR INC INC AL MINIMUM 4 VIEWS 3D 31936 [place] ENRIQUET[place] RENDERING 2 [facility] W/INTERP IMAGING & ASS POSTPROCE SS SUPERVISI ON MRI 18027 [place] SPINAL 2 [facility] CANAL IMAGING LUMBAR ASS W/O CONTRAST MATERIAL MRI 70564 [place] EN[place] PELVIS 2 [facility] W/O IMAGING CONTRAST ASS MATERIAL COLONOSCO 49526 DAMON SALMA DAMON SALMA PY FLX DX 2 W/COLLJ SPEC WHEN PFRMD THERAPEUT 87407 MICHAEL NUÑEZ IC 2 NAN ARLET PROPHYLAC TIC/DX INJECTION SUBQ/IM DETERMINA 92201 DUDEE HANNAH DUDEE HANNAH TION 2 REFRACTIV E STATE OPHTH 28474 DUDEE HANNAH DUDEE HANNAH MEDICAL 2 XM&EVAL COMPRE NEW PT 1/> VST OPHTHALMO 62906 DUDEE HANNAH DUDEE HANNAH SCPY 2 EXTENDED RETINAL DRAWING I&R 1ST THERAPEUT 91125 LEE ANN NANCE IC 2 LJ LJ PROPHYLAC TIC/DX INJECTION SUBQ/IM COMPREHEN 50728 COMBINED COMBINED SIVE 1 PHYSICIAN PHYSICIAN METABOLIC S LA S LA PANEL LIPID 53253 COMBINED COMBINED PANEL 1 PHYSICIAN PHYSICIAN S LA S LA LIPID 14915 COMBINED COMBINED PANEL 1 PHYSICIAN PHYSICIAN S LA S LA COMPREHEN 29983 COMBINED COMBINED SIVE 1 PHYSICIAN PHYSICIAN METABOLIC S LA S LA PANEL BLOOD 02762 COMBINED COMBINED COUNT 1 PHYSICIAN PHYSICIAN COMPLETE S LA S LA AUTO&AUTO DIFRNTL WBC SCREENING 96327 [facility] 83371 PREET TORRES TORRES PREET TTHRC R-T 0 MD 2D CONSULTIN W/WOM-MOD G SRV E COMPL SPEC&COLR D ECHO 43356 [facility] TTHRC R-T [address] [place] [address] W/WOM-MOD E COMPL SPEC&COLR D SPMTRY 11325 [facility] W/VC 0 [facility]WO MXML VOL VNTJ RADIOLOGI 70597 [facility]AC[facility] CUM[facility] C EXAM 0 CO CO CHEST [address] [place] [address] VIEWS FRONTAL&L ATERAL THERAPEUT 75144 [facility] IC PX 1/> 0 [facility] EACH 15 MIN EXERCISES APPL 17863 O[facility] [facility]/> AREAS INC INC ULTRASOUN D EA 15 MIN E-STIM G0283 [facility] 1/> [facility] OTH THAN INC INC WND CARE PART TX PLAN E-STIM G0283 [facility] 1/> AREAS 0 [facility] OTH THAN INC INC WND CARE PART TX PLAN THERAPEUT 27178 [facility] IC PX 1/> 0 [facility] AREAS INC INC EACH 15 MIN EXERCISES APPL 99054 [facility] MODALITY 0 [facility]/> AREAS INC INC ULTRASOUN D EA 15 MIN APPL 44916 [facility] MODALITY 0 [facility]/> AREAS INC INC ULTRASOUN D EA 15 MIN THERAPEUT 56500 [facility] IC PX 1/> 0 [facility] AREAS INC INC EACH 15 MIN EXERCISES E-STIM G0283 [facility] 1/> AREAS 0 [facility] OTH THAN INC INC WND CARE PART TX PLAN E-STIM G0283 [facility] 1/> AREAS 0 [facility] OTH THAN INC INC WND CARE PART TX PLAN THERAPEUT 52367 [facility] IC PX 1/> 0 [facility] AREAS INC INC EACH 15 MIN EXERCISES APPL 16864 [facility] MODALITY 0 [facility] 1/> AREAS INC INC ULTRASOUN D EA 15 MIN APPL 42401 [facility] MODALITY 0 [facility]/> AREAS INC INC ULTRASOUN D EA 15 MIN PHYSICAL 70467 [facility] THERAPY 0 [facility] EVALUATIO INC INC N E-STIM G0283 [facility] 1/> AREAS 0 [facility] OTH THAN INC INC WND CARE PART TX PLAN BLOOD 43979 [facility] COUNT 0 [facility] COMPLETE INC INC AUTO&AUTO DIFRNTL WBC CYANOCOBA 13737 [facility] CHOCO 0 [facility] VITAMIN INC INC B-[address] [place] [address] [facility] FERRITIN 0 [facility] INC INC IRON 90774 [facility] BINDING 0 [facility] [place] [address] [facility] FOLIC 0 [facility] [place] [address] [facility] IRON 0 [facility] INC INC COLLECTIO 49021 [facility] N VENOUS 0 [facility] BLOOD INC INC VENIPUNCT URE COMPREHEN 59820 [facility] SIVE 0 [facility] METABOLIC INC INC PANEL MRI ANY 19947 ENRIQUETA ROBISON, AliseT LOWER 0 KHALIDA KHALIDA EXTREM W/O CONTRAST MATRL ENDOMETRI 15353 [facility] RUBIO BX 0 [facility] W/WO [facility] ENDOCERVI X BX W/O [place] DILAT SPX PLLC CYTP 06863 WINNIE ZHOU SLCTV 0 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 IES INC IES INC ENHANCEME NT INTERPJ XCPT C/V SPCL STN 68316 WINNIE FAUSTCK 2 I&R 0 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 IES INC IES INC MICROORG/ ENZYME/IM CYT IM ADM 27034 [place] MCKEM[facility] PRQ ID 0 KWAKU CHINCHILLA SUBQ/IM INTERNAL NJXS 1 MED VACCINE INJECTION J3301 [facility] MCKEMIE 0 KWAKU CHINCHILLA TRIAMCINO INTERNAL LONE MED ACETONIDE NOS 10 MG SCREENING 53743 [facility] VEL[facility]SQUEZS [facility] 2001 HY BILATERAL LEVEL III 85900 PATHOLOGY PATHOLOGY SURG 9 & & PATHOLOGY CYTOLOGY CYTOLOGY LAB LAB GROSS&LALO ROSCOPIC EXAM LAPAROSCO 24949 NICOLE RIVERA PY SURG 9 , DASHA , [place] [address] [facility] INFUSION 9 [facility] THERAPY INC [place] [address] [facility] INFUSION 9 [facility] THERAPY/P INC INC ROPHYLAXI S /DX 1ST TO 1 HR ANES 50902 [facility] 9 ANESTH RAE F TONEAL OF THE UPPER BLUEGRASS ABDOMEN W/LAPS NOS THERAPEUT 48323 [facility] IC 9 [facility] INJECTION INC INC IV PUSH EACH NEW DRUG ECG 67221 OBE[facility] DONOHUE, ROUTINE 9 [facility] W/LEAST PROF SERV 12 LDS I&R ONLY ECG 51149 [facility] ROUTINE 9 [facility] ECG INC INC W/LEAST 12 LDS TRCG ONLY W/O I&R BASIC 98715 [facility] METABOLIC 9 [facility] PANEL INC INC CALCIUM TOTAL COLLECTIO 90040 [facility] N VENOUS 9 [facility] BLOOD INC INC VENIPUNCT URE BLOOD 60064 [facility] COUNT 9 [facility] COMPLETE INC INC AUTO&AUTO DIFRNTL WBC SODIUM [address] PLASMA OR WHOLE BLOOD GLUCOSE 67470 [facility] QUANTITAT [address] [place] [address] FRANCISCO JAVIER BLOOD XCPT REAGENT STRIP CREATININ 37923 [facility] E BLOOD [address] [place] [address] POTASSIUM 28087 [facility] SERUM [address] [place] [address] PLASMA/WH OLE BLOOD COLLECTIO 33368 [facility] N VENOUS [address] [place] [address] [place] [address] [facility] UREA [address] [place] [address] NITROGEN QUANTITAT FRANCISCO JAVIER BLOOD 36140 [facility] COUNT [address] [place] [address] HEMATOCRI T CHLORIDE 11374 [facility] BLD [address] [place] [address] B[address] PLATELET AUTOMATED PLCMT G0269 [facility] OCCL DEVC [address] [place] [address] RAYMOND/ART POST SURG/INTR VNL PROC CLOSURE C1760 [facility] DEVICE [address] [place] [address] VASCULAR INTRDUCR/ C1894 [facility] SHEATH [address] [place] [address] NOT GUID INTRACARD EP NON-LASR ECG 91921 [facility] ROUTINE [address] [place] [address] ECG W/LEAST 12 LDS TRCG ONLY W/O I&R INJECTION 82226 [facility] CARDIAC [address] [place] [address] CATHJ L VENTR/L ATR ANGIOGRAP H ECG 74657 [facility], ROUTINE 9 [facility] ECG CLINIC W/LEAST PSC 12 LDS I&R ONLY L HRT 90053 [facility] CATHETERI [address] [place] [address] Z[place] [address] [facility] C-CATHJ [address] [place] [address] F/SLCTV C ANGRPH I SI&R 35366 [facility] F/NJX PX [address] [place] [address] DURING C-CATHJ VENTR&/AT R ANGRPH I SI&R 72064 [facility] F/NJX PX [address] [place] [address] DURING C-CATHJ PULM&/OR SELECT COMPREHEN 73557 [facility] SIVE 9 [facility] [address] PLACIDO CUMMINS ABDOMINAL 9 [facility] TIME W/IMAGE DOCUMENTA TION COLLECTIO 56887 [facility] N VENOUS 9 [facility] BLOOD INC INC VENIPUNCT URE BLOOD 15611 [facility] COUNT 9 [facility] COMPLETE INC INC AUTO&AUTO DIFRNTL WBC BLOOD 19423 [facility] CUMMINS COUNT 9 [facility] AUTO&AUTO DIFRNTL WBC COLLECTIO 69652 [facility] Orr VENOUS 9 [facility] VENIPUNCT URE CULTURE 35075 [facility]UM[facility] BACTERIAL 9 [facility] QUANTTATI VE COLONY COUNT URINE URNLS DIP 16467 [facility] CUMMINS 9 [facility] STICK/TAB [facility] HOSPITAL LET REAGENT AUTO MICROSCOP Y ECG 51514 [facility] CUM[facility]INS ROUTINE 9 [facility] ECG [facility] HOSPITAL W/LEAST 12 LDS TRCG ONLY W/O I&R COMPREHEN 96460 [facility] CUM[facility]INS SIVE 9 [facility]PITAL PANEL URNLS DIP 18626 [facility] CUMMINS 9 [facility] STICK[facility] HOSPITAL LET REAGENT AUTO MICROSCOP Y COLLECTIO 12679 [facility] Orr VENOUS 9 [facility] [place] [address] [facility] AMYLASE 9 [facility] CREATINE 51490 [facility] KINASE MB 9 [facility] H[facility] ONLY CREATINE 77833 [facility] C[facility] KINASE 9 [facility] HOSPITAL G0378 [facility] OBSERVATI 9 [facility] [place] [address] [facility] CUM[facility] LIPASE 9 [facility] MYOGLOBIN 83484 [facility] CUMMINS 9 [place] [address] [facility] TROPONIN 9 [facility]AT [facility]PITAL FRANCISCO JAVIER BLOOD 20741 [facility] VAIL 9 [facility]PITAL AUTO&AUTO DIFRNTL WBC RADIOLOGI 74100 [facility] CUMMINS C EXAM 9 [facility] CHEST 2 [facility]OSPITAL HOSPITAL VIEWS FRONTAL&L ATERAL ECG 19272 PATEL NANCE, ROUTINE 9 INGOMAR ROBERT ECG INTERNAL W/LEAST MED 12 LDS [place] [address] [facility] CUMMINS INFUSION 9 [facility] INITIAL 31 MIN-1 [place] [address] [facility] INFUSION 9 [facility] THERAPY/P INC INC ROPHYLAXI S /DX 1ST TO 1 [place] [address] PATHOLOGY PATHOLOGY SURG 9 & & PATHOLOGY CYTOLOGY CYTOLOGY LAB LAB GROSS&LALO ROSCOPIC EXAM COLSC FLX [address]28 [place] DAMON, 9 MEDICAL CUONG W/REMOVAL SERV [place] [address] [facility] INFUSION 9 [facility] THERAPY INC INC PROPHYLAX IS/DX EA HOUR CV STRS 76411 OBEY NANCE, TST 9 [facility]/OR [facility] RX CONT PROF SERV ECG W/O I&R CV STRS 75518 [facility] TST 9 [facility] XERS&/OR INC INC RX CONT ECG TRCG ONLY MYOCRD 55854 [facility] FALLUJI, PRFUJ IMG 9 PHYSICIAN FRANKIE MANSFIELD S GROUP SPECT SHOE CLEANER STD MYOCRD 74823 [facility] FALLUJI, PRFUJ STD 9 PHYSICIAN FRANKIE Taylor EJEC FXJ S GROUP MYOCRD 47131 [facility] FALLUJI, PRFUJ STD 9 PHYSICIAN FRANKIE DAMON S GROUP MOTION QUAL/ROBERT STD TECHNETIU A9502 OBEY Taylor TC-99M 9 [facility] TETROFOSM INC INC IN DX PER STUDY DOSE INJECTION J0152 [facility] 9 [facility] ADENOSINE INC INC DIAGNOSTI C USE 30 MG CV STRS 73511 OBEY NANCE, TST 9 [facility]&/OR [facility] RX CONT PROF SERV ECG I&R ONLY DUPLEX 60907 MARLENE CLANCY, ZA 9 TREVOR Henry EXTRACRAN RADIOLOGY IAL ART COMPL BI ASSOCIATE STUDY S PSC LIPID 59815 [facility]UM[facility] PANEL 9 [facility] COMPREHEN 32441 [facility]O CUMMINS SIVE 9 [facility] [address] [facility] C[facility] THYROID 9 [facility] COLLECTIO 29828 [facility] CUMMINS N VENOUS 9 [facility] VENIPUNCT URE BLOOD 65805 [facility] COUNT 9 [facility] AUTO&AUTO DIFRNTL WBC SCREENING 11869 MARLENE CLANCY 8 TREVOR Henry MAMMOGRAP RADIOLOGY HY BILATERAL ASSOCIATE S PSC DXA BONE 50991 [facility] DENSITY 8 [facility] STUDY / INC INC SITES AXIAL SKEL CERV/VAGI G0101 [facility] NAL 8 [employer] [facility]; PELV&CLIN [facility] [facility] EXAM SCREEN Q0091 [facility] PAP 8 [facility] ROMAN SMEAR; CLINIC OF OBTAIN PREP &C [place] ONVEY TO [facility] LAB OPHTHALMO 87659 SORIN ROWELL SCPY 8 LEEANN BRADSHAW EXTENDED S S RETINAL DRAWING I&R [facility] OPHTH 86416 SORIN ROWELL MEDICAL 8 LEEANN BRADSHAW XM&EVAL S S COMPRHNSV ESTAB PT Encounters Encounter Start End Date Code Location Performer Type Date OFFICE 49489 [facility] OUTPATIEN 7 7 MEDICAL T VISIT SERV 25 FOUNDATIO MINUTES N OFFICE 85497 OBEY ROLDAN JR OUTPATIEN 7 7 [facility] T VISIT HOSPITAL 10 P MINUTES OFFICE 75618 OBEY RODAS OUTPATIEN 7 7 [facility] T VISIT HOSPITAL 10 P MINUTES HOSPITAL OBEY - 7 7 [facility] O[facility] - 7 7 [facility] - 7 7 [facility] OUTPATIEN [facility] T OFFICE 93834 OBEY ADRIANNA OUTPATIEN 7 7 [facility] 10 P MINUTES OFFICE 38410 [place] RODRIGUEZ OUTPATIEN 6 6 [facility] T VISIT INTERNAL 15 MED MINUTES OFFICE 18762 AL ABAD OUTPATIEN 6 6 MEDICAL T VISIT SERV 25 FOUNDATIO MINUTES N OFFICE 02201 [facility] OUT[facility] 6 6 EN T VISIT ORTHOPAED 15 ICS PSC MINUTES HOSPITAL OBEY - 6 6 [facility] OUTPATIEN INC T OFFICE 08522 [place] B[facility]ON OUTPATIEN 6 6 [facility] T VISIT INTERNAL 25 MED MINUTES OFFICE 92846 [place] RODRIGUEZ OUTPATIEN 6 6 [facility] T VISIT INTERNAL 15 MED MINUTES OFFICE 25576 [place] [facility] OUTPATIEN 5 5 [facility] T VISIT INTERNAL 15 MED MINUTES HOSPITAL OBEY - 5 5 [facility] OUTPATIEN INC [facility]PITAL OBEY - 5 5 [facility] OUTPATIEN INC [facility]PITAL OBEY - 5 5 [facility] OUTPATIEN INC [facility] OBEY - 5 5 [facility] OUTPATIEN INC [facility] OBE[facility] - 5 5 [facility] OUTPATIEN INC T OFFICE 73075 [facility] YESI OUTPATIEN 5 5 [facility] O[facility]Y - 5 5 [facility] OUTPATIEN INC [facility]OSPITAL OBEY - 5 5 [facility] OUTPATIEN INC T OFFICE 62500 OBEY ADRIANNA OUTPATIEN 5 5 [facility] MINUTES HOSPITAL OBEY - 5 5 [facility] OUTPATIEN INC T OFFICE 37867 AL ABAD OUTPATIEN 5 5 MEDICAL T VISIT SERV 25 FOUNDATIO MINUTES N HOSPITAL OBEY - 4 4 [facility] OUTPATIEN [facility]PITAL OBEY - 4 4 [facility] - 4 4 [facility] OBEY - 4 4 [facility] OBEY - 4 4 [facility] OBEY - 4 4 [facility] OUTPATIEN [facility] T OFFICE 36350 AL ABAD OUTPATIEN 4 4 MEDICAL T VISIT SERV 25 FOUNDATIO MINUTES N CRITICAL MHC INC, ACCESS 3 3 [facility] EMERGENCY 57084 [facility], 3 3 [facility] VISIT CO HOS MODERATE SEVERITY CRITICAL MHC INC, ACCESS 3 3 [facility] CRITICAL MHC INC, ACCESS 3 3 [facility] - 3 3 [facility] [place] [address] 3 [facility] OBEY - 3 3 [facility] OUTPATIEN [facility] T OFFICE 09909 MARCIN ABAD OUTPATIEN 3 3 T NEW 60 MINUTES OFFICE 38927 MICHAEL [facility]OD[facility]IGUEZ [facility] 2 NAN NAN T VISIT 15 MINUTES HOSPITAL OBEY - 2 2 [facility] OUTPATIEN [facility] OBEY - 2 2 [facility]EN [facility] OBEY - 2 2 [facility] OUTPATIEN [facility] T OFFICE 97836 MICHAEL RODRIGUEZ OUTPATIEN 2 2 SINDY CALLAHAN T VISIT 15 MINUTES OFFICE 49995 MICHAEL RODRIGUEZ OUTPATIEN 2 2 SINDY CALLAHAN T VISIT 15 MINUTES OFFICE 07266 LEE ANN LEE ANN OUTPATIEN 2 2 LJ CALHOUN T VISIT 15 MINUTES CRITICAL PLACIDO ACCESS 0 0 [facility] CRITICAL PLACIDO ACCESS 0 0 [facility]ITAL OFFICE 29710 [place] SALMA OUTPATIEN 0 0 MEDICAL T VISIT SERV 15 FOUNDATIO MINUTES HOSPITAL OBEY - 0 0 [facility] OUTPATIEN INC T OFFICE 68947 [facility] TRA OUTPATIEN 0 0 [place] T NEW 45 ORTHOPAED MINUTES [facility] OBEY - 0 0 [facility] OUTPATIEN INC T OFFICE 01375 [place] DAM[place], OUTPATIEN 0 0 MEDICAL CUONG T VISIT SERV 15 FOUNDATIO MINUTES OFFICE 34415 [place] MCKEMIE OUTPATIEN 0 0 KWAKU CHINCHILLA T VISIT INTERNAL 15 MED MINUTES CRITICAL PLACIDO ACCESS 9 9 [facility] OBEY - 9 9 [facility] OUTPATIEN [facility] [place] - 9 9 [facility] OUTPATIEN INC T OFFICE 88910 NIOCLE RIVERA CONSULTAT 9 9 , DASHA LOU ION NEW/ESTAB PATIENT 60 MIN OFFICE 74165 [place] BESSON, OUTPATIEN 9 9 INGOMAR ROBERT A T VISIT INTERNAL [address] [facility]PA - [facility] HOSPITAL OUTPATIEN T OFFICE 56207 [place], OUTPATIEN 9 9 [facility] ROBERT A T VISIT INTERNAL 15 MED MINUTES CRITICAL PLACIDO ACCESS 9 9 [facility] HOSPITAL EMERGENCY 70835 PLACIDO 9 9 [facility] T VISIT LIMITED/M INOR PROB EMERGENCY 66593 PL[facility]O CHAHAL 9 9 [facility] VISIT MODERATE SEVERITY CRITICAL PLACIDO LUNA 9 9 [facility] HOSPITAL OFFICE 24198 [facility] SMITA CONTRERAS 9 9 PHYSICIAN FRANKIE Henry GROUP NEW/ESTAB PATIENT 60 MIN HOSPITAL OBEY - 9 9 [facility] OUTPATIEN INC T HOSPITAL OBEY - 9 9 [facility] T CRITICAL PLACIDO LUNA 9 9 [facility] HOSPITAL OFFICE 29808 [place] GANESH NANCE 9 9 KWAKU Armas T VISIT INTERNAL 15 MED MINUTES OFFICE 86256 [place] SHARITA ANDERSEN 8 8 Natalya AMES JR VISIT INTERNAL RAE F 15 MED MINUTES CRITICAL PLACIDO LUNA 8 8 [facility]PITAL CRITICAL PLACIDO ACCESS 8 8 [facility] OBEY - 8 8 [facility] OUTPATIEN INC T OFFICE 42096 [place] GANESH LUI 8 8 KWAKU Hoang VISIT INTERNAL 10 MED MINUTES
--- OUTSIDE RECORDS SUMMARY | 2017-06-08 05:19 | External Medical Summary Rpt ---
Author Author , LOULOU JAMIL Address Unknown Phone [email or web address] Care Team Providers Care Architect Manager Name Role Phone ALLRAN JR ROME, ALLRAN Unavailable Unavailable JR ROME ANYA FRA, ANYA Unavailable Unavailable FRA ANYA FRA, ANYA Unavailable Unavailable FRA RODRIGUEZ, RODRIGUEZ Unavailable Unavailable BESSON LJ, BESSON Unavailable Unavailable LJ BESSON LJ, BESSON Unavailable Unavailable LJ BESSON, ROBERT A, Unavailable Unavailable BESSON, ROBERT A [facility] Unavailable Unavailable [facility], [facility] MONTIEL, MONTIEL Unavailable Unavailable BORAL RADHA, BORAL RADHA Unavailable Unavailable [employer] Unavailable Unavailable INC, [employer] [facility] TOWNSEND, Unavailable Unavailable [facility], [...] CONTRERAS, Unavailable Unavailable CARLOS CONNELLY JENNIFER K [facility] Unavailable Unavailable INC, [facility] Unavailable Unavailable [facility]PITAL P, [facility] CLANCY ARLET, CLANCY Unavailable Unavailable ARLET CLANCY, TREVOR S, Unavailable Unavailable CLANCY, TREVOR S SANIA, JEFF, SANIA, Unavailable Unavailable CORIE BRASWELL Unavailable Unavailable [facility], Unavailable Unavailable [facility] AMOS TRA, AMOS TRA Unavailable Unavailable MICHAEL NAN, MICHAEL Unavailable Unavailable NAN MICHAEL NAN, MICHAEL Unavailable Unavailable NAN [facility] Unavailable Unavailable [facility], [facility] Unavailable Unavailable [facility], [facility] CHARANJIT, TEJA E, Unavailable Unavailable CHARANJIT, TEJA E [facility] Unavailable Unavailable INTERNAL MED, [facility] LINGREEN ARLET, Unavailable Unavailable LINGREEN ARLET MACIVOR DUN, MACIVOR Unavailable Unavailable DUN [facility] Unavailable Unavailable ASSOCIAT, [facility] MCKEMIE JR RENÉE, Unavailable Unavailable MCKEMIE JR RENÉE MCKEMIE JR CHINCHILLA, Unavailable Unavailable SHANICEMIE JR RENÉE SHERIFF JR RAE Unavailable Unavailable F, SHARITA DUGGAN RAE F [facility], PHOTO EDITOR [facility] Unavailable Unavailable [facility], [facility], PHOTO EDITOR [facility] LAURA SMITH, Unavailable Unavailable LAURA SMITH WILLIAM F, Unavailable Unavailable RAE MACIAS [facility], Unavailable Unavailable [facility] MOMO GRIFFITH, Unavailable Unavailable MOMO GRIFFITH MD Unavailable Unavailable [facility] Unavailable Unavailable LAB, [facility] DAMON SALMA, DAMON SALMA Unavailable Unavailable DAMON SLAMA, DAMON SALMA Unavailable Unavailable DAMON, CUONG, DAMON, Unavailable Unavailable CUONG PETTEY JAM, PETTEY Unavailable Unavailable JAM FELA DENISE, FELA Unavailable Unavailable DENISE NICOLE DASHA, Unavailable Unavailable LISASTPAOLO, DASHA MARINA ISMAEL, MARINA Unavailable Unavailable ISMAEL [facility], Unavailable Unavailable [facility], Unavailable Unavailable [facility] BURCH, BURCH Unavailable Unavailable BURCH POLLO, BURCH POLLO Unavailable Unavailable Purpose Continuity of Care Document - 11-12-2007 through 2016 Problems Code Diagnosis DOS Provider Status [id number] PAIN IN 03-05-2017 [facility] D509 IRON 12-24-2016 [facility] P UNSPECIFIED D631 ANEMIA IN 12-24-2016 [facility] DISEASE I129 HYPERTENSIV 12-24-2016 [facility] CKD [facility] W/STAGE 1-4 FOUNDATION CKD OR UNS CKD M8580 OTH SPEC 12-24-2016 [facility] D/O BONE SERV DENSITY [facility] STRUCTURE UNS SITE N184 CHRONIC 12-24-2016 [facility] DISEASE [facility] STAGE 4 SEVERE N250 RENAL 12-24-2016 [facility] OSTEODYSTRO [facility] PHY [facility] 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 L570 ACTINIC 12-04-2016 [facility] KERATOSIS [facility] PSC L820 INFLAMED 12-04-2016 DERMATOLOGY SEBORRHEIC KERATOSIS CONSULTANTS PSC L821 OTHER 12-04-2016 DERMATOLOG[facility] SEBORRHEIC KERATOSIS [facility]ANT[facility] P[facility] D649 ANEMIA 11-12-2016 [facility] P [id number] ADVERSE 10-28-2016 [facility] EFFECT [facility]ON [facility] INC COMPOUNDS INITIAL ENC 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-29-2016 [facility] OSTEOARTHRI S [facility] TIS LEFT KNEE R079 CHEST PAIN 09-01-2016 [place] [facility] J180 BRONCHOPNEU 05-15-2016 [facility] [place] UNSPECIFIED INTERNAL ORGANISM MED D638 ANEMIA IN 02-28-2016 [facility] OTHER [facility] CHRONIC [facility] DISEASES CLASSIFIED ELSW N183 CHRONIC 02-28-2016 [facility] DISEASE [facility] STAGE 3 MODERATE 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 11-19-2015 [facility] OF OTHER [place] SPECIFIED B INTERNAL GROUP MED VITAMINS M14826 EFFUSION 11-15-2015 [facility] Q06206 PAIN IN 11-15-2015 [facility] M7120 SYNOVIAL 11-15-2015 [place] CYST MEDICAL POPLITEAL IMAGING ASS SPACE BURNS UNS KNEE [id number] OTH TEAR 11-15-2015 [place] [facility] MENISCUS [...] VALLEY BLOOD&BLOOD INTERNAL FORM ORGN MED IMMUNE [facility] J0100 ACUTE 10-29-2015 [facility] MAXILLARY [place] SINUSITIS INTERNAL UNSPECIFIED MED M5432 SCIATICA 06-26-2015 [facility] LEFT SIDE [place] INTERNAL MED 2809 UNSPECIFIED 03-02-2015 [facility] IRON [facility] DEFICIENCY INC ANEMIA 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 2859 UNSPECIFIED 02-20-2015 [facility] ANEMIA PHYSICIANS GROUP 5533 DIAPHRAGMAT 02-20-2015 [facility] VIRGIL W/O PHYSICIANS MENTION GROUP OBSTRUCTION /GANGREN 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 5781 BLOOD IN 02-20-2015 [facility] STOOL PHYSICIANS GROUP 2808 OTHER 02-06-2015 [facility] SPECIFIED PHYSICIANS IRON GROUP DEFICIENCY ANEMIAS 33182 ANEMIA IN 09-28-2014 [facility] DISEASE 71905 HTN CKD UNS 09-28-2014 [facility] W/CKD SERV STAGE I FOUNDATION THRU STAGE IV/UNS 5853 CHRONIC 09-28-2014 [facility] DISEASE [facility] STAGE III (MODERATE) 5880 RENAL 09-28-2014 [facility] OSTEODYSTRO SERV PHY [facility] 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 DYSTROPHY 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 03-14-2014 DUDEE HANNAH VASCULAR APPEARANCE OF RETINA 89258 ANEMIA OF 11-24-2013 [facility] CHRONIC [facility] DISEASE 4019 UNSPECIFIED 11-24-2013 [facility] ESSENTIAL [facility] HYPERTENSIO [facility] N 2662 OTHER 06-13-2013 LEE ANN CALHOUN B-COMPLEX DEFICIENCIE S 2811 OTHER 06-06-2013 LEE ANN CALHOUN VITAMIN B12 DEFICIENCY [facility] V4364 HIP JOINT 04-05-2013 [employer], REPLACEMENT PHOTO EDITOR BY OTHER [facility] CO MEANS HOS V571 OTHER 04-05-2013 [employer], PHYSICAL PHOTO EDITOR THERAPY [facility] 98081 PAIN IN 03-23-2013 [facility] JOINT PELVIC REGION AND THIGH 7295 PAIN IN 03-23-2013 [employer], SOFT PHOTO EDITOR TISSUES OF [facility] LIM[facility] HOS 15218 SWELLING OF 03-23-2013 [facility] LIMB 78451 OTHER 03-23-2013 [employer], MALAISE AND PHOTO EDITOR FATIGUE [facility] 13426 ABDOMINAL 03-23-2013 [facility], PAIN RIGHT PHOTO EDITOR LOWER [facility] 42401 ABDOMINAL 03-23-2013 [facility], PAIN, LEFT PHOTO EDITOR LOWER [facility] 30365 ABDOMINAL 03-23-2013 [facility], TENDERNESS PHOTO EDITOR RIGHT LOWER [facility] 8479 SPRAIN AND 03-23-2013 [facility], STRAIN OF PHOTO EDITOR UNSPECIFIED [facility] CO SITE OF HOS BACK V4589 OTHER 03-23-2013 [facility], POSTSURGICA PHOTO EDITOR L STATUS [facility] CO OTHER HOS V5869 LONG-TERM 03-23-2013 [facility], (CURRENT) PHOTO EDITOR USE OF [facility] CO OTHER HOS MEDICATIONS 7823 EDEMA 03-22-2013 [facility], PH[facility] [place] [facility] 01479 OSTEOARTHRO 02-15-2013 MARINA ISMAEL S UNSPEC GEN/LOC PELV REGION&THIG H V5481 AFTERCARE 02-15-2013 ANYA FRA FOLLOWING JOINT REPLACEMENT 87912 COR 02-14-2013 FALLUJI YAMILETH ATHEROSLERO UNSPEC TYPE VESSEL [place]/JOSÉ MIGUEL T 80275 OTH 02-14-2013 FALLUJI YAMILETH NONSPECIFIC ABNORM CV SYSTEM FUNCTION STUDY V7283 OTHER 02-09-2013 [facility] PRE-OPERATI VE EXAMINATION V700 ROUTINE 02-01-2013 [facility] GENERAL MEDICAL EXAM@HEALTH CARE FACL V7284 UNSPECIFIED 01-31-2013 [facility] PRE-OPERATI VE EXAMINATION 4011 ESSENTIAL 01-20-2013 FALLUJI YAMILETH HYPERTENSIO N, BENIGN 96477 NONSPECIFIC 01-20-2013 FALLUJI YAMILETH ABNORMAL ELECTROCARD IOGRAM 3671 MYOPIA 12-22-2012 DUDEE HANNAH 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 3674 PRESBYOPIA 12-22-2012 DUDEE HANNAH 5939 UNSPECIFIED 09-28-2012 ENRIQUETA DISORDER BRITTANY OF KIDNEY AND URETER 86698 OTHER 09-08-2012 SHARITA DUGGAN SPECIFIED RENÉE CARDIAC DYSRHYTHMIA S 4293 CARDIOMEGAL 09-08-2012 RAMIRO VERAS Y 7802 SYNCOPE AND 09-08-2012 SHARITA DUGGAN COLLAPSE RENÉE 2724 OTHER AND 07-14-2012 MICHAEL CALLAHAN UNSPECIFIED HYPERLIPIDE JONE 61112 ESOPHAGEAL 07-14-2012 MICHAEL CALLAHAN REFLUX 8438 SPRAIN&STRA 07-14-2012 MICHAEL CALLAHAN IN OTHER SPECIFIED SITES HIP&THIGH 61208 PRIMARY LOC 01-30-2012 [facility] OSTEOARTHRO INC SIS PELVIC REGION&THIG H 7242 LUMBAGO 01-30-2012 [facility] 54564 DEGEN 12-30-2011 [place] 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 25093 SPINAL STEN 12-30-2011 PETTEY JAM 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 86074 DISPLCMT 12-11-2011 [place] LUMBAR [facility]ICAL INTERVERT IMAGING ASS DISC W/O MYELOPATHY 4553 EXTERNAL 12-08-2011 DAMON SALMA HEMORRHOIDS WITHOUT MENTION COMP 5693 HEMORRHAGE 12-08-2011 DAMON SALMA OF RECTUM AND ANUS 51746 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-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 99748 AFTER-CATAR 11-19-2011 DUDEE HANNAH ACT, OBSCURING VISION 04091 KERATOCONJU 11-19-2011 DUDEE HANNAH NCTIVITIS SICCA NOT SPEC SJOGRENS 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 05922 NUCLEAR 11-04-2011 DUDEE HANNAH SCLEROSIS 3670 HYPERMETROP 11-04-2011 [place] [address] VITREOUS 11-04-2011 DUDEE HANNAH DEGENERATIO N 4550 INTERNAL 11-04-2011 MICHAEL CALLAHAN HEMORRHOIDS WITHOUT MENTION COMP 7243 SCIATICA 09-29-2011 BESSON LJ 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 V7611 SCREENING 07-10-2010 [facility] MAMMOGRAM [facility] FOR [facility] PATIENT V7612 OTHER 07-10-2010 [facility] SCREENING RADIOLOGY MAMMOGRAM ASSOCIAT 7852 UNDIAGNOSED 05-07-2010 [facility] T[facility]RES CARDIAC [place]UR[place]URS CONSULTING SRV 04740 SHORTNESS 05-07-2010 [facility]RES OF BREATH CONSULTING SRV 4299 UNSPECIFIED 05-02-2010 [facility] DISEASE 14834 OTHER 05-02-2010 [facility] [place] DYSPNEA [place] [address] PAIN IN 02-11-2010 [facility] JOINT, MEM HOSP LOWER LEG INC 94687 DIAB W/O 02-04-2010 [facility] COMP TYPE MEM HOSP II/UNS NOT INC STATED UNCNTRL 5789 UNSPECIFIED 02-04-2010 [facility] HEMORRHAGE MEM HOSP OF INC GASTROINTES TINAL TRACT 76380 EFFUSION OF 01-15-2010 ENRIQUETA, LOWER LEG KHALIDA JOINT 52159 SYNOVIAL 01-15-2010 ENRIQUETA, CYST OF KHALIDA POPLITEAL SPACE 6271 POSTMENOPAU 10-31-2009 [facility] BLE[facility] 460 ACUTE 10-11-2009 [facility]OPHARYNG [facility]LEY ITIS INTERNAL MED 490 BRONCHITIS 10-11-2009 [facility] NOT VALLEY SPECIFIED INTERNAL ACUTE OR MED CHRONIC 38153 CALCU 04-30-2009 [facility], GALLBLADD DASHA W/OTH CHOLECYST W/O MENTION OBST 41062 CALCU 04-30-2009 [facility] GALLBLADD ANESTH OF W/O MENTION [facility] CHOLECYST/O BST 29977 CHRONIC 04-30-2009 PATHOLOGY & CHOLECYSTIT CYTOLOGY IS LAB 77296 ABDOMINAL 04-30-2009 SCH[facility], PAIN RIGHT DASHA UPPER QUADRANT 4139 OTHER AND 04-10-2009 NEW UNSPECIFIED [facility] [place] 29530 CORONARY 04-10-2009 [facility] OSIS [place] CORONARY ARTERY 48044 OTHER 04-10-2009 NEW PREMATURE [facility] PSC 5718 OTHER 03-27-2009 [facility] CHRONIC 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 ASSOCIATES PSC 68812 FIRST 03-24-2009 [facility] ATRIOVENTRI CULAR BLOCK 4280 CONGESTIVE 03-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 [facility] FAILURE UNSPECIFIED 5770 ACUTE 03-24-2009 [facility] PANCREATITI HOSPITAL S 4556 UNSPEC 03-05-2009 [facility] HEMORRHOIDS MEM HOS[facility] WITHOUT INC MENTION COMPLICATIO N 7019 UNSPECIFIED 03-05-2009 [facility] HYPERTROPHI INC C&ATROPHIC CONDITION SKIN 89266 CHEST PAIN 02-26-2009 [facility] UNSPECIFIED [facility] PROF SERV 7859 OTHER 02-23-2009 [facility] SYMPTOMS RADIOLOGY INVOLVING ASSOCIATES CARDIOVASCU PSC LAR SYSTEM V1589 OTH SPEC 05-15-2008 [facility] PRESENTING [facility]ZARDS HEALTH OTH 16436 UNSPECIFIED 03-01-2008 [facility] OSTEOPOROSI IMAGING S ASSOCIATES V7231 ROUTINE 02-10-2008 [facility] OF EXAMINATION [facility] 53323 HYPERTENSIV 12-22-2007 Odilon ROWELL S RETINOPATHY 0579 [...] Procedure DOS Code Location Performer Comment DUP-SCAN 64335 [place] MONTIEL XTR VEINS 7 MEDICAL IMAGING UNILATERA ASS L/LIMITED STUDY DESTRUCTI 74802 DERMATOLO DERMATOLO ON 7 GY GY PREMALIGN CONSULTAN CONSULTAN ANT TS [place] 1[place] [address] [facility] INFUSION 7 MEM HOSP MEM HOSP THERAPY/P INC INC ROPHYLAXI S /DX 1ST TO 1 [place] [address] [facility]Y INFUSION 7 MEM HOSP MEM HOSP THERAPY/P INC INC ROPHYLAXI S /DX 1ST TO 1 [place] [address] [facility]Y INFUSION 7 MEM HOSP MEM HOSP THERAPY/P INC INC ROPHYLAXI S /DX 1ST TO 1 HR INJECTION J3301 CHRIS FONTENOT 7 TRIAMCINO ORTHOPAED LONE ICS PSC ACETONIDE NOS 10 MG ARTHROCEN 50746 JEANCHANDAN LAMBERTIS 7 ASPIR&/IN ORTHOPAED ORTHOPAED J MAJOR ICS PSC ICS PSC JT/BURSA W/O US RADIOLOGI 92638 [place] ENRIQUETA C EXAM 7 MEDICAL CHEST 2 IMAGING VIEWS ASS FRONTAL&L ATERAL INJECTION J3301 CHRIS ESCOBAR 6 EN TRIAMCINO ORTHOPAED LONE ICS PSC ACETONIDE NOS 10 MG ARTHROCEN 16541 CHRIS ESCOBAR TESIS 6 EN ASPIR&/IN ORTHOPAED J MAJOR ICS PSC JT/BURSA W/O US RADIOLOGI 36426 CHRIS ESCOBAR C 6 EN EXAMINATI ORTHOPAED ON KNEE ICS PSC 1/2 VIEWS INJECTION J3420 [facility] BESSON VIT B-12 6 VALLEY LJ INTERNAL CYANOCOBA MED CHOCO TO 1000 MCG THERAPEUT 26462 [facility] BESSON IC 6 [place] LJ PROPHYLAC INTERNAL TIC/DX MED INJECTION SUBQ/IM MRI ANY 62801 [place] MONTIEL JT LOWER 6 MEDICAL EXTREM IMAGING W/O ASS CONTRAST MATRL PPSV23 50166 [facility] BESSON VACCINE 2 6 VALLEY LJ YRS OR INTERNAL OLDER FOR MED SUBQ/IM USE ANNUAL G0438 [facility] [place]ESS[facility] WELLNESS 6 [place] LJ VISIT; INTERNAL PERSONALI MED Z PPS INIT VISIT COLLECTIO 98283 [facility] BESSON N VENOUS 6 [facility] BLOOD INTERNAL VENIPUNCT MED URE ADMINISTR G0009 [facility] BESSON ATION OF 6 [place] LJ PNEUMOCOC INTERNAL TERRANCE MED VACCINE THERAPEUT 29180 [facility] RODRIGUEZ IC 6 VALLEY PROPHYLAC INTERNAL TIC/DX MED INJECTION SUBQ/IM INJECTION J3301 [facility] RODRIGUEZ 6 VALLEY TRIAMCINO INTERNAL LONE MED ACETONIDE NOS 10 [place] [address] [facility] INFUSION 5 MEM HOSP MEM HOSP THERAPY/P INC INC ROPHYLAXI S /DX 1ST TO 1 [place] [address] [facility] INFUSION 5 MEM HOSP MEM HOSP THERAPY/P INC INC ROPHYLAXI S /DX 1ST TO 1 HR COLSC FLX 03467 [facility] W/RMVL 5 MEM HOSP MEM HOSP OF TUMOR INC INC POLYP LESION SNARE TQ EGD 57778 [facility] TRANSORAL 5 MEM HOSP MEM HOSP BIOPSY [place] INC SINGLE/[place] [address] [facility] INFUSION 5 MEM HOSP MEM HOSP THERAPY INC [place] [address] [facility] INFUSION 5 MEM HOSP MEM HOSP THERAPY/P INC INC ROPHYLAXI S /DX 1ST [place] [address] [facility] INFUSION 5 MEM HOSP MEM HOSP THERAPY/P INC INC ROPHYLAXI S /DX 1ST TO 1 [place] [address] [facility] INFUSION 5 MEM HOSP MEM HOSP THERAPY/P INC INC ROPHYLAXI S /DX 1ST [place] [address] [facility] INFUSION 5 MEM HOSP MEM HOSP THERAPY/P INC INC ROPHYLAXI S /DX 1ST TO 1 HR TRANSFUSI 35687 [facility] ON 5 MEM [facility]OS[facility] MEM HOSP BLOOD/BLO INC INC OD COMPONENT S TRANSFUSI 32563 [facility] ON 4 MEM HOSP MEM HOSP BLOOD/BLO INC INC OD COMPONENT S ANTIBODY 66695 [facility] SCREEN 4 MEM HOSP MEM HOSP RBC EACH INC INC SERUM TECHNIQUE OPHTH 42792 DUDEE HANNAH DUDEE HANNAH MEDICAL 4 XM&EVAL INTERMEDI ATE ESTAB PT COMPUTERI 33733 DUDEE HANNAH DUDEE HANNAH ZED 4 OPHTHALMI C IMAGING OPTIC NERVE VISUAL 30868 DUDEE HANNAH DUDEE HANNAH FIELD XM 4 UNI/BI W/INTERP EXTENDED EXAM OPHTH 47022 DUDEE HANNAH DUDEE HANNAH MEDICAL 4 XM&EVAL COMPRHNSV ESTAB PT 1/> COMPUTERI 95201 DUDEE HANNAH DUDEE HANNAH ZED 4 [place] [address] [facility]Y INFUSION 4 MEM HOSP MEM HOSP THERAPY/P INC INC ROPHYLAXI S /DX 1ST [place] [address] [facility]BEY INFUSION 4 MEM HOSP MEM HOSP THERAPY/P INC INC ROPHYLAXI S /DX 1ST TO [place] [address] [facility]BEY INFUSION 4 MEM HOSP MEM HOSP THERAPY/P INC INC ROPHYLAXI S /DX 1ST [place] [address] [facility]Y INFUSION 4 MEM HOSP MEM HOSP THERAPY/P INC INC ROPHYLAXI S /DX 1ST TO 1 HR IM ADM 11325 BESSON BESSON PRQ ID 3 LJ LJ SUBQ/IM NJXS 1 VACCINE IM ADM 70578 BESSON BESSON PRQ ID 3 LJ LJ SUBQ/IM NJXS 1 VACCINE IM ADM 46264 BESSON BESSON PRQ ID 3 LJ LJ SUBQ/IM NJXS 1 VACCINE THERAPEUT 15379 [employer], [employer], IC PX 1/> 3 PHOTO EDITOR PHOTO EDITOR AREAS PLACIDO PLACIDO EACH 15 CO HOS CO HOS MIN EXERCISES THERAPEUT 36309 [employer], IC PX 1/> 3 PHOTO EDITOR PHOTO EDITOR AREAS PLACIDO PLACIDO EACH 15 CO HOS CO HOS MIN EXERCISES THERAPEUT 00951 [employer], IC PX 1/> 3 PHOTO EDITOR PHOTO EDITOR AREAS PLACIDO PLACIDO EACH 15 CO HOS CO HOS MIN EXERCISES THERAPEUT 87360 [employer], IC PX 1/> 3 PHOTO EDITOR PHOTO EDITOR AREAS PLACIDO PLACIDO EACH 15 CO HOS CO HOS MIN EXERCISES THERAPEUT 36019 [employer], [employer], IC PX 1/> 3 PHOTO EDITOR PHOTO EDITOR AREAS PLACIDO PLACIDO EACH 15 CO HOS CO HOS MIN EXERCISES RADEX HIP 33983 [employer], [employer], 3 PHOTO EDITOR PHOTO EDITOR UNILATERA PLACIDO PLACIDO L CO HOS CO HOS COMPLETE MINIMUM 2 VIEWS DUP-SCAN 31056 [employer], [employer], XTR VEINS 3 PHOTO EDITOR PHOTO EDITOR COMPLETE PLACIDO PLACIDO CO HOS CO HOS BILATERAL STUDY D BANK 19192 MACIVOR MACIVOR PHYS SVCS 3 DUN DUN DIFFC CROSS MATCH&/EV AL REP DECALCIFI 12819 MARINA MARINA CATION 3 ISMAEL ISMAEL PROCEDURE ARTHRP 04509 AMBER LUZ ACETBLR/P 3 EN CHR EN CHR TALA FEM PROSTC AGRFT/ALG RFT RADIOLOGI 50848 ANYA ANYA C 3 FRA FRA EXAMINATI ON PELVIS 1/2 VIEWS CATH PLMT 69811 FALLUJI FALLUJI L HRT & 3 YAMILETH YAMILETH ARTS W/NJX & ANGIO IMG S&I ANTIBODY 49510 [facility] UNIVERS ID RBC 3 Y Y ANTIBODIE [facility] S EA PANEL EA SERUM TQ ANTIBODY 94473 [facility] SCREEN 3 Y Y RBC [facility] SERUM TECHNIQUE BLD BANK 30692 BORAL RADHA BORAL RADHA PHYS SVCS 3 DIFFC CROSS MATCH&/EV AL REP URNLS DIP 54771 BESSON BESSON 3 LJ LJ STICK/TAB LET RGNT NON-AUTO W/O MICRSCP ECG 95838 LEE ANN CARNESSON ROUTINE 3 LJ LJ ECG W/LEAST 12 LDS W/I&R ECG 58744 FALLUJI FALLUJI ROUTINE 3 YAMILETH YAMILETH ECG W/LEAST 12 LDS W/I&R CV STRS 40625 FALLUJI FALLUJI TST 3 YAMILETH YAMILETH XERS&/OR RX CONT ECG I&R ONLY CV STRS [address] XERS&/OR RX CONT ECG TRCG ONLY MYOCARDIA [address] MULTIPLE STUDIES OPHTHALMO 08319 SORIN ELT SORIN YOUNG SCPY 3 EXTENDED RETINAL DRAWING I&R [facility] 69117 [facility] RETROPERI 3 MEM HOSP MEM HOSP TONEAL INC INC REAL TIME W/IMAGE COMPLETE HOSPITAL 41976 SHARITA SHERIFF DISCHARGE 3 JR RENÉE CHINCHILLA DAY MANAGEMEN T 30 MIN/< RADIOLOGI 84538 RAMIRO RUBIO C 3 [facility] CHEST SINGLE VIEW FRONTAL ECG 95014 SHARITA SHERIFF ROUTINE 3 JR RENÉE CHINCHILLA ECG W/LEAST 12 LDS I&R ONLY APPLICATI 41132 [facility] ON 2 MEM [facility] MEM HOSP MODALITY INC INC 1/> AREAS HOT/COLD PACKS THERAPEUT 47280 [facility] IC PX 1/> 2 MEM HOSP MEM HOSP AREAS INC INC EACH 15 MIN EXERCISES E-STIM G0283 [facility] 1/> AREAS 2 MEM HOSP MEM HOSP OTH THAN INC INC WND CARE PART TX PLAN E-STIM G0283 [facility] 1/> AREAS 2 MEM HOSP MEM HOSP OTH THAN INC INC WND CARE PART TX PLAN THERAPEUT 38999 [facility] IC PX 1/> 2 MEM HOSP MEM HOSP AREAS INC INC EACH 15 MIN EXERCISES APPLICATI 27428 [facility] ON 2 MEM HOSP MEM HOSP MODALITY INC INC 1/> AREAS HOT/COLD PACKS APPLICATI 11318 [facility] ON 2 [facility] 1/> AREAS HOT/COLD PACKS THERAPEUT 50069 [facility] IC PX 1/> 2 [facility] INC EACH 15 MIN EXERCISES E-STIM G0283 [facility] 1/> AREAS 2 [facility]AN INC INC WND CARE PART TX PLAN E-STIM G0283 [facility] 1/> AREAS 2 [facility] INC INC WND CARE PART TX PLAN THERAPEUT 20278 [facility] IC PX 1/> 2 [facility] INC INC EACH 15 MIN EXERCISES APPLICATI 30710 [facility] ON 2 [facility] INC 1/> AREAS HOT/COLD PACKS APPLICATI 34723 [facility] ON 2 [facility] INC 1/> AREAS HOT/COLD PACKS THERAPEUT 51889 [facility] IC PX 1/> 2 [facility] INC INC EACH 15 MIN EXERCISES E-STIM G0283 [facility] 1/> AREAS 2 [facility] INC INC WND CARE PART TX PLAN APPLICATI 97534 [facility] ON 2 [facility] MODALITY INC INC 1/> AREAS HOT/COLD PACKS E-STIM G0283 [facility] 1/> AREAS 2 [facility] O[facility] THAN INC INC WND CARE PART TX PLAN THERAPEUT 68250 [facility] IC PX 1/> 2 MEM [...] INC WND CARE PART TX PLAN RADEX 13442 [facility] SPINE 2 [facility] LUMBOSACR INC INC AL MINIMUM 4 VIEWS 3D 59677 [place] [facility] RENDERING 2 [facility] W/INTERP IMAGING & ASS POSTPROCE SS SUPERVISI ON MRI 59151 [place] [facility] SPINAL 2 [facility] CANAL IMAGING LUMBAR ASS W/O CONTRAST MATERIAL MRI 00393 [place] PELVIS 2 [facility] W/O IMAGING CONTRAST ASS MATERIAL COLONOSCO 16676 DAMON SALMA DAMON SALMA PY FLX DX 2 W/COLLJ SPEC WHEN PFRMD THERAPEUT 32199 MICHAEL NUÑEZ IC 2 NAN ARLET PROPHYLAC TIC/DX INJECTION SUBQ/IM DETERMINA 50698 [facility]DE[facility] HANNA[facility] DUDEE HANNAH TION 2 REFRACTIV E STATE OPHTH 75643 DUDEE HANNAH DUDEE HANNAH MEDICAL 2 XM&EVAL COMPRE NEW PT 1/> VST OPHTHALMO 12891 DUDEE HANNAH DUDEE HANNAH SCPY 2 EXTENDED RETINAL DRAWING I&R 1ST THERAPEUT 66980 LEE ANN NANCE IC 2 LJ LJ PROPHYLAC TIC/DX INJECTION SUBQ/IM COMPREHEN 62029 COMBINED COMBINED SIVE 1 PHYSICIAN PHYSICIAN METABOLIC S LA S LA PANEL LIPID 25776 COMBINED COMBINED PANEL 1 PHYSICIAN PHYSICIAN S LA S LA LIPID 14245 COMBINED COMBINED PANEL 1 PHYSICIAN PHYSICIAN S LA S LA COMPREHEN 54024 COMBINED COMBINED SIVE 1 PHYSICIAN PHYSICIAN METABOLIC S LA S LA PANEL BLOOD 40194 COMBINED COMBINED COUNT 1 PHYSICIAN PHYSICIAN COMPLETE S LA S LA AUTO&AUTO DIFRNTL WBC SCREENING 09288 [facility]IL[facility] E[facility] 04292 PREET TORRES TORRES PREET TTHRC R-T 0 MD 2D CONSULTIN W/WOM-MOD G SRV E COMPL SPEC&COLR D ECHO 54753 [facility] TTHRC R-T 0 CO CO [address] [place] [address] W/WOM-MOD E COMPL SPEC&COLR D SPMTRY 58356 [facility] W/VC 0 [facility]/WO MXML VOL VNTJ RADIOLOGI 76633 [facility] C EXAM 0 CO CO CHEST [address] [place] [address] VIEWS FRONTAL&L ATERAL THERAPEUT 30365 [facility] IC PX 1/> 0 [facility] INC INC EACH 15 MIN EXERCISES APPL 08733 [facility] MODALITY 0 [facility] 1/> AREAS INC INC ULTRASOUN D EA 15 MIN E-STIM G0283 [facility] 1/> AREAS 0 [facility] O[facility] TH[facility] INC INC WND CARE PART TX PLAN E-STIM G0283 [facility] 1/> AREAS 0 [facility] INC INC WND CARE PART TX PLAN THERAPEUT 06025 [facility] IC PX 1/> 0 [facility] INC INC EACH 15 MIN EXERCISES APPL 17505 [facility] [facility]/> AREAS INC INC ULTRASOUN D EA 15 MIN APPL 58472 [facility]ALITY 0 [facility]/> AREAS INC INC ULTRASOUN D EA 15 MIN THERAPEUT 10557 OBEY [facility] IC PX 1/> 0 [facility] AREAS INC INC EACH 15 MIN EXERCISES E-STIM G0283 [facility] 1/> AREAS 0 [facility] OTH THAN INC INC WND CARE PART TX PLAN E-STIM G0283 [facility] 1/> AREAS 0 [facility] OTH THAN INC INC WND CARE PART TX PLAN THERAPEUT 90940 O[facility] IC PX 1/> 0 [facility] AREAS INC INC EACH 15 MIN EXERCISES APPL 48927 [facility] MODALITY 0 [facility] 1/> AREAS INC INC ULTRASOUN D EA 15 MIN APPL 24974 [facility] MODALITY 0 [facility] 1/> AREAS INC INC ULTRASOUN D EA 15 MIN PHYSICAL 11297 [facility] THERAPY 0 [facility] EVALUATIO INC INC N E-STIM G0283 [facility] 1/> AREAS 0 [facility] OTH THAN INC INC WND CARE PART TX PLAN BLOOD 79548 [facility] COUNT 0 [facility] COMPLETE INC INC AUTO&AUTO DIFRNTL WBC CYANOCOBA 03947 [facility] CHOCO 0 [facility] VITAMIN INC INC B-12 [place] [address] [facility] FERRITIN 0 [facility] INC INC IRON 05910 O[facility] BINDING 0 [facility] [place] [address] [facility] FOLIC 0 [facility] [place] [address] [facility] IRON 0 [facility] INC INC COLLECTIO 04750 O[facility] N VENOUS 0 [facility] BLOOD INC INC VENIPUNCT URE COMPREHEN 73028 [facility] SIVE 0 [facility] METABOLIC INC [place] PANEL [place] ANY 72624 ENRIQUETA ROBISON, AliseT LOWER 0 KHALIDA KHALIDA EXTREM W/O CONTRAST MATRL ENDOMETRI 60008 [facility]SE[facility] RUBIO BX 0 [facility] W/WO [facility]IN[facility] OF ENDOCERVI X BX W/O [place] DILAT SPX PLLC CYTP 10984 WINNIE ZHOU SLCTV 0 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 IES INC IES INC ENHANCEME NT INTERPJ XCPT C/V SPCL STN 77946 WINNIE FAUSTCK 2 I&R 0 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 IES INC IES INC MICROORG/ ENZYME/IM CYT IM ADM 73108 [place] MCKEMIE PRQ ID 0 KWAKU CHINCHILLA SUBQ/IM INTERNAL NJXS 1 MED VACCINE INJECTION J3301 [facility] MCKEMIE 0 KWAKU CHINCHILLA TRIAMCINO INTERNAL LONE MED ACETONIDE NOS 10 MG SCREENING 26333 PLACIDO VELÁSQUEZS 9 CO [facility] HY BILATERAL LEVEL III 21640 PATHOLOGY PATHOLOGY SURG 9 & & PATHOLOGY CYTOLOGY CYTOLOGY LAB LAB GROSS&LALO ROSCOPIC EXAM LAPAROSCO 35878 NICOLE RIVERA PY SURG 9 , DASHA , [place] [address] O[facility] INFUSION 9 [facility] HOSP THERAPY INC [place] [address] O[facility] INFUSION 9 [facility] HOSP THERAPY/P INC INC ROPHYLAXI S /DX 1ST TO 1 HR ANES 39712 [facility], INTRAPERI 9 ANESTH RAE F TONEAL OF THE UPPER BLUEGRASS ABDOMEN W/LAPS NOS THERAPEUT 85772 OBEY [facility] IC 9 [facility] HOSP INJECTION INC INC IV PUSH EACH NEW DRUG ECG 34490 OBEY DONOHUE, ROUTINE 9 [facility] W/LEAST PROF SERV 12 LDS I&R ONLY ECG 65223 OBEY [facility] ROUTINE 9 [facility] HOSP ECG INC INC W/LEAST 12 LDS TRCG ONLY W/O I&R BASIC 94697 OBEY [facility] METABOLIC 9 [facility]OSP PANEL INC INC CALCIUM TOTAL COLLECTIO 84898 OBEY [facility] N VENOUS 9 [facility] HOSP BLOOD INC INC VENIPUNCT URE BLOOD 54830 OBEY [facility] COUNT 9 [facility] HOSP COMPLETE INC INC AUTO&AUTO DIFRNTL WBC SODIUM [address] PLASMA OR WHOLE BLOOD GLUCOSE 38625 [facility] QUANTITAT [address] [place] [address] FRANCISCO JAVIER BLOOD XCPT REAGENT STRIP CREATININ 59762 [facility] E BLOOD [address] [place] [address] POTASSIUM 95078 [facility] SERUM [address] [place] [address] PLASMA/WH OLE BLOOD COLLECTIO 75036 [facility] N VENOUS [address] [place] [address] [place] [address] [facility] UREA [address] [place] [address] NITROGEN QUANTITAT FRANCISCO JAVIER BLOOD 04740 [facility] COUNT [address] [place] [address] HEMATOCRI T CHLORIDE 30964 [facility] BLD [address] [place] [address] B[address] PLATELET AUTOMATED PLCMT G0269 [facility] OCCL DEVC [address] [place] [address] RAYMOND/ART POST SURG/INTR VNL PROC CLOSURE C1760 [facility] DEVICE [address] [place] [address] VASCULAR INTRDUCR/ C1894 [facility] SHEATH [address] [place] [address] NOT GUID INTRACARD EP NON-LASR ECG 20249 [facility] ROUTINE [address] [place] [address] ECG W/LEAST 12 LDS TRCG ONLY W/O I&R INJECTION 53877 [facility] CARDIAC [address] [place] [address] CATHJ L VENTR/L ATR ANGIOGRAP H ECG 47002 [facility], ROUTINE 9 [facility] ECG CLINIC W/LEAST PSC 12 LDS I&R ONLY L HRT 91294 [facility] CATHETERI [address] [place] [address] ZATION [place] [address] [facility] C-CATHJ [address] [place] [address] F/SLCTV C ANGRPH I SI&R 28016 [facility] F/NJX PX [address] [place] [address] DURING C-CATHJ VENTR&/AT R ANGRPH I SI&R 65067 [facility] F/NJX PX [address] [place] [address] DURING C-CATHJ PULM&/OR SELECT COMPREHEN 28237 OBEY [facility] SIVE 9 [facility] [address] PLACIDO CUMMINS ABDOMINAL 9 [facility] TIME W/IMAGE DOCUMENTA TION COLLECTIO 79990 O[facility] N VENOUS 9 [facility] BLOOD INC INC VENIPUNCT URE BLOOD 56682 O[facility]Y [facility] COUNT 9 [facility] COMPLETE INC INC AUTO&AUTO DIFRNTL WBC BLOOD 70713 PL[facility]O CUMMINS COUNT 9 [facility] AUTO&AUTO DIFRNTL WBC COLLECTIO 00910 PL[facility]O Orr VENOUS 9 [facility]ITAL VENIPUNCT URE CULTURE 11987 PL[facility]O CUMMINS BACTERIAL 9 [facility] QUANTTATI VE COLONY COUNT URINE URNLS DIP 80853 PLACIDO CUMMINS 9 [facility] STICK/TAB [facility] HOSPITAL LET REAGENT AUTO MICROSCOP Y ECG 53972 PLACIDO CUMMINS ROUTINE 9 [facility] ECG [facility] HOSPITAL W/LEAST 12 LDS TRCG ONLY W/O I&R COMPREHEN 39938 PLACIDO CUMMINS SIVE 9 [facility]IC [facility] HOSPITAL PANEL URNLS DIP 55647 PLACIDO CUMMINS 9 CO [facility] STICK/TAB [facility] HOSPITAL LET REAGENT AUTO MICROSCOP Y COLLECTIO 25441 PLACIDO Orr VENOUS 9 [facility]LOOD [facility] [place] [address] PLACIDO CUMMINS AMYLASE 9 CO [facility] HOSPITAL CREATINE 10227 PLACIDO CUMMINS KINASE MB 9 CO [facility] FRACTION [facility] HOSPITAL ONLY CREATINE 18125 PLACIDO CUMMINS KINASE 9 CO [facility] TOTAL [facility] HOSPITAL HOSPITAL G0378 PLACIDO CUMMINS OBSERVATI 9 CO [facility] [place] [address] PLACIDO CUMMINS LIPASE 9 CO [facility] MYOGLOBIN 21166 PLACIDO CUMMINS 9 [place] [address] [facility]O CUMMINS TROPONIN 9 [facility] QUANTITAT [facility] HOSPITAL FRANCISCO JAVIER BLOOD 04512 [facility] VAIL 9 [facility]TE [facility] HOSPITAL AUTO&AUTO DIFRNTL WBC RADIOLOGI 67161 PLACIDO CUMMINS C EXAM 9 CO CO CHEST 2 HOSPITAL HOSPITAL VIEWS FRONTAL&L ATERAL ECG 73793 PATEL NANCE, ROUTINE 9 [facility] ECG INTERNAL W/LEAST MED 12 LDS I&[place] [address] PLACIDO CUMMINS INFUSION 9 [facility] INITIAL 31 MIN-1 [place] [address] OBEY [facility] INFUSION 9 [facility] THERAPY/P INC INC ROPHYLAXI S /DX 1ST TO 1 [place] [address] PATHOLOGY PATHOLOGY SURG 9 & & PATHOLOGY CYTOLOGY CYTOLOGY LAB LAB GROSS&LALO ROSCOPIC EXAM COLSC FLX 04401 [place] DAMON, 9 MEDICAL CUONG W/REMOVAL SERV [place] [address] OBEY [facility] INFUSION 9 [facility] THERAPY INC INC PROPHYLAX IS/DX EA HOUR CV STRS 26109 OBEY NANCE, TST 9 [facility] RX CONT PROF SERV ECG W/O I&R CV STRS 91156 O[facility] TST 9 [facility] XERS&/OR INC INC RX CONT ECG TRCG ONLY MYOCRD 42094 [facility] FALLUJI, PRFUJ IMG 9 PHYSICIAN FRANKIE MANSFIELD S GROUP SPECT SUPERVISOR GROWER STD MYOCRD 81156 [facility] FALLUJI, PRFUJ STD 9 PHYSICIAN FRANKIE Taylor EJEC FXJ S GROUP MYOCRD 74056 [facility] FALLUJI, PRFUJ STD 9 PHYSICIAN FRANKIE DAMON S GROUP MOTION QUAL/ROBERT STD TECHNETIU A9502 OBEY Taylor TC-99M 9 [facility] TETROFOSM INC INC IN DX PER STUDY DOSE INJECTION J0152 OBEY [facility] 9 [facility] HOSP ADENOSINE INC INC DIAGNOSTI C USE 30 MG CV STRS 20227 OBEY NANCE, TST 9 [facility] RX CONT PROF SERV ECG I&R ONLY DUPLEX 69711 MARLENE CLANCY, ZA 9 TREVOR Henry EXTRACRAN RADIOLOGY IAL ART COMPL BI ASSOCIATE STUDY S PSC LIPID 64863 PL[facility]O CUMMINS PANEL 9 [facility] COMPREHEN 01097 PLACIDO CUMMINS SIVE 9 [facility] [place] [address] PLACIDO CUMMINS THYROID 9 [facility] COLLECTIO 18988 PLACIDO CUMMINS N VENOUS 9 CO DC BLOOD [facility] VENIPUNCT URE BLOOD 93456 PLACIDO CUMMINS COUNT 9 CO [facility] AUTO&AUTO DIFRNTL WBC SCREENING 34314 MARLENE CLANCY 8 TREVOR Henry MAMMOGRAP RADIOLOGY HY BILATERAL ASSOCIATE S PSC DXA BONE 06035 O[facility]Y [facility] DENSITY 8 [facility] STUDY / INC INC SITES AXIAL SKEL CERV/VAGI G0101 [facility] NAL 8 [employer] [facility]; PELV&[facility]IN [facility] EXAM SCREEN Q0091 [facility] PAP 8 [facility] ROMAN SMEAR; CLINIC OF OBTAIN PREP &C [place] ONVEY [facility] LAB OPHTHALMO 67206 SORIN ROWELL SCPY 8 LEEANN BRADSHAW EXTENDED S S RETINAL DRAWING I&R [facility] OPHTH 80198 SORIN ROWELL MEDICAL 8 LEEANN BRADSHAW XM&EVAL S S COMPRHNSV ESTAB PT Encounters Encounter Start End Date Code Location Performer Type Date OFFICE 82052 [facility] OUTPATIEN 7 7 MEDICAL T VISIT SERV 25 FOUNDATIO MINUTES N OFFICE 32657 OBEY ROLDAN JR OUTPATIEN 7 7 [facility] T VISIT HOSPITAL 10 P MINUTES OFFICE 45095 OBEY RODAS OUTPATIEN 7 7 [facility] T VISIT HOSPITAL 10 P MINUTES HOSPITAL OBEY - 7 7 [facility] OBEY - 7 7 [facility] OUTPATIEN [facility] OBEY - 7 7 [facility] OUTPATIEN [facility] T OFFICE 55713 OBEY ADRIANNA OUTPATIEN 7 7 [facility] 10 P MINUTES OFFICE 18760 [place] RODRIGUEZ OUTPATIEN 6 6 [facility] T VISIT INTERNAL 15 MED MINUTES OFFICE 80564 AL ABAD OUTPATIEN 6 6 MEDICAL T VISIT SERV 25 FOUNDATIO MINUTES N OFFICE 02463 [facility] OUTPATIEN 6 6 EN T VISIT ORTHOPAED 15 ICS PSC MINUTES HOSPITAL OBEY - 6 6 [facility] OUTPATIEN INC T OFFICE 69129 [place] BESSON OUTPATIEN 6 6 [facility] T VISIT INTERNAL 25 MED MINUTES OFFICE 94936 [place] RODRIGUEZ OUTPATIEN 6 6 [facility] T VISIT INTERNAL 15 MED MINUTES OFFICE 71155 [place] [facility] OUTPATIEN 5 5 [facility] T VISIT [facility]NAL 15 MED MINUTES HOSPITAL OBEY - 5 5 [facility] OUTPATIEN INC HOSPITAL OBEY - 5 5 [facility] OUTPATIEN INC [facility]OSPITAL OBEY - 5 5 [facility] OUTPATIEN INC HOSPITAL OBEY - 5 5 [facility] OUTPATIEN INC HOSPITAL OBEY - 5 5 [facility] OUTPATIEN INC T OFFICE 25440 [facility] YESI OUTPATIEN 5 5 [facility] OBEY - 5 5 [facility] OUTPATIEN INC HOSPITAL OBEY - 5 5 [facility] OUTPATIEN INC T OFFICE 81501 OBEY ADRIANNA OUTPATIEN 5 5 [facility] MINUTES HOSPITAL OBEY - 5 5 [facility] OUTPATIEN INC T OFFICE 51720 AL ABAD OUTPATIEN 5 5 MEDICAL T VISIT SERV 25 FOUNDATIO MINUTES N HOSPITAL OBEY - 4 4 [facility] OUTPATIEN [facility] OBEY - 4 4 [facility] OUTPATIEN [facility] OBEY - 4 4 [facility] OBEY - 4 4 [facility] OUTPATIEN [facility] OBEY - 4 4 [facility] OUTPATIEN [facility] OBEY - 4 4 [facility] OUTPATIEN [facility] T OFFICE 57043 AL ABAD OUTPATIEN 4 4 MEDICAL T VISIT SERV 25 FOUNDATIO MINUTES N CRITICAL MHC INC, ACCESS 3 3 [facility] HOS EMERGENCY 65886 [employer] [facility], 3 3 [facility] VISIT CO HOS MODERATE SEVERITY CRITICAL [facility], ACCESS 3 3 [facility] CRITICAL MHC INC, ACCESS 3 3 [facility] UNIVERSIT - 3 3 [facility] [address] 3 [facility] OBEY - 3 3 MEM H[facility]P OUTPATIEN [facility] T OFFICE 68851 MARCIN ABAD OUTPATIEN 3 3 T NEW 60 MINUTES OFFICE 81625 [facility] 2 NAN NAN T VISIT 15 MINUTES HOSPITAL OBEY - 2 2 [facility] OUTPATIEN [facility] OBEY - 2 2 [facility] OUTPATIEN [facility] OBEY - 2 2 [facility] OUTPATIEN [facility] T OFFICE 63897 MICHAEL RODRIGUEZ OUTPATIEN 2 2 SINDY CALLAHAN T VISIT 15 MINUTES OFFICE 09937 MICHAEL RODRIGUEZ OUTPATIEN 2 2 SINDY CALLAHAN T VISIT 15 MINUTES OFFICE 90773 LEE ANN LEE ANN OUTPATIEN 2 2 LJ CALHOUN T VISIT 15 MINUTES CRITICAL PLACIDO ACCESS 0 0 [facility] CRITICAL PLACIDO ACCESS 0 0 [facility] OFFICE 79428 [place] DAM[place] SALMA OUTPATIEN 0 0 MEDICAL T VISIT SERV 15 FOUNDATIO MINUTES HOSPITAL OBEY - 0 0 [facility] OUTPATIEN INC T OFFICE 11062 [facility] TRA OUTPATIEN 0 0 [place] T NEW 45 ORTHOPAED MINUTES [facility] OBEY - 0 0 [facility] OUTPATIEN INC T OFFICE 92503 [place] DAMON, OUTPATIEN 0 0 MEDICAL CUONG T VISIT SERV 15 FOUNDATIO MINUTES OFFICE 67028 [place] MCKEMIE OUTPATIEN 0 0 KWAKU CHINCHILLA T VISIT INTERNAL 15 MED MINUTES CRITICAL PLACIDO ACCESS 9 9 [facility] OBEY - 9 9 [facility] OUTPATIEN [facility] CAMANCHE - 9 9 [facility] OUTPATIEN INC T OFFICE 04203 NICOLE RIVERA CONSULTAT 9 9 , DASHA LOU ION NEW/ESTAB PATIENT 60 MIN OFFICE 34801 [place] BESS[facility], OUTPATIEN 9 9 [facility] [place] [facility] A T VISIT INTERNAL [address] COMPA - [facility] HOSPITAL OUTPATIEN T OFFICE 02647 [place] [facility], OUTPATIEN 9 9 [facility] A T VISIT INTERNAL 15 MED MINUTES CRITICAL PLACIDO ACCESS 9 9 [facility] EMERGENCY 40446 PLACIDO 9 9 [facility] T VISIT LIMITED/M INOR PROB EMERGENCY 84723 PLACIDO CHAHAL 9 9 [facility] T VISIT MODERATE SEVERITY CRITICAL PLACIDO LUNA 9 9 [facility] OFFICE 83354 [facility] SMITA CONTRERAS 9 9 PHYSICIAN FRANKIE Henry GROUP NEW/ESTAB PATIENT 60 MIN HOSPITAL OBEY - 9 9 [facility] OUTPATIEN INC T HOSPITAL OBEY - 9 9 [facility] OUTPATIEN [facility] T CRITICAL PLACIDO LUNA 9 9 [facility] OFFICE 92232 [place] GANESH NANCE 9 9 KWAKU Armas T VISIT INTERNAL 15 MED MINUTES OFFICE 46594 [place] SHARITA ANDERSEN 8 8 Natalya AMES JR VISIT INTERNAL RAE F 15 MED MINUTES CRITICAL PLACIDO LUNA 8 8 [facility] CRITICAL PLACIDO ACCESS 8 8 [facility] OBEY - 8 8 [facility] OUTPATIEN INC T OFFICE 66531 [place] GANESH LUI 8 8 KWAKU Hoang VISIT INTERNAL 10 MED MINUTES
--- OUTSIDE RECORDS SUMMARY | 2017-06-08 05:20 | External Medical Summary Rpt ---
Author Author , ADRIANNE JAMIL Address Unknown Phone [email or web address] Immunization Name Date Rout CVX Reac Dose Comm Prov Is Faci e tion ent ider Refu lity Give sed n PCV1 09-1 Intr 133 0.5 Hist PD20 No PD20 3 4-20 amus mL oric 256 256 17 cula al r Info rmat ion - Sour ce Unsp ecif ied
--- OUTSIDE RECORDS SUMMARY | 2017-06-08 05:20 | External Medical Summary Rpt ---
Author Author , ADRIANNE JAMIL Address Unknown Phone [email or web address] Immunization Name Date Rout CVX Reac Dose Comm Prov Is Faci e tion ent ider Refu lity Give sed n PCV1 09-1 Intr 133 0.5 Hist PD20 No PD20 3 4-20 amus mL oric 256 256 17 cula al r Info rmat ion - Sour ce Unsp ecif ied
== END 2017-05-11 10:50 | disposition home or self-care (01) ==
LOC: ER 17:05 → 2ND 19:35
PROVIDERS: Emergency Medicine
DX: S30.1XXA Contusion of abdominal wall, initial encounter (principal); W01.190A Fall on same level from slipping, tripping and stumbling with subsequent striking against furniture, initial encounter; Y93.9 Activity, unspecified; Y92.008 Other place in unspecified non-institutional (private) residence as the place of occurrence of the external cause; I10 Essential (primary) hypertension; K21.9 Gastro-esophageal reflux disease without esophagitis; M19.90 Unspecified osteoarthritis, unspecified site; J44.9 Chronic obstructive pulmonary disease, unspecified; Z85.3 Personal history of malignant neoplasm of breast; Z85.828 Personal history of other malignant neoplasm of skin; Z79.899 Other long term (current) drug therapy; Z79.82 Long term (current) use of aspirin
CPT/HCPCS: G0378

== ENCOUNTER 2017-07-03 09:36 | Day surgery (SDC) | payer MEDICARE, MEDICAID ==
[~2017-07-03] VITALS: Ht 165.1 cm; Wt 95.3 kg
--- NOTE | 2017-07-03 13:35 | Anesthesia Record ---
Anesthesia Record Part I Total IV fluids: 1000 EBL (ml): 10 Urine Output: 0 B/P: 163/89 % SaO2: 95 Pulse: 100 Resps: 16 Temp: 98.1 Patient is: Drowsy, Nasal O2, Stable Stable to PACU at: 1330 at 1335
--- NOTE | 2017-07-03 13:36 | Anesthesia Record ---
Anesthesia Record Part II Discharge time: 1400 Destination: Same day surgery PACU nurse assessment review? Yes Patient is: Stable Anesthesia complications? No at 9635
--- NOTE | 2017-07-03 13:41 | Operative Note ---
Procedure/Operative Record Date of Procedure: 07/03/17 Referring physician: Dr. Parker Pre-op diagnosis: Closed, comminuted, displaced intra-articular fracture, LEFT distal radius Post-op diagnosis: Closed, comminuted, displaced intra-articular fracture, LEFT distal radius Procedure performed: Open reduction and internal fixation LEFT distal radius with volar locking plate. Surgeon: Kirit Boswell MD Administrative Associate(s): Layne Cantu Anesthesia: General Indications: Patient is an 81-year-old uynsr-mefc-ysebqnsm female who sustained a closed displaced intra-articular fracture of her LEFT distal radius when she fell onto outstretched hand after her knee gave out about 8 days ago. Evaluation including x-rays of her LEFT wrist showed a closed, comminuted and displaced intra- articular fracture of the LEFT distal radius. There was dorsal angulation and foreshortening of the radius with loss of radial inclination and loss of the normal volar tilt of the distal radius. The fracture was extending into the radiocarpal joint. Surgery was indicated to reduce and stabilize the fracture in order to decrease pain, restore the anatomy and function. Findings: Displaced, comminuted and unstable intra-articular fracture of the LEFT distal radius as noted on the preoperative x-rays. Bone quality was reasonable. Description of procedure: On the day of the procedure, the patient and her daughter were met in the preoperative area. The patient was positively identified, physical examination performed and documented. Following a detailed discussion with the patient and her daughter about the management options including both nonsurgical and surgical, she elected to proceed with surgical remediation. After appropriate workup, the patient was brought to the hospital for surgery. I have again discussed the details of the procedure, risks and benefits, alternatives and the expected outcomes. The complications discussed include but are not limited to infection, bleeding, injury to nerves, tendons and blood vessels, incisional scar (cosmesis), DVT/PE, malunion, nonunion/delayed union, loss of position, refracture, wrist/finger stiffness, CRPS (complex regional pain syndrome- pain, sensory and temperature changes, swelling and stiffness), painful/prominent hardware, loss of fixation/hardware failure, incomplete relief of pain, incomplete return of function, posttraumatic arthritis and likely need for further surgery in future and also the risks of anesthesia including heart attack, stroke, and . I have discussed how there is a small but real possibility of loss of use of the arm, loss of the limb [amputation] or loss of life itself. I have also explained how additional surgery may be required if there are any complications or the fracture fails to heal. We have also discussed the postoperative pain management, recovery and rehabilitation, immobilization required, the likely need for physical therapy, the possibility of stiffness, chronic pain and we've also discussed the option of nonsurgical treatment. She expressed a full understanding and wished to proceed. The operative side was marked and the consent form was reviewed and signed. Patient was then brought to the operating room and placed supine on the table. The LEFT upper extremity was placed over an arm table. All the bony prominences were well padded. A general anesthesia was administered by the anesthetic team. First we attempted a closed manipulative reduction under C-arm control. We have noted that the fracture is comminuted and very unstable and difficult to reduce and stabilize by closed methods. Therefore we decided to proceed for open reduction and internal fixation with a volar plate. Following this decision, 2 g of IV Ancef was administered by the equal opportunity officer for prophylaxis. A well-padded tourniquet cuff was applied over the LEFT upper arm. The LEFT upper extremity was prepped and draped in the usual sterile fashion. A preprocedure timeout was performed as per hospital protocol. The skin incision was marked over the distal forearm anteriorly for the extended FCR volar approach to distal radius. Limb was exsanguinated with Esmarch bandage and tourniquet was inflated to 250 mmHg. Please see the nursing notes for the total tourniquet time. Skin incision was made over the distal radius for an extended FCR anterior approach. The incision was deepened through the subcutaneous tissue and the FCR tendon was identified. The FCR sheath was opened and the tendon retracted medially. The deeper dissection was carried through the bed of the FCR tendon to expose the FPL muscle and tendon which were retracted medially. The pronator quadratus was released in an L-shaped fashion on the radial and distal margins and elevated from the bone with the periosteal elevator. This exposed the distal radius fracture and the distal shaft of the radius. I then released the distal radius over the lateral border releasing the brachioradialis tendon which gave us access to the comminuted intra-articular dorsal fragments. The fracture site was then cleared of hematoma and, the fracture as well as the soft tissues were thoroughly irrigated with copious amounts of normal saline. The fracture was reduced anatomically under direct vision and fluoroscopic control and provisionally fixed with K wires. Then a 4 holed Livermore distal radius locking plate was positioned across the fracture site and provisionally secured in place with K wires. After confirming the satisfactory reduction and the positioning of the plate under fluoroscopic guidance, a drill hole was made through the oval hole and the plate was secured to the proximal fragment with a cortical screw. Then the distal fragment was secured to the plate with locking and screws in an appropriate fashion. Then the fixation of the plate to the proximal fragment was completed with nonlocking and locking cortical screws. This gave us a very good anatomical reduction of the fracture and a stable fixation. The wrist was put through range of motion and the appropriate placement of the screws and their lengths were confirmed under fluoroscopic screening including a 20 degree lateral view. All the fragments were noted to be well reduced and fixed. No intra-articular screw penetration was noted. The distal radioulnar joint was also screened under fluoroscopy and noted to be stable. Fluoroscopic x-ray images were obtained and stored digitally. The pronator quadratus was repaired with 2-0 Vicryl sutures. The tourniquet was deflated and hemostasis secured with bipolar diathermy. The wound was washed out with normal saline and closed in layers with 3-0 Vicryl to subcutaneous tissue and 4-0 Monocryl subcuticular sutures, Dermabond and Steri- Strips to skin. 10 mL of 0.5 percent Marcaine injected into the skin and subcutaneous tissue for postoperative pain relief. Sterile dressings were applied. The tourniquet cuff was removed. A well-padded short-arm Ortho-Glass splint was applied with the wrist in neutral position. The patient was then reversed from the anesthetic and transferred onto the [facility]. She was then transported to the postoperative recovery area in a stable condition. She tolerated the procedure well and there were no immediate complications. Swabs, needle and instrument counts were correct at the end of the procedure as per the scrub team. After recovering completely from the anesthetic, patient was discharged home with appropriate written instructions. Follow-up in my office in 10-14 days time. EBL (ml): 10 Implant: Livermore distal radius volar locking plate (4 holed) and screws Complications: None Specimens: None at 0952
--- NOTE | 2017-07-03 14:05 | RADIOLOGY REPORT PS360 ---
WRIST-3 VIEWS-LT HISTORY: ORIF LEFT RADIUS ORDERING PHYSICIAN: DINO LAUREN MD PATIENT AGE: 81 years COMPARISON: None FINDINGS: 4 views submitted with the C-arm shows interval placement of an anterior bone plate stabilizing comminuted distal radial fracture in good alignment. IMPRESSION: Status post ORIF distal radial fracture with good alignment
[2017-07-03 17:09] VITALS: BP 158/69
== END 2017-07-03 15:10 | disposition home or self-care (01) ==
LOC: SDC 09:36
PROVIDERS: Orthopaedic Surgery
PROC: 0PSJ04Z Reposition Left Radius with Internal Fixation Device, Open Approach (ICD-10-PCS; principal; 2017-07-03 11:00)
DX: S52.572A Other intraarticular fracture of lower end of left radius, initial encounter for closed fracture (principal); W18.30XA Fall on same level, unspecified, initial encounter
CPT/HCPCS: C1713; C1776; J0131; J2405

== ENCOUNTER → 2017-07-17 | Outpatient (CLI) | payer MEDICARE, MEDICAID ==
--- NOTE | 2017-07-19 23:13 | RADIOLOGY REPORT PS360 ---
WRIST-3 VIEWS- Ordering Physician: DINO LAUREN MD Patient Age: 81 years: Female HISTORY: POST OP FU TECHNIQUE: 3 views left wrist COMPARISON :06/30/2017 and FINDINGS A placement of anterior bone plate secured by multiple screws here at the distal radius. Plate continues along the distal metaphysis of the distal shaft of radius providing fixation to the distal radial fracture. Joint appearance is seen at the articular surface of the distal radius on these views. Distal ulna is intact. Carpals intact. Mild diffuse demineralization. Degenerative arthritic changes at first carpal metacarpal joint. IMPRESSION: 1. Status post ORIF distal radial fracture. Good alignment and position. 2. Arthritic changes first carpal-metacarpal joint incidentally noted as well
== END ==
LOC: RAD 11:07
DX: Z48.89 Encounter for other specified surgical aftercare (principal)

== ENCOUNTER 2017-08-04 16:19 | Emergency (ER) | payer MEDICARE, MEDICAID ==
[~2017-08-04] VITALS: Ht 165.1 cm; Wt 90.3 kg
--- OUTSIDE RECORDS SUMMARY | 2017-08-04 16:23 | External Medical Summary Rpt ---
Author Author [employer], J[employer]DR[employer]ASH[employer] Organization [employer] Address Unknown Phone Unavailable Results Basic metabolic panel in Blood Observa Value Referen Units Interpr Notes Date tion ce etation Range Urea 7 - 18 mg/dL High No Jun 30 nitrogen informati 2016 [Mass/vol on in 10:48 AM ume] in source Serum or data Plasma Calcium 8.5 - mg/dL Normal No Jun 30 [Mass/vol 10.1 informati 2016 ume] in on in 10:48 AM Serum or source Plasma data Chloride 98 - 107 mmoL/L Normal No Jun 30 [Moles/vo informati 2016 lume] in on in 10:48 AM Serum or source Plasma data Carbon 21.0 - mmoL/L Normal No Jun 30 dioxide, 32.0 informati 2016 total on in 10:48 AM [Moles/vo source lume] in data Serum or Plasma Creatinin 0.55 - mg/dL High No Jun 30 e 1.02 informati 2016 [Mass/vol on in 10:48 AM ume] in source Serum or data Plasma Estimated 59- ML/MIN Low REFERENCE Jun 30 RANGE: 2017 glomerula >60 10:48 AM r ML/MIN/1. filtratio 73 SQUARE n rate METERSIf (GF this patient is -A merican, then multiply theresult by 1.210. Glucose 74 - 106 mg/dL Normal No Jun 30 [Mass/vol informati 2016 ume] in on in 10:48 AM Serum or source Plasma data Potassium 3.5 - 5.1 mmoL/L Normal No Jun 30 inform2016 [Moles/vo on in 10:48 AM lume] in source Serum or data Plasma Sodium 136 - 145 mmoL/L Normal No Jun 30 [Moles/vo informati 2017 lume] in on in 10:48 AM Serum or source Plasma data CBC W Auto Differential panel in Blood Observa Value Referen Units Interpr Notes Date tion ce etation Range Basophils 0 - 0.2 K/MM3 Normal No Jun 30 informati 2016 [#/volume on in 10:48 AM ] in source Blood by data Automated count Basophils 0.1 - 2.0 % Normal No Jun 30 / inform2016 leukocyte on in 10:48 AM s in source Blood by data Automated count Eosinophi 0.0 - 0.4 K/mm3 Normal No Jun 30 ls inform2016 [#/volume on in 10:48 AM ] in source Blood by data Automated count Eosinophi 0.1 - % Normal No Jun 30 ls/100 12.0 inform2016 leukocyte on in 10:48 AM s in source Blood by data Automated count Granulocy 1.8 - 7.8 K/mm3 Normal No Jun 30 riley inform2016 [#/volume on in 10:48 AM ] in source Blood by data Automated count Granulocy 37.0 - % Normal No Jun 30 riley/100 80.0 inform2016 leukocyte on in 10:48 AM s in source Blood by data Automated count Hematocri 37.0 - % Low No Jun 30 t [Volume 47.0 informati 2016 on in 10:48 AM Fraction] source of Blood data Hemoglobi 12.2 - g/dL Low No Jun 30 n 16.2 informati 2016 [Mass/vol on in 10:48 AM ume] in source Blood data Lymphocyt 0.7 - 4.5 K/mm3 Normal No Jun 30 es 2016 [#/volume on in 10:48 AM ] in source Unspecifi data ed specimen by Automated count Lymphocyt 10 - 50.0 % Normal No Jun 30 es 2016 [#/volume on in 10:48 AM ] in source Unspecifi data ed specimen by Automated count Erythrocy 27 - 31.2 pg Normal No Jun 30 te mean 2016 corpuscul on in 10:48 AM ar source hemoglobi data n [Entitic mass] Erythrocy 31.8 - g/dl Low No Jun 30 te mean 35.4 inform2016 corpuscul on in 10:48 AM ar source hemoglobi data n concentra tion [Mass/vol ume] by Automated count Erythrocy 82.2 - fl Normal No Jun 30 te mean 97.8 inform2016 corpuscul on in 10:48 AM ar volume source [Entitic data volume] by Automated count Monocytes 0.1 - 1.0 K/mm3 Normal No Jun 302016 [#/volume on in 10:48 AM ] in source Blood by data Automated count Monocytes 1.7 - 9.3 % Normal No Jun 30 /100 informati 2017 leukocyte on in 10:48 AM s in source Blood by data Automated count Platelet 7.4 - fl Normal No Jun 30 mean 10.4 informati 2016 volume on in 10:48 AM [Entitic source volume] data in Blood by Automated count Platelets 142 - 424 K/mm3 No No Jun 30 informati informati 2016 [#/volume on in on in 10:48 AM ] in source source Blood data data Erythrocy 4.2 - 5.4 M/mm3 Low No Jun 30 riley informati 2016 [#/volume on in 10:48 AM ] in source Amniotic data fluid Erythrocy 11.5 - % Normal No Jun 30 te 17.5 informati 2016 distribut on in 10:48 AM ion width source [Entitic data volume] by Automated count Leukocyte 4.8 - K/MM3 Normal No Jun 30 s 10.8 informati 2016 [#/volume on in 10:48 AM ] in source Blood data Basic metabolic panel in Blood Observa Value [...] 59- ML/MIN Low REFERENCE Sep 11 RANGE: 2016 6:09 glomerula >60 AM r ML/MIN/1. filtratio [...] Normal No Sep 11 riley/100 80.0 informati 2017 6:09 leukocyte on in AM [...] % Normal No Sep 11 es informati 2016 6:09 [#/volume on in AM [...] 1.0 K/mm3 Normal No Sep 11 informati 2016 [...] No Sep 10 t [Volume 47.0 informati 2016 5:25 on in PM Fraction] source of Blood data Hemoglobi 12.2 - g/dL Low No Sep 10 n 16.2 inform2016 5:25 [Mass/vol on in PM ume] in source Blood data Lymphocyt 0.7 - 4.5 K/mm3 Normal No Sep 10 es informati 2016 5:25 [#/volume on in PM ] in source Unspecifi data ed specimen by Automated count Lymphocyt 10 - 50.0 % Normal No Sep 10 es inform2016 5:25 [#/volume on in PM ] in source Unspecifi data ed specimen by Automated count Erythrocy 27 - 31.2 pg Normal No Sep 10 te mean informati 2016 5:25 corpuscul on in PM ar source hemoglobi data n [Entitic mass] Erythrocy 31.8 - g/dl Low No Sep 10 te mean 35.4 informati 2016 5:25 corpuscul on in PM ar source hemoglobi data n concentra tion [Mass/vol ume] by Automated count Erythrocy 82.2 - fl Normal No Sep 10 te mean 97.8 informati 2016 5:25 corpuscul on in PM ar volume source [Entitic data volume] by Automated count Monocytes 0.1 - 1.0 K/mm3 Normal No Sep 10 informati 2016 5:25 [#/volume on in PM [...] - 5.4 M/mm3 Low No Sep 10 rilye informati 2017 5:25 [#/volume on in PM [...] High No Sep 10 e 1.02 informati 2017 5:25 [Mass/vol on in PM ume] in source Serum or data Plasma Creatinin 50 - 200 ML/MIN Low No Sep 10 e renal informati 2016 5:25 clearance on in PM source predicted [...] mg/dL High No Sep 10 [Mass/vol informati 2016 5:25 ume] in on in PM Serum [...] gm/dL Low No Sep 10 [Mass/vol informati 2016 5:25 ume] in on in PM Serum or source Plasma data
--- OUTSIDE RECORDS SUMMARY | 2017-08-04 16:23 | External Medical Summary Rpt | CCD ---
Author Author [employer] Address Unknown Phone Unavailable Purpose Continuity of Care Document - through 2016
--- OUTSIDE RECORDS SUMMARY | 2017-08-04 16:23 | External Medical Summary Rpt | CCD ---
Author Author , ADRIANNE JAMIL Address Unknown Phone [email or web address] Immunization Name Date Rout CVX Reac Dose Comm Prov Is Faci e tion ent ider Refu lity Give sed n PCV1 09-1 Intr 133 0.5 Hist PD20 No PD20 3 4-20 amus mL oric 256 256 17 cula al r Info rmat ion - Sour ce Unsp ecif ied
--- OUTSIDE RECORDS SUMMARY | 2017-08-04 16:23 | External Medical Summary Rpt | CCD ---
Author Author , ADRIANNE JAMIL Address Unknown Phone [email or web address] Immunization Name Date Rout CVX Reac Dose Comm Prov Is Faci e tion ent ider Refu lity Give sed n PCV1 09-1 Intr 133 0.5 Hist PD20 No PD20 3 4-20 amus mL oric 256 256 17 cula al r Info rmat ion - Sour ce Unsp ecif ied
--- OUTSIDE RECORDS SUMMARY | 2017-08-04 16:23 | External Medical Summary Rpt | CCD ---
Author Author , LOULOU JAMIL Address Unknown Phone [email or web address] Purpose Continuity of Care Document - 05-10-2017 through 2016 Problems Code Diagnosis DOS Provider Status 786.50 D50.9 IRON DEFICIENCY ANEMIA, UNSPECIFIED D64.9 ANEMIA, UNSPECIFIED [id number] J10.1 FLU DUE TO OTH IDENT INFLUENZA [...] OTHER SPECIFIED INJURIES OF ABDOMEN, INITIAL ENCOUNTER S52.502A UNSP FRACTURE OF THE LOWER END OF LEFT RADIUS, INIT Z79.899 OTHER [employer]PER[employer] (CURRENT) DRUG THERAPY Results Labs Lab Lab Date Result Refere Interp Status Commen Order Detail nces retati t Range on CBC w auto diff (06-30-2017 10:48) Automat 2 = 0.1 0-0.2 complet ed 017 K/MM3 ed blood 10:48 basophi l count (count/ vo Baso % = 0.9 % 0.1-2.0 complet 017 ed 10:48 Automat 2 = 0.1 0.0-0.4 complet ed 017 K/mm3 ed blood 10:48 eosinop hil count Automat = 1.7 % 0.1-12. complet ed 017 0 ed blood 10:48 eosinop hils/10 0 leukocy t Blood = 5.6 1.8-7.8 complet granulo 017 K/mm3 ed cytes 10:48 automat ed count (numb Granulo = 75.9 37.0-80 complet cyte 017 % .0 ed percent 10:48 age Blood = 33.3 37.0-47 complet hematoc 017 % .0 ed rit 10:48 (volume fractio n) Blood = 10.0 12.2-16 complet hemoglo 017 g/dL .2 ed bin 10:48 measure ment (mass/v olum Absolut = 1.0 0.7-4.5 complet e 017 K/mm3 ed lymphoc 10:48 yte count Lymphoc = 13.9 10-50.0 complet yte 017 % ed count, 10:48 blood, automat ed Mean = 27.5 27-31.2 complet corpusc 017 pg ed ular 10:48 hemoglo bin ([facility]) determ Automat = 30.1 31.8-35 complet ed 017 g/dl .4 ed erythro 10:48 cyte mean corpusc ular h Automat = 91.1 82.2-97 complet ed 017 fl .8 ed erythro 10:48 cyte mean corpusc ular v Absolut = 0.6 0.1-1.0 complet e 017 K/mm3 ed monocyt 10:48 e count Tompkins % = 7.6 % 1.7-9.3 complet 017 ed 10:48 Automat = 7.4 7.4-10. complet ed 017 fl 4 ed blood 10:48 platele t mean volume florian Blood = 349 142-424 complet platele 017 K/mm3 ed t count 10:48 Red = 3.65 4.2-5.4 complet blood 017 M/mm3 ed cell 10:48 count Automat = 14.7 11.5-17 complet ed 017 % .5 ed erythro 10:48 cyte distrib ution width Blood = 7.4 4.8-10. complet leukocy 017 K/MM3 8 ed riley 10:48 count (number /volume ) Basic metabolic panel (06-30-2017 10:48) Serum = 24 7-18 complet or 017 mg/dL ed plasma 10:48 urea nitroge n measure men Serum 06-30-2 = 9.2 8.5-10. complet or 017 mg/dL 1 ed plasma 10:48 calcium measure ment (mas Serum 2 = 107 98-107 complet or 017 mmoL/L ed plasma 10:48 chlorid e measure ment (mo Carbon 2 = 28 21.0-32 complet dioxide 017 mmoL/L .0 ed 10:48 measure ment Serum 2 = 1.8 0.55-1. complet or 017 mg/dL 02 ed plasma 10:48 creatin ine measure ment ( Estimat 2 = 27 59- complet ed 017 ML/MIN ed glomeru 10:48 lar filtrat ion rate (GF Comment: REFERENCE RANGE: >60 ML/MIN/1.73 SQUARE METERS Comment: If this patient is -Latvian, then multiply the Comment: result by 1.210. Serum 2 = 105 74-106 complet or 017 mg/dL ed plasma 10:48 glucose measure ment (mas Serum 2 = 4.6 3.5-5.1 complet potassi 017 mmoL/L ed um 10:48 measure ment Serum 2 = 142 136-145 complet sodium 017 mmoL/L ed measure 10:48 ment
--- OUTSIDE RECORDS SUMMARY | 2017-08-04 16:23 | External Medical Summary Rpt | CCD ---
Author Author , LOULOU JAMIL Address Unknown Phone [email or web address] Purpose Continuity of Care Document - 05-10-2017 through 2016 Problems Code Diagnosis DOS Provider Status 786.50 D50.9 IRON DEFICIENCY ANEMIA, UNSPECIFIED D64.9 ANEMIA, UNSPECIFIED [id number] J10.1 FLU DUE TO OTH IDENT INFLUENZA [...] END OF LEFT RADIUS, INIT Z79.899 OTHER [employer] END (CURRENT) DRUG THERAPY Results Labs Lab Lab [...] 017 K/mm3 ed monocyt 10:48 e count Hancock % = 7.6 % 1.7-9.3 complet 017 [...] SQUARE METERS Comment: If this patient is -German, then multiply the Comment: result by 1.210. Serum 2 = 105 74-106 complet or 017 mg/dL ed plasma 10:48 glucose measure ment (mas Serum 2 = 4.6 3.5-5.1 complet potassi 017 mmoL/L ed um 10:48 measure ment Serum 2 = 142 136-145 complet sodium 017 mmoL/L ed measure 10:48 ment
--- NOTE | 2017-08-04 16:47 | Urgent Treatment Center Report ---
History of Present Issue Date/Time Seen by Provider 08/04/17 8847 Visit Reason Pt arrived:Wheelchair Presenting Problem:PT STATES THAT SHE HAS BEEN DIZZY THE LAST FEW DAYS AND HAD DIARRHEA. DAUGHTER STATES PT HAS A HX OF ANEMIA. Location if Accident: Onset of symptoms date/time:/ or onset unknown for:MEDICAL HX UNKNOWN Have you (or family members/close friends) recently traveled outside the [place]? N If Yes, where/when: Have you had exposure to infectious disease within the past month? TB? Other? Specify: ALLERGIES Coded Allergies: Sulfa (Sulfonamide Antibiotics) (Severe, I-HIVES 07/03/17) iodine (Severe, S-ANAPHYLAXIS 07/03/17) Penicillins (Intermediate, I-RASH 07/03/17) codeine (NA-HALLUCINATIONS 07/03/17) hydrogen peroxide (07/03/17) Home Medications Reported Medications VERAPAMIL HCL (Verapamil ER) 240 MG PO DAILY PAROXETINE (Paroxetine HCl) 20 MG PO DAILY Omeprazole (Omeprazole Dr) 20 MG PO DAILY Isosorbide Mononitrate (Isosorbide Mononitrate ER) 30 MG PO DAILY Aspirin 81 MG PO DAILY Acetaminophen (Acetaminophen Extra Strength) 500 MG PO Q6HP PRN HIP PAIN CHOLECALCIFEROL (VITAMIN D3) (Vitamin D) 1,000 IUNITS PO DAILY History Medical History General CAD? No Angina: No [place]: No Hypertension? Yes Hyperlipidemia? No CHF? No DVT? No PE? No COPD? Yes Asthma? No Anemia? Yes GERD? No Gastric ulcers? No GI Bleed? No Hernia? Yes Thyroid Problems? No Hypothyroidism? No CVA? No Seizures? No Diabetes? No Renal Insuffiency? No UTI? Yes Stones? No BPH? No GB Disease: Yes Nephritic Syndrome? No Asplenia? No Hepatitis? No Sickle Cell Disease? No Arthritis? Yes Migraines? No Cataracts? Yes Glaucoma? No MRSA? No HIV? No TB? No Anxiety? Yes Depression? 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
--- NOTE | 2017-08-04 16:47 | Urgent Treatment Center Report ---
History of Present Issue Date/Time Seen by Provider 08/04/17 1517 Visit Reason Pt arrived:Wheelchair Presenting Problem:PT STATES THAT SHE HAS BEEN DIZZY THE LAST FEW DAYS AND HAD DIARRHEA. DAUGHTER STATES PT HAS A HX OF ANEMIA. Location if Accident: Onset of symptoms date/time:/ or onset unknown for:MEDICAL HX UNKNOWN Have you (or family members/close friends) recently traveled outside the [place]? N If Yes, where/when: Have you had exposure to infectious disease within the past month? TB? Other? Specify: ALLERGIES Coded Allergies: Sulfa (Sulfonamide Antibiotics) (Severe, I-HIVES 07/03/17) iodine (Severe, S-ANAPHYLAXIS 07/03/17) Penicillins (Intermediate, I-RASH 07/03/17) codeine (NA-HALLUCINATIONS 07/03/17) hydrogen peroxide (07/03/17) Home Medications Reported Medications VERAPAMIL HCL (Verapamil ER) 240 MG PO DAILY PAROXETINE (Paroxetine HCl) 20 MG PO DAILY Omeprazole (Omeprazole Dr) 20 MG PO DAILY Isosorbide Mononitrate (Isosorbide Mononitrate ER) 30 MG PO DAILY Aspirin 81 MG PO DAILY Acetaminophen (Acetaminophen Extra Strength) 500 MG PO Q6HP PRN HIP PAIN CHOLECALCIFEROL (VITAMIN D3) (Vitamin D) 1,000 IUNITS PO DAILY History Medical History General CAD? No Angina: No [place]: No Hypertension? Yes Hyperlipidemia? No CHF? No DVT? No PE? No COPD? Yes Asthma? No Anemia? Yes GERD? No Gastric ulcers? No GI Bleed? No Hernia? Yes Thyroid Problems? No Hypothyroidism? No CVA? No Seizures? No Diabetes? No Renal Insuffiency? No UTI? Yes Stones? No BPH? No GB Disease: Yes Nephritic Syndrome? No Asplenia? No Hepatitis? No Sickle Cell Disease? No Arthritis? Yes Migraines? No Cataracts? Yes Glaucoma? No MRSA? No HIV? No TB? No Anxiety? Yes Depression? 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
--- NOTE | 2017-08-04 17:36 | Emergency Room Report ---
History of Present Illness Time Seen by [id number] Presenting Problem in Triage Pt arrived:Wheelchair Presenting Problem:PATIENT HAS BEEN DIZZY AND LIGHTHEADED FOR FOUR DAYS. HAS HAD SLIGHT DIARRH EA FOR TWO DAYS. HISTORY OF CHRONIC ANEMIA AND BLOOD TRANSFUSION. Onset of symptoms date/time:07/31/1709/16/799 or onset unknown for:MEDICAL HX UNKNOWN Treatment Prior to Arrival: VERIFICATION LEAD Provided by: Sepsis Risk Assessment: Temp: 98.0 B/P: 126/55 MAP: 78 Pulse: 56 Resp: 20 Recent fever? N Clinical Suspician of Infection? N Mental Status: 1 - Regular (Normal Baseline) Sepsis Risk:Low Sepsis Risk Have you (or family members/close friends) recently traveled outside the [place]? N If Yes, where/when: Have you had exposure to infectious disease within the past month? TB? Other? Specify: RUQ abdominal pain for the past few days, some loose stools; no acute melena, no hematemesis; hx chronic anemia, unknown etiology, has required transfusion in the past. No fever. No vomiting. Pain nonradiating; hx choly. Feels a little lightheaded; no chest pain; no syncope; no cephalgia; no unilateral neurological sx; feels this way sometimes when she is more anemic than usual. No congestion. ALLERGIES Coded Allergies: Sulfa (Sulfonamide Antibiotics) (Severe, I-HIVES 07/03/17) iodine (Severe, S-ANAPHYLAXIS 07/03/17) Penicillins (Intermediate, I-RASH 07/03/17) codeine (NA-HALLUCINATIONS 07/03/17) hydrogen peroxide (07/03/17) Home Medications Reported Medications VERAPAMIL HCL (Verapamil ER) 240 MG PO DAILY PAROXETINE (Paroxetine HCl) 20 MG PO DAILY Omeprazole (Omeprazole Dr) 20 MG PO DAILY Isosorbide Mononitrate (Isosorbide Mononitrate ER) 30 MG PO DAILY Aspirin 81 MG PO DAILY Acetaminophen (Acetaminophen Extra Strength) 500 MG PO Q6HP PRN HIP PAIN CHOLECALCIFEROL (VITAMIN D3) (Vitamin D) 1,000 IUNITS PO DAILY History Medical History General CAD? No Angina: No [place]: No Hypertension? Yes Hyperlipidemia? No CHF? No DVT? No PE? No COPD? Yes Asthma? No Anemia? Yes GERD? No Gastric ulcers? No GI Bleed? No Hernia? Yes Thyroid Problems? No Hypothyroidism? No CVA? No Seizures? No Diabetes? No Renal Insuffiency? No End Stage Renal Disease? No UTI? Yes Stones? No BPH? No GB Disease: Yes Nephritic Syndrome? No Asplenia? No Hepatitis? No Sickle Cell Disease? No Arthritis? Yes Migraines? No Cataracts? Yes Glaucoma? No MRSA? No HIV? No TB? No Anxiety? Yes Depression? 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 Immunization Hx DT/Tetanus 1-4 Years Ago Flu NEVER Pneumonia Received In Past Surgical Hx Previous Surgery?Y HEMORRHOID LUMPECTOMY CHOLECYSTECTOMY HIP REPLACEMENT Family History Family Hx Diabetes Yes CAD Yes Hypertension Yes Hyperlipidemia Yes Cancer Yes TB No Social History Smoking Hx Smoker: Never Smoker Tobacco: No Alcohol Alcohol: No Review of Systems All Other Systems Reviewed and Negative Gastrointestinal see HPI Psychiatric/Neurological see HPI Physical Exam Vital Signs Vital Signs Date Time Temp Pulse Resp B/P Pulse O2 O2 Flow FiO2 Ox Delivery Rate 08/04 1941 63 16 134/67 94 08/04 1716 98.0 56 20 126/55 90 08/04 1629 97.5 68 22 124/84 96 General Appearance normal appearance, WD/WN, no apparent distress Eye Exam - bilateral eye normal exam, bilateral eye PERRL, bilateral eye EOMI Neck normal inspection, non-tender, supple, full range of motion Respiratory Status Yes: trachea midline, chest symmetrical, non tender chest. No: respiratory distress, tender on palpation, use of accessory muscles, pain on inspiration, pain on expiration, productive cough, non productive cough. Lung Sounds bilateral: normal breath sounds, lungs clear. 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 No Results/Orders Laboratory Tests 08/04/17 1757: Sodium 141, Potassium 4.3, Chloride 107, Carbon Dioxide 24, BUN 29 H, Creatinine 2.3 H, Estimated Creat Clear 27 L, Estimated GFR (MDRD) 20 L, Glucose 131 H, Calcium 8.9, Total Bilirubin 0.2, AST 15, ALT 14, Alkaline Phosphatase 170 H, Total Protein 6.0 L, Albumin 3.1 L, Globulin 2.9, Albumin/ Globulin Ratio 1.1, Lipase 270, PT 10.4, INR 0.96, APTT 26.8, D-Dimer 1630 *H, WBC 4.7 L, RBC 3.16 L, Hgb 8.7 L, Hct 27.7 L, MCV 87.7, RDW 15.5, Plt Count 239, MPV 7.9, Gran % 71.6, Gran # 3.4, Lymphocytes % 18.7, Monocytes % 7.4, Eosinophils % 1.7, Basophils % 0.7, Lymphocytes # 0.9, Monocytes # 0.4, Eosinophils # 0.1, Basophils # 0.0, PUBS MCHC 30.8 L, MCH 27.0 Current Medication Orders Sig/Yesi Start time Last Medication Dose Route Stop Time Status Admin Sodium Chloride 1,000 ML .Q4H 08/04 1845 AC 08/04 IV 08/04 2244 1842 Sodium Chloride 10 ML PRN PRN 08/04 184 AC IV 08/05 1832 Sodium Chloride 1,000 ML .STK-MED ONE 08/04 1836 DC IV Sodium Chloride 10 ML PRN PRN 08/04 1715 AC IV 08/05 171 Orders Procedure Date/time Status DIET-NOTHING BY MOUTH 08/05 B Active ELECTROCARDIOGRAM REQUEST 08/[address] ABD/PELVIS REQ 08/04 1716 Complete IV SALINE LOCK 08/04 1716 Active URINALYSIS/COMPLETE 08/04 1716 Active PROTIME/PARTIAL PROTIME 08/04 1716 Complete LIPASE 08/04 1716 Complete D-DIMER 08/04 1716 Complete CBC WITH AUTO DIFF 08/04 1716 Complete CHEM 12 PROFILE 08/04 1716 Complete 12 LEAD EKG-CHARANJIT (INITIAL) 08/[address] ABD & PELVIS W/O CONTRAST 08/04 UNK Active CM/EKG CM/EKG EKG rate, NSR, rhythm, no evid. of ischemic chgs, no ectopy, normal QRS, normal MS (1st deg AVB;LVH; SB 54), normal EKG Pulmonary Embolism Score WELL'S CRITERIA FOR PE WELL'S CRITERIA FOR PE Response Value Clinical signs/symptoms of DVT NO 0 PE is #1 diagnosis or equally likely NO 0 Heart rate is > 100 NO 0 Immobile at least 3 days, or surgery in past 4 wks NO 0 Previously, obj. diagnosed PE or DVT NO 0 Hemoptysis NO 0 Malignancy w/Rx within 6mo, or palliative NO 0 Total 0 Progress ED Progress Notes Date 08/04/17 Time 1939 Comment Feeling better s/p IVF Departure Departure Time of Disposition 1940 Disposition DC Home or Self Care(routine) Clinical Impression Primary Impression: Lightheaded Secondary Impressions: Anemia Qualifiers: Anemia type: unspecified type Qualified Code: D64.9 - Anemia, unspecified Dehydration Condition STABLE Referrals Thanh Parker MD (Family) Additional Instructions See Dr. Parker for recheck in one to three days, encourage by mouth fluids. Discharge Counseling Counseled pt/family regarding diagnosis, test results, home care, follow up needs ED Critical Care Critical Care No at 1942
[2017-08-04 18:12] LABS: LYMPH # 0.9 K/mm3 (0.7-4.5); LYMPH % 18.7 % (10-50.0)
[2017-08-04 18:27] LABS: HEMOGLOBIN 8.7 g/dL (12.2-16.2)
[2017-08-04 19:47] VITALS: BP 134/67
--- NOTE | 2017-08-05 06:41 | RADIOLOGY REPORT PS360 ---
CT ABD PELVIS W/O CONTRAST CLINICAL INDICATION: RUQ PAIN ORDERING PHYSICIAN: Saira Montelongo MD PATIENT AGE: 82 years COMPARISON: 05/10/2017 TECHNIQUE: Axial images obtained with sagittal and coronal reformats. PROCEDURE: Oral Contrast: None IV Contrast: None . FINDINGS: There is moderate sized hiatal hernia. Prior cholecystectomy. No ductal dilatation. The liver, spleen, adrenal glands, and pancreas have an unremarkable unenhanced CT appearance. There is a 7 x 7 cm cyst projecting off the posterior aspect of the left kidney superiorly. A 2 cm cyst projects off the lateral aspect of the right kidney. No hydronephrosis or obstructing ureteral calculus. No evidence of appendicitis. There is extensive diverticulosis of the transverse, descending, and sigmoid colon. No evidence of diverticulitis. No abnormal pelvic fluid collections or focal inflammatory change. No intestinal obstruction or free air. There is a small para umbilical hernia which contains fat. Degenerative changes are present in the lumbar spine. IMPRESSION: 1. Moderate-sized hiatal hernia and small paraumbilical hernia 2. Colonic diverticulosis. No evidence of diverticulitis. 3. Bilateral renal cysts
== END 2017-08-04 19:48 | disposition home or self-care (01) ==
LOC: UTC 16:19 → ER 16:21
PROVIDERS: Emergency Medicine
DX: R42 Dizziness and giddiness (principal); D64.9 Anemia, unspecified; E86.0 Dehydration; I10 Essential (primary) hypertension; J44.9 Chronic obstructive pulmonary disease, unspecified; F41.9 Anxiety disorder, unspecified; Z88.0 Allergy status to penicillin; Z88.2 Allergy status to sulfonamides